=== PATIENT | male | born 1940 | race Caucasian/White ===

== ENCOUNTER → 2017-03-08 | Outpatient (CLI) | payer MEDICARE, OTHER ==
[~2017-03-08] MED LIST: ATOR10TA15 PO; COMB0.2S LEFT EYE; ENALAPRILAT 1.25 MG/ML VIAL ONE; GLIP5TAB8 PO; GLYB1TAB51; HYDR50TA5; LISI-515 PO; METF500T PO; METF850T; METO25TA6 PO; PIOG30TA4 PO; TOPR200T; ZOCO40TA; cloNIDine HCL 0.1 MG TAB ONE
[2017-03-08 13:23] LABS: HEMATOCRIT 37.8 % (39.0-51.0); MEAN CELL VOLUME 94.6 FL (80.0-100.0); MEAN CORPUSCULAR HEMOGLOBIN 32.1 PG (27.0-34.0); PLATELET COUNT 223 TH/MM3 (150-450); RED CELL DISTRIBUTION WIDTH 14.4 % (11.6-17.2); REVIEW FLAG FINAL; WHITE BLOOD COUNT 7.2 TH/MM3 (4.0-11.0)
[2017-03-08 13:40] LABS: BICARBONATE 33.3 MEQ/L (21.0-32.0); POTASSIUM 4.4 MEQ/L (3.5-5.1)
--- NOTE | 2017-03-08 14:58 | RADRPT ---
EXAM DATE/TIME: 03/08/2017 13:49 [place] COMPARISON: No previous studies available for comparison. INDICATIONS : Evaluate for pneumonia, pneumothorax, or communicable disease. Pre op for skin cancer surgery. MEDICAL HISTORY : None. SURGICAL HISTORY : None. ENCOUNTER: Initial ACUITY: 1 day PAIN SCORE: 0/10 LOCATION: Bilateral chest FINDINGS: There is patchy opacity within the right medial lung base consistent with atelectasis and/or infiltra te. Clinical correlation is recommended. The left lung is clear. The heart and mediastinal structure s are normal. The pulmonary vascular pattern is normal. CONCLUSION: Right medial basilar patchiness consistent with atelectasis and/or pneumonia. Clinical correlation is recommended. Fabián Juárez MD on March 08, 2017 at 14:54 Board Certified Radiologist. This report was verified electronically.
--- NOTE | 2017-03-09 19:34 | EKG ---
Date Performed: 03/08/2017 Time Performed: 13:14:27 PTAGE: 76 years EKG: Sinus rhythm Compared to prior tracing no significant change NORMAL ECG NO PREVIOUS TRACING DOCTOR: Darren Jaramillo Interpretating Date/Time 03/09/2017 19:32:15
== END ==
LOC: CPRE 12:44
PROVIDERS: ATTEND Plastic Surgery
DX: Z01.812 Encounter for preprocedural laboratory examination (principal); Z01.811 Encounter for preprocedural respiratory examination; Z01.810 Encounter for preprocedural cardiovascular examination; C44.02 Squamous cell carcinoma of skin of lip
CPT/HCPCS: 36415; 71020; 80051; 85027; 93005

== ENCOUNTER → 2017-03-09 | Day surgery (SDC) | payer MEDICARE, OTHER ==
--- NOTE | 2017-03-08 16:39 | MH ---
cc: GAUDENCIO CONROY M.D. 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 HISTORY OF PRESENT ILLNESS: This is a 76-year-old white male referred to my office from the dermatology office and primary care physician who had a recent biopsy done at the dermatology office on his lower lip which turned out to be a squamous cell carcinoma. The pathology report shows the date of biopsy January 12, 2017. The report was made on January 18, 2017; it does not specifically identify the border of the deep margins or give any further information than the presence of the squamous cell carcinoma. The patient says that he had the lip lesion off and on for approximately 5+ years. It has been frozen before. It has been shaved before and it always comes back. It is approximately 2-3 cm horizontal and covers most of the red mucosal part of the lip and also he says that there is a lesion involving the skin side right on the border as well. He did have a surgery done by an ENT surgeon in the past who went with a vertical wedge resection and closed the wound. The wound opened up and he had to have a second closure and third surgery by a plastic surgeon to repair the lip and this was all done in [facility]. The patient also had surgery on the left side of his neck, apparently a radical neck dissection and radiation therapy to cover metastatic disease in the lymph nodes, the information is not available through the patient but he does mention that they could not find a primary focus. Only the lymph nodes were treated. It is not clear if the lower lip lesion had anything to do with the lymph node business. The patient is a nonsmoker. 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 The patient does have additional numerous skin lesions both involving the head and neck and torso and extremities. These are all being handled by the dermatology office and will not be addressed through my office. The patient underwent a detailed discussion about his current condition, the technical of a direct excision with anywhere from 4-6 mm margin is possible and including the superficial layer of the orbicularis muscle in order to remove the deepest part of the lesion was explained. The vermilion border will be most likely removed as well due to the proximity of the lesion right at the border and also some degree of irregularity of the border itself suggesting the involvement of the skin side in the cancer process as well. The resulting defect is fairly wide. The patient already had a wedge excision done and he has difficulty opening his mouth and biting into a hamburger or any larger piece of food. He does not want to make the mouth any narrower than it already is. The different surgical techniques were discussed including a lip sharing operation which would essentially result in narrowing both upper and partly the lower lip, also a step design can be used on the outside soft tissues and the muscle for the lower lip with internal mucosal advancement flap without changing the horizontal dimension of the defect to any significant degree and the last two options being a mucosal graft full-thickness from the inside the mouth to the open areas on the lip itself and the possibility of using a full-thickness skin graft from the right or left neck or other body areas to provide a thicker soft tissue cover over the exposed denuded orbicularis rere muscle. The patient understands that the graft are not always successful and that there may be an open wound with further treatment and surgeries in the future. Currently the priority is to remove the ongoing and recurrent squamous cell carcinoma that he has. PAST MEDICAL HISTORY: The patient's past medical history is significant for a systolic murmur that seems to be diagnosed as aortic stenosis; he is not symptomatic. He says that he may have a had rheumatic sore throat as a child but again for his age, no medical record goes that far back. Other listed information I received from Dr. Ravi includes: 2. Type 2 diabetes. 3. Vitamin D deficiency 4. Hyperlipidemia. 5. Testicular hypofunction. 6. Retinal detachment. 7. Aortic valve disorder. 8. Carotid artery stenosis. 9. Peripheral vascular disease. 10. Actinic keratosis. 11. Skin cancers. 12. History of bone and articular disorders. 13. Arthritis. 14. Osteopenia. 15. Fatigue. 16. Previous history of hemoptysis. 17. History of multiple bruising. PAST SURGICAL HISTORY: 1. Multiple surgeries on the left eye for the retinal damage and bilateral cataracts in 2004. 2. 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 3. Removal of the lymph node dissection listed as 2006. MEDICATIONS: Current medications listed: 1. Atorvastatin. 2. Clotrimazole. 3. Combigan Eye Drops. 4. Doxycycline in the past. 5. Fluorouracil cream. 6. Glipizide tablets. 7. Lisinopril. 8. Metformin. 9. Moviprap. 10. Bacitracin Ointment. 11. Pioglitazone tablets. 12. Toprol XL. ALLERGIES: 1. PENICILLIN. 2. SULFA. REVIEW OF SYSTEMS: HEIGHT: He is 6 feet 1 inch tall. WEIGHT: 165 pounds. SOCIAL HISTORY: No current smoking. He smoked for a couple of years back in the 1960s and quit in 1964. Alcohol socially. No street drugs. No risk factors for hepatitis or HIV. No history of blood transfusions. No current cardiac issues. PHYSICAL EXAMINATION: GENERAL: Examination shows a 76-year-old white male with stable vital signs. The patient is alert, cooperative, fully oriented, emotionally stable, fully ambulatory by himself. HEAD AND NECK: Clear sclerae. Pupils are equal and round. Cataract lens is noted. No scleral discoloration. Trachea is midline. No gross thyromegaly. NECK: Neck movements are adequate for his age. Fairly long neck. CHEST: Good expansion with normal breathing. Normal heart sounds. Normal breath sounds. Presence of strong systolic murmur mostly in the aortic area and being conducted to the carotid arteries. Difficult to determine carotid bruit because of the background systolic murmur. EXTREMITIES: The upper and lower extremities are grossly intact. MUSCULOSKELETAL: No gross spine deformities. Local examination of the overall skin shows numerous skin lesions in various stages of growth and healing and also old scars. The particular local examination of the lower lip problem shows an irregular reddish-white mucosal lesion involving the approximately two-thirds of the entire lip mostly in the midline on the right and left sides. The corners of the mouth are somewhat clear. The lesion is approximately 2.0 to 2.3 cm horizontal and about 10 to 12 mm anteroposterior. The anterior border is involving the vermilion border itself. There is a surgical scar noted in the vertical orientation going down to the chin. The inside of the mouth seems to show relatively normal-looking mucosa. The upper lip is clear. No gross lymph nodes noted in the submandibular region. The neck tissues are somewhat firm to palpation due to the previous surgical changes and radiation therapy. CLINICAL IMPRESSION: Chronic and possibly multiple recurrent squamous cell carcinoma involving the lower lip. PLAN: The plan is to excise the entire area with frozen section control. The reconstruction may at this point be either with full thickness mucosal graft from inside the mouth or if the defect is large enough a full thickness skin graft. No immediate plan for any lip sparing operations. It may be necessary to do advancement of the lower lip soft tissues if the depth of the overall defect is excessive. The patient understands the possibility of graft failure, chronic open wound the deformities resulting from the same and the overall asymmetry and appearance mismatch that will result after the surgery from multiple future surgeries are also possible. The patient is willing to go ahead with the surgery. SIGNED, NOT FULLY REVIEWED MD ABNER Watson/FABIAN /3:25 PM /4:09 PM DELTA
[~2017-03-09] VITALS: Ht 185.4 cm; Wt 77.1 kg
[~2017-03-09] MED LIST changes: +*ENALAPRILAT 1.25 MG/ML VIAL PERIprocedural Use ONLY ONE; +ATORVASTATIN 10 MG TAB PO SCH; +BACITRACIN TOP OINT 15 GM TUBE ONE; +BRIMONIDINE TARTRATE 0.2% OPHT SOLN 5 ML BTL LEFT EYE SCH; +BUPIVACAINE HCL PF 0.5% 30 ML VIAL ONE; +BUPIVACAINE/EPINEPHRINE 0.25% PF 30 ML VIAL ONE; +CHLORHEXIDINE GLUCONATE 2 % 1 PACK (2 CLOTHS) TOPICAL PRN; +CLINDAMYCIN 600 MG/NS 100 ML IV SCH; +DEXAMETHASONE SOD PHOS 4 MG/ML VIAL ONE; +DEXTROSE 50% IN WATER 50 ML VIAL(D50) IV PUSH PRN; +DO NOT ADM ANY ANTICOAGULANT DRUGS PRN; -ENALAPRILAT 1.25 MG/ML VIAL ONE; +EPINEPHrine HCL (1:1000) 1 MG/ML VIAL ONE; +GLUCAGON 1 MG/ML VIAL OTHER PRN; -GLYB1TAB51; -HYDR50TA5; +INSULIN ASPART SUPPLEMENTAL SCALE SQ SCH; +INSULIN HUMAN REGULAR 1,000 UNITS/10 ML VIAL SQ PRN; +LACTATED RINGER'S 1000 ML INJ 1,000 ML IV ONE; +LACTATED RINGER'S 1000 ML IV PRN; +LIDOCAINE 1%/EPINEPHrine 1:100,000 SOLN 20 ML VIAL ONE; +LISINOPRIL 20 MG TAB PO SCH; -METF850T; +METOPROLOL SUCCINATE 25 MG EXTENDED RELEASE TAB PO SCH; +METOPROLOL TARTRATE 25 MG TAB PO PRN; +MIDAZOLAM HCL 2 MG/2 ML VIAL ONE; +MINERAL OIL 10 ML VIAL ONE; +MORPHINE SULFATE 4 MG/ML INJ ONE; +NEOMYCIN/POLYMYXIN/BACITRACIN OINT 15 GM TUBE ONE; +PIOGLITAZONE HCL 30 MG TAB PO SCH; +POVIDONE IODINE 5% (ANTISEPSIS KIT) 4 APPLICATIONS EACH NARE PRN; +PROPOFOL 200 MG/20 ML AMP IV ONE; +SODIUM BICARB 8.4% (PED) INJ 10 MEQ/10 ML SYR ONE; +SODIUM BICARBONATE 8.4% INJ 50 ML ONE; +SODIUM CHLORID 0.9% 500 ML IV PRN; +SODIUM CHLORIDE 0.9% INJ 100 ML ONE; +SODIUM CHLORIDE FLUSH BID IV FLUSH SCH; +SODIUM CHLORIDE FLUSH PRN IV FLUSH; +TIMOLOL MALEATE 0.5% OPHT SOLN 5 ML BTL LEFT EYE SCH; -TOPR200T; -ZOCO40TA; +ceFAZolin INJ 1,000 MG VIAL ONE; -cloNIDine HCL 0.1 MG TAB ONE; +cloNIDine HCL 0.2 MG TAB PO ONE; +cloNIDine HCL 0.2 MG TAB PO PRN; +glipiZIDE 5 MG TAB PO SCH; +hydrALAZINE HCL 20 MG/ML VIAL IV PUSH PRN; +metFORMIN HCL 500 MG TAB PO SCH
[2017-03-09 09:06] VITALS: BP 134/64; PULSE 58; RESP 18; TEMP 96.9; O2SAT 100
[2017-03-09 12:25] VITALS: TEMP 97.3
[2017-03-09 14:20] VITALS: PULSE 66; RESP 20; O2SAT 100
--- NOTE | 2017-03-09 16:13 | PD.CONS ---
HPI Service [facility] Consult Requested By Plastic surgery Reason for Consult Elevated blood pressure, uncontrolled hypertension Primary Care Physician Félix Cedillo Diagnoses: History of Present Illness 76-year-old man with a history of recent diagnosis of squamous cell carcinoma of the lower lip who underwent surgical operation by plastic surgery today. Postoperatively patient was found to have uncontrolled hypertension and states he has not taken his oral antihypertensive medications this morning.[facility] was consulted for management of uncontrolled hypertension. During my exam, patient denies any chest pain or shortness of breath. He has no chest pain. Review of Systems Other 12 systems reviewed and are negative except for the one mentioned in history of present illness Past Family Social History Allergies: Coded Allergies: Penicillin (Verified Allergy, Mild, Hives, 03/09/17) Sulfa (Verified Allergy, Mild, Hives, 03/09/17) Uncoded Allergies: FARXIGA (Allergy, Severe, Anorexia, 03/08/17) Past Medical History 2. Type 2 diabetes. 3. Vitamin D deficiency 4. Hyperlipidemia. 5. Testicular hypofunction. 6. Retinal detachment. 7. Aortic valve disorder. 8. Carotid artery stenosis. 9. Peripheral vascular disease. 10. Actinic keratosis. 11. Skin cancers. 12. History of bone and articular disorders. 13. Arthritis. 14. Osteopenia. 15. Fatigue. 16. Previous history of hemoptysis. 17. History of multiple bruising. Past Surgical History 1. Multiple surgeries on the left eye for the retinal damage and bilateral cataracts in 2004. 2. 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 3. Removal of the lymph node dissection listed as 2006. Reported Medications 1. Atorvastatin. 2. Clotrimazole. 3. Combigan Eye Drops. 4. Doxycycline in the past. 5. Fluorouracil cream. 6. Glipizide tablets. 7. Lisinopril. 8. Metformin. 9. Moviprap. 10. Bacitracin Ointment. 11. Pioglitazone tablets. 12. Toprol XL. Family History Noncontributory Social History Patient denies tobacco alcohol or easy drug intake. Physical Exam Vital Signs Vital Signs Date Time Temp Pulse Resp B/P Pulse Ox O2 Delivery O2 Flow Rate FiO2 03/09/17 15:49 188/91 03/09/17 14:50 182/80 186/82 03/09/17 14:20 66 20 195/78 100 200/87 03/09/17 13:20 66 20 195/86 100 Room Air 196/83 03/09/17 12:25 97.3 61 17 142/70 98 Room Air 03/09/17 09:06 96.9 58 18 134/64 100 Physical Exam GENERAL: This is a well-nourished, well-developed patient, in no apparent distress. SKIN: No rashes, ecchymoses or lesions. Cool and dry. HEAD: Atraumatic. Normocephalic. No temporal or scalp tenderness. EYES: Pupils equal round and reactive. Extraocular motions intact. No scleral icterus. No injection or drainage. ENT: Nose without bleeding, purulent drainage or septal hematoma. Throat without erythema, tonsillar hypertrophy or exudate. Uvula midline. Airway patent. Mouth: dressing to lower lip NECK: Trachea midline. No JVD or lymphadenopathy. Supple, nontender, no meningeal signs. CARDIOVASCULAR: Regular rate and rhythm with III/ JORDANA RESPIRATORY: Clear to auscultation. Breath sounds equal bilaterally. No wheezes , rales, or rhonchi. GASTROINTESTINAL: Abdomen soft, non-tender, nondistended. No hepato-splenomegaly , or palpable masses. No guarding. MUSCULOSKELETAL: Extremities without clubbing, cyanosis, or edema. No joint tenderness, effusion, or edema noted. No calf tenderness. Negative Homans sign bilaterally. NEUROLOGICAL: Awake and alert. Cranial nerves II through XII intact. Motor and sensory grossly within normal limits. Five out of 5 muscle strength in all muscle groups. Normal speech. Assessment and Plan Problem List: (1) Uncontrolled hypertension ICD Code: I10 Status: Acute Assessment and Plan 76 yrs old man with Uncontrolled Hypertension Start Clonidine 0.2mg Q6PRN for BP>160/90 Resume outpatient medications History of squamous cell carcinoma of the Lower lip Status post surgical excision by plastic surgery 03/09/17 Other chronic medical conditions: Patient will resume outpatient medication upon discharge Thank you for this consultation Code Status Full code Discussed Condition With Patient, , Fahad Scott MD Mar 09, 2017 16:13
[2017-03-09 16:30] VITALS: BP 162/84
--- NOTE | 2017-03-12 10:18 | MP ---
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 POSTOPERATIVE DIAGNOSIS: Chronic invasive squamous cell carcinoma of the lower lip border and mucosa. OPERATIVE PROCEDURE PERFORMED: Excision of 4.5 x 2.5 cm squamous cell carcinoma of the lower lip including vermilion border and mucosal side, reconstruction of the vermilion border with full-thickness skin graft from the right neck and reconstruction of the mucosal defect with a sliding advancement rectangular flap from inside the lip. SURGEON: Gaudencio Yates M.D. ANESTHESIA: General. INDICATIONS FOR THE PROCEDURE: This is a 76-year-old white male with longstanding recurrent or prolonged squamous cell carcinoma of the lower lip for over five years. He had freezing, shaving and multiple local treatments including a one-time wedge excision on the right side of the lower lip. The patient has a somewhat narrow mouth and the area of the involvement is quite widespread along the almost over two-thirds of the lip horizontal dimension. The patient was explained the several possible ways of reconstructing. He is not prepared for any lip switch operations or anything that narrows the mouth. The reconstruction using a combination of skin graft and mucosal graft was discussed and he wishes to proceed with that. The possibility of risks and complications including bleeding, infection, flap loss and future surgeries were pointed out and he was comfortable to go ahead. DESCRIPTION OF THE PROCEDURE IN DETAIL: The patient was brought to the operating room and was in the supine position. Anesthesia was started. Prep and drape was done. Time out was called and completed. The preoperative markings were reinforced taking about a 2 mm margin outside of the vermilion border and about 4 mm on either side and about 3 mm on the inside area. The overall excision is 4.5 cm horizontal and 2.5 cm anteroposterior. The area was injected with lidocaine 1% with epinephrine and sodium bicarb 1:1 mixture. It was filled with approximately 12 mL of fluid staying at the mucosal and muscle junction to provide a hydrodissection. The lesion was excised directly under the mucosal plane from the lateral aspect and then towards the center, particularly along the irregular parts of the lesion. The excision was deepened to include parts of the orbicularis rere fibers. The labial artery ends were clamped with hemostats when they were encountered. The rest of the area of bleeding was controlled with light Bovie while turning the oxygen off. The specimen was suture marked anterior midline and sent for frozen section. The surgery was continued in the meantime. A long strip of skin graft to full-thickness skin graft was harvested from the patient's right neck. He has a preexisting surgical scar that was used as the one side of the new donor site and about a 4 mm wide strip was taken. The graft was defatted and applied to the anterior border of the lip and it was sutured into the anterior border first and the corners were tied down. The inside the mouth two vertical lines were drawn going from each corner of the excisional defect straight down to the gingivolabial sulcus and then a marking was made in the sulcus itself. The area was injected with anesthetic again and about three to four minutes were allowed to elapse to let the epinephrine take effect and then the vertical lines were incised down to the gingivolabial sulcus. The incision was made in the gingivolabial sulcus. The incision was made in the gingivolabial sulcus as well and then starting from the backside, the mucosal flap was elevated keeping it as thick as possible and going straight down to the muscle for elevating the plane. About half of the anteroposterior dimension was raised from the posterior aspect. The anterior aspect was not touched at all. It was possible to advance the flap fairly evenly across the lip outline and a suturing was started going from the skin taking a bite of the orbicularis muscle border just outside of the skin edge margin to allow it to roll up a little bit and then taking the suture towards the mucosal side and tying it off. This allowed a slight swelling of the skin graft to create a more rounded vermilion border at the same time allowing the mucosal flap to advance and not pull the lip back. The front and the sides were sutured in the visible areas with Prolene and the inside areas were tacked with the 4-0 Vicryl interrupted sutures. The backside of the flap seemed to lie fairly well by itself against the teeth and there was no need for any additional suturing in this area except for the couple of tacking sutures to stabilize the flap. Frozen section report issued in the meantime indicated the presence of invasive and superficial squamous cell carcinoma and the margins were clear. The right side neck donor site was closed with deep inverting Vicryl sutures only and it was Steri-Stripped. The patient remained stable. Intraoperative blood loss was less than 5 to 10 mL. A Xeroform strip was folded upon itself and was placed over the skin graft and part of the mucosal flap and then few [id number] tacking sutures were used to fix the Xeroform to the lower lip. The patient was allowed to recover from the sedation and was returned to the recovery room in stable condition. No complications. SIGNED, NOT FULLY REVIEWED MD ABNER Watson/FABIAN /12:19 PM /10:06 AM DELTA
== END | disposition home or self-care (01) ==
LOC: HSDC 08:32
PROVIDERS: ATTEND Plastic Surgery
DX: C44.02 Squamous cell carcinoma of skin of lip (principal); I10 Essential (primary) hypertension; E11.9 Type 2 diabetes mellitus without complications; Z79.84 Long term (current) use of oral hypoglycemic drugs
CPT/HCPCS: 00300; 11644; 14041; 15260; 88305; 88331; J1100; J2250; J2270; J3010; J7120; J0171; J0690

== ENCOUNTER 2017-10-17 10:32 | Day surgery (SDC) | payer MEDICARE, OTHER ==
[~2017-10-17] VITALS: Ht 185.4 cm; Wt 77.3 kg
[~2017-10-17 10:32] MED LIST changes: -*ENALAPRILAT 1.25 MG/ML VIAL PERIprocedural Use ONLY ONE; -ATORVASTATIN 10 MG TAB PO SCH; -BACITRACIN TOP OINT 15 GM TUBE ONE; -BRIMONIDINE TARTRATE 0.2% OPHT SOLN 5 ML BTL LEFT EYE SCH; -BUPIVACAINE HCL PF 0.5% 30 ML VIAL ONE; -BUPIVACAINE/EPINEPHRINE 0.25% PF 30 ML VIAL ONE; -CHLORHEXIDINE GLUCONATE 2 % 1 PACK (2 CLOTHS) TOPICAL PRN; -CLINDAMYCIN 600 MG/NS 100 ML IV SCH; -DEXAMETHASONE SOD PHOS 4 MG/ML VIAL ONE; -DEXTROSE 50% IN WATER 50 ML VIAL(D50) IV PUSH PRN; -DO NOT ADM ANY ANTICOAGULANT DRUGS PRN; -EPINEPHrine HCL (1:1000) 1 MG/ML VIAL ONE; -GLUCAGON 1 MG/ML VIAL OTHER PRN; -INSULIN ASPART SUPPLEMENTAL SCALE SQ SCH; -INSULIN HUMAN REGULAR 1,000 UNITS/10 ML VIAL SQ PRN; -LACTATED RINGER'S 1000 ML INJ 1,000 ML IV ONE; -LACTATED RINGER'S 1000 ML IV PRN; -LIDOCAINE 1%/EPINEPHrine 1:100,000 SOLN 20 ML VIAL ONE; -LISINOPRIL 20 MG TAB PO SCH; +METO1TAB42 PO; -METO25TA6 PO; -METOPROLOL SUCCINATE 25 MG EXTENDED RELEASE TAB PO SCH; -METOPROLOL TARTRATE 25 MG TAB PO PRN; -MIDAZOLAM HCL 2 MG/2 ML VIAL ONE; -MINERAL OIL 10 ML VIAL ONE; -MORPHINE SULFATE 4 MG/ML INJ ONE; -NEOMYCIN/POLYMYXIN/BACITRACIN OINT 15 GM TUBE ONE; -PIOGLITAZONE HCL 30 MG TAB PO SCH; -POVIDONE IODINE 5% (ANTISEPSIS KIT) 4 APPLICATIONS EACH NARE PRN; -PROPOFOL 200 MG/20 ML AMP IV ONE; -SODIUM BICARB 8.4% (PED) INJ 10 MEQ/10 ML SYR ONE; -SODIUM BICARBONATE 8.4% INJ 50 ML ONE; -SODIUM CHLORID 0.9% 500 ML IV PRN; -SODIUM CHLORIDE 0.9% INJ 100 ML ONE; -SODIUM CHLORIDE FLUSH BID IV FLUSH SCH; -SODIUM CHLORIDE FLUSH PRN IV FLUSH; -TIMOLOL MALEATE 0.5% OPHT SOLN 5 ML BTL LEFT EYE SCH; -ceFAZolin INJ 1,000 MG VIAL ONE; -cloNIDine HCL 0.2 MG TAB PO ONE; -cloNIDine HCL 0.2 MG TAB PO PRN; -glipiZIDE 5 MG TAB PO SCH; -hydrALAZINE HCL 20 MG/ML VIAL IV PUSH PRN; -metFORMIN HCL 500 MG TAB PO SCH
[2017-10-17] MEDS ORDERED: IOHEXOL 350 MG/ML 50 ML BTL (for Cath Lab) OTHER ONE (10:33)
[2017-10-17 11:20] LABS: AUTOMATED NEUTROPHIL # 4.9 TH/MM3 (1.8-7.7); BASOPHIL % 0.7 % (0.0-2.0); EOSINOPHIL # 0.2 TH/MM3 (0-0.4); EOSINOPHIL % 2.9 % (0.0-4.0); HEMATOCRIT 39.3 % (39.0-51.0); HEMO FLAGS DIFF FINAL; LYMPH % 12.7 % (9.0-44.0); LYMPHOCYTE # 0.8 TH/MM3 (1.0-4.8); MEAN CELL VOLUME 94.6 FL (80.0-100.0); MEAN CORPUSCULAR HEMOGLOBIN 32.1 PG (27.0-34.0); MEAN CORPUSCULAR HGB CONC 33.9 % (32.0-36.0); NEUT % 73.7 % (16.0-70.0); PLATELET COUNT 213 TH/MM3 (150-450); RED BLOOD COUNT 4.15 MIL/MM3 (4.50-5.90); RED CELL DISTRIBUTION WIDTH 14.1 % (11.6-17.2); WHITE BLOOD COUNT 6.6 TH/MM3 (4.0-11.0)
[2017-10-17 11:22] VITALS: BP 144/70; PULSE 60; RESP 16; TEMP 97; O2SAT 95
[2017-10-17 11:32] LABS: APTT (PATIENT) 27.1 SEC (24.3-30.1); PROTHROMBIN TIME - PATIENT 10.7 SEC (9.8-11.6)
[2017-10-17 11:37] LABS: BICARBONATE 29.6 MEQ/L (21.0-32.0); POTASSIUM 3.9 MEQ/L (3.5-5.1)
[2017-10-17] MEDS ORDERED: NS 1000P @30 MLS/HR (KVO) IV SCH (12:00)
--- NOTE | 2017-10-17 12:40 | EKG ---
Date Performed: 10/17/2017 Time Performed: 11:25:14 PTAGE: 76 years EKG: Sinus rhythm . Normal ECG PREVIOUS TRACING : 03/08/2017 13.14 No significant change from prior electrocardiogram. DOCTOR: Richard Judd Interpretating Date/Time 10/17/2017 12:39:16
[2017-10-17] MEDS ORDERED: HEPARIN-NS/PF INJ 1,000 ML ONE (13:07)
[2017-10-17] MEDS ORDERED: MIDAZOLAM HCL 2 MG/2 ML VIAL ONE ×2 (13:08→13:59)
--- NOTE | 2017-10-17 14:32 | CATHPROC ---
[employer] HIS Report Study Information Study Number Admission Scheduled Start Study Start [id number] Oct 17 2017 10:32AM 10/17/2017 Oct 17 2017 1:04PM [place] [facility] Cardiac Catheterization Admit Source Facility Department Other [facility] - Business Info Consultant Physician and Clinical Staff Initial Chalino Abdalla Children'S Counselor Mimi Maravilla RN Children'S Counselor Mac Blanco,JUAN MIGUEL Recorder Angelina Beebe,(R) (BS) Scrub Hollis Aquino RCIS(BS) Procedures Performed Procedure Location (Site) Vessel Name Coronary Angiograms LCA Left Coronary LV Gram-hand inj. LV LV Ventricle Equipment Time Steam Hand Description Size Mfg Part Number Used/Scraped [id number] 13:19 RAMON ABDI SWAN BRII CATHETER FR 7 Used *[id number] TRANSDUCER, TRUWAVE [id number] 13:19 RAMON ABDI * Used W/STOCKCOCK *[id number] TRANSDUCER, TRUWAVE [id number] 13:19 RAMON ABDI * Used W/STOCKCOCK *[id number] INTRODUCER SET, 13:19 [employer] FR 5 [id number] *[id number] Used MICROPUNCTURE, STIFFENED 538-476 *[id number] 538-445 *[id number] 538-420 *[id number] 538-453S *[id number] INTRODUCER SET, 13:19 [place] FFT * [id number] Used MICROPUNCTURE [id number] 13:19 [facility] INDUSTRIES PACK, CCL CUSTOM * Used *[id number] 13:19 [employer] PACER PEN, SKIN DUAL W/ RULER * Used *[id number] 13:19 [employer] MEDICAL WIRE, 3MMJ .035 180CM 180CM Used *[id number] PROBE COVER, STERILE [id number] 13:19 [employer] * Used ULTRASOUND W/ GEL *[id number] 13:35 NAMIC MANIFOLD, 2 PORT * Used *[id number] 13:19 NAMIC MANIFOLD, 2 PORT * Used *[id number] 13:19 NAMIC MANIFOLD, 4 PORT * Used *[id number] 13:19 [employer]ED OMNIPAQUE, 350 MG, 150ML 150ML [id number] Used [id number] 13:19 [employer],WARM AIR CCL * Used *[id number] 13:19 TERUMO MEDICAL SHEATH, FR4 TERUMO (10CM) FR 4 Used *[id number] 13:19 TERUMO MEDICAL SHEATH, FR7 TERUMO (10CM) FR 7 Used *[id number] History: Current Medications Medication Dosage/Unit Route Frequency Last Date/Time Taken Beta Tawana Statins (any) History: Allergies Allergy Reaction Sulfa (Sulfonamide Antibiotics) Hives penicillin G Hives FARXIGA Anorexia exenatide History: Risk Factors Family History of Hypertension Dyslipidemia Previous TX Previous Heart Failure Premature CAD Yes Yes Yes No No Prior Valve Prior PCI Prior CABG Surgery No No No Cerebrovascular Peripheral Artery Chronic Lung On Dialysis Diabetes Diabetes Therapy Disease Disease Disease No Yes No No Yes Oral History: Stress Tests Stress or Imaging Studies Performed No History: Other Current Smoker Method Quit Packs a Day Years Used Pack Years No Cigarettes 50 Years Ago 2 3 6 Labs Hgb (g/dl) Hct (%) WBC (l/cumm) Platelets (thousands) 11.60-17.00 35.00-51.00 4.00-11.00 150.00-450.00 13.3 39.3 6.6 213 Glucose (mg/dl) BUN (mg/dl) Creatinine (mg/dl) BUN:Creatinine (1:x) 74.00-106.00 7.00-18.00 0.50-1.30 10.00-20.00 225 19 0.7 27.1 Na (meq/l) K (meq/l) 136.00-145.00 3.50-5.10 135 3.9 INR (PTT:PT) 0.90-1.10 1 CPK-MB (ng/ML) 0.50-3.60 Not Drawn Medication Medication Total Dose (Bolus/Oral) Medication Total Dosage/Unit 1% XYLOCAINE 20 mL FENTANYL 50 mcg VERSED 3 mg Medications (Bolus/Oral) Medication Time Given Dosage/Unit Administered By Reason VERSED 10/17/2017 1:35:23 PM 2 mg Mac Blanco 2 mg VERSED given in lab by Mac Blanco, RN in Left Antecubital via Peripheral IV. FENTANYL 10/17/2017 1:36:34 PM 50 mcg Mac Blanco 50 mcg FENTANYL given in lab by Mac Blanco RN in Left Antecubital via Peripheral IV. 1% XYLOCAINE 10/17/2017 1:37:11 PM 20 mL Chalino Bruno 20 mL 1% XYLOCAINE given in lab by Chalino Bruno in Right Groin via Subcutaneous. VERSED 10/17/2017 2:02:54 PM 1 mg Mac Blanco 1 mg VERSED given in lab by Mac Blanco, JUAN MIGUEL in Left Antecubital via Peripheral IV. Medication (Drip) Medication Time Given Dosage/Unit Concentration/Unit Diluent (ml) Solution IV Solutions 10/17/2017 1:10:45 PM 0 mL (IV) 500 NaCl .9 IV Solutions given in lab by Mimi Maravilla RN in Left Antecubital via Peripheral IV. Pump/Drip Flow = 30 ml/hr using NaCl .9. Initial Case Assessment Cardiovascular HR Rhythm NIBP Chest Pain 70 reg 176/84 0 Edema Present Skin color Skin None Normal Warm Dry Circulatory - Right Pulses Dorsalis Pedis Femoral 2 2 Scale (0,1,2,3,4,d) Circulatory - Left Pulses Dorsalis Pedis Femoral 2 2 Scale (0,1,2,3,4,d) Circulatory - Lower Extremities Color Lower Right Color Lower Left Normal Normal Neurological State Oriented to time-place- Alert Moves all extremities person Respiration - General Respiration Rate SpO2 (%) (B/min) 9 99 Chronological Log Time Study Chronological Log 13:04:16 Patient arrived via Bed. 13:04:23 Patient Name, D.O.B, / Armband Verified By R.N. 13:10:27 Consent signed by the physician and the patient and verified by the Business Info Consultant staff. 13:10:28 Pre-op and post- op instructions given; patient acknowledges understanding of instructions. 13:10:29 Verbal Stimulation=2 Physical Stimulation=2 Airway=2 Respiration=2 TOTAL=8. (0=absent, 1=li mited, 2=present) 13:10:31 Presedation assessment performed by Business Info Consultant RN. 13:10:34 Patient has been NPO for More than 6Hrs. 13:10:37 Skin Breakdown none per pt 13:10:38 Patient Warmer Placed on the Table. 13:10:42 Janice Prominences Protected 13:10:44 A # 20 IV was noted in the Antecubital (left). Grade = 0 IV Solutions given in lab by Hesher, Mimi, RN in Left Antecubital via Peripheral IV. Pump/Dri p Flow = 30 ml/hr using 13:10:45 NaCl .9. 13:10:46 History and physical on the chart or being dictated. Assessment: Initial Case, HR=70 BPM, Rhythm=reg, WDAP=378/84 mmhg, Chest Pain=0, Edema=None, Co laquita=Normal, Skin = Warm, Dry Right Pulses: Denzel Ped=2, Femoral=2 Left Pulses: Denzel Ped=2, Femoral=2 13:10:47 Lower Right Extremities: Color=Normal Lower Left Extremities: Color=Normal Neurological: State=Alert, Ox3, GRAVES Respiration: Resp=9 B/min, SpO2=99 % Vitals capture started with the following parameters, Patient=Adult, Interval=5 min, Initial Pr vskepi=637 mmHg, 13:11:01 Deflation Rate=5 mmHg, Cuff placed on Right Arm 13:11:41 HR=69 bpm, AVPW=432/84 mmhg, YaE1=799.0 %, Resp=32 B/min, Pain=0, Chinyere=10, Garcia=2 13:13:11 Reference ECG taken 13:15:13 Right groin prepped with 2% chlorhexidine, and draped after a 3 min. waiting time. 13:16:40 HR=72 bpm, CJRL=090/94 mmhg, WfE6=573.0 %, Resp=13 B/min, Pain=0, Chinyere=10, Garcia=2 13:17:22 MD paged 13:21:46 HR=73 bpm, FHVB=513/77 mmhg, GhB3=770.0 %, Resp=9 B/min, Pain=0, Chinyere=10, Garcia=2 13:26:43 HR=71 bpm, YCPR=069/85 mmhg, XvM3=143.0 %, Resp=10 B/min, Pain=0, Chinyere=10, Garcia=2 13:28:18 Pressure channel 1 zeroed. 13:31:44 HR=69 bpm, LNHW=244/83 mmhg, KzD4=488.0 %, Resp=7 B/min, Pain=0, Chinyere=10, Garcia=2 13:35:23 2 mg VERSED given in lab by Mac Blanco, RN in Left Antecubital via Peripheral IV. Time Out. Correct patient, correct procedure, correct physician, power injector not loaded with contrast with surgical 13:35:56 team present. Time Out Concurred by MD and individual staff in procedure. 13:36:08 Case Start 13:36:34 50 mcg FENTANYL given in lab by Mac Blanco RN in Left Antecubital via Peripheral IV. 13:36:41 HR=74 bpm, FUCH=807/107 mmhg, OsY4=556.0 %, Resp=11 B/min, Pain=0, Chinyere=10, Garcia=2 13:37:00 Pressure channel 2 zeroed. 13:37:11 20 mL 1% XYLOCAINE given in lab by Chalino Bruno in Right Groin via Subcutaneous. 13:41:03 Access site was Right Femoral Vein using ultrasound A INTRODUCER SET, MICROPUNCTURE, STIFFENED FR 5 was advanced into the Fem Vein (right) using th e 13:41:18 Percutaneous technique. A SHEATH, FR7 TERUMO (10CM) FR 7 was exchanged in the Fem Vein (right). This was necessary in o rder to 13:41:29 accomodate a larger catheter. 13:41:50 HR=65 bpm, TKMS=382/71 mmhg, SpO2=93.0 %, Resp=14 B/min, Pain=0, Chinyere=10, Garcia=2 13:42:17 Access site was Right Femoral Artery using ultrasound A INTRODUCER SET, MICROPUNCTURE, STIFFENED FR 5 was advanced into the Fem Art (right) using the 13:42:36 Percutaneous technique. A SHEATH, FR4 TERUMO (10CM) FR 4 was exchanged in the Fem Art (right). This was necessary in or david to 13:42:43 accomodate a larger catheter. 13:43:16 A SWAN BRII CATHETER FR 7 was inserted via Fem Vein (right) 13:46:39 HR=74 bpm, CSLR=204/66 mmhg, SpO2=96.0 %, Resp=16 B/min, Pain=0, Chinyere=10, Garcia=2 Recorded Pressure: PCW, HR=67, Condition=Condition 1 13:48:03 (Pulmonary Capillary Wedge) PCW Recorded Pressure: MPA, HR=64, Condition=Condition 1 13:48:25 (Main Pulmonary Artery) MPA 34/9/20 Thermo CO: CO=5.1 l/m, HR=64 bpm, Condition=Condition 1. Used in calculation. 13:50:01 Equipment: Description and Size=SWAN BRII CATHETER FR 7, Type=Bath Probe, CC=0.579 Injectant: Temp=19.0 - 22.0 Celsius, Volume=10.0 ml Thermo CO: CO=5.8 l/m, HR=63 bpm, Condition=Condition 1. Not used in calculation. 13:50:28 Equipment: Description and Size=SWAN BRII CATHETER FR 7, Type=Bath Probe, CC=0.579 Injectant: Temp=19.0 - 22.0 Celsius, Volume=10.0 ml Thermo CO: CO=5.0 l/m, HR=62 bpm, Condition=Condition 1. Used in calculation. 13:50:58 Equipment: Description and Size=SWAN BRII CATHETER FR 7, Type=Bath Probe, CC=0.579 Injectant: Temp=19.0 - 22.0 Celsius, Volume=10.0 ml Thermo CO: CO=5.1 l/m, HR=63 bpm, Condition=Condition 1. Used in calculation. 13:51:35 Equipment: Description and Size=SWAN BRII CATHETER FR 7, Type=Bath Probe, CC=0.579 Injectant: Temp=19.0 - 22.0 Celsius, Volume=10.0 ml 13:51:38 HR=64 bpm, TQWX=911/72 mmhg, SpO2=98.0 %, Resp=16 B/min, Pain=0, Chinyere=10, Garcia=2 13:53:03 Saturation: Site=PA (Pulmonary Artery) , O2=79.2 %, Hgb=13.3 gm/dl, Condition=Condition 1. Used in calculation. Recorded Pressure: RV, HR=67, Condition=Condition 1 13:53:47 (Right Ventricle) RV 36/5/7 Recorded Pressure: RA, HR=64, Condition=Condition 1 13:55:22 (Right Atrium) RA 8/4 13:56:05 Saturation: Site=RA (Right Atrium) , O2=79.4 %, Hgb=13.3 gm/dl, Condition=Condition 1. Used in calculation. 13:56:39 HR=69 bpm, ROWC=208/81 mmhg, SpO2=99.0 %, Resp=7 B/min, Pain=0, Chinyere=10, Garcia=2 13:57:34 Bowie Brii Catheter Removed 13:57:43 Saturation: Site=FA (Femoral Artery) , O2=96.9 %, Hgb=13.3 gm/dl, Condition=Condition 1. Us ed in calculation. A 3DRC INFINITI CATHETER FR 4 was advanced over a wire. OMNIPAQUE, 350 MG, 150ML 150ML was used for 13:58:24 injections. Recorded Pressure: Ao, HR=65, Condition=Condition 1 13:59:09 (Aorta) Ao 104/41/65 13:59:48 The LCA was injected and visualized at various angles. OMNIPAQUE, 350 MG, 150ML 150ML used . 14:01:44 HR=69 bpm, XTPS=909/75 mmhg, FcJ5=100.0 %, Resp=7 B/min, Pain=0, Chinyere=10, Garcia=2 14:02:07 Catheter was removed A 3DRC INFINITI CATHETER FR 4 was advanced over a wire. OMNIPAQUE, 350 MG, 150ML 150ML was used for 14:02:08 injections. 14:02:54 1 mg VERSED given in lab by Mac Blanco, RN in Left Antecubital via Peripheral IV. 14:04:29 Catheter was removed A AL 1 INFINITI CATHETER FR 4 was advanced over a wire. OMNIPAQUE, 350 MG, 150ML 150ML was used for 14:06:00 injections. 14:06:45 HR=67 bpm, TSTV=323/66 mmhg, SpO2=98.0 %, Resp=16 B/min, Pain=0, Chinyere=10, Garcia=2 Recorded Pressure: LV, HR=66, Condition=Condition 1 14:07:06 (Left Ventricle) LV 191/4/17 14:07:28 The LV was manually injected with 8 cc's and visualized. OMNIPAQUE, 350 MG, 150ML 150ML use d. Recorded Pressure: LV, Ao, HR=67, Condition=Condition 1 14:07:44 (Left Ventricle) LV 211/1/16, (Aorta) Ao 141/52/89 14:07:59 Catheter was removed 14:09:33 Case End 14:10:02 Catheter(s) removed without difficulty 14:10:06 No case complications noted. 14:10:10 Bedside Report will be given. 14:10:15 A Left and Right Heart Cath was performed. 14:12:15 HR=70 bpm, WKQM=921/77 mmhg, SpO2=99.0 %, Resp=15 B/min, Pain=0, Chinyere=10, Garcia=2 14:13:29 Sheath removed; pressure applied to access site artery 14:16:43 HR=62 bpm, LCEH=900/66 mmhg, SpO2=98.0 %, Resp=12 B/min, Pain=0, Chinyere=10, Garcia=2 14:20:53 Sheath removed; pressure applied to access site vein 14:21:40 HR=63 bpm, NCKH=926/73 mmhg, SpO2=99.0 %, Resp=9 B/min, Pain=0, Chinyere=10, Garcia=2 14:26:41 HR=60 bpm, WOTJ=315/72 mmhg, AeY9=860.0 %, Resp=11 B/min, Pain=0, Chinyere=10, Garcia=2 14:29:08 Sterile dressing applied to site 14:33:51 Patient moved to [facility] End Study - Contrast Media Used In Study Contrast Total Opened (mL) Total Used (mL) Total Wasted (mL) Omnipaque 50 50 0 End Study - Maximum Contrast Load Max Contrast Load (mL) 552.3 End Study - Radiation Exposure Fluoro Time (minutes) 5.4 End Study - Sheaths Sheaths Pulled By Sheath Hold Time (min) Hollis Aquino End Study - Patient Disposition Complications Transferred To Interventional Outcome No Business Info Consultant Holding No attempt made
--- NOTE | 2017-10-17 20:48 | MA ---
cc: CHALINO BRUNO M.D., RAJESH K. MD CARPENTER, DAVID, M.D. SHOEMAKER, JAMES R. D.O. HOLT, JOHN B. MD DATE: 10/17/2017 PROCEDURE: Right and left heart catheterization. INDICATION 1. Preoperative assessment for Dr. Orozco for carotid artery surgery. 2. Preoperative assessment for possible lung surgery Dr. Orozco, Dr. Reilly. 3. Possible aortic valve replacement. 4. Possible CABG. CONSENT: A full informed consent was obtained prior to the procedure. The risks of , bleeding, myocardial infarction, perforation, aspiration, foreseen and unforeseen complications were reviewed. The patient fully appeared to understand the risks. PROCEDURAL STATEMENTS: The patient was draped and prepped in the usual manner. The right femoral artery and vein were entered using a micropuncture technique. Via the 6 Slovak sheath, full right heart catheterization was performed including saturations and cardiac output. Via the 4 Slovak arterial sheath, left and right coronary catheters were used to intubate the left and right coronaries. A left Amplatz catheter was used to intubate the left ventricle. Multiple angiographic views were carried out. Left ventriculogram was performed. At the end of the procedure all catheters and sheaths were removed. Manual pressure was applied. The patient returned to his room in stable condition. FINDINGS Hemodynamics: The pulmonary capillary wedge pressure was 17/70 mmHg, the mean pulmonary pressure 34, nanometers 20. The right ventricular pressure 36 with a right ventricular end diastolic of 7. The right atrial pressure was 8/5 a mean of 4. The left ventricular pressure was 211, with a left ventricular end diastolic of 16, the aortic pressure was 141/52 with a mean of 89. Cardiac output was 5.1 liters per minute by thermodilution. It was higher by Adam. The aortic valve area was 0.5 cm squared and 0.26 cm squared was the aortic valve index. Saturation in the RA was 79.4, arterial saturation femoral artery was 96.9, pulmonary saturation was 79.2. LEFT VENTRICULOGRAM The overall left ventricular ejection fraction was estimated visually at 60%. There was no evidence significant mitral station or mural thrombus. The aortic valve was heavily calcified consistent with significant aortic stenosis. CORONARIES Left main was free of significant disease. Left anterior descending artery was a large vessel with evidence of diffuse 25% disease proximally. The first diagonal branch was large. It had diffuse 50% disease in this vessel. The main LAD had a very high-grade 95% stenosis it its proximal section. The first diagonal branch had an ostial 50% stenosis. The diagonal branch and ostial 40% stenosis. The right coronary artery was a large dominant vessel and had some diffuse 25-40% disease. There is a medium posterior descending artery, first posterolateral branch and small second and third posterolateral branches. CONCLUSION 1. Normal LV function. 1. Severe aortic stenosis with a valve area of 0.5 cm squared. 2. Severe LAD disease with a 95% stenosis. PLAN Bypass surgery to the LAD, aortic valve replacement and possible surgical removal of lung mass as per Dr. Orozco/Dr. Reilly. Chalino Bruno MD, FRCP,[facility] [place] /2:25 PM /7:57 PM
== END 2017-10-17 19:40 | disposition home or self-care (01) ==
LOC: HDOC 10:32 → HDIC 10:33 → HDOC 19:40
PROVIDERS: ATTEND Internal Medicine Cardiovascular Disease
DX: I35.0 Nonrheumatic aortic (valve) stenosis (principal); I25.10 Atherosclerotic heart disease of native coronary artery without angina pectoris; I10 Essential (primary) hypertension; E78.5 Hyperlipidemia, unspecified; I65.29 Occlusion and stenosis of unspecified carotid artery; E11.9 Type 2 diabetes mellitus without complications; Z79.84 Long term (current) use of oral hypoglycemic drugs; Z79.01 Long term (current) use of anticoagulants
CPT/HCPCS: 80048; 82810; 85025; 85610; 85730; 93005; 93460; 99152; 99153; C1769; C1893; J1644; J2250; J3010; Q9967

== ENCOUNTER 2017-12-21 16:55 | Emergency (ER) | payer MEDICARE, OTHER ==
[~2017-12-21] VITALS: Ht 185.4 cm; Wt 72.0 kg
[~2017-12-21 16:55] MED LIST changes: -AMIO200T PO; -COUM5TAB PO; -FURO1TAB62 PO; -METO25TA3 PO; -POTA10TA2 PO
[2017-12-21 16:57] VITALS: BP 216/98; PULSE 68; RESP 20; TEMP 98.4; O2SAT 96
--- NOTE | 2017-12-21 17:37 | PD ---
HPI Chief Complaint: Medical Clearance Time Seen by Provider: 17:29 Travel History International Travel<30 days: No Contact w/Intl Traveler<30days: No Traveled to known affect area: No History of Present Illness HPI 77-year-old male who underwent open heart surgery and valve replacement 1 month ago, presents to the emergency department for evaluation. Patient states that he was called by his facing end trimmer Dr. Bruno to come to the emergency department because his INR was 16.8 today. Patient tells me that this is a result of a medication misunderstanding. He was taking 2.5 mg of Coumadin on varying schedules as they were trying to regulate his INR. As of Sunday it was not therapeutic and they called him in a new prescription. They called him in 5 mg tablets and the patient continued to take them as he thought he was supposed to and not breaking them in half as they were intended to be. He tells me that he has had no signs of bleeding. No worsening of bruising. No headache or focal deficits or weakness. He has no other symptoms to report at this time. PFSH Past Medical History Hx Anticoagulant Therapy: Yes (coumadin) Cancer: Yes (skin) Cardiovascular Problems: Yes (HYPERCHOLESTEROLEMIA, CAROTID ARTERY STENOSIS, PVD, AORTIC VALVE DISORDER) High Cholesterol: Yes Diabetes: Yes Patient Takes Glucophage: No Endocrine: No Genitourinary: No Hepatitis: No Hiatal Hernia: No Hypertension: Yes Immune Disorder: No Medical other: No Musculoskeletal: Yes (OSTEOPENIA, ARTHRITIS, ) Neurologic: No Psychiatric: No Reproductive: No Respiratory: Yes (SHADOW ON CT X RAY, HEMOPTYSIS) Thyroid Disease: No Past Surgical History Abdominal Surgery: No AICD: No Cardiac Surgery: Yes (HEART CATH, VALVE REPLACEMENT ) Ear Surgery: No Endocrine Surgery: No Eye Surgery: Yes (L MULTI SURGERY, CATARACT SURGERY BOTH EYES) Genitourinary Surgery: No Gynecologic Surgery: No Joint Replacement: No Oral Surgery: Yes (TONSILECTOMY) Pacemaker: No Thoracic Surgery: No Other Surgery: Yes (LYMPH NODE REMOVAL 03/18/07) Social History Alcohol Use: No Tobacco Use: No Substance Use: No Allergies-Medications (Allergen,Severity, Reaction): Coded Allergies: Sulfa (Sulfonamide Antibiotics) (Verified Allergy, Mild, Hives, 12/21/17) penicillin G (Verified Allergy, Mild, Hives, 12/21/17) exenatide (Verified Allergy, Unknown, 12/21/17) Uncoded Allergies: FARXIGA (Allergy, Severe, Anorexia, 03/08/17) Reported Meds & Prescriptions Reported Meds & Active Scripts Active Reported Potassium Chloride ER (Potassium Chloride) 10 Meq Tab 20 Meq PO DAILY Lasix (Furosemide) 20 Mg Tab 20 Mg PO DAILY Coumadin (Warfarin) 5 Mg Tab 2.5 Mg PO DAILY Amiodarone (Amiodarone HCl) 200 Mg Tab 200 Mg PO BID Metoprolol Tartrate 25 Mg Tab 25 Mg PO DAILY Combigan Opth Drops (Brimonidine-Timolol Opth Drops) 0.2-0.5% Soln 1 Drop LEFT EYE Q12HR Atorvastatin (Atorvastatin Calcium) 10 Mg Tab 10 Mg PO HS Pioglitazone (Pioglitazone HCl) 30 Mg Tab 30 Mg PO DAILY Glipizide 5 Mg Tab 5 Mg PO BIDAC Take 30 minutes before a meal Metformin (Metformin HCl) 500 Mg Tab 500 Mg PO BIDPC With meals Review of Systems Except as stated in HPI: all other systems reviewed are Neg Physical Exam Narrative GENERAL: Well-nourished male patient in no acute distress. SKIN: Focused skin assessment warm/dry. Sternal incision site well approximated well-healing. There is a right lower extremity ob gyn physician assistant site on the medial aspect that is well approximated appears to be well healing. HEAD: Atraumatic. Normocephalic. EYES: Pupils equal and round. No scleral icterus. Injection of the left eye that is chronic for the patient. ENT: No nasal bleeding or discharge. Mucous membranes pink and moist. NECK: Trachea midline. No JVD. CARDIOVASCULAR: Regular rate and rhythm. RESPIRATORY: No accessory muscle use. Clear to auscultation. Breath sounds equal bilaterally. GASTROINTESTINAL: Abdomen soft, non-tender, nondistended. Hepatic and splenic margins not palpable. MUSCULOSKELETAL: No obvious deformities. No clubbing. No cyanosis. No edema. NEUROLOGICAL: Awake and alert. No obvious cranial nerve deficits. Motor grossly within normal limits. Normal speech. PSYCHIATRIC: Appropriate mood and affect; insight and judgment normal. Data Data Last Documented VS Vital Signs Date Time Temp Pulse Resp B/P (MAP) Pulse Ox O2 Delivery O2 Flow Rate FiO2 12/21/17 18:27 12/21/17 18:00 77 12/21/17 16:57 98.4 20 96 Room Air Orders Orders Phytonadione Liq (Mephyton Liq) (12/21/17 18:00) Ed Discharge Order (12/21/17 18:00) [facility] Medical Decision Making Medical Screen Exam Complete: Yes Emergency Medical Condition: Yes Medical Record Reviewed: Yes Differential Diagnosis Hypocoagulable state versus medication noncompliance versus active bleeding Narrative Course 77-year-old male presents to emergency department for evaluation. Patient's lab work from 3:00 today was reviewed. INR 16.8. He has no signs or symptoms of active bleeding. I have discussed this with my attending physician who advises 5 mg vitamin K by mouth. Patient is instructed to hold his Coumadin and have his INR rechecked on Sunday. He agrees to return immediately with any changes in mentation, headache, or signs or symptoms of bleeding. Diagnosis Primary Impression: Supratherapeutic INR Additional Impression: Elevated INR (international normalized ratio) due to prior anticoagulant medication ingestion Referrals: Mobile Sales Consultant Primary Care Physician Patient Instructions: Elevated INR (ED), General Instructions Additional Instructions: Do not take your Coumadin until you are instructed to by your facing end trimmer INR will need to be checked Sunday Return immediately to the emergency department with any signs of bleeding or worsening bruising. Return immediately to the emergency department if he developed acute onset headache Return immediately to the emergency department with any other acute worsening of symptoms. Med/Other Pt SpecificInfo: Med Stopped Disposition: 01 DISCHARGE HOME Condition: Stable NikoErinn HENLEY Dec 21, 2017 17:37
[2017-12-21] MEDS ORDERED: PHYTONADIONE 5 MG TAB PO ONE (17:45)
[2017-12-21 18:00] VITALS: BP 172/75; PULSE 77
[2017-12-21] MEDS ORDERED: PHYTONADIONE 5 MG/SWFI 5 ML ORAL SYR PO ONE (18:00)
[2017-12-21] MEDS ORDERED: AMIO200T PO (18:01)
[2017-12-21] MEDS ORDERED: METO25TA3 PO (18:01)
[2017-12-21] MEDS ORDERED: COUM5TAB PO (18:01)
[2017-12-21] MEDS ORDERED: FURO1TAB62 PO (18:01)
[2017-12-21] MEDS ORDERED: POTA10TA2 PO (18:01)
== END 2017-12-21 19:00 | disposition home or self-care (01) ==
LOC: NEPE 16:55
DX: R79.1 Abnormal coagulation profile (principal); E11.8 Type 2 diabetes mellitus with unspecified complications; I10 Essential (primary) hypertension; Z79.01 Long term (current) use of anticoagulants; I48.91 Unspecified atrial fibrillation
CPT/HCPCS: 99283

== ENCOUNTER → 2017-12-21 | Outpatient (CLI) | payer MEDICARE, OTHER ==
[~2017-12-21] MED LIST changes: +AMIO200T PO; +COUM5TAB PO; +FURO1TAB62 PO; +METO25TA3 PO; +POTA10TA2 PO
[2017-12-21 15:43] LABS: INTERNATIONAL NORMALIZED RATIO 16.8 RATIO
== END ==
LOC: CLAB 15:06
PROVIDERS: ATTEND Internal Medicine Cardiovascular Disease
DX: I48.91 Unspecified atrial fibrillation (principal)
CPT/HCPCS: 36415; 85610

== ENCOUNTER 2018-02-09 18:03 | Inpatient (IN) | payer MEDICARE, OTHER ==
[~2018-02-09] VITALS: Ht 185.4 cm; Wt 75.2 kg
[~2018-02-09 18:03] MED LIST changes: +AMIO200T PO; +COUM5TAB PO; +FURO1TAB62 PO; -LISI-515 PO; -METO1TAB42 PO; +METO25TA3 PO; +POTA10TA2 PO
[2018-02-09 18:25] VITALS: BP 231/112; PULSE 70; RESP 18; TEMP 97.9; O2SAT 96
--- NOTE | 2018-02-09 18:30 | PD ---
HPI Chief Complaint: Fall Time Seen by Provider: 18:26 Travel History International Travel<30 days: No Contact w/Intl Traveler<30days: No Traveled to known affect area: No History of Present Illness HPI 77-year-old male presents emergency department via [facility] after fall that occurred just prior to arrival. Patient states that he was working on his pool when he lost his balance and fell backwards landing on the back of his head. Patient denies loss consciousness, dizziness, blurred vision. 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 He denies fever , chills, chest pain, shortness breath, abdominal pain, back pain, leg pain. Says he has a history of atrial fibrillation and takes Coumadin daily. Says he has a loop recorder placed for evaluation of his atrial fibrillation. Says he had a CABG in October. PFSH Past Medical History Hx Anticoagulant Therapy: Yes (coumadin) Cancer: Yes (skin) Cardiovascular Problems: Yes (HYPERCHOLESTEROLEMIA, CAROTID ARTERY STENOSIS, PVD, AORTIC VALVE DISORDER) High Cholesterol: Yes Diabetes: Yes Endocrine: No Genitourinary: No Hepatitis: No Hiatal Hernia: No Hypertension: Yes Immune Disorder: No Musculoskeletal: Yes (OSTEOPENIA, ARTHRITIS, ) Neurologic: No Psychiatric: No Reproductive: No Respiratory: Yes (SHADOW ON CT X RAY, HEMOPTYSIS) Thyroid Disease: No Past Surgical History Abdominal Surgery: No AICD: No Cardiac Surgery: Yes (HEART CATH, VALVE REPLACEMENT ) Ear Surgery: No Endocrine Surgery: No Eye Surgery: Yes (L MULTI SURGERY, CATARACT SURGERY BOTH EYES) Genitourinary Surgery: No Gynecologic Surgery: No Joint Replacement: No Oral Surgery: Yes (TONSILECTOMY) Pacemaker: No Thoracic Surgery: No Other Surgery: Yes (LYMPH NODE REMOVAL 03/18/07) Social History Alcohol Use: No Tobacco Use: No Substance Use: No Allergies-Medications (Allergen,Severity, Reaction): Coded Allergies: Sulfa (Sulfonamide Antibiotics) (Verified Allergy, Mild, Hives, 02/09/18) penicillin G (Verified Allergy, Mild, Hives, 02/09/18) exenatide (Verified Allergy, Unknown, 02/09/18) Uncoded Allergies: FARXIGA (Allergy, Severe, Anorexia, 03/08/17) Reported Meds & Prescriptions Reported Meds & Active Scripts Active Reported Coumadin (Warfarin) 5 Mg Tab 2.5 Mg PO DAILY Amiodarone (Amiodarone HCl) 200 Mg Tab 200 Mg PO BID Metoprolol Tartrate 25 Mg Tab 25 Mg PO DAILY Combigan Opth Drops (Brimonidine-Timolol Opth Drops) 0.2-0.5% Soln 1 Drop LEFT EYE Q12HR Atorvastatin (Atorvastatin Calcium) 10 Mg Tab 10 Mg PO HS Pioglitazone (Pioglitazone HCl) 30 Mg Tab 30 Mg PO DAILY Glipizide 5 Mg Tab 5 Mg PO BIDAC Take 30 minutes before a meal Metformin (Metformin HCl) 500 Mg Tab 500 Mg PO BIDPC With meals Review of Systems Except as stated in HPI: all other systems reviewed are Neg Physical Exam Narrative GENERAL: Well developed, well-nourished no apparent distress SKIN: Focused skin assessment warm/dry. HEAD: Normocephalic. abrasion to posterior scalp. EYES: Pupil equal and round. No scleral icterus. No injection or drainage. Left eye is blind. EOMI ENT: No nasal bleeding or discharge. Mucous membranes pink and moist. NECK: Trachea midline. No JVD. in c-collar CARDIOVASCULAR: Regular rate and rhythm. No murmur appreciated. RESPIRATORY: No accessory muscle use. Clear to auscultation. Breath sounds equal bilaterally. GASTROINTESTINAL: Abdomen soft, non-tender, nondistended. MUSCULOSKELETAL: No obvious deformities. No clubbing. No cyanosis. No edema. BACK: No CVA tenderness. No rash. Tender to palpation to the lower thoracic upper thoracic spine. No step-offs or deformities NEUROLOGICAL: Awake and alert. No obvious cranial nerve deficits. Motor grossly within normal limits. Normal speech. PSYCHIATRIC: Appropriate mood and affect; insight and judgment normal. Data Data Last Documented VS Vital Signs Date Time Temp Pulse Resp B/P (MAP) Pulse Ox O2 Delivery O2 Flow Rate FiO2 02/09/18 20:45 75 18 135/62 (86) Room Air 02/09/18 19:34 97 02/09/18 18:25 97.9 Orders Orders Complete Blood Count With Diff (02/09/18 18:26) Prothrombin Time / Inr (Pt) (02/09/18 18:26) Act Partial Throm Time (Ptt) (02/09/18 18:26) Spine, Lumbar - Ltd (Ap & Lat) (02/09/18 18:26) Spine, Thoracic-Ap/Lat/Sw(3vw) (3/24/18 18:26) Ct Brain W/O Iv Contrast(Rout) (02/09/18 18:26) Ct Cerv Spine W/O Contrast (02/09/18 18:26) Iv Access Insert/Monitor (02/09/18 18:26) Ecg Monitoring (02/09/18 18:26) Oximetry (02/09/18 18:26) Oxygen Administration (02/09/18 18:26) Remove Backboard (02/09/18 18:26) Magnesium (Mg) (02/09/18 18:26) Troponin I (02/09/18 18:26) Basic Metabolic Panel (Bmp) (02/09/18 18:26) Electrocardiogram (02/09/18 ) Hydralazine Inj (Apresoline Inj) (02/09/18 18:45) Admit Order (Ed Use Only) (02/09/18 20:46) Labs Laboratory Tests Test 02/09/18 18:40 White Blood Count 10.3 TH/MM3 Red Blood Count 4.41 MIL/MM3 Hemoglobin 13.1 GM/DL Hematocrit 38.7 % Mean Corpuscular Volume 87.7 FL Mean Corpuscular Hemoglobin 29.7 PG Mean Corpuscular Hemoglobin Concent 33.8 % Red Cell Distribution Width 18.1 % Platelet Count 215 TH/MM3 Mean Platelet Volume 8.9 FL Neutrophils (%) (Auto) 84.8 % Lymphocytes (%) (Auto) 7.2 % Monocytes (%) (Auto) 6.9 % Eosinophils (%) (Auto) 0.8 % Basophils (%) (Auto) 0.3 % Neutrophils # (Auto) 8.8 TH/MM3 Lymphocytes # (Auto) 0.7 TH/MM3 Monocytes # (Auto) 0.7 TH/MM3 Eosinophils # (Auto) 0.1 TH/MM3 Basophils # (Auto) 0.0 TH/MM3 CBC Comment DIFF FINAL Differential Comment Prothrombin Time 43.2 SEC Prothromb Time International Ratio 4.3 RATIO Activated Partial Thromboplast Time 37.3 SEC Blood Urea Nitrogen 16 MG/DL Creatinine 0.78 MG/DL Random Glucose 279 MG/DL Calcium Level 8.8 MG/DL Magnesium Level 2.1 MG/DL Sodium Level 135 MEQ/L Potassium Level 4.6 MEQ/L Chloride Level 100 MEQ/L Carbon Dioxide Level 28.6 MEQ/L Anion Gap 6 MEQ/L Estimat Glomerular Filtration Rate 96 ML/MIN Troponin I LESS THAN 0.02 NG/ML MDM Medical Decision Making Medical Screen Exam Complete: Yes Emergency Medical Condition: Yes Differential Diagnosis Scalp laceration, scalp contusion, ICH Narrative Course 77-year-old male presents emergency room via [facility] after fall that occurred just prior to arrival. Patient states he was working on his pool when he lost his balance and fell backwards landing on his head. Denies loss of consciousness, numbness, tingling, or vision. Patient is rather hypertensive at 231/112, HR 75 Labs and imaging studies ordered. PE- scalp abrasion, bleeding controlled, left eye blind, no neuro deficits CBC & BMP Diagram 02/09/18 18:40 Calcium Level 8.8, Magnesium Level 2.1 INR 4.3. Hydralazine 20 mg IV administered for blood pressure control. Head CT shows "possible small deep right temporal hemorrhage. I have no prior films comparison to exclude calcification. Follow-up CT scan in 24 hours would benefit." Since there is a concern for a intracranial hemorrhage and there is a stable supratherapeutic INR, placed call to neurosurgery. Placed multiple calls to neurosurgery, will go ahead and admit to underwater hunter trapper, Dr. Yi. Will avoid reversing INR for now. Hold coumadin. Monitor for changes. I spoke with Dr. Turk regarding this patient. He recommended reversal with FFP and Vitamin K. Medications ordered and notified Dr. Yi of neurosurg recommendations. He is evaluating patient as of admission. Physician Communication Physician Communication I spoke with Dr. Turk is states that he would review the imaging studies and call back. I advised that he I did admit him to the unit to Dr. Stone. Diagnosis Primary Impression: Uncontrolled hypertension Additional Impressions: Supratherapeutic INR ICH (intracerebral hemorrhage) Qualified Codes: S06.340A - Traumatic hemorrhage of right cerebrum without loss of consciousness, initial encounter Admitting Information Admitting Physician Requests: Admit Condition: Stable Paola Lopez Feb 09, 2018 18:30
[2018-02-09 18:39] VITALS: RESP 18; O2SAT 95
[2018-02-09] MEDS ORDERED: hydrALAZINE HCL 20 MG/ML VIAL IV PUSH ONE (18:45)
--- NOTE | 2018-02-09 19:13 | RADRPT ---
EXAM DATE/TIME: 02/09/2018 18:44 [facility] COMPARISON: No previous studies available for comparison. INDICATIONS : Trauma. Fall. RADIATION DOSE: 66.34 CTDIvol (mGy) MEDICAL HISTORY : Cardiovascular disease. Hypertension. Diabetes mellitus type 2.Detached left eye retina SURGICAL HISTORY : None. ENCOUNTER: Initial ACUITY: 1 day PAIN SCALE: 5/10 LOCATION: cranial TECHNIQUE: Multiple contiguous axial images were obtained of the head. Using automated exposure control and adj ustment of the mA and/or kV according to patient size, radiation dose was kept as low as reasonably a chievable to obtain optimal diagnostic quality images. DICOM format image data is available electro nically for review and comparison. FINDINGS: There is small focal increased density involving the deep medial right temporal lobe that could be sm all hemorrhage. There are extra-axial fluid collections appreciated. Ventricular size is appropriat e. Posterior fossa is normal. Scleral banding on the left CONCLUSION: Possible small deep right temporal hemorrhage. I have no prior films comparison to e xclude calcification. Followup CT scan in 24 hours would be of benefit.. Tony Watkins MD FACR on February 09, 2018 at 19:09 Board Certified Radiologist. This report was verified electronically.
--- NOTE | 2018-02-09 19:14 | RADRPT ---
EXAM DATE/TIME: 02/09/2018 18:49 [facility] COMPARISON: No previous studies available for comparison. INDICATIONS : Trauma due to fall. MEDICAL HISTORY : None. SURGICAL HISTORY : CABG. ENCOUNTER: Initial ACUITY: 1 day PAIN SCORE: 0/10 LOCATION: Thoracic spine. FINDINGS: Scoliosis is evident. Moderate degenerative changes are noted. There is no acute compression. Ster nal wires from previous bypass are evident. . CONCLUSION: Mild scoliosis convexity to the left negative for acute compression. Tony Watkins MD FACR on February 09, 2018 at 19:11 Board Certified Radiologist. This report was verified electronically.
--- NOTE | 2018-02-09 19:16 | RADRPT ---
EXAM DATE/TIME: 02/09/2018 18:51 [facility] COMPARISON: No previous studies available for comparison. INDICATIONS : Trauma due to fall. MEDICAL HISTORY : None. SURGICAL HISTORY : CABG. Monitor. ENCOUNTER: Initial ACUITY: 1 day PAIN SCORE: 0/10 LOCATION: L-spine FINDINGS: Two view examination was performed. There are five non-rib bearing vertebral bodies. The vertebral bodies are in normal alignment without evidence of subluxation or scoliosis. The disc spaces are shira ntained. The pedicles are intact. Bony mineralization is normal. No fracture is identified. Degen erative changes are present at L5-S1. CONCLUSION: Negative for acute compression Tony Watkins MD FACR on February 09, 2018 at 19:12 Board Certified Radiologist. This report was verified electronically.
[2018-02-09 19:30] LABS: AUTOMATED NEUTROPHIL # 8.8 TH/MM3 (1.8-7.7); BASOPHIL % 0.3 % (0.0-2.0); EOSINOPHIL # 0.1 TH/MM3 (0-0.4); EOSINOPHIL % 0.8 % (0.0-4.0); HEMATOCRIT 38.7 % (39.0-51.0); HEMOGLOBIN 13.1 GM/DL (13.0-17.0); LYMPH % 7.2 % (9.0-44.0); LYMPHOCYTE # 0.7 TH/MM3 (1.0-4.8); MEAN CELL VOLUME 87.7 FL (80.0-100.0); MEAN CORPUSCULAR HEMOGLOBIN 29.7 PG (27.0-34.0); MEAN CORPUSCULAR HGB CONC 33.8 % (32.0-36.0); MEAN PLATELET VOLUME 8.9 FL (7.0-11.0); MONO % 6.9 % (0.0-8.0); MONOCYTE # 0.7 TH/MM3 (0-0.9); NEUT % 84.8 % (16.0-70.0); PLATELET COUNT 215 TH/MM3 (150-450); RED BLOOD COUNT 4.41 MIL/MM3 (4.50-5.90); RED CELL DISTRIBUTION WIDTH 18.1 % (11.6-17.2); WHITE BLOOD COUNT 10.3 TH/MM3 (4.0-11.0)
[2018-02-09 19:34] VITALS: BP 158/72; PULSE 58; RESP 14; O2SAT 97
[2018-02-09 19:40] LABS: INTERNATIONAL NORMALIZED RATIO 4.3 RATIO; PROTHROMBIN TIME - PATIENT 43.2 SEC (9.8-11.6)
--- NOTE | 2018-02-09 19:44 | RADRPT ---
EXAM DATE/TIME: 02/09/2018 18:44 [facility] COMPARISON: No previous studies available for comparison. INDICATIONS : Trauma. Fall with neck pain. RADIATION DOSE: 18.99 CTDIvol (mGy) MEDICAL HISTORY : Cardiovascular disease. Hypertension. Diabetes mellitus type 2. SURGICAL HISTORY : None. ENCOUNTER: Initial ACUITY: 1 day PAIN SCALE: 6/10 LOCATION: neck TECHNIQUE: Volumetric scanning of the cervical spine was performed. Multiplanar reconstructions in the sagittal, coronal and oblique axial planes were performed. Using automated exposure control and adjustment o f the mA and/or kV according to patient size, radiation dose was kept as low as reasonably achievable to obtain optimal diagnostic quality images. DICOM format image data is available electronically f or review and comparison. FINDINGS: Degenerative changes are seen at C1-C2. C2-C3: The bony spinal canal is normal in size. No evidence of disc bulge or herniation. The neural forami na are bilaterally patent. C3-C4: Moderate uncinate ridging is present with left-sided neural foramina encroachment. Spinal stenosis i s mild C4-C5: Moderate spinal stenosis is present with a large central uncinate ridge. Bilateral thumb encroachmen t C5-C6: Moderate uncinate ridging and right sided neural foramina encroachment C6-C7: The bony spinal canal is normal in size. No evidence of disc bulge or herniation. The neural forami na are bilaterally patent. C7-T1: The bony spinal canal is normal in size. No evidence of disc bulge or herniation. The neural forami na are bilaterally patent. CONCLUSION: Negative for fracture. Radiographic significant spinal stenosis C4-C5. Tony Watkins MD FACR on February 09, 2018 at 19:39 Board Certified Radiologist. This report was verified electronically.
[2018-02-09 19:49] LABS: TROPONIN I LESS THAN 0.02 NG/ML (0.02-0.05)
[2018-02-09 19:51] LABS: BICARBONATE 28.6 MEQ/L (21.0-32.0); BLOOD UREA NITROGEN 16 MG/DL (7-18); CALCIUM 8.8 MG/DL (8.5-10.1); CHLORIDE 100 MEQ/L (98-107); CREATININE 0.78 MG/DL (0.60-1.30); GLOMERULAR FILTRATION RATE 96 ML/MIN (>89); GLUCOSE,RANDOM 279 MG/DL (74-106); MAGNESIUM 2.1 MG/DL (1.5-2.5); SODIUM (NA) 135 MEQ/L (136-145)
[2018-02-09 20:45] VITALS: BP 135/62; PULSE 75; RESP 18
[2018-02-09] MEDS ORDERED: LACTULOSE SYRUP 20 GM/30 ML CUP PO PRN (22:00)
[2018-02-09] MEDS ORDERED: ACETAMINOPHEN 325 MG TAB PO PRN (22:00)
[2018-02-09] MEDS ORDERED: TEMAZEPAM 15 MG CAP PO PRN (22:00)
[2018-02-09] MEDS ORDERED: MORPHINE SULFATE 4 MG/ML INJ IV PUSH PRN (22:00)
[2018-02-09] MEDS ORDERED: CHLORHEXIDINE GLUCONATE 2 % 1 PACK (2 CLOTHS) TOP PRN (22:00)
[2018-02-09] MEDS ORDERED: BISACODYL 10 MG SUPP RECTAL PRN (22:00)
[2018-02-09] MEDS ORDERED: ONDANSETRON HCL 4 MG/2 ML VIAL IV PUSH PRN (22:00)
[2018-02-09] MEDS ORDERED: MISCELLANEOUS NURSING INFORMATION XX SCH (22:00)
[2018-02-09] MEDS ORDERED: SENNOSIDES 8.6 MG TAB PO PRN (22:00)
[2018-02-09] MEDS ORDERED: MAGNESIUM HYDROXIDE SUSP 30 ML CUP PO PRN (22:00)
[2018-02-09] MEDS ORDERED: SODIUM CHLORIDE 0.9% FLUSH 10 ML FLUSH IV FLUSH PRN (22:00)
[2018-02-09] MEDS ORDERED: RESP: ALBUTEROL 2.5 MG/IPRATROPIUM 0.5 MG NEB (PRN) INH (22:00)
[2018-02-09] MEDS: SODIUM CHLOR 0.9% 1000 ML INJ 1,000 ML IV SCH (22:07)
--- NOTE | 2018-02-09 22:14 | HHI.HP ---
[facility] Service Critical Care Medicine Primary Care Physician Félix Felder Ravi Admission Diagnosis Possible ICH, supratherapeutic INR Diagnosis: Travel History International Travel<30 Days: No Contact w/Intl Traveler <30 Da: No Traveled to Known Affected Are: No History of Present Illness 77-year-old male presents emergency department via [facility] after fall that occurred just prior to arrival. Patient was working on his pool when he lost his balance and fell backwards landing on the back of his head. He denies loss consciousness, dizziness, blurred vision. 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 He denies fever, chills, chest pain, shortness breath, abdominal pain, back pain, leg pain. Says he has a history of atrial fibrillation and takes Coumadin daily. Says he has a loop recorder placed for evaluation of his atrial fibrillation and he had a CABG in October. His INR in the emergency department was 4.[address] of the head shows possible small deep right temporal hemorrhage. Review of Systems Constitutional: DENIES: Diaphoretic episodes, Fatigue, Fever, Weight gain, Weight loss, Chills, Dizziness, Change in appetite, Night Sweats Endocrine: DENIES: Heat/cold intolerance, Polydipsia, Polyuria, Polyphagia Eyes: DENIES: Blurred vision, Diplopia, Eye inflammation, Eye pain, Vision loss , Photosensitivity, Double Vision Ears, nose, mouth, throat: DENIES: Tinnitus, Hearing loss, Vertigo, Nasal discharge, Oral lesions, Throat pain, Hoarseness, Ear Pain, Running Nose, Epistaxis, Sinus Pain, Toothache, Odynophagia Respiratory: DENIES: Apneas, Cough, Snoring, Wheezing, Hemoptysis, Sputum production, Shortness of breath Cardiovascular: DENIES: Chest pain, Palpitations, Syncope, Dyspnea on Exertion , PND, Lower Extremity Edema, Orthopnea, Claudication Gastrointestinal: DENIES: Abdominal pain, Black stools, Bloody stools, Constipation, Diarrhea, Nausea, Vomiting, Difficulty Swallowing, Anorexia Genitourinary: DENIES: Sexual dysfunction, Urinary frequency, Urinary incontinence, Urgency, Hematuria, Dysuria, Nocturia, Penile Discharge, Testicular Pain, Testicular Swelling Musculoskeletal: DENIES: Joint pain, Muscle aches, Stiffness, Joint Swelling, Back pain, Neck pain Integumentary: DENIES: Abnormal pigmentation, Nail changes, Pruritus, Rash Hematologic/lymphatic: DENIES: Bruising, Lymphadenopathy Immunologic/allergic: DENIES: Eczema, Urticaria Neurologic: DENIES: Abnormal gait, Headache, Localized weakness, Paresthesias, Seizures, Speech Problems, Tremor, Poor Balance Psychiatric: DENIES: Anxiety, Confusion, Mood changes, Depression, Hallucinations, Agitation, Suicidal Ideation, Homicidal Ideation, Delusions Past Family Social History Allergies: Coded Allergies: Sulfa (Sulfonamide Antibiotics) (Verified Allergy, Mild, Hives, 02/09/18) penicillin G (Verified Allergy, Mild, Hives, 02/09/18) exenatide (Verified Allergy, Unknown, 02/09/18) Uncoded Allergies: FARXIGA (Allergy, Severe, Anorexia, 03/08/17) Past Medical History Type 2 diabetes. Vitamin D deficiency Hyperlipidemia. Testicular hypofunction. Retinal detachment. Aortic valve disorder. Carotid artery stenosis. Peripheral vascular disease Actinic keratosis. Skin cancers. History of bone and articular disorders. Arthritis. Osteopenia. Past Surgical History Multiple surgeries on the left eye for the retinal damage and bilateral cataracts in 2004. 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 Removal of the lymph node dissection listed as 2006 CABG Reported Medications Reported Meds & Active Scripts Active Reported Coumadin (Warfarin) 5 Mg Tab 2.5 Mg PO DAILY Amiodarone (Amiodarone HCl) 200 Mg Tab 200 Mg PO BID Metoprolol Tartrate 25 Mg Tab 25 Mg PO DAILY Combigan Opth Drops (Brimonidine-Timolol Opth Drops) 0.2-0.5% Soln 1 Drop LEFT EYE Q12HR Atorvastatin (Atorvastatin Calcium) 10 Mg Tab 10 Mg PO HS Pioglitazone (Pioglitazone HCl) 30 Mg Tab 30 Mg PO DAILY Glipizide 5 Mg Tab 5 Mg PO BIDAC Take 30 minutes before a meal Metformin (Metformin HCl) 500 Mg Tab 500 Mg PO BIDPC With meals Active Ordered Medications Current Medications Medications (Trade) Dose Ordered Sig/Rosemarie Route PRN Reason Start Time Stop Time Status Last Admin Dose Admin Amiodarone HCl (Cordarone) 200 mg BID PO 02/10/18 09:00 Atorvastatin Calcium (Lipitor) 10 mg HS PO 02/10/18 21:00 Metoprolol Tartrate (Lopressor) 25 mg DAILY PO 02/10/18 09:00 Non-Formulary Medication 1 drop Q12HR LEFT EYE 02/10/18 09:00 UNV Family History No family history significant of ICH Social History Denies tobacco, alcohol, or illicit drug abuse Physical Exam Vital Signs Vital Signs Date Time Temp Pulse Resp B/P (MAP) Pulse Ox O2 Delivery O2 Flow Rate FiO2 02/09/18 20:45 75 18 135/62 (86) Room Air 02/09/18 19:34 58 14 158/72 (100) 97 Room Air 02/09/18 18:39 18 95 Room Air 02/09/18 18:30 70 18 96 Room Air 02/09/18 18:25 97.9 70 18 231/112 (151) 96 Physical Exam GENERAL: Well-nourished, well-developed patient. SKIN: Warm and dry. HEAD: Normocephalic. EYES: No scleral icterus. No injection or drainage. NECK: Supple, trachea midline. No JVD or lymphadenopathy. CARDIOVASCULAR: Regular rate and rhythm without murmurs, gallops, or rubs. RESPIRATORY: Breath sounds equal bilaterally. No accessory muscle use. GASTROINTESTINAL: Abdomen soft, non-tender, nondistended. MUSCULOSKELETAL: No cyanosis, or edema. BACK: Nontender without obvious deformity. NEURO EXAM: GCS: 15 Mental Status: The patient is alert and oriented to person, place, and time with normal speech. Cranial Nerves: Visual acuity intact bilaterally. Visual mcdaniel normal in all quadrants. Pupils are round, reactive to light. Extraocular movements are intact without ptosis. Hearing is normal bilaterally. Voice is normal. Tongue protrudes midline and moves symmetrically. Reflexes: Biceps, patellar, and Achilles are 2/4 bilaterally. No clonus. Sensation: Sensation is intact bilaterally to pain and light touch. Two-point discrimination is intact. Motor: Good muscle tone. Strength is 5/5 bilaterally. Cerebellar: [id number] and [id number] test normal bilaterally. Laboratory Laboratory Tests Test 02/09/18 18:40 White Blood Count 10.3 Red Blood Count 4.41 Hemoglobin 13.1 Hematocrit 38.7 Mean Corpuscular Volume 87.7 Mean Corpuscular Hemoglobin 29.7 Mean Corpuscular Hemoglobin Concent 33.8 Red Cell Distribution Width 18.1 Platelet Count 215 Mean Platelet Volume 8.9 Neutrophils (%) (Auto) 84.8 Lymphocytes (%) (Auto) 7.2 Monocytes (%) (Auto) 6.9 Eosinophils (%) (Auto) 0.8 Basophils (%) (Auto) 0.3 Neutrophils # (Auto) 8.8 Lymphocytes # (Auto) 0.7 Monocytes # (Auto) 0.7 Eosinophils # (Auto) 0.1 Basophils # (Auto) 0.0 CBC Comment DIFF FINAL Differential Comment Prothrombin Time 43.2 Prothromb Time International Ratio 4.3 Activated Partial Thromboplast Time 37.3 Blood Urea Nitrogen 16 Creatinine 0.78 Random Glucose 279 Calcium Level 8.8 Magnesium Level 2.1 Sodium Level 135 Potassium Level 4.6 Chloride Level 100 Carbon Dioxide Level 28.6 Anion Gap 6 Estimat Glomerular Filtration Rate 96 Troponin I LESS THAN 0.02 Result Diagram: 02/09/18183902/09/181839 Caprini VTE Risk Assessment Caprini VTE Risk Assessment: Mod/High Risk (score >= 2) VTE Pharm Contraindication: Hemorrhage Caprini Risk Assessment Model Point Value = 1 Point Value = 2 Point Value = 3 Point Value = 5 Age 41-60 Minor surgery BMI > 25 kg/m2 Swollen legs Varicose veins or History of unexplained or recurrent spontaneous Oral contraceptives or hormone replacement Sepsis (< 1 month) Serious lung disease, including pneumonia (< 1 month) Abnormal pulmonary function Acute myocardial infarction Congestive heart failure (< 1 month) History of inflammatory bowel disease Medical patient at bed rest Age 61-74 Arthroscopic surgery Major open surgery (> 45 min) Laparoscopic surgery (> 45 min) Malignancy Confined to bed (> 72 hours) Immobilizing plaster cast Central venous access Age >= 75 History of VTE Family history of VTE Factor V Leiden Prothrombin [id number] Lupus anticoagulant Anticardiolipin antibodies Elevated serum homocysteine Heparin-induced thrombocytopenia Other congenital or acquired thrombophilia Stroke (< 1 month) Elective arthroplasty Hip, pelvis, or leg fracture Acute spinal cord injury (< 1 month) Prophylaxis Regimen Total Risk Factor Score Risk Level Prophylaxis Regimen 0-1 Low Early ambulation 2 Moderate Order ONE of the following: *Sequential Compression Device (SCD) *Heparin 5000 units SQ BID 3-4 Higher Order ONE of the following medications: *Heparin 5000 units SQ TID *Enoxaparin/Lovenox 40 mg SQ daily (WT < 150 kg, CrCl > 30 mL/min) *Enoxaparin/Lovenox 30 mg SQ daily (WT < 150 kg, CrCl > 10-29 mL/min) *Enoxaparin/Lovenox 30 mg SQ BID (WT < 150 kg, CrCl > 30 mL/min) AND/OR *Sequential Compression Device (SCD) 5 or more Highest Order ONE of the following medications: *Heparin 5000 units SQ TID (Preferred with Epidurals) *Enoxaparin/Lovenox 40 mg SQ daily (WT < 150 kg, CrCl > 30 mL/min) *Enoxaparin/Lovenox 30 mg SQ daily (WT < 150 kg, CrCl > 10-29 mL/min) *Enoxaparin/Lovenox 30 mg SQ BID (WT < 150 kg, CrCl > 30 mL/min) AND *Sequential Compression Device (SCD) Assessment and Plan Assessment and Plan Possible small deep right temporal hemorrhage - Admit to ICU - Neuro checks per unit protocol - Repeat CT at a.m. - Neurosurgical consultation - Hold Coumadin Atrial fibrillation - Continue amiodarone and metoprolol for rate control - Hold anticoagulation Diabetes mellitus - Hold by mouth meds while in the ICU - Insulin sliding scale Hypertension - Metoprolol Coronary artery disease - Status post CABG - No symptoms of acute coronary syndrome - Supportive care Dyslipidemia - Atorvastatin DVT GI prophylaxis - Teds SCDs - No pharmacological DVT prophylaxis until cleared by neurosurgery - Pepcid Critical Care: The total critical care time was 35 minutes. Time to perform other separately billable procedures was not included in the critical care time. Stanley Yi MD Feb 09, 2018 10:14 pm
[2018-02-09] MEDS ORDERED: GLUCAGON 1 MG/ML VIAL OTHER PRN (22:15)
[2018-02-09] MEDS ORDERED: DEXTROSE 50% IN WATER 50 ML VIAL(D50) IV PUSH PRN (22:15)
[2018-02-09] MEDS ORDERED: PHYTONADIONE 5 MG TAB PO ONE (22:30)
[2018-02-09] MEDS ORDERED: PHYTONADIONE 5 MG/SWFI 5 ML ORAL SYR PO ONE (23:15)
[2018-02-09] MEDS ORDERED: PROTHROMBIN COMPLEX CONC INJ 2,500 UNITS in SYRINGE/BAG 1 EA IV ONE (23:30)
--- NOTE | 2018-02-09 23:42 | MB ---
cc: James ESCOBAR DATE: 02/09/2018 CHIEF COMPLAINT: Fall. HISTORY OF PRESENT ILLNESS: This is a 77-year-old male patient with a recent history of having a CABG and being monitored for atrial fibrillation. The patient reports that he was trying to clean his pool today when he suddenly lost his balance and fell backwards. He reports loss of consciousness for a minute and because of this was brought to the ER for evaluation. 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 Denies any type of issues or headaches at the present time. CT scan in the emergency room was abnormal and because of that neurosurgical consultation was placed. ALLERGIES: HIS PAST MEDICAL HISTORY REVEALS ALLERGY TO SULFA, PENICILLIN AND EXENATIDE AND POSSIBLY FARXIGA. PAST MEDICAL HISTORY: He has history of diabetes mellitus, vitamin D, hyperlipidemia, testicular hypofunction, retinal detachment, aortic valve disease, coronary artery stenosis, peripheral vascular disease, actinic keratosis, history of squamous cell CA, arthritis and osteopenia. PAST SURGICAL HISTORY: Reveals multiple surgeries on the left eye for retinal detachment, history of squamous cell carcinoma with excision and removal of lymph node dissection. Also history of CABG and aortic valve replacement. MEDICATIONS: His reported medications include Coumadin, amiodarone, metoprolol, Combigan ophthalmic drops, atorvastatin, pioglitazone, glipizide, metformin. REVIEW OF SYSTEMS: That pertaining to the above history. PHYSICAL EXAMINATION: VITAL SIGNS: Show evidence of a temperature of 97.9, pulse of 70, respiratory rate 18, blood pressure of 231/112. GENERAL: Shows a well-developed, well-nourished gentleman. HEENT: Shows a small abrasion over the back of the head. NECK: Supple with good carotid pulses bilaterally. CHEST: Symmetric. LUNGS: Clear. HEART: Shows a regular rhythm with normal heart sounds. ABDOMEN: Soft and nontender. EXTREMITIES: Clear. SKIN: Shows evidence of a rash around the face. NEUROLOGIC: The patient is alert and awake, has a fluent speech, is oriented x 3. Affect is normal. Speech is fluent. Cranial nerves 2-12 are intact, except for the left eye, has no reaction to light with a mild anisocoria, left greater than right, with a nonreactive pupil on the left side. Motor exam is 5+/5. Sensory exam is intact to touch. Deep tendon reflexes are trace in the lower extremities. No clonus. Cerebellar exam is unremarkable. IMAGING: Review of CT scan of the brain shows evidence of what appears to be a small hemorrhage in the medial temporal lobe. LABORATORY DATA: INR is elevated. OVERALL IMPRESSION: That of traumatic hemorrhage secondary to fall. PLAN: Admit the patient to the ICU. Repeat CT in the morning. Normalize the INR with Kcentra and vitamin K. This has been discussed also with Dr. Yi. James Turk MD JLA/rt , 10:55 PM , 11:42 PM MTDD
[2018-02-10] VITALS (13 sets, daily range): BP systolic 128–224; BP diastolic 60–96; PULSE 67–84; RESP 13–27; TEMP 97.4–99.3; O2SAT 93–97
[2018-02-10] MEDS: CHLORHEXIDINE GLUCONATE 2 % 1 PACK (2 CLOTHS) TOP SCH (03:11)
[2018-02-10] MEDS ORDERED: hydrALAZINE HCL 20 MG/ML VIAL IV PUSH PRN (06:15)
[2018-02-10] MEDS ORDERED: LABETALOL HCL 100 MG/20 ML VIAL IV PUSH PRN (06:15)
[2018-02-10 06:39] LABS: BASOPHIL % 0.4 % (0.0-2.0); EOSINOPHIL # 0.2 TH/MM3 (0-0.4); EOSINOPHIL % 1.8 % (0.0-4.0); HEMATOCRIT 34.1 % (39.0-51.0); HEMOGLOBIN 11.3 GM/DL (13.0-17.0); LYMPH % 7.8 % (9.0-44.0); LYMPHOCYTE # 0.8 TH/MM3 (1.0-4.8); MEAN CELL VOLUME 87.2 FL (80.0-100.0); MEAN CORPUSCULAR HEMOGLOBIN 28.8 PG (27.0-34.0); MEAN PLATELET VOLUME 9.3 FL (7.0-11.0); MONO % 8.5 % (0.0-8.0); MONOCYTE # 0.8 TH/MM3 (0-0.9); NEUT % 81.5 % (16.0-70.0); PLATELET COUNT 199 TH/MM3 (150-450); RED BLOOD COUNT 3.91 MIL/MM3 (4.50-5.90); WHITE BLOOD COUNT 9.8 TH/MM3 (4.0-11.0)
[2018-02-10 06:57] LABS: INTERNATIONAL NORMALIZED RATIO 1.2 RATIO
[2018-02-10 07:02] LABS: PROTHROMBIN TIME - PATIENT 12.4 SEC (9.8-11.6)
[2018-02-10 07:34] LABS: ALBUMIN 2.9 GM/DL (3.4-5.0); ALKALINE PHOSPHATASE 50 U/L (45-117); ALT (GPT) 28 U/L (12-78); AST (GOT) 29 U/L (15-37); BICARBONATE 26.8 MEQ/L (21.0-32.0); BLOOD UREA NITROGEN 14 MG/DL (7-18); CALCIUM 8.2 MG/DL (8.5-10.1); CHLORIDE 104 MEQ/L (98-107); GLOMERULAR FILTRATION RATE 109 ML/MIN (>89); GLUCOSE,RANDOM 271 MG/DL (74-106); MAGNESIUM 1.9 MG/DL (1.5-2.5); PHOSPHORUS 2.2 MG/DL (2.5-4.9); SODIUM (NA) 139 MEQ/L (136-145); TOTAL BILIRUBIN ADULT 0.5 MG/DL (0.2-1.0); TOTAL PROTEIN 6.5 GM/DL (6.4-8.2)
[2018-02-10] MEDS: INSULIN ASPART SUPPLEMENTAL SCALE SQ SCH ×3 (08:00→17:00)
--- NOTE | 2018-02-10 08:02 | RADRPT ---
EXAM DATE/TIME: 02/10/2018 07:48 [facility] COMPARISON: CT BRAIN W/O CONTRAST, February 09, 2018, 18:44. INDICATIONS : Follow up from fall. RADIATION DOSE: 48.24 CTDIvol (mGy) MEDICAL HISTORY : Hypercholesterolemia. Cardiovascular disease PVD, SURGICAL HISTORY : Tonsillectomy. Valve replacement ENCOUNTER: Subsequent ACUITY: 2 days PAIN SCALE: 4/10 LOCATION: cranial TECHNIQUE: Multiple contiguous axial images were obtained of the head. Using automated exposure control and adj ustment of the mA and/or kV according to patient size, radiation dose was kept as low as reasonably a chievable to obtain optimal diagnostic quality images. DICOM format image data is available electro nically for review and comparison. FINDINGS: CEREBRUM: Again, there is a focal area of hyperdensity within the right deep medial temporal lobe suggestive of parenchymal hemorrhage. This measures 9 mm in size and is stable. The ventricles, sulci and cisterns are stable. No acute infarction is noted. POSTERIOR FOSSA: The cerebellum and brainstem are intact. The 4th ventricle is midline. The cerebellopontine angle i s unremarkable. EXTRACRANIAL: The visualized portion of the orbits is intact. SKULL: The calvaria is intact. No evidence of skull fracture. CONCLUSION: Stable 9 mm focus of hyperdensity within the right deep medial temporal lobe suggesti ve of parenchymal hemorrhage. Fabián Juárez MD on February 10, 2018 at 7:57 Board Certified Radiologist. This report was verified electronically.
[2018-02-10] MEDS: SODIUM CHLORIDE 0.9% FLUSH 10 ML FLUSH IV FLUSH SCH ×2 (08:26→23:55)
[2018-02-10] MEDS: AMIODARONE 200 MG TAB PO SCH ×2 (08:27→23:56)
[2018-02-10] MEDS: DOCUSATE SODIUM 50 MG/SENNA 8.6 MG TAB PO SCH ×2 (08:27→23:57)
[2018-02-10] MEDS: BRIMONIDINE TARTRATE 0.2% OPHT SOLN 5 ML BTL LEFT EYE SCH (08:59)
[2018-02-10] MEDS: TIMOLOL MALEATE 0.5% OPHT SOLN 5 ML BTL LEFT EYE SCH (08:59)
[2018-02-10] MEDS: SODIUM CHLOR 0.9% 1000 ML INJ 1,000 ML IV SCH (09:00)
[2018-02-10] MEDS ORDERED: FAMOTIDINE 20 MG/2 ML VIAL IV PUSH SCH (09:00)
[2018-02-10] MEDS ORDERED: NON-FORMULARY DRUG (Brimonidine-Timolol Opth Drops (Combigan Opth Drops) 1 DROP) LEFT EYE SCH (09:00)
[2018-02-10] MEDS ORDERED: METOPROLOL TARTRATE 25 MG TAB PO SCH (09:00)
--- NOTE | 2018-02-10 12:08 | HHI.NSPN ---
History Interval History Admitted because of intracranial hemorrhage. Patient reports she is doing well and offers no complaints Exam Results Vital Signs Date Time Temp Pulse Resp B/P (MAP) Pulse Ox O2 Delivery O2 Flow Rate FiO2 02/10/18 08:00 97.4 73 16 147/66 (93) 94 02/10/18 07:27 21 02/10/18 07:00 Room Air 02/10/18 05:00 2.00 Intake and Output 02/10/18 02/10/18 02/11/18 08:00 16:00 00:00 Intake Total 771.8 ml Output Total 325 ml Balance 446.8 ml Physical Examination Alert and awake follows commands well Moves all extremities well Speech is fluent. Oriented 3. Affect is normal Lab, Micro, Other Results CT scan was reviewed no change in small hemorrhage INR is normalized Medical Decision Making Impression and Plan Doing well. No neurosurgical intervention needed. May move to floor from neurosurgical standpoint. James Turk MD Feb 10, 2018 12:08
--- NOTE | 2018-02-10 19:55 | EKG ---
Date Performed: 02/09/2018 Time Performed: 19:34:56 PTAGE: 77 years EKG: Sinus rhythm MODERATE INTRAVENTRICULAR CONDUCTION DELAY NONSPECIFIC ST & T-WAVE ABNORMALITY Since the previous tr acing, no significant change noted ABNORMAL ECG PREVIOUS TRACING : 10/17/2017 11.25 DOCTOR: Chalino Bruno Interpretating Date/Time 02/10/2018 19:51:35
--- NOTE | 2018-02-10 20:33 | HHI.PR ---
Subjective Remarks Follow up for ICH following a fall. Patient is currently doing well. No acute concerns. Repeat CT scan shows stable ICH. Patient is accompanied by his . Objective Vitals Vital Signs Date Time Temp Pulse Resp B/P (MAP) Pulse Ox O2 Delivery O2 Flow Rate FiO2 02/10/18 15:55 98.9 69 20 167/75 (105) 95 02/10/18 12:00 97.8 67 27 145/70 (95) 96 02/10/18 08:00 97.4 73 16 147/66 (93) 94 02/10/18 07:27 95 21 02/10/18 07:00 94 Room Air 02/10/18 06:00 71 02/10/18 05:15 98.4 75 13 224/96 (138) 97 02/10/18 05:00 69 16 152/72 (98) 96 Nasal Cannula 2.00 02/10/18 04:30 99.3 69 16 170/74 96 02/10/18 03:53 99.2 71 16 155/72 95 02/10/18 03:30 99.2 72 16 159/72 95 02/10/18 03:21 96 Nasal Cannula 2.00 02/10/18 03:16 99.0 84 16 152/70 94 02/09/18 20:45 75 18 135/62 (86) Room Air I/O 02/09/18 02/09/18 02/09/18 02/10/18 02/10/18 02/10/18 07:00 15:00 23:00 07:00 15:00 23:00 Intake Total 771.8 ml Output Total 325 ml Balance 446.8 ml Intake Oral 0 ml IV Total 164.8 ml FFP 507 ml Blood Product IV Normal Saline Flush 100 ml Output Urine Total 325 ml # Voids 1 # Bowel Movements 0 Result Diagram: 02/10/1855 02/10/18 0555 Objective Remarks GENERAL: Alert, oriented x 3, NAD. SKIN: Warm and dry. HEAD: Normocephalic. EYES: No scleral icterus. No injection or drainage. NECK: Supple, trachea midline. No JVD or lymphadenopathy. CARDIOVASCULAR: Regular rate and rhythm without murmurs, gallops, or rubs. RESPIRATORY: Breath sounds equal bilaterally. No accessory muscle use. GASTROINTESTINAL: Abdomen soft, non-tender, nondistended. MUSCULOSKELETAL: No cyanosis, or edema. BACK: Nontender without obvious deformity. No CVA tenderness. Procedures None. A/P Problem List: (1) ICH (intracerebral hemorrhage) ICD Code: I61.9 - Nontraumatic intracerebral hemorrhage, unspecified Status: Acute (2) Supratherapeutic INR ICD Code: R79.1 - Abnormal coagulation profile Status: Acute Assessment and Plan 77-year-old male presented to the emergency department via EVAC after fall on . His INR in the emergency department was 4.[address] of the head shows possible small deep right temporal hemorrhage. Patient has been taking Warfarin due to possible Afib following a one vessel CABG and bioprosthetic valve replacement in Oct 2017. Afib was detected post op and patient underwent a loop recorder placement. - Intracranial hemorrhage - Due to fall and supra-therapeutic INR on Warfarin - Patient received Vitamin K and K-Centra. - INR is currently 1.2. - Discussed with Neurosurgeon. Will obtain CT head without Contrast in two weeks and follow up with NSR in two weeks. - Post cardiac surgery Afib - CAD s/p CABG Oct 2017 - Bioprosthetic valve replacement - Will consult patient's investment banking associate Dr. Bruno to get an opinion regarding anti-coagulation - Apparently loop recorder battery is . Dr. Bruno can decide regarding further need for loop recorder - Also, to consider would be anti-coagulation with Apixaban in future since patient has bioprosthetic valve. - We can likely discontinue Amiodarone. - Continue Lipitor. - Hypertension - D/C IV anti-HTN meds. Will start Amlodipine 5mg Qday. - Change Metoprolol tartrate from 25mg Qday to BID. Full code. SCDs. Discharge plan: Probable discharge on 02/11/2018. Problem Qualifiers (1) ICH (intracerebral hemorrhage): Qualified Codes: S06.340A - Traumatic hemorrhage of right cerebrum without loss of consciousness, initial encounter Mar Pollard DO Feb 10, 2018 20:33
[2018-02-10] MEDS ORDERED: ATORVASTATIN 10 MG TAB PO SCH (21:00)
--- NOTE | 2018-02-10 23:00 | RADRPT ---
EXAM DATE/TIME: 02/10/2018 22:46 [facility] COMPARISON: CT BRAIN W/O CONTRAST, February 10, 2018, 7:48. CT BRAIN W/O CONTRAST, February 09, 2018, 18:44. INDICATIONS : Follow up bleed following a fall. RADIATION DOSE: 66.34 CTDIvol (mGy) MEDICAL HISTORY : Cardiovascular disease. Hypertension. Diabetes mellitus type 2.Detached left retina SURGICAL HISTORY : None. ENCOUNTER: Subsequent ACUITY: 1 day PAIN SCALE: 3/10 LOCATION: cranial TECHNIQUE: Multiple contiguous axial images were obtained of the head. Using automated exposure control and adj ustment of the mA and/or kV according to patient size, radiation dose was kept as low as reasonably a chievable to obtain optimal diagnostic quality images. DICOM format image data is available electro nically for review and comparison. FINDINGS: CEREBRUM: Hyperdensity in right temporal lobe is unchanged. The ventricles are normal for age. No evidence of midline shift, mass lesion, or acute infarction. No extra-axial fluid collections are seen. POSTERIOR FOSSA: The cerebellum and brainstem are intact. The 4th ventricle is midline. The cerebellopontine angle i s unremarkable. EXTRACRANIAL: The visualized portion of the orbits is intact. SKULL: The calvaria is intact. No evidence of skull fracture. CONCLUSION: Hyperdensity in right temporal lobe is unchanged. Fahad Byrd MD on February 10, 2018 at 22:55 Board Certified Radiologist. This report was verified electronically.
[2018-02-10] MEDS: METOPROLOL TARTRATE 25 MG TAB PO SCH (23:57)
[2018-02-11] MEDS: BRIMONIDINE TARTRATE 0.2% OPHT SOLN 5 ML BTL LEFT EYE SCH ×2 (00:03→10:11)
[2018-02-11] MEDS: TIMOLOL MALEATE 0.5% OPHT SOLN 5 ML BTL LEFT EYE SCH ×2 (00:03→10:11)
[2018-02-11] MEDS: INSULIN ASPART SUPPLEMENTAL SCALE SQ SCH ×3 (00:12→12:52)
[2018-02-11 00:50] VITALS: BP 122/75; PULSE 67; RESP 18; TEMP 98.6; O2SAT 94
[2018-02-11] MEDS: CHLORHEXIDINE GLUCONATE 2 % 1 PACK (2 CLOTHS) TOP SCH (04:00)
[2018-02-11 04:40] VITALS: BP 120/67; PULSE 64; RESP 22; TEMP 97.3; O2SAT 95
[2018-02-11 08:25] VITALS: BP 169/79; PULSE 71; RESP 18; TEMP 98.8; O2SAT 94
--- NOTE | 2018-02-11 08:26 | PD.CONS ---
HPI Service Cardiology-Dr. Bruno Consult Requested By Dr. Pollard Reason for Consult Possible ICH, supratherapeutic INR Post op Afib, evaluation of anticoagulation Primary Care Physician Félix Ravi History of Present Illness Pleasant 77 year old male with significant cardiac history of ASHD, AVR and CABG x1 with Dr. Orozco 11/2017, post op afib, carotid stenosis, HTN, and hyperlipidemia. He recently had 2 week outpatient bus monitor placed in office the evaluate for any afib, plan was to D/C warfarin pending results. He recently sustained a fall while cleaning his pool, reports he lost his balance while trying to brush the sides of the pool. He states when his head hit the ground he lost consciousness for a few seconds. Possible ICH, supratherapeutic INR. Today he reports having a dull headache that has improved since his admission. CT scan showed Stable 9 mm focus of hyperdensity within the right deep medial temporal lobe suggestive of parenchymal hemorrhage. He reports having chronic chest congestion since his surgery in November. He has been following with Dr. Reilly, and reports he has chest xray last week and is not seeing him again for 6 months. He denies any chest pain, shortness of breath, or dizziness. (AdamFebruary Peggy HENLEY) Review of Systems Consitutional: COMPLAINS OF: Fatigue, Fever, Chills, Weight gain, Weight loss Eyes: COMPLAINS OF: Change in vision (left eye blindness due to previous retinal detachment) HEENT: DENIES: Lightheadedness, Change in hearing Respiratory: COMPLAINS OF: Cough, Sputum production (reports having chronic chest congestion since November) Cardiovascular: COMPLAINS OF: See HPI, Chest pain, Palpitations, Syncope, Tachycardia Gastrointestinal: COMPLAINS OF: Change in bowel habits, DENIES: Nausea, Vomiting, Reflux, Bloody stools, Melena Genitourinary: DENIES: Urinary incontinence, Difficulty voiding Integumentary: DENIES: Rash Neurologic: DENIES: Tingling or numbness, Memory problems, Poor Balance, Stroke symptoms Musculoskeletal: DENIES: Joint pain, Muscle pain, Limited range of motion, Back pain Psychiatric: DENIES: Anxiety, Depression, Sleep disturbances Hematologic: DENIES: Bruising tendencies, Bleeding tendencies Endocrine: DENIES: Weight gain, Weight loss, Thyroid disease (AdamFebruary Peggy HENLEY) Past Family Social History Allergies: Coded Allergies: Sulfa (Sulfonamide Antibiotics) (Verified Allergy, Mild, Hives, 02/09/18) penicillin G (Verified Allergy, Mild, Hives, 02/09/18) exenatide (Verified Allergy, Unknown, 02/09/18) Uncoded Allergies: FARXIGA (Allergy, Severe, Anorexia, 03/08/17) Past Medical History ASHD, SP CABG x 1 11/2017 Aortic Valve replacement using a #23 Trifecta valve 11/2017 Post op Afib 11/2017 Carotid artery disease HTN Hyperlipidemia Past Surgical History CABG x 1 11/2017 AVR 11/2017 Right lower lobe lung biopsy with Dr. Reilly 08/2017 Reported Medications Reported Meds & Active Scripts Active Reported Coumadin (Warfarin) 5 Mg Tab 2.5 Mg PO DAILY Amiodarone (Amiodarone HCl) 200 Mg Tab 200 Mg PO BID Metoprolol Tartrate 25 Mg Tab 25 Mg PO DAILY Combigan Opth Drops (Brimonidine-Timolol Opth Drops) 0.2-0.5% Soln 1 Drop LEFT EYE Q12HR Atorvastatin (Atorvastatin Calcium) 10 Mg Tab 10 Mg PO HS Pioglitazone (Pioglitazone HCl) 30 Mg Tab 30 Mg PO DAILY Glipizide 5 Mg Tab 5 Mg PO BIDAC Take 30 minutes before a meal Metformin (Metformin HCl) 500 Mg Tab 500 Mg PO BIDPC With meals Active Ordered Medications Current Medications Medications (Trade) Dose Ordered Sig/Rosemarie Route Start Time Stop Time Status Last Admin (Cordarone) 200 mg BID PO 02/10/18 09:00 02/10/18 23:56 (Lipitor) 10 mg HS PO 02/10/18 21:00 02/10/18 23:57 (Alphagan 0.2% Opth Soln) 1 drop Q12HR LEFT EYE 02/10/18 09:00 02/11/18 00:03 (Timoptic 0.5% Opth Soln) 1 drop Q12HR LEFT EYE 02/10/18 09:00 02/11/18 00:03 (NS Flush) 2 ml UNSCH PRN IV FLUSH 02/09/18 22:00 (NS Flush) 2 ml BID IV FLUSH 02/10/18 09:00 02/10/18 23:55 (Tylenol) 650 mg Q6H PRN PO 02/09/18 22:00 (Morphine Inj) 2 mg Q2H PRN IV PUSH 02/09/18 22:00 (Zofran Inj) 4 mg Q6H PRN IV PUSH 02/09/18 22:00 (Restoril) 15 mg HS PRN PO 02/09/18 22:00 (Duoneb Neb) 1 ampule Q2HR NEB PRN INH 02/09/18 22:00 Miscellaneous Information 1 Q361D XX 02/09/18 22:00 (Chlorhexidine 2% Cloth) 3 pack Taper DAILY@04 TOP 02/10/18 04:00 02/06/19 03:59 (Chlorhexidine 2% Cloth) 3 pack UNSCH PRN TOP 02/09/18 22:00 (Adelia-Colace) 1 tab BID PO 02/10/18 09:00 02/10/18 23:57 (Milk Of Magnesia Liq) 30 ml Q12H PRN PO 02/09/18 22:00 (Senokot) 17.2 mg Q12H PRN PO 02/09/18 22:00 (Dulcolax Supp) 10 mg DAILY PRN RECTAL 02/09/18 22:00 (Lactulose Liq) 30 ml DAILY PRN PO 02/09/18 22:00 (D50w (Vial) Inj) 50 ml UNSCH PRN IV PUSH 02/09/18 22:15 (Glucagon Inj) 1 mg UNSCH PRN OTHER 02/09/18 22:15 (NovoLOG SUPPLEMENTAL SCALE) 1 ACHS SLIDING SCALE SQ 02/10/18 08:00 02/11/18 00:12 (Lopressor) 25 mg BID PO 02/10/18 21:00 02/10/18 23:57 (Norvasc) 5 mg DAILY PO 02/11/18 09:00 Family History Mother had heart disease and HTN Social History Non smoker (Shadeed,Carola Peggy HENLEY) Physical Exam Vital Signs Vital Signs Date Time Temp Pulse Resp B/P (MAP) Pulse Ox O2 Delivery O2 Flow Rate FiO2 02/11/18 04:40 97.3 64 22 120/67 (84) 95 02/11/18 00:50 98.6 67 18 122/75 (91) 94 02/10/18 21:50 97.7 77 17 128/60 (82) 93 02/10/18 20:30 67 02/10/18 15:55 98.9 69 20 167/75 (105) 95 02/10/18 12:00 97.8 67 27 145/70 (95) 96 Physical Exam GENERAL: Alert, oriented x 3, pleasant elderly male, resting in bed in NAD. SKIN: Warm and dry. HEAD: Normocephalic. EYES: No scleral icterus. No injection or drainage. NECK: Supple, trachea midline. No JVD or lymphadenopathy. CARDIOVASCULAR: Regular rate and rhythm 1/6 systolic murmur RESPIRATORY: diffuse rhonchi and wheezes noted GASTROINTESTINAL: Abdomen soft, non-tender, nondistended. MUSCULOSKELETAL: No cyanosis, or edema. BACK: Nontender without obvious deformity. No CVA tenderness. Laboratory 02/10/18 05:55: Blood Urea Nitrogen 14, Creatinine 0.70, Random Glucose 271, Total Protein 6.5, Albumin 2.9, Calcium Level 8.2, Phosphorus Level 2.2, Magnesium Level 1.9, Alkaline Phosphatase 50, Aspartate Amino Transf (AST/SGOT) 29, Alanine Aminotransferase (ALT/SGPT) 28, Total Bilirubin 0.5, Sodium Level 139, Potassium Level 4.3, Chloride Level 104, Carbon Dioxide Level 26.8 (Shadeed,Februarye HAND PACKER/PACKAGER) Result Diagram: 02/10/18 0555 02/10/18 0555 Imaging Last [address] 02/10/18 0000 Signed Impressions: Service Date/Time: Saturday, February 10, 2018 07:48 - CONCLUSION: Stable 9 mm focus of hyperdensity within the right deep medial temporal lobe suggestive of parenchymal hemorrhage. Fabián Juárez MD Thoracic Spine X-Ray 02/09/181825 Signed Impressions: Service Date/Time: Friday, February 09, 2018 18:49 - CONCLUSION: Mild scoliosis convexity to the left negative for acute compression. Tony Watkins MD FACR Lumbar Spine X-Ray 02/09/181825 Signed Impressions: Service Date/Time: Friday, February 09, 2018 18:51 - CONCLUSION: Negative for acute compression Tony Watkins MD FACR Head CT 02/09/181825 Signed Impressions: Service Date/Time: Friday, February 09, 2018 18:44 - CONCLUSION: Possible small deep right temporal hemorrhage. I have no prior films comparison to exclude calcification. Followup CT scan in 24 hours would be of benefit.. Tony Watkins MD FACR Cervical Spine CT 02/09/18 1826 Signed Impressions: Service Date/Time: Friday, February 09, 2018 18:44 - CONCLUSION: Negative for fracture. Radiographic significant spinal stenosis C4-C5. Tony Watkins MD FACR Course Vital Signs Date Time Temp Pulse Resp B/P (MAP) Pulse Ox O2 Delivery O2 Flow Rate FiO2 02/11/18 08:25 98.8 71 18 169/79 (109) 94 02/11/18 04:40 97.3 64 22 120/67 (84) 95 02/11/18 00:50 98.6 67 18 122/75 (91) 94 02/10/18 21:50 97.7 77 17 128/60 (82) 93 02/10/18 20:30 67 02/10/18 15:55 98.9 69 20 167/75 (105) 95 02/10/18 12:00 97.8 67 27 145/70 (95) 96 [facility] Assessment and Plan Assessment and Plan Possible ICH Paroxysmal Afib-supratherapeutic INR on admission ASHD, S/P CABG x 1 Aortic Valve Replacement-#23 trifecta tissue valve Chronic chest congestion Hyperlipidemia HTN Plan: Stable ICH-Being followed by neurology Afib noted on telemetry strip, (Paroxysmal) currently on Amiodarone 200mg BID, will consider Amio bolus, Coumadin held due to ICH, will consider watchman device. Followed by Dr. Reilly as outpatient-stable On lipitor BP elevated this AM- Amlodipine will be started as ordered by Dr. Pollard. [facility] Assessment and Plan The exam, history, and the medical decision-making described in the above note were completed with the assistance of the mid-level provider. I reviewed and agree with the findings presented. I attest that I had a [id number] encounter with the patient on the same day, and personally performed and documented my assessment and findings in the medical record. Will try to keep in sr. (Chalino Bruno MD) Carola Medina Feb 11, 2018 08:26 Chalino Bruno MD Feb 11, 2018 15:35
[2018-02-11] MEDS ORDERED: amLODIPine BESYLATE 5 MG TAB PO SCH (09:00)
[2018-02-11] MEDS: SODIUM CHLORIDE 0.9% FLUSH 10 ML FLUSH IV FLUSH SCH (10:07)
[2018-02-11] MEDS: AMIODARONE 200 MG TAB PO SCH (10:09)
[2018-02-11] MEDS: DOCUSATE SODIUM 50 MG/SENNA 8.6 MG TAB PO SCH (10:09)
[2018-02-11] MEDS: METOPROLOL TARTRATE 25 MG TAB PO SCH (10:10)
--- NOTE | 2018-02-11 11:28 | HHI.FF ---
Face to Face Verification Diagnosis: (1) ICH (intracerebral hemorrhage) Physical Therapy Order: Evaluate and Treat, Improve ambulation, Strength and gait training Home Health Nursing Order: Medical education Signs/symptoms of disease process Nursing assessment with vital signs I have seen patient Jc Israel on 02/11/18. My clinical findings support the need for the requested home health care services because: Ltd mobility - disease progression Deconditioned w/ increased weakness Limited ability to care for self Need for psychosocial assistance High risk of falls Infection w/ risk of complications I certify that my clinical findings support that this patient is homebound because: Unsteady gait/balance Unsafe to leave home unassisted Need for psychosocial assistance Unable to use public transportation Mar Pollard DO Feb 11, 2018 11:28 am
[2018-02-11] MEDS ORDERED: METO25TA3 PO (11:31)
[2018-02-11] MEDS ORDERED: AMLO5 PO (11:31)
--- NOTE | 2018-02-12 00:01 | EKG ---
Date Performed: 02/11/2018 Time Performed: 11:30:01 PTAGE: 77 years EKG: ATRIAL Flutter WITH RAPID VENTRICULAR RESPONSE SEPTAL MYOCARDIAL INFARCTION , PROBABLY OLD ST ELEVATION, CONSIDER INFERIOR INJURY ACUTE CO PREVIOUS TRACING : 02/09/2018 19.34 DOCTOR: Jonathan Henao Interpretating Date/Time 02/11/2018 23:58:03
[2018-02-12] MEDS ORDERED: PNEUMOCOCCAL POLYVALENT INJ 25 MCG/0.5 ML SYR IM ONE (10:00)
== END 2018-02-11 14:31 | disposition home health service (06) | DRG 86 ==
LOC: NEPE 18:03 → NEDA 20:50 → N03B 02-10 05:20 → N05A 02-10 14:19
PROVIDERS: ADMIT Hospitalist; ATTEND Hospitalist
PROC: 30233K1 Transfusion of Nonautologous Frozen Plasma into Peripheral Vein, Percutaneous Approach (ICD-10-PCS; principal; 2018-02-10)
DX: S06.341A Traumatic hemorrhage of right cerebrum with loss of consciousness of 30 minutes or less, initial encounter (principal); D68.32 Hemorrhagic disorder due to extrinsic circulating anticoagulants; E11.51 Type 2 diabetes mellitus with diabetic peripheral angiopathy without gangrene; I48.0 Paroxysmal atrial fibrillation; I35.9 Nonrheumatic aortic valve disorder, unspecified; I65.29 Occlusion and stenosis of unspecified carotid artery; I25.10 Atherosclerotic heart disease of native coronary artery without angina pectoris; I10 Essential (primary) hypertension; E78.5 Hyperlipidemia, unspecified; E29.1 Testicular hypofunction; H54.62 Unqualified visual loss, left eye, normal vision right eye; M19.90 Unspecified osteoarthritis, unspecified site; M85.80 Other specified disorders of bone density and structure, unspecified site; T45.515A Adverse effect of anticoagulants, initial encounter; W01.0XXA Fall on same level from slipping, tripping and stumbling without subsequent striking against object, initial encounter; Y92.008 Other place in unspecified non-institutional (private) residence as the place of occurrence of the external cause; Z79.01 Long term (current) use of anticoagulants; Z79.84 Long term (current) use of oral hypoglycemic drugs; Z85.828 Personal history of other malignant neoplasm of skin; Z88.0 Allergy status to penicillin; Z88.2 Allergy status to sulfonamides; Z95.1 Presence of aortocoronary bypass graft; Z95.2 Presence of prosthetic heart valve
CPT/HCPCS: 36430; 70450; 72072; 72100; 72125; 80048; 80053; 82948; 83735; 84100; 84484; 85025; 85610; 85730; 86850; 86900; 86901; 86927; 87641; 93005; 96374; C9132; J0360; J1815; J7030; P9017

== ENCOUNTER 2018-08-17 20:04 | Inpatient (IN) ==
--- NOTE | 2018-08-17 21:05 | ED ---
HPI General Chief Complaint: Shortness of Breath/Dyspnea Stated Complaint: Respiratory complaint Time Seen by Provider: 08/17/18 20:42 History of Present Illness Patient with recent diagnosis of unclassified lung cancer 7-8 weeks ago, but has been started on immunotherapy approximately 10 days ago, and has been having progressive decline since that time with increasing weakness, and increasing shortness of breath. reports that he has not been eating as well, and patient's had increasing cough and congestion, with physician ordering x-ray 5 days ago, which showed a pneumonia. Patient was started on an antibiotic for a couple of days, had call from physician's office, was switched to another antibiotic, and review of medicines show that this is azithromycin, but prior medication is not with patient, which family believes may sound like Levaquin, reporting that he had taken just once a day. Is not had any definite fever, he has had chronic edema, takes diuretics for this, but has not had any urinary changes otherwise. Edema remains essentially unchanged, weight has remained unchanged, but is also noticed increase general edema. He does have watery stools, but only once a day, and sometimes once every couple of days, but each 1 is generally liquid, but without blood. He has been bruising more easily, but this is chronic, has not particularly changed since his start of immunotherapy. Past medical history is significant for unspecified previous lung disorder, with multiple prior biopsies by camp cook, Dr. Wolff, apparently negative , with recent diagnosis of lung cancer. Patient was a very short-term smoker approximately 50 years ago, less than 1 year, and reports that his physician felt that this was non-smoking related lung cancer. Related Data Home Medications Medication Instructions Recorded Confirmed Actos 30 mg PO DAILY 08/17/18 08/17/18 amlodipine [Norvasc] 5 mg PO DAILY 08/17/18 08/17/18 atorvastatin [Lipitor] 10 mg PO DAILY 08/17/18 08/17/18 azithromycin 500 mg PO DAILY 08/17/18 08/17/18 benzonatate 100 mg PO QID PRN 08/17/18 08/17/18 budesonide-formoterol [Symbicort] 2 puff INHALATION BID 08/17/18 08/17/18 dronedarone 400 mg PO BID 08/17/18 08/17/18 furosemide 20 mg PO DAILY 08/17/18 08/17/18 glipizide [Glucotrol] 5 mg PO BID 08/17/18 08/17/18 lisinopril [Prinivil] 20 mg PO DAILY 08/17/18 08/17/18 metformin 1,000 mg PO BID 08/17/18 08/17/18 metoprolol succinate 25 mg PO DAILY 08/17/18 08/17/18 pioglitazone 30 mg PO DAILY 08/17/18 08/17/18 spironolactone [Aldactone] 25 mg PO BID 08/17/18 08/17/18 Allergies Allergy/AdvReac Type Severity Reaction Status Date / Time penicillin G Allergy Mild Hives Verified 05/14/18 16:06 Sulfa (Sulfonamide Allergy Mild Hives Verified 05/14/18 16:06 Antibiotics) exenatide Allergy Unknown Hives Verified 08/17/18 20:16 FARXIGA Allergy Severe Anorexia Uncoded 05/14/18 16:06 Review of Systems ROS: all other systems reviewed are negative Constitutional Reports fatigue, Reports malaise, Reports poor appetite and Reports weakness Respiratory Reports as per HPI, Reports chest congestion, Reports cough, Denies hemoptysis, Denies pain on inspiration, Reports dyspnea and Reports dyspnea on exertion Gastrointestinal Reports as per HPI and Denies abdominal pain Musculoskeletal Reports as per HPI Neurologic Reports system reviewed and no additional complaints, except as docu PMFSH Social History Social History Substance History: No History of Abuse Second Hand Smoke Exposure: Yes Smoking Status: Never smoker How Often Do You Have a Drink Containing Alcohol: Never Recent Travel in [facility] within the Last 8 Weeks: No Recent Out of Country Travel within the Last 8 Weeks: No Immunization History Tetanus Immunization: >5 Years Hx Influenza Vaccine This Season: No Exam Narrative Exam Narrative: GENERAL: Thin elderly medically frail male, borderline cachectic , appears weak, borderline oxygenation on room air at 92%, 97% on supplemental oxygen. He is awake and oriented, and in no pain at this time. SKIN: Multiple bruises, predominantly on upper extremities, various ages, one recent and bandaged at right elbow. Turgor is quite poor, decreased subcutaneous fat, but in general assessment warm/dry. HEAD: Atraumatic. Normocephalic. EYES: Pupils equal and round. No scleral icterus. No injection or drainage. ENT: No nasal bleeding or discharge. Mucous membranes pink and moist. NECK: Trachea midline. No JVD. CARDIOVASCULAR: Regular tachycardia and rhythm. No murmur appreciated. RESPIRATORY: Significant crackles left posterior lateral and anterior lung base , relatively clear right posterior and lateral lung mcdaniel. GASTROINTESTINAL: Abdomen soft, non-tender, nondistended. Hepatic and splenic margins not palpable. MUSCULOSKELETAL: No obvious deformities. No clubbing. No cyanosis. 3+ pedal edema, chronic skin changes, no significant erythema, no cracking and no drainage. NEUROLOGICAL: Awake and alert. No obvious cranial nerve deficits. Motor grossly within normal limits. Normal speech. PSYCHIATRIC: Appropriate mood and affect; insight and judgment normal. Course Initial Documented Vital Signs Temperature 98.5 F 08/17/18 20:17 Pulse Rate 105 H 08/17/18 20:17 Respiratory Rate 20 08/17/18 20:17 Blood Pressure 101/65 08/17/18 20:17 Pulse Oximetry 92 L 08/17/18 20:17 Last Documented Vital Signs Temperature 98.2 F 08/17/18 20:21 Pulse Rate 92 H 08/17/18 21:41 Respiratory Rate 22 08/17/18 21:41 Blood Pressure 118/65 08/17/18 21:41 Pulse Oximetry 100 08/17/18 21:41 Critical Care Time Critical Care Time: Yes Total Critical Care Time: 30 Attestation: 30 minutes of critical care time was provided in direct bedside assistance for this patient with lung cancer, with progressive pneumonia, advancing to bilateral infiltrates, with hypoxemia at rest on room air, requiring supplemental oxygen. Patient's multiple conditions place him at significant risk for imminent deterioration in the absence of immediate stabilizing treatment. No billable procedures were performed during this patient's encounter. Medical Decision Making MDM Narrative Medical decision making narrative: This elderly male patient, is seriously ill with acute bilateral pneumonia, shortly after receiving treatment for lung cancer, with immunotherapy, possibly Keytruda, with associated respiratory distress, borderline hypoxia at admission on room air, and significant pedal edema. Chest x-ray shows worsening pneumonia despite outpatient antibiotic treatment, and he will need hospitalization for more aggressive therapy. Blood cultures are drawn, labs evaluated, patient has an elevated white count, but remained stable with blood pressure 115/60, and oxygen saturation 97% on supplemental oxygen by nasal cannula. Hospitalist consulted, Dr. Ames, and patient will be admitted to the general [facility] floor. Initial dose of IV Rocephin and vancomycin ordered, and although patient has a history of penicillin allergy, but the report of hives suffered in childhood, and this is likely not sufficient reason to withhold Rocephin, and patient will be monitored for reaction closely. Medical Screen Exam Complete: Yes Emergency Medical Condition: Yes Differential Diagnosis Differential Diagnosis: Pneumonia, lung cancer with hypoxia, sepsis Lab Data Result diagrams: 08/17/18 21:20 08/17/18 21:20 Lab Results 08/17/18 08/17/18 08/17/18 Range/Units 21:20 21:20 21:20 WBC 19.8 H (4.0-11.0) th/mm3 RBC 4.23 L (4.50-5.90) mil/mm3 Hgb 12.2 L (13.0-17.0) gm/dL Hct 37.7 L (39.0-51.0) % MCV 89.3 (80.0-100.0) fL MCH 28.9 (27.0-34.0) pg MCHC 32.4 (32.0-36.0) % RDW 17.8 H (11.6-17.2) % Plt Count 93 L (150-450) th/mm3 MPV 9.4 (7.0-11.0) fL Prelim Diff (Auto) Slide review pending Neut % (Auto) 92.3 H (16.0-70.0) % Lymph % (Auto) 2.5 L (9.0-44.0) % [place] % (Auto) 5.1 (0.0-8.0) % Eos % (Auto) 0.0 (0.0-4.0) % Baso % (Auto) 0.1 (0.0-2.0) % Neut # (Auto) 18.2 H (1.8-7.7) th/mm3 Lymph # (Auto) 0.5 L (1.0-4.8) th/mm3 [place] # (Auto) 1.0 H (0.0-0.9) th/mm3 Eos # (Auto) 0.0 (0.0-0.4) th/mm3 Baso # (Auto) 0.0 (0.0-0.2) th/mm3 WBC Differential . Diff Scan Auto diff confirmed Differential Comment . Platelet Estimate Low L (Normal) Platelet Morphology Enlarged H (Normal) Ovalocytes 1+ H (None) PT 21.4 H (9.8-11.6) sec INR 2.1 Ratio Sodium (136-145) meq/L Potassium (3.5-5.1) meq/L Chloride (98-107) meq/L Carbon Dioxide (21.0-32.0) meq/L Anion Gap (5-15) meq/L BUN (7-18) mg/dL Creatinine (0.60-1.30) mg/dL Estimated GFR (>89) mL/min Random Glucose (74-106) mg/dL Lactic Acid 2.6 H (0.4-2.0) mmol/L Calcium (8.5-10.1) mg/dL Magnesium (1.5-2.5) mg/dL Total Bilirubin (0.2-1.0) mg/dL AST (15-37) U/L ALT (12-78) U/L Alkaline Phosphatase (45-117) U/L Troponin I (0.02-0.05) ng/mL B-Natriuretic Peptide (0-100) pg/mL Total Protein (6.4-8.2) g/dL Albumin (3.4-5.0) g/dL Urine Color (Yellw/Straw) Urine Clarity (Clear) Urine pH (5.0-8.5) Ur Specific [place] (1.002-1.035) Urine Protein (Neg-Trace) mg/dL Urine Glucose (UA) (Negative) mg/dL Urine Ketones (Negative) mg/dL Urine Occult Blood (Negative) Urine Nitrate (Negative) Urine Bilirubin (Negative) Urine Urobilinogen (Less than 2) mg/dL Ur Leukocyte Esterase (Negative) Urine RBC (0-3) /hpf Urine WBC (0-5) /hpf Ur Squamous Epith Cells (0-5) /hpf Hyaline Casts (0-3) /lpf Granular Casts (None) /lpf Urine Mucus (Occasional) /lpf Urine Sperm (None) /hpf Micro UA Comment Ur Microscopic Review Urine Culture Comments 08/17/18 08/17/18 08/17/18 Range/Units 21:20 21:20 22:29 WBC (4.0-11.0) th/mm3 RBC (4.50-5.90) mil/mm3 Hgb (13.0-17.0) gm/dL Hct (39.0-51.0) % MCV (80.0-100.0) fL MCH (27.0-34.0) pg MCHC (32.0-36.0) % RDW (11.6-17.2) % Plt Count (150-450) th/mm3 MPV (7.0-11.0) fL Prelim Diff (Auto) Neut % (Auto) (16.0-70.0) % Lymph % (Auto) (9.0-44.0) % [place] % (Auto) (0.0-8.0) % Eos % (Auto) (0.0-4.0) % Baso % (Auto) (0.0-2.0) % Neut # (Auto) (1.8-7.7) th/mm3 Lymph # (Auto) (1.0-4.8) th/mm3 [place] # (Auto) (0.0-0.9) th/mm3 Eos # (Auto) (0.0-0.4) th/mm3 Baso # (Auto) (0.0-0.2) th/mm3 WBC Differential Diff Scan Differential Comment Platelet Estimate (Normal) Platelet Morphology (Normal) Ovalocytes (None) PT (9.8-11.6) sec INR Ratio Sodium 130 L (136-145) meq/L Potassium 4.5 (3.5-5.1) meq/L Chloride 92 L (98-107) meq/L Carbon Dioxide 22.7 (21.0-32.0) meq/L Anion Gap 15 (5-15) meq/L BUN 43 H (7-18) mg/dL Creatinine 1.86 H (0.60-1.30) mg/dL Estimated GFR 35 L (>89) mL/min Random Glucose 487 H* (74-106) mg/dL Lactic Acid (0.4-2.0) mmol/L Calcium 8.2 L (8.5-10.1) mg/dL Magnesium 1.5 (1.5-2.5) mg/dL Total Bilirubin 0.8 (0.2-1.0) mg/dL AST 29 (15-37) U/L ALT 25 (12-78) U/L Alkaline Phosphatase 126 H (45-117) U/L Troponin I 0.02 (0.02-0.05) ng/mL B-Natriuretic Peptide 154 H (0-100) pg/mL Total Protein 7.1 (6.4-8.2) g/dL Albumin 2.9 L (3.4-5.0) g/dL Urine Color Yellow (Yellw/Straw) Urine Clarity Cloudy H (Clear) Urine pH 5.0 (5.0-8.5) Ur Specific [place] 1.026 (1.002-1.035) Urine Protein 30 H (Neg-Trace) mg/dL Urine Glucose (UA) 500 or greater (Negative) mg/dL Urine Ketones Trace H (Negative) mg/dL Urine Occult Blood Moderate H (Negative) Urine Nitrate Negative (Negative) Urine Bilirubin Negative (Negative) Urine Urobilinogen 2.0 H (Less than 2) mg/dL Ur Leukocyte Esterase Negative (Negative) Urine RBC 122 H (0-3) /hpf Urine WBC 7 H (0-5) /hpf Ur Squamous Epith Cells <1 (0-5) /hpf Hyaline Casts Innum (0-3) /lpf Granular Casts 11 (None) /lpf Urine Mucus Few H (Occasional) /lpf Urine Sperm Rare H (None) /hpf Micro UA Comment Culture not ind Ur Microscopic Review Not Reportable Urine Culture Comments Culture not ind Imaging Data Radiologist's impression: Chest X-Ray 08/17/18 21:06 CONCLUSION: Increasing consolidation in the right lung and stable nonconsolidative infiltrates in the left lung. ECG Data EKG Prior to Arrival: No Attestation: I personally reviewed and interpreted this ECG as follows: Interpretation: EKG taken 2129 hrs. Baseline rhythm sinus at 94 bpm, there are frequent PACs. QRS morphology is normal, QRS axis is normal at 70 degrees, QRS interval normal at 98 ms NC interval 170 ms, QT interval normal at [address] segments are normal with no elevations or depressions compatible with myocardial infarction. There is poor R wave progression precordially suggestive of prior anterior septal myocardial infarction, but no acute findings. This is an unremarkable but nonspecific tracing. Discharge Plan Discharge Disposition Patient Disposition: 30 Still Patient Discharge Condition Condition: Serious Discharge Details Diagnosis: Pneumonia, Bilateral lung cancer Physicians Team ED Provider: Laron Mejia Primary Care Provider: Natan Ravi Rxs /Orders / Referrals /Forms Prescriptions: No Action Actos 30 mg PO DAILY RF: 0 atorvastatin [Lipitor] 10 mg Tablet 10 mg PO DAILY RF: 0 lisinopril [Prinivil] 20 mg Tablet 20 mg PO DAILY RF: 0 amlodipine [Norvasc] 5 mg Tablet 5 mg PO DAILY RF: 0 spironolactone [Aldactone] 25 mg Tablet 25 mg PO BID RF: 0 benzonatate 100 mg Capsule 100 mg PO QID PRN (Reason: Cough) RF: 0 metformin 1,000 mg Tablet 1,000 mg PO BID RF: 0 furosemide 20 mg Tablet 20 mg PO DAILY RF: 0 metoprolol succinate 25 mg Tablet Extended Release 24 Hr 25 mg PO DAILY RF: 0 pioglitazone 30 mg Tablet 30 mg PO DAILY RF: 0 glipizide [Glucotrol] 5 mg Tablet 5 mg PO BID RF: 0 azithromycin 500 mg Tablet 500 mg PO DAILY RF: 0 budesonide-formoterol [Symbicort] 160-4.5 mcg/actuation Hfa Aerosol Inhaler 2 puff INHALATION BID RF: 0 dronedarone 400 mg Tablet 400 mg PO BID RF: 0 Discharge Interventions Interventions: Vital Signs Last Done: 08/17/18 21:41 Status ED Status: With Doctor
--- NOTE | 2018-08-17 21:25 | XR ---
EXAM DATE: 08/17/2018 9:06 PM EDT AGE/SEX: 77 years / Male INDICATIONS: Short of breath. Recent pneumonia. CLINICAL DATA: This is the patient's subsequent encounter. Patient reports that signs and symptoms h ave been present for 1 day and indicates a pain score of 5/10. MEDICAL/SURGICAL HISTORY: Carcinoma, lung. None. COMPARISON: POI, XR CHEST PA AND LAT, 08/13/2018. . FINDINGS: Significant increase in the amount of consolidation in the right lower lung, now causing loss of deli neation of the entire right hemidiaphragm and right heart border. Increasing patchy partially consoli dative infiltrates in the left mid and lower lung with similar degree of loss of delineation of the l eft hemidiaphragm. The upper lungs are clear. CONCLUSION: Increasing consolidation in the right lung and stable nonconsolidative infiltrates in the left lung. Electronically signed by: Philip Wolfe MD 08/17/2018 9:23 PM EDT
[2018-08-17 21:37] LABS: Baso % (Auto) 0.1 % (0.0-2.0); Hematocrit 37.7 % (39.0-51.0); Hemoglobin 12.2 gm/dL (13.0-17.0); Lymph # (Auto) 0.5 th/mm3 (1.0-4.8); Lymph % (Auto) 2.5 % (9.0-44.0); Mean Corpuscular HGB Conc 32.4 % (32.0-36.0); Mean Corpuscular Hemoglobin 28.9 pg (27.0-34.0); Mean Corpuscular Volume 89.3 fL (80.0-100.0); Mean Platelet Volume 9.4 fL (7.0-11.0); Mono % (Auto) 5.1 % (0.0-8.0); Neut # (Auto) 18.2 th/mm3 (1.8-7.7); Neut % (Auto) 92.3 % (16.0-70.0); Platelet Count 93 th/mm3 (150-450); Red Blood Count 4.23 mil/mm3 (4.50-5.90); Red Cell Distribution Width 17.8 % (11.6-17.2); White Blood Count 19.8 th/mm3 (4.0-11.0)
[2018-08-17 21:44] LABS: INR 2.1 Ratio; Prothrombin Time 21.4 sec (9.8-11.6)
[2018-08-17 22:01] LABS: Ovalocytes 1+
[2018-08-17 22:03] LABS: Alanine Aminotransferase 25 U/L (12-78); Albumin 2.9 g/dL (3.4-5.0); Anion Gap 15 meq/L (5-15); Aspartate Aminotransferase 29 U/L (15-37); Blood Urea Nitrogen 43 mg/dL (7-18); Calcium 8.2 mg/dL (8.5-10.1); Carbon Dioxide 22.7 meq/L (21.0-32.0); Chloride 92 meq/L (98-107); Glomerular Filtration Rate 35 mL/min (>89); Magnesium 1.5 mg/dL (1.5-2.5); Potassium 4.5 meq/L (3.5-5.1); Sodium 130 meq/L (136-145)
[2018-08-17 22:08] LABS: Glucose,Random 487 mg/dL (74-106)
[2018-08-17 22:18] LABS: Alkaline Phosphatase 126 U/L (45-117); Total Protein 7.1 g/dL (6.4-8.2); Troponin I 0.02 ng/mL (0.02-0.05)
[2018-08-17 22:47] LABS: Bilirubin,Urine Negative (Negative); Clarity,Urine Cloudy (Clear); Color,Urine Yellow (Yellw/Straw); Glucose,Urine (UA) 500 or Greater mg/dL (Negative); Hyaline Casts,Urine INNUM /lpf (0-3); Leukocyte Esterase,Urine Negative (Negative); Mucus,Urine Few /lpf (Occasional); Nitrite,Urine Negative (Negative); Specific Gravity,Urine 1.026 (1.002-1.035); Sperm,Urine Rare /hpf; Squamous Epithelial Cell,Urine <1 /hpf (0-5)
[2018-08-17] MEDS ORDERED: Acetaminophen 325 MG Tablet PO PRN (22:59)
[2018-08-17] MEDS ORDERED: Bisacodyl 10 MG Supp RECTAL PRN (22:59)
--- NOTE | 2018-08-17 23:00 | P.HPIM ---
History of Present Illness Primary Care Physician: Natan Ravi MD History of Present Illness: This is a 77-year-old male with a PMH of HTN and Lung CA presented to ER with complaints of SOB x1wk. Pt states he was recently diagnosed w/ Lung CA approx 1 month ago, following w/ Dr. Berger, had first treatment few weeks ago which he tolerated well, now pending "approval" for immunotherapy. States he developed significant SOB 1wk ago, seen by PCP 5 days ago and had outpatient X-ray showing PNA for which he was started on Z-pack w/ minimal improvement. Reports ongoing SOB in addition to productive cough w/ white "frothy" sputum. Denies fever or chills. On arrival, BP 101/65, HR 105, O2 sat 92% on RA, Afebrile. WBC 19.8. INR 2.1. Creatinine 1.86, previously 0.70 on 02/10/2018. Lactic Acid 2.6. Troponin negative. UA negative for UTI. Exar with increasing consolidation right lung, stable non-consolidative infiltrate left lung. - Diagnosis (1) Sepsis (2) PNA (pneumonia) (3) Lung cancer (4) Failure of outpatient treatment (5) DM (diabetes mellitus) (6) Renal insufficiency Review of Systems PAST FAMILY HISTORY: Reviewed. No h/o DM or CAD All other systems reviewed negative except as stated in HPI PMFSH - History History Provided By: Patient - Medical History Medical History: Medical History (Last Reviewed 08/17/18 @ 20:26 by Sherrie Peña) HTN (hypertension) Hypercholesteremia Lung cancer Skin cancer - Surgical History Surgical History: Surgical History (Last Reviewed 08/17/18 @ 20:26 by Sherrie Peña) Aortic valve replaced Hx of CABG - Tobacco History Second Hand Smoke Exposure: Yes Smoking Status: Never smoker - Alcohol History How Often Do You Have a Drink Containing Alcohol: Never - Substance Use History Substance History: No History of Abuse - Travel History Recent Travel in the [place] Within the Last 8 Weeks: No Recent Travel Out of the Country Within the Last 8 Weeks: No - Immunization History Tetanus Immunization: >5 Years Hx Influenza Vaccine This Season: No Medications and Allergies Allergies Allergy/AdvReac Type Severity Reaction Status Date / Time penicillin G Allergy Mild Hives Verified 05/14/18 16:06 Sulfa (Sulfonamide Allergy Mild Hives Verified 05/14/18 16:06 Antibiotics) exenatide Allergy Unknown Hives Verified 08/17/18 20:16 FARXIGA Allergy Severe Anorexia Uncoded 05/14/18 16:06 Home Medications Medication Instructions Recorded Confirmed Type Actos 30 mg PO DAILY 08/17/18 08/17/18 History amlodipine [Norvasc] 5 mg PO DAILY 08/17/18 08/17/18 History atorvastatin [Lipitor] 10 mg PO DAILY 08/17/18 08/17/18 History azithromycin 500 mg PO DAILY 08/17/18 08/17/18 History benzonatate 100 mg PO QID PRN 08/17/18 08/17/18 History budesonide-formoterol [Symbicort] 2 puff INHALATION BID 08/17/18 08/17/18 History dronedarone 400 mg PO BID 08/17/18 08/17/18 History furosemide 20 mg PO DAILY 08/17/18 08/17/18 History glipizide [Glucotrol] 5 mg PO BID 08/17/18 08/17/18 History lisinopril [Prinivil] 20 mg PO DAILY 08/17/18 08/17/18 History metformin 1,000 mg PO BID 08/17/18 08/17/18 History metoprolol succinate 25 mg PO DAILY 08/17/18 08/17/18 History pioglitazone 30 mg PO DAILY 08/17/18 08/17/18 History spironolactone [Aldactone] 25 mg PO BID 08/17/18 08/17/18 History Exam Vital signs: Vital Signs 08/17/18 20:17 08/17/18 20:21 08/17/18 21:21 Temperature 98.5 F 98.2 F Pulse Rate 105 H 121 H 87 Respiratory Rate 20 20 22 Blood Pressure 101/65 125/62 115/62 Pulse Oximetry 92 L 98 100 08/17/18 21:41 Temperature Pulse Rate 92 H Respiratory Rate 22 Blood Pressure 118/65 Pulse Oximetry 100 Intake & Output 08/17/18 08/17/18 08/18/18 06:59 18:59 06:59 Weight 72.575 kg Narrative: PE: GENERAL: Very pleasant elderly white male in no acute distress. +wet cough SKIN: Focused skin assessment warm and dry. HEENT: PERRLA, EOMI. No scleral icterus or conjunctival pallor. No lid lag or facial droop. CARDIOVASCULAR: Regular rate and rhythm. No obvious murmurs to auscultation. No chest tenderness to palpation. RESPIRATORY: +coarse breath sounds, no obvious wheezing. Breath sounds equal bilaterally. GASTROINTESTINAL: Abdomen soft, non-tender, nondistended. BS normal. MUSCULOSKELETAL: Extremities without clubbing, cyanosis, or edema. No obvious deformities. NEUROLOGICAL: Awake, alert and oriented x4. No focal neurologic deficits. Moving both upper and lower extremities spontaneously. PSYCHIATRIC: Appropriate mood and affect. Insight and judgment normal. Results - Labs CBC & Chem 7: 08/17/18 21:20 08/17/18 21:20 Labs: Short CBC 08/17/18 Range/Units 21:20 WBC 19.8 H (4.0-11.0) th/mm3 Hgb 12.2 L (13.0-17.0) gm/dL Hct 37.7 L (39.0-51.0) % Plt Count 93 L (150-450) th/mm3 BMP 08/17/18 21:20 Sodium 130 L Potassium 4.5 Chloride 92 L Carbon Dioxide 22.7 BUN 43 H Creatinine 1.86 H Calcium 8.2 L Cardiac Enzymes 08/17/18 Range/Units 21:20 Troponin I 0.02 (0.02-0.05) ng/mL Liver Function 08/17/18 Range/Units 21:20 Total Bilirubin 0.8 (0.2-1.0) mg/dL AST 29 (15-37) U/L ALT 25 (12-78) U/L Alkaline Phosphatase 126 H (45-117) U/L Albumin 2.9 L (3.4-5.0) g/dL Urine 08/17/18 Range/Units 22:29 Urine Color Yellow (Yellw/Straw) Urine Clarity Cloudy H (Clear) Urine pH 5.0 (5.0-8.5) Ur Specific [place] 1.026 (1.002-1.035) Urine Protein 30 H (Neg-Trace) mg/dL Urine Glucose (UA) 500 or greater (Negative) mg/dL - Imaging Impressions Chest X-Ray 08/17/18 21:06 CONCLUSION: Increasing consolidation in the right lung and stable nonconsolidative infiltrates in the left lung. Caprini VTE Risk Assessment Caprini VTE Risk Assessment: No/Low Risk (score <= 1) Caprini Risk Assessment Model: Point Value = 1 Point Value = 2 Point Value = 3 Point Value = 5 Age 41-60 Minor surgery BMI > 25 kg/m2 Swollen legs Varicose veins or History of unexplained or recurrent spontaneous Oral contraceptives or hormone replacement Sepsis (< 1 month) Serious lung disease, including pneumonia (< 1 month) Abnormal pulmonary function Acute myocardial infarction Congestive heart failure (< 1 month) History of inflammatory bowel disease Medical patient at bed rest Age 61-74 Arthroscopic surgery Major open surgery (> 45 min) Laparoscopic surgery (> 45 min) Malignancy Confined to bed (> 72 hours) Immobilizing plaster cast Central venous access Age >= 75 History of VTE Family history of VTE Factor V Leiden Prothrombin [id number] Lupus anticoagulant Anticardiolipin antibodies Elevated serum homocysteine Heparin-induced thrombocytopenia Other congenital or acquired thrombophilia Stroke (< 1 month) Elective arthroplasty Hip, pelvis, or leg fracture Acute spinal cord injury (< 1 month) Prophylaxis Regimen: Total Risk Factor Score Risk Level Prophylaxis Regimen 0-1 Low Early ambulation 2 Moderate Order ONE of the following: *Sequential Compression Device (SCD) *Heparin 5000 units SQ BID 3-4 Higher Order ONE of the following medications: *Heparin 5000 units SQ TID *Enoxaparin/Lovenox 40 mg SQ daily (WT < 150 kg, CrCl > 30 mL/min) *Enoxaparin/Lovenox 30 mg SQ daily (WT < 150 kg, CrCl > 10-29 mL/min) *Enoxaparin/Lovenox 30 mg SQ BID (WT < 150 kg, CrCl > 30 mL/min) AND/OR *Sequential Compression Device (SCD) 5 or more Highest Order ONE of the following medications: *Heparin 5000 units SQ TID (Preferred with Epidurals) *Enoxaparin/Lovenox 40 mg SQ daily (WT < 150 kg, CrCl > 30 mL/min) *Enoxaparin/Lovenox 30 mg SQ daily (WT < 150 kg, CrCl > 10-29 mL/min) *Enoxaparin/Lovenox 30 mg SQ BID (WT < 150 kg, CrCl > 30 mL/min) AND *Sequential Compression Device (SCD) Assessment and Plan - Assessment (1) Sepsis Code(s): A41.9 - Sepsis, unspecified organism Status: Acute (2) PNA (pneumonia) Code(s): J18.9 - Pneumonia, unspecified organism Status: Acute (3) Lung cancer Code(s): C34.90 - Malignant neoplasm of unspecified part of unspecified bronchus or lung Status: Acute (4) Failure of outpatient treatment Code(s): Z78.9 - Other specified health status Status: Acute (5) DM (diabetes mellitus) Code(s): E11.9 - Type 2 diabetes mellitus without complications Status: Acute (6) Renal insufficiency Code(s): N28.9 - Disorder of kidney and ureter, unspecified Status: Acute - Plan A/P: 1. Sepsis: HR 105, WBC 19, Source-PNA, check Blood Cultures, start IV Vanc/ Cefepime, follow up cultures, continue IV Abx, IVF. 2. PNA: Failed outpatient tx on Z-pack, CXR w/ increasing consolidation right lung, infiltrates in the left lung stable, images reviewed. Continue w/ IV Abx as above, DuoNeb prn, Tessalon, Check Sputum cultures. 3. Lung CA: Following w/ Dr. Berger, recently started on chemotherapy, outpatient follow up as scheduled. 4. DM: Sliding scale w/ Accu-Cheks. Hold Metformin. 5. BRENDON: Creatinine 1.85, previously 0.70 on 02/10/18, U/a negative for UTI, IVF , monitor I/O, repeat labs in am. 6. DVT Prophylaxis: SCD/Teds 7. Social work for d/c planning as needed. 8. Case discussed w/ ER physician at length, labs/records/imaging reviewed by me
[2018-08-17] MEDS ORDERED: Melatonin 5 MG Tablet PO PRN (23:16)
[2018-08-17] MEDS ORDERED: Vancomycin Consult Pharmacy OTHER SCH (23:16)
[2018-08-17] MEDS ORDERED: Vancomycin Inj 1 GM/200 ML PIGGYBACK IV.SIG ONE (23:21)
[2018-08-17] MEDS: Sod Chloride 0.9% Inj 1,000 ML IV.CONT SCH (23:40)
[2018-08-18] MEDS ORDERED: Vancomycin Inj 1,750 MG in Sodium Chlor 0.9% Inj 500 ML IV.SIG ONE ×2
[2018-08-18] MEDS: Benzonatate 100 MG Capsule PO PRN ×2 (01:37→08:02)
[2018-08-18 05:39] LABS: Baso % (Auto) 0.1 % (0.0-2.0); Hemoglobin 10.8 gm/dL (13.0-17.0); Lymph # (Auto) 0.8 th/mm3 (1.0-4.8); Lymph % (Auto) 4.4 % (9.0-44.0); Mean Corpuscular HGB Conc 32.6 % (32.0-36.0); Mean Corpuscular Hemoglobin 28.9 pg (27.0-34.0); Mean Corpuscular Volume 88.5 fL (80.0-100.0); Mean Platelet Volume 9.4 fL (7.0-11.0); Mono % (Auto) 5.9 % (0.0-8.0); Neut # (Auto) 15.3 th/mm3 (1.8-7.7); Neut % (Auto) 89.6 % (16.0-70.0); Platelet Count 77 th/mm3 (150-450); Red Blood Count 3.73 mil/mm3 (4.50-5.90); Red Cell Distribution Width 17.7 % (11.6-17.2); White Blood Count 17.1 th/mm3 (4.0-11.0)
[2018-08-18 05:42] LABS: Prothrombin Time 20.1 sec (9.8-11.6)
[2018-08-18 06:05] LABS: Alanine Aminotransferase 20 U/L (12-78); Albumin 2.4 g/dL (3.4-5.0); Alkaline Phosphatase 105 U/L (45-117); Anion Gap 11 meq/L (5-15); Aspartate Aminotransferase 19 U/L (15-37); Blood Urea Nitrogen 43 mg/dL (7-18); Calcium 7.8 mg/dL (8.5-10.1); Carbon Dioxide 25.7 meq/L (21.0-32.0); Chloride 99 meq/L (98-107); Glomerular Filtration Rate 52 mL/min (>89); Glucose,Random 380 mg/dL (74-106); Potassium 4.3 meq/L (3.5-5.1); Sodium 136 meq/L (136-145); Total Protein 6.1 g/dL (6.4-8.2)
[2018-08-18] MEDS: Senna/Docusate Sodium 8.6/50 MG Tablet PO SCH ×2 (08:02→21:54)
[2018-08-18] MEDS: Budesonide-Formoterol 160/4.5 MCG 6 GM Inhaler INH SCH ×2 (08:05→21:57)
[2018-08-18] MEDS ORDERED: Dextrose 50% in Water 50 ML Vial IV.PUSH PRN (09:45)
--- NOTE | 2018-08-18 09:49 | P.PNIM ---
Subjective Interval history: Patient reports his breathing status is unchanged. He continues to cough. Physical Exam Vital signs: Vital Signs 08/17/18 20:17 08/17/18 20:21 08/17/18 21:21 Temperature 98.5 F 98.2 F Pulse Rate 105 H 121 H 87 Respiratory Rate 20 20 22 Blood Pressure 101/65 125/62 115/62 Pulse Oximetry 92 L 98 100 08/17/18 21:41 08/17/18 23:44 08/18/18 00:00 Temperature 97.5 F L Pulse Rate 92 H 110 H 98 H Respiratory Rate 22 18 18 Blood Pressure 118/65 123/64 147/91 H Pulse Oximetry 100 99 96 08/18/18 04:00 08/18/18 08:00 Temperature 98.8 F 97.4 F L Pulse Rate 82 93 H Respiratory Rate 18 16 Blood Pressure 121/61 103/77 Pulse Oximetry 96 95 Intake & Output 08/17/18 08/18/18 08/18/18 18:59 06:59 18:59 Intake Total 975 / 975 Output Total 450 / 450 Balance 525 / 525 Weight 70.2 kg Intake: IV 735 / 735 Maxipime Inj 1,000 MG In NS Inj 100 / 100 100 ML @ 200 mls/hr IV.SIG Q12H REJI Rx#:[id number] Vancomycin Inj 1,750 MG In NS 535 / 535 Inj 500 ML @ 267.5 mls/hr IV. SIG ONCE ONE Rx#:[id number] Rocephin Inj 1,000 MG In NS Inj 100 / 100 100 ML @ 200 mls/hr IV.SIG ONCE ONE Rx#:[id number] Oral 240 / 240 Output: Urine 450 / 450 Other: Weight On Admission 70.2 kg Narrative: GENERAL: Frail elderly male, in no acute distress but does get short of breath with spasmodic cough CARDIOVASCULAR: Normal rate and regular rhythm without murmurs, gallops, or rubs. RESPIRATORY: Air movement is fair. Diffuse and coarse sounds/rhonchi bilateral bases. GASTROINTESTINAL: Abdomen soft, non-tender, non-distended. Normal active bowel sounds MUSCULOSKELETAL: Extremities without cyanosis, or edema. NEURO: Alert & Oriented x4 to person, place, time, situation. Moves all ext x4 PSYCH: Appropriate mood and affect. Results - Labs CBC & Chem 7: 08/18/18 04:25 08/18/18 04:25 Laboratory Results - last 24 hr 08/17/18 08/17/18 08/17/18 21:20 21:20 21:20 WBC 19.8 H RBC 4.23 L Hgb 12.2 L Hct 37.7 L MCV 89.3 MCH 28.9 MCHC 32.4 RDW 17.8 H Plt Count 93 L MPV 9.4 Prelim Diff (Auto) Slide review pending Neut % (Auto) 92.3 H Lymph % (Auto) 2.5 L [place] % (Auto) 5.1 Eos % (Auto) 0.0 Baso % (Auto) 0.1 Neut # (Auto) 18.2 H Lymph # (Auto) 0.5 L [place] # (Auto) 1.0 H Eos # (Auto) 0.0 Baso # (Auto) 0.0 WBC Differential . Diff Scan Auto diff confirmed Differential Comment . Platelet Estimate Low L Platelet Morphology Enlarged H Ovalocytes 1+ H PT 21.4 H INR 2.1 Sodium Potassium Chloride Carbon Dioxide Anion Gap BUN Creatinine Estimated GFR Random Glucose Lactic Acid 2.6 H Calcium Magnesium Total Bilirubin AST ALT Alkaline Phosphatase Troponin I B-Natriuretic Peptide Total Protein Albumin Urine Color Urine Clarity Urine pH Ur Specific Clifford Urine Protein Urine Glucose (UA) Urine Ketones Urine Occult Blood Urine Nitrate Urine Bilirubin Urine Urobilinogen Ur Leukocyte Esterase Urine RBC Urine WBC Ur Squamous Epith Cells Hyaline Casts Granular Casts Urine Mucus Urine Sperm Micro UA Comment Ur Microscopic Review Urine Culture Comments 08/17/18 08/17/18 08/17/18 21:20 21:20 22:29 WBC RBC Hgb Hct MCV MCH MCHC RDW Plt Count MPV Prelim Diff (Auto) Neut % (Auto) Lymph % (Auto) [place] % (Auto) Eos % (Auto) Baso % (Auto) Neut # (Auto) Lymph # (Auto) [place] # (Auto) Eos # (Auto) Baso # (Auto) WBC Differential Diff Scan Differential Comment Platelet Estimate Platelet Morphology Ovalocytes PT INR Sodium 130 L Potassium 4.5 Chloride 92 L Carbon Dioxide 22.7 Anion Gap 15 BUN 43 H Creatinine 1.86 H Estimated GFR 35 L Random Glucose 487 H* Lactic Acid Calcium 8.2 L Magnesium 1.5 Total Bilirubin 0.8 AST 29 ALT 25 Alkaline Phosphatase 126 H Troponin I 0.02 B-Natriuretic Peptide 154 H Total Protein 7.1 Albumin 2.9 L Urine Color Yellow Urine Clarity Cloudy H Urine pH 5.0 Ur Specific Clifford 1.026 Urine Protein 30 H Urine Glucose (UA) 500 or greater Urine Ketones Trace H Urine Occult Blood Moderate H Urine Nitrate Negative Urine Bilirubin Negative Urine Urobilinogen 2.0 H Ur Leukocyte Esterase Negative Urine RBC 122 H Urine WBC 7 H Ur Squamous Epith Cells <1 Hyaline Casts Innum Granular Casts 11 Urine Mucus Few H Urine Sperm Rare H Micro UA Comment Culture not ind Ur Microscopic Review Not Reportable Urine Culture Comments Culture not ind 08/18/18 08/18/18 08/18/18 04:25 04:25 04:25 WBC 17.1 H RBC 3.73 L Hgb 10.8 L Hct 33.0 L MCV 88.5 MCH 28.9 MCHC 32.6 RDW 17.7 H Plt Count 77 L MPV 9.4 Prelim Diff (Auto) Slide review pending Neut % (Auto) 89.6 H Lymph % (Auto) 4.4 L [place] % (Auto) 5.9 Eos % (Auto) 0.0 Baso % (Auto) 0.1 Neut # (Auto) 15.3 H Lymph # (Auto) 0.8 L [place] # (Auto) 1.0 H Eos # (Auto) 0.0 Baso # (Auto) 0.0 WBC Differential . Diff Scan Auto diff confirmed Differential Comment . Platelet Estimate Low L Platelet Morphology Enlarged H Ovalocytes PT 20.1 H INR 2.0 Sodium 136 Potassium 4.3 Chloride 99 Carbon Dioxide 25.7 Anion Gap 11 BUN 43 H Creatinine 1.32 H Estimated GFR 52 L Random Glucose 380 H D Lactic Acid Calcium 7.8 L Magnesium Total Bilirubin 0.5 AST 19 ALT 20 Alkaline Phosphatase 105 Troponin I B-Natriuretic Peptide Total Protein 6.1 L D Albumin 2.4 L Urine Color Urine Clarity Urine pH Ur Specific Clifford Urine Protein Urine Glucose (UA) Urine Ketones Urine Occult Blood Urine Nitrate Urine Bilirubin Urine Urobilinogen Ur Leukocyte Esterase Urine RBC Urine WBC Ur Squamous Epith Cells Hyaline Casts Granular Casts Urine Mucus Urine Sperm Micro UA Comment Ur Microscopic Review Urine Culture Comments - Imaging Impressions Chest X-Ray 08/17/18 21:06 CONCLUSION: Increasing consolidation in the right lung and stable nonconsolidative infiltrates in the left lung. Assessment and Plan - Assessment (1) Sepsis Code(s): A41.9 - Sepsis, unspecified organism Status: Acute (2) PNA (pneumonia) Code(s): J18.9 - Pneumonia, unspecified organism Status: Acute (3) Lung cancer Code(s): C34.90 - Malignant neoplasm of unspecified part of unspecified bronchus or lung Status: Acute (4) Failure of outpatient treatment Code(s): Z78.9 - Other specified health status Status: Acute (5) DM (diabetes mellitus) Code(s): E11.9 - Type 2 diabetes mellitus without complications Status: Acute (6) Renal insufficiency Code(s): N28.9 - Disorder of kidney and ureter, unspecified Status: Acute - Plan 77-year-old male with recent diagnosis of lung cancer admitted for sepsis secondary to pneumonia. Patient recently started on chemotherapy outpatient. He states his next dose is in 9 days. He failed outpatient therapy for pneumonia. Sepsis secondary to pneumonia: - Failed outpatient therapy. Continue vancomycin and cefepime. - Follow cultures -Check sputum cultures Acute hypoxemic respiratory failure secondary to pneumonia and lung cancer: - Continue scheduled breathing treatment -Symbicort Lung cancer: Follows outpatient with Dr. Berger. Recently started on chemotherapy. Next treatment in 9 days. - Continue outpatient follow-up. Diabetes mellitus: - Hold home oral hypoglycemic agents. - Sliding scale insulin with Accu-Cheks Acute kidney injury: Likely secondary to sepsis - Improved with IV fluid. Continue to monitor. History of aortic valve replacement and arrhythmia, probable A. fib: - Continue Multaq and the rest of his heart medications. - Continue to monitor on telemetry. DVT Prophylaxis: INR is 2.0.
--- NOTE | 2018-08-18 09:55 | ECG ---
Date Performed: 08/17/2018 Time Performed: 21:29:19 PTAGE: 77 years EKG: Sinus rhythm WITH FREQUENT SUPRAVENTRICULAR PREMATURE COMPLEXES SEPTAL MYOCARDIAL INFARCTION ABNORMAL ECG Compare d to prior electrocardiogram, Sinus rhythm has replaced probable atrial flutter. Nonspecific T-wave c hanges have improved. DOCTOR: Richard Judd Interpretating Date/Time 08/18/2018 09:53:47
[2018-08-18] MEDS: Sod Chloride 0.9% Inj 1,000 ML IV.CONT SCH (10:01)
[2018-08-18] MEDS: Insulin NovoLOG Aspart Correctional Sugar Inj SQ SCH ×3 (12:59→21:54)
[2018-08-18] MEDS ORDERED: Spironolactone 25 MG Tablet PO SCH (21:00)
[2018-08-18] MEDS: Vancomycin Inj 1,250 MG in Sodium Chlor 0.9% Inj 250 ML IV.SIG SCH (21:46)
--- NOTE | 2018-08-19 05:56 | XR ---
EXAM DATE: 08/19/2018 12:00 AM EDT AGE/SEX: 77 years / Male INDICATIONS: Shortness of breath. CLINICAL DATA: This is the patient's subsequent encounter. Patient reports that signs and symptoms h ave been present for 3 days and indicates a pain score of 0/10. MEDICAL/SURGICAL HISTORY: Carcinoma, lung. CABG. COMPARISON: C, CHEST 1V SINGLE AP, 08/17/2018. . FINDINGS: Persistent right lower lobe airspace disease and associated small pleural effusion. Progressive airsp vineet consolidation in the left lower lung zone. Cardiomediastinal contours are within normal limits. B gilmar thorax is intact. CONCLUSION: 1. Worsening airspace consolidation in the left lower lung zone. 2. Persistent right lower lung zone airspace disease and associated small pleural effusion. Electronically signed by: Francisco Meneses MD 08/19/2018 5:55 AM EDT
[2018-08-19 05:57] LABS: ABG Base Excess 1.5 mmol/L (-2-2); ABG PCO2 38 mmHg (38-42); ABG PO2 77 mmHg (61-120)
[2018-08-19] MEDS ORDERED: Etomidate Inj 40 MG/20 ML Vial IV.PUSH ONE (08:11)
[2018-08-19] MEDS ORDERED: Midazolam Inj 5 MG/ML 1 ML Vial ONE (08:11)
[2018-08-19] MEDS ORDERED: Albumin Human 25% Inj 100 ML IV.SIG ONE ×2 (08:24→10:00)
[2018-08-19] MEDS: Vasopressin Inj 40 UNIT in Dextrose 5% in Water Inj 98 ML IV.CONT PRN ×4 (08:30→22:35)
--- NOTE | 2018-08-19 08:50 | P.PCN ---
Date of procedure: 08/19/18 Pre-op diagnosis: Acute hypoxemic respiratory failure Post-op diagnosis: same Procedure: PROCEDURE NOTE PROCEDURE: Endotracheal intubation INDICATION: Acute hypoxemic respiratory failure DETAILS OF PROCEDURE: The patient was appropriately positioned, hypoxemic, oxygen saturation 91% on 100% nonrebreather.. Patient was bagged with bag valve mass and 100% oxygen. Direct laryngoscopy was performed with a 4 Teague laryngoscope blade and a grade I Cormack-Lehane view was obtained. On single attempt a size 8.0 endotracheal tube was visualized passing through the cords. Correct placement was confirmed with direct visualization of ET tube passing through the vocal cords, and CO2 detector. Breath sounds were equal bilaterally. No sounds auscultated over the stomach. The endotracheal tube was secured at 24 cm at the lips. CXR is pending Anesthesia: YEN Surgeon: Yulisa Cannon Estimated blood loss (mL): 0 Pathology: other (sputum culture) Condition: critical Disposition: ICU
[2018-08-19] MEDS ORDERED: Hold Metfromin until further notice OTHER SCH (08:51)
[2018-08-19] MEDS ORDERED: Hold Metfromin until further notice OTHER ONE (08:52)
--- NOTE | 2018-08-19 08:56 | P.PCN ---
Date of procedure: 08/19/18 Pre-op diagnosis: Bilateral pneumonia, hypotension Post-op diagnosis: same Procedure: Right subclavian central line placement. Verbal consent obtained from patient prior to intubation Central line checklist completed, timeout completed. I wore a surgical cap, mask with protective eyewear, full gown and sterile gloves throughout the procedure. Right subclavian region was prepped using chlorhexidine scrub and draped in sterile fashion. Anesthesia was achieved over the vein using 1% lidocaine. The introducer needle was inserted into the right subclavian vein. Venous blood was withdrawn. The syringe was removed and a guidewire was advanced into the introducer needle. A small incision was made at the skin surface with a scalpel and the introducer needle was exchanged for a dilator over the guidewire. After appropriate dilation was obtained, the dilator was exchanged over the wire for a triple lumen, 7F, antibiotic coated central venous catheter. The wire was removed and the catheter was sutured in place at 18 cm. A sterile central line dressing was placed over the catheter at the insertion site. The patient tolerated the procedure without any hemodynamic compromise. At time of procedure completion, all ports aspirated and flushed properly. Post-procedure chest x-ray is pending at this time. Anesthesia: local Surgeon: Yulisa Cannon Estimated blood loss (mL): 2 Pathology: none sent Condition: critical Disposition: ICU
--- NOTE | 2018-08-19 08:59 | P.PCN ---
Date of procedure: 08/19/18 Pre-op diagnosis: Resp failure, hypotension Post-op diagnosis: same Procedure: Right radial arterial line placement Emergency procedure due to hypotension. I wore a surgical cap, mask with protective eyewear, and sterile gloves throughout the procedure. Right radial region was prepped using chlorhexidine scrub and draped in sterile fashion. The introducer needle was inserted into the radial artery and arterial blood withdrawn. A guidewire was advanced into the introducer needle. The needle was removed and a single lumen 20-gauge 16 cm arterial catheter was placed and the guidewire was removed. A good arterial waveform was obtained. A sterile central line dressing was placed over the catheter at the insertion site. The patient tolerated the procedure without any hemodynamic compromise. Anesthesia: local Surgeon: Yulisa Cannon Estimated blood loss (mL): 1 Pathology: none sent Condition: critical Disposition: ICU
[2018-08-19] MEDS ORDERED: Furosemide 20 MG Tablet PO SCH (09:00)
[2018-08-19] MEDS ORDERED: amLODIPine 5 MG Tablet PO SCH (09:00)
[2018-08-19] MEDS: Propofol 1000 mg/100 ml Inj 1,000 MG/100 ML BOTTLE IV.CONT PRN ×2 (09:05→16:49)
--- NOTE | 2018-08-19 09:12 | P.CONCC ---
History of Present Illness Service: Critical care Consult date: 08/19/18 Requesting Physician: Micha Lyons Reason for Consult: Acute hypoxemic respiratory failure, severe sepsis Primary Care Provider: Natan Ravi MD Family Provider: Natan Ravi MD Chief Complaint: Severe shortness of breath pneumonia History of Present Illness: This is a 77-year-old male with a PMH of chronic atrial fibrillation, type 2 diabetes, hypertension, dyslipidemia, Lung cancer currently receiving immunotherapy who presented to the emergency department with shortness of breath of one-week duration. Pt was recently diagnosed with Lung CA approx 1 month ago, following with Dr. Berger, had first treatment few weeks ago. Last week had an outpatient x-ray which showed pneumonia and was placed on Z-Delano with only minimal or no improvement. Because of worsening symptoms he presented to the emergency department and was admitted to the hospitalist on 08/17/2018. On admission his WBC 19.8. INR 2.1. Creatinine 1.86, and Lactic Acid 2.6. CXR with increasing consolidation right lung, stable infiltrate left lung. Patient was transferred to the ICU overnight for increasing shortness of breath and BiPAP requirement. Today critical care was emergently consulted as patient was not tolerating BiPAP and was severely short of breath, chest x-ray showed increasing bilateral infiltrates. Patient was also in atrial fibrillation with RVR. I immediately evaluated the patient, on simple mask he was maintaining saturation 90%. However he was severely short of breath and had extensive bilateral crackles, with tachypnea breathing approximately 40 breaths/min. After discussion with the patient I intubated and placed him on mechanical ventilation. Currently receiving vancomycin and cefepime. I have increased the cefepime dose to 2 g IV every 8 hours, continue vancomycin and added Levaquin [address] stat [address] of the chest to evaluate for effusion ordered. Postintubation patient was hypotensive, given 2 L IV fluid boluses, followed by vasopressin started at 0.04 international units/min. For A. fib with RVR started on amiodarone bolus and infusion per protocol. Patient is critically ill at this time Review of Systems other (Unable to obtain due to severe respiratory distress) PMFSH - History History Provided By: Patient - Medical History Medical History: Medical History (Last Reviewed 08/19/18 @ 10:01 by Autumn Strickland MD) HTN (hypertension) Hypercholesteremia Lung cancer Skin cancer - Surgical History Surgical History: Surgical History (Last Reviewed 08/19/18 @ 10:01 by Autumn Strickland MD) Aortic valve replaced Hx of CABG - Tobacco History Second Hand Smoke Exposure: Yes Tobacco Use In Past 30 Days: No Smoking Status: Never smoker Tobacco Type: Cigarettes - Alcohol History How Often Do You Have a Drink Containing Alcohol: Never - Substance Use History Substance History: No History of Abuse - Travel History Recent Travel in the [place] Within the Last 8 Weeks: No Recent Travel Out of the Country Within the Last 8 Weeks: No - Immunization History Tetanus Immunization: >5 Years Hx Influenza Vaccine This Season: No Medications and Allergies Active Medications: Active Medications Acetaminophen (Tylenol) 650 mg PO Q4H PRN PRN Reason: Temp > 100.4 Al Hydroxide/Mg Hydroxide (Milk Of Magnpineda Liq) 30 ml PO Q12H PRN PRN Reason: Mild Constipation Albuterol (Duoneb Neb (Prn)) 1 ampul NEB Q4HR NEB PRN PRN Reason: SOB/WHEEZING Last Admin: 08/19/18 05:00 Dose: 1 ampul Albuterol (Duoneb Neb (Rosemarie)) 1 ampul NEB Q6HR WHILE AWAKE NEB RO[place]IE Last Admin: 08/18/18 20:03 Dose: 1 ampul Amlodipine Besylate (Norvasc) 5 mg PO DAILY RO[place]IE Atorvastatin Calcium (Lipitor) 10 mg PO DAILY RO[place]IE Benzonatate (Tessalon Perles) 100 mg PO QID PRN PRN Reason: Cough Last Admin: 08/18/18 08:02 Dose: 100 mg Bisacodyl (Dulcolax Supp) 10 mg RECTAL DAILY PRN PRN Reason: SEVERE CONSITIPATION Budesonide/Formoterol Fumarate (Symbicort 160/4.5 Mcg Inh) 2 puff INH BID ROSEMARIE Last Admin: 08/18/18 21:57 Dose: 2 puff Chlorhexidine Gluconate (Peridex 0.12% Oral Kit) 15 ml OROPHARYNG BID@0800, 2000 RO[place]IE Dextrose (D50w Vial) 50 ml IV.PUSH UNSCH PRN PRN Reason: PER HYPOGLYCEMIA PROTOCOL Dronedarone (Multaq) 400 mg PO BID RO[place]ARIE Last Admin: 08/18/18 21:54 Dose: 400 mg Furosemide (Lasix) 20 mg PO DAILY [facility] Glucagon (Glucagon Inj) 1 mg OTHER PRN PRN PRN Reason: for Hypoglycemia Protocol Cefepime HCl 1,000 mg/ Sodium (Chloride) 100 mls @ 200 mls/hr IV.SIG Q12H [facility] Last Infusion: 08/19/18 00:27 Dose: Infused Vancomycin HCl 1,250 mg/ (Sodium Chloride) 262.5 mls @ 250 mls/hr IV.SIG Q18H [facility] Last Infusion: 08/18/18 22:50 Dose: Infused Amiodarone HCl 450 mg/ (Dextrose) 250 mls @ 33.33 mls/hr IV.CONT TITRATE PRN; Protocol PRN Reason: Per Protocol Amiodarone HCl 150 mg/ (Dextrose) 100 mls @ 100 mls/hr IV.SIG ONCE ONE Stop: 08/19/18 10:29 Insulin Aspart (Novolog Insulin Correctional Sugar Inj) 0 unit SQ ACHS ROSEMARIE; Protocol Last Admin: 08/18/18 21:54 Dose: 5 unit Lactulose (Lactulose Liq) 30 ml PO DAILY PRN PRN Reason: SEVERE CONSITIPATION Melatonin (Melatonin) 5 mg PO HS PRN PRN Reason: SLEEP Metoprolol Succinate (Toprol Xl) 25 mg PO DAILY [facility] Miscellaneous Information ([facility] Ordered Lab Info) 0 each OTHER ONCE ONE Stop: 08/20/18 08:46 Miscellaneous Medication () 1 each OROPHARYNG 0000,0400,1200,1600 [facility] Ondansetron HCl (Zofran Inj) 4 mg IV.PUSH Q6H PRN PRN Reason: NAUSEA OR VOMITING Pharmacy Profile Note (Vancomycin Consult Pharmacy) 1 each OTHER PRN [facility] Pharmacy Profile Note (Until Further Notice) 1 each OTHER ONCE ONE Stop: 08/19/18 08:52 Pharmacy Profile Note (Until Further Notice) 1 each OTHER ONCE ONE Stop: 08/19/18 08:53 Senna/Docusate Sodium (Adelia-Colace) 1 tab PO BID [facility] Last Admin: 08/18/18 21:54 Dose: 1 tab Sennosides (Senokot) 17.2 mg PO Q12H PRN PRN Reason: Moderate Constipation Spironolactone (Aldactone) 25 mg PO BID [facility] Allergies Allergy/AdvReac Type Severity Reaction Status Date / Time penicillin G Allergy Mild Hives Verified 06/26/18 16:06 Sulfa (Sulfonamide Allergy Mild Hives Verified 05/14/18 16:06 Antibiotics) exenatide Allergy Unknown Hives Verified 08/17/18 20:16 FARXIGA Allergy Severe Anorexia Uncoded 05/14/18 16:06 Home Medications Medication Instructions Recorded Confirmed Type Actos 30 mg PO DAILY 08/17/18 08/17/18 History amlodipine [Norvasc] 5 mg PO DAILY 08/17/18 08/17/18 History atorvastatin [Lipitor] 10 mg PO DAILY 08/17/18 08/17/18 History azithromycin 500 mg PO DAILY 08/17/18 08/17/18 History benzonatate 100 mg PO QID PRN 08/17/18 08/17/18 History budesonide-formoterol [Symbicort] 2 puff INHALATION BID 08/17/18 08/17/18 History dronedarone 400 mg PO BID 08/17/18 08/17/18 History furosemide 20 mg PO DAILY 08/17/18 08/17/18 History glipizide [Glucotrol] 5 mg PO BID 08/17/18 08/17/18 History lisinopril [Prinivil] 20 mg PO DAILY 08/17/18 08/17/18 History metformin 1,000 mg PO BID 08/17/18 08/17/18 History metoprolol succinate 25 mg PO DAILY 08/17/18 08/17/18 History pioglitazone 30 mg PO DAILY 08/17/18 08/17/18 History spironolactone [Aldactone] 25 mg PO BID 08/17/18 08/17/18 History Physical Exam Vital signs: Vital Signs 08/18/18 12:00 08/18/18 12:58 08/18/18 15:28 Temperature 97.3 F L Pulse Rate 125 H 115 H Respiratory Rate 16 24 Blood Pressure 107/78 106/86 Pulse Oximetry 95 08/18/18 16:00 08/18/18 20:00 08/18/18 20:06 Temperature 97.7 F 97.5 F L Pulse Rate 110 H 106 H 64 Respiratory Rate 16 18 18 Blood Pressure 111/69 125/58 L Pulse Oximetry 95 95 97 08/18/18 23:34 08/19/18 00:00 08/19/18 04:00 Temperature 97.9 F 98.9 F Pulse Rate 68 118 H 122 H Respiratory Rate 21 19 19 Blood Pressure 155/60 H 111/55 L Pulse Oximetry 97 93 L 08/19/18 05:02 08/19/18 05:19 08/19/18 06:28 Temperature Pulse Rate 70 Respiratory Rate 21 Blood Pressure Pulse Oximetry 93 L 95 08/19/18 08:25 Temperature Pulse Rate Respiratory Rate 16 Blood Pressure Pulse Oximetry 100 Intake & Output 08/18/18 08/19/18 08/19/18 18:59 06:59 18:59 Intake Total 1620 / 1620 362.5 / 362.5 Output Total 700 / 700 700 / 700 200 / 200 Balance 920 / 920 -337.5 / -337.5 -200 / -200 Weight 71.2 kg Intake: IV 900 / 900 362.5 / 362.5 NS Inj 1,000 ML @ 100 mls/hr IV 800 / 800 .CONT .Q10H RO[place]IE Rx#:[id number] Maxipime Inj 1,000 MG In NS Inj 100 / 100 100 / 100 100 ML @ 200 mls/hr IV.SIG Q12H RO[place]IE Rx#:[id number] Vancomycin Inj 1,250 MG In NS 262.5 / 262.5 Inj 250 ML @ 250 mls/hr IV.SIG Q18H RO[place]IE Rx#:[id number] Oral 720 / 720 Output: Urine 700 / 700 700 / 700 200 / 200 Other: Date of Last Bowel Movement 08/17/18 # Bowel Movements 0 Narrative: GENERAL: Frail elderly male, in no severe respiratory distress, tachypneic CARDIOVASCULAR: Atrial fibrillation with rapid ventricular response. No murmurs RESPIRATORY: Patient is very tachypneic in respiratory distress. Severe bilateral coarse rhonchi and crackles all over the anterior chest GASTROINTESTINAL: Abdomen soft, non-tender, non-distended. Normal active bowel sounds MUSCULOSKELETAL: Extremities without cyanosis, right lower extremity swollen with 1+ pitting edema NEURO: Alert & Oriented x4 to person, place, time, situation. Moves all ext x4. Limited exam due to respiratory distress Septic Shock Reassessment Septic shock perfusion: reassessment completed Assessment and Plan - Assessment and Plan Plan: NEURO: -Propofol for sedation and vent synchrony -Sedation vacation until clinically more stable RESP: Acute hypoxemic respiratory failure Severe bilateral pneumonia -PRVC/AC, Ventilator bundle -DuoNeb every 6 hours scheduled and as needed -CT of the chest done stat shows, bilateral left more than right pneumonia, and large right-sided pleural effusion. -Plan for pigtail chest tube placement, and fluid studies to rule out empyema -Broad-spectrum antibiotics with vancomycin, increased dose of cefepime, and add Levaquin CV: Atrial fibrillation with RVR Hypotension Lactic acidosis History of hypertension History of CABG and AVR -Normal saline IV fluids, 2 L bolus and maintenance fluid at 84 mL/h -Amiodarone 150 mg bolus and infusion per protocol -Vasopressin to keep map above 65. 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 Place Babcock catheter if indicated -Creatinine slowly improving, acute kidney injury secondary to severe sepsis ID: Severe sepsis Bilateral pneumonia Immunocompromise state due to lung cancer -Antibiotics with vancomycin, antipseudomonal dosing of cefepime, and IV Levaquin -Blood urine and sputum cultures will be repeated -Check influenza, check for urine Legionella and pneumococcal antigen HEME: Recently diagnosed lung CA Coagulopathy ?secondary to DIC -Oncologist is Dr. Berger. Recently started on immunotherapy per family -Monitor CBC, coags -INR is 2.1, he is not on any anticoagulants -Check right lower extremity venous Doppler to rule out DVT -Transfuse 2 units FFP in anticipation of chest tube placement ENDO: Type 2 diabetes with hyperglycemia Hypertension -Electrolyte replacement per protocol -Sliding scale insulin -Start Levemir 5 units every 12 PROPH: -Bilateral lower extremity SCDs. IV famotidine -INR is 2.1 avoid any anticoagulation at this time LINES: -Right subclavian central line, right radial art line placed 08/19/2018 CC time 82 min excluding procedures At this time patient is very critical. He had been intubated and antibiotics have been expanded to cover for immunocompromised patient. His CT shows extensive pneumonia and very large right-sided effusion. Patient will need chest tube drainage and further studies to rule out empyema, depending on the studies may need cardiothoracic surgery consult. Because of his advanced age underlying lung cancer and severe sepsis and pneumonia his prognosis is guarded at this time. Code Status: Full code
[2018-08-19] MEDS ORDERED: Amiodarone Inj 150 MG in Dextrose 5% in Water Inj 97 ML IV.SIG ONE ×2 (09:30)
[2018-08-19] MEDS ORDERED: Potassium Phosphate Inj 30 MMOL in Sodium Chlor 0.9% Inj 250 ML IV.SIG PRN (09:31)
[2018-08-19] MEDS ORDERED: Potassium Chloride 25 MEQ Effervescent Tablet PO PRN (09:31)
[2018-08-19] MEDS ORDERED: Potassium Chlor 40 mEq Premix 40 MEQ/100 ML PIGGYBACK IV.SIG PRN (09:31)
[2018-08-19] MEDS ORDERED: Magnesium Sulfate Inj 2 GM in Sodium Chlor 0.9% Inj 96 ML IV.SIG PRN (09:31)
[2018-08-19] MEDS ORDERED: Magnesium Sulfate Inj 4 GM in Sodium Chlor 0.9% Inj 92 ML IV.SIG PRN (09:31)
[2018-08-19] MEDS ORDERED: Sodium Phosphate Inj 30 MMOL in Sodium Chlor 0.9% Inj 250 ML IV.SIG PRN (09:31)
[2018-08-19] MEDS ORDERED: Potassium Phosphate 500 MG Soluble Tablet PO PRN ×2 (09:31)
[2018-08-19] MEDS ORDERED: Magnesium Oxide 400 MG Tablet PO PRN (09:31)
[2018-08-19] MEDS ORDERED: Potassium Chlor 20 mEq Premix 20 MEQ/100 ML PIGGYBACK IV.SIG PRN ×2 (09:31)
[2018-08-19] MEDS ORDERED: Dextrose 50% in Water 50 ML Vial IV.PUSH PRN (09:32)
--- NOTE | 2018-08-19 09:51 | XR ---
EXAM DATE: 08/19/2018 12:00 AM EDT AGE/SEX: 77 years / Male INDICATIONS: Post intubation and right sided central line placement. CLINICAL DATA: This is the patient's subsequent encounter. Patient reports that signs and symptoms h ave been present for 3 days and indicates a pain score of Nonresponsive. MEDICAL/SURGICAL HISTORY: . Carcinoma, lung. . CABG. COMPARISON: C, CHEST 1V SINGLE AP, 08/19/2018. . FINDINGS: ET tube nasogastric tube and central line are in good position. Sternal wires from previous bypass. C ardiomegaly with increasing pleural effusion on the right with congestive failure. Bibasal consolidations. CONCLUSION: Increasing congestive failure and right pleural effusion. Electronically signed by: Tony Watkins MD 08/19/2018 9:49 AM EDT
[2018-08-19] MEDS ORDERED: Phenylephrine Inj 40 MG in Dextrose 5% in Water Inj 496 ML IV.CONT PRN ×2 (10:00)
--- NOTE | 2018-08-19 10:02 | P.CONID ---
History of Present Illness Service: Infectious disease Consult date: 08/19/18 Requesting Physician: Yulisa Cannon Reason for Consult: Evaluate patient with pneumonia Primary Care Provider: Natan Ravi MD Family Provider: Natan Ravi MD Chief Complaint: Severe shortness of breath pneumonia History of Present Illness: Patient seen and examined. Records reviewed. History has been obtained from the patient's . Patient is a 77-year-old male, has been having problem with shortness of breath , and workup revealed that he has lung cancer. He has had several lung biopsy done. About several weeks ago patient received 1 treatment and the said it was in immunotherapy. He has been scheduled to get a second treatment. In the last several weeks, he shortness of breath has worsened compared to his baseline shortness of breath. Over the last week was when it started progressively worsening. He was bringing up some white frothy phlegm. Denies any chest pain. He has not had any fever chills or sweats. Has not had any problem with syncope, nausea or vomiting. Has not had any abdominal pain or urinary complaints. Patient has had bilateral lower extremity edema over the last 2-3 weeks, and has been given diuretics with some improvement of the edema. Patient in the last 2 weeks has had very poor p.o. intake and has been progressively getting weaker. He was brought in to the hospital and showed evidence of pneumonia. Overnight he progressively worsened, and he was transferred to the ICU today and required intubation. He has not been exposed to any sick children. The has not had any infection. No exposure to any animals except the 2 dogs that they have at home. No recent travel outside [place]. He is currently sedated and on the vent. He is afebrile. Chest x-ray showed increasing opacity on the right lung and likely increased pleural effusion. He remains afebrile. His hemodynamics are stable. His WBC is elevated. He had elevated creatinine on admission. Infectious disease consultation has been requested to assist with evaluation and treatment. Review of Systems unobtainable due to endotracheal tube (Rest of the review of system as in the HPI, from what I g) PMFSH - History History Provided By: Patient - Medical History Medical History: Medical History (Last Reviewed 08/19/18 @ 10:01 by Autumn Strickland MD) HTN (hypertension) Hypercholesteremia Lung cancer Skin cancer - Surgical History Surgical History: Surgical History (Last Reviewed 08/19/18 @ 10:01 by Autumn Strickland MD) Aortic valve replaced Hx of CABG - Tobacco History Second Hand Smoke Exposure: Yes Tobacco Use In Past 30 Days: No Smoking Status: Never smoker Tobacco Type: Cigarettes - Alcohol History How Often Do You Have a Drink Containing Alcohol: Never - Substance Use History Substance History: No History of Abuse - Travel History Recent Travel in the [place] Within the Last 8 Weeks: No Recent Travel Out of the Country Within the Last 8 Weeks: No - Immunization History Tetanus Immunization: >5 Years Hx Influenza Vaccine This Season: No Medications and Allergies Active Medications: Active Medications Acetaminophen (Tylenol) 650 mg PO Q4H PRN PRN Reason: Temp > 100.4 Al Hydroxide/Mg Hydroxide (Milk Of Omero Lidominique) 30 ml PO Q12H PRN PRN Reason: Mild Constipation Albuterol (Duoneb Neb (Prn)) 1 ampul NEB Q4HR NEB PRN PRN Reason: SOB/WHEEZING Last Admin: 08/19/18 05:00 Dose: 1 ampul Albuterol (Duoneb Neb (Rosemarie)) 1 ampul NEB Q6HR WHILE AWAKE NEB RO[place]IE Last Admin: 08/18/18 20:03 Dose: 1 ampul Amlodipine Besylate (Norvasc) 5 mg PO DAILY RO[facility] Atorvastatin Calcium (Lipitor) 10 mg PO DAILY [facility] Benzonatate (Tessalon Perles) 100 mg PO QID PRN PRN Reason: Cough Last Admin: 08/18/18 08:02 Dose: 100 mg Bisacodyl (Dulcolax Supp) 10 mg RECTAL DAILY PRN PRN Reason: SEVERE CONSITIPATION Budesonide/Formoterol Fumarate (Symbicort 160/4.5 Mcg Inh) 2 puff INH BID ROSEM[facility]IE Last Admin: 08/18/18 21:57 Dose: 2 puff Chlorhexidine Gluconate (Peridex 0.12% Oral Kit) 15 ml OROPHARYNG BID@0800, 2000 [facility] Dextrose (D50w Vial) 50 ml IV.PUSH UNSCH PRN PRN Reason: PER HYPOGLYCEMIA PROTOCOL Dronedarone (Multaq) 400 mg PO BID RO[facility]IE Last Admin: 08/18/18 21:54 Dose: 400 mg Famotidine (Pepcid Pf Inj) 20 mg IV.PUSH Q12HR [place] Furosemide (Lasix) 20 mg PO DAILY [facility] Glucagon (Glucagon Inj) 1 mg OTHER UNSCH PRN PRN Reason: for Hypoglycemia Protocol Vancomycin HCl 1,250 mg/ (Sodium Chloride) 262.5 mls @ 250 mls/hr IV.SIG Q18H RO[facility] Last Infusion: 08/18/18 22:50 Dose: Infused Amiodarone HCl 450 mg/ (Dextrose) 250 mls @ 33.33 mls/hr IV.CONT TITRATE PRN; Protocol PRN Reason: Per Protocol Amiodarone HCl 150 mg/ (Dextrose) 100 mls @ 100 mls/hr IV.SIG ONCE ONE Stop: 08/19/18 10:29 Phenylephrine HCl 40 mg/ (Dextrose) 500 mls @ 30 mls/hr IV.CONT TITRATE PRN; Protocol PRN Reason: Per Protocol Vasopressin 40 unit/ Dextrose 100 mls @ 1.5 mls/hr IV.CONT TITRATE PRN; Protocol PRN Reason: Per Protocol Propofol (Diprivan 1000 Mg/100 Ml Inj) 1,000 mg in 100 mls @ 2.136 mls/hr IV.CONT TITRATE PRN; Protocol PRN Reason: Per Protocol Cefepime HCl 2,000 mg/ Sodium (Chloride) 100 mls @ 200 mls/hr IV.SIG Q8H [facility] Levofloxacin/Dextrose (Levaquin 750 Mg Premix Inj) 150 mls @ 100 mls/hr IV.SIG Q24H [place] Albumin Human (Flexbumin 25% Inj) 100 mls @ 60 mls/hr IV.SIG ONCE ONE Stop: 08/19/18 11:39 Magnesium Sulfate 4 gm/ Sodium (Chloride) 100 mls @ 50 mls/hr IV.SIG UNSCH PRN PRN Reason: For Magnesium 0.9 - 1.1 mg/dL Magnesium Sulfate 2 gm/ Sodium (Chloride) 100 mls @ 50 mls/hr IV.SIG UNSCH PRN PRN Reason: For Magnesium 1.2 - 1.6 mg/dL Potassium Chloride (Kcl 40 Meq Premix Inj) 40 meq in 100 mls @ 50 mls/hr IV.SIG Q2H PRN PRN Reason: For Potassium 2.8 - 3.2 mEq/L Potassium Chloride (Kcl 20 Meq Premix Inj) 20 meq in 100 mls @ 50 mls/hr IV.SIG Q2H PRN PRN Reason: For Potassium 3.3 - 3.5 mEq/L Potassium Chloride (Kcl 20 Meq Premix Inj) 20 meq in 100 mls @ 50 mls/hr IV.SIG Q2H PRN PRN Reason: For Potassium 2.8 - 3.2 mEq/L Potassium Phosphate 30 mmol/ (Sodium Chloride) 260 mls @ 42 mls/hr IV.SIG UNSCH PRN PRN Reason: SEE LABEL COMMENTS Sodium Phosphate 30 mmol/ (Sodium Chloride) 260 mls @ 42 mls/hr IV.SIG UNSCH PRN PRN Reason: For Phosphorus < 2.5 mg/dL Potassium Chloride (Kcl 40 Meq Premix Inj) 40 meq in 100 mls @ 25 mls/hr IV.SIG UNSCH PRN PRN Reason: For Potassium 3.3 - 3.5 mEq/L Insulin Detemir (Levemir Inj) 5 unit SQ BID [facility] Insulin Human Regular (Novolin R Correctional Sugar Inj) 0 units SQ Q6HR [place]; Protocol Lactulose (Lactulose Liq) 30 ml PO DAILY PRN PRN Reason: SEVERE CONSITIPATION Magnesium Oxide (Mag-Ox) 800 mg PO UNSCH PRN PRN Reason: For Magnesium 1.2 - 1.6 mg/dL Melatonin (Melatonin) 5 mg PO HS PRN PRN Reason: SLEEP Metoprolol Succinate (Toprol Xl) 25 mg PO DAILY [facility] Miscellaneous Information ([facility] Ordered Lab Info) 0 each OTHER ONCE ONE Stop: 08/20/18 08:46 Miscellaneous Medication () 1 each OROPHARYNG 0000,0400,1200,1600 [facility] Ondansetron HCl (Zofran Inj) 4 mg IV.PUSH Q6H PRN PRN Reason: NAUSEA OR VOMITING Pharmacy Profile Note (Vancomycin Consult Pharmacy) 1 each OTHER PRN [facility] Pharmacy Profile Note (Until Further Notice) 1 each OTHER UNSCH [facility] Potassium Bicarb/Potassium Chloride (K-Lyte Cl Eff) 50 meq PO UNSCH PRN PRN Reason: For Potassium 3.3 - 3.5 mEq/L Potassium Phosphate (K-Phos Original) 2,000 mg PO Q4H PRN PRN Reason: Phosphorus Less Than 2.5 mg/dL Potassium Phosphate (K-Phos Original) 2,000 mg PO UNSCH PRN PRN Reason: SEE LABEL COMMENTS Senna/Docusate Sodium (Adelia-Colace) 1 tab PO BID [facility] Last Admin: 08/18/18 21:54 Dose: 1 tab Sennosides (Senokot) 17.2 mg PO Q12H PRN PRN Reason: Moderate Constipation Spironolactone (Aldactone) 25 mg PO BID [facility] Terbutaline Sulfate (Brethine Inj) 1 mg SQ UNSCH PRN PRN Reason: For Extravasation Allergies Allergy/AdvReac Type Severity Reaction Status Date / Time penicillin G Allergy Mild Hives Verified 05/14/18 16:06 Sulfa (Sulfonamide Allergy Mild Hives Verified 05/14/18 16:06 Antibiotics) exenatide Allergy Unknown Hives Verified 08/17/18 20:16 FARXIGA Allergy Severe Anorexia Uncoded 05/14/18 16:06 Home Medications Medication Instructions Recorded Confirmed Type Actos 30 mg PO DAILY 08/17/18 08/17/18 History amlodipine [Norvasc] 5 mg PO DAILY 08/17/18 08/17/18 History atorvastatin [Lipitor] 10 mg PO DAILY 08/17/18 08/17/18 History azithromycin 500 mg PO DAILY 08/17/18 08/17/18 History benzonatate 100 mg PO QID PRN 08/17/18 08/17/18 History budesonide-formoterol [Symbicort] 2 puff INHALATION BID 08/17/18 08/17/18 History dronedarone 400 mg PO BID 08/17/18 08/17/18 History furosemide 20 mg PO DAILY 08/17/18 08/17/18 History glipizide [Glucotrol] 5 mg PO BID 08/17/18 08/17/18 History lisinopril [Prinivil] 20 mg PO DAILY 08/17/18 08/17/18 History metformin 1,000 mg PO BID 08/17/18 08/17/18 History metoprolol succinate 25 mg PO DAILY 08/17/18 08/17/18 History pioglitazone 30 mg PO DAILY 08/17/18 08/17/18 History spironolactone [Aldactone] 25 mg PO BID 08/17/18 08/17/18 History Exam Vital signs: Vital Signs 08/18/18 12:00 08/18/18 12:58 08/18/18 15:28 Temperature 97.3 F L Pulse Rate 125 H 115 H Respiratory Rate 16 24 Blood Pressure 107/78 106/86 Pulse Oximetry 95 08/18/18 16:00 08/18/18 20:00 08/18/18 20:06 Temperature 97.7 F 97.5 F L Pulse Rate 110 H 106 H 64 Respiratory Rate 16 18 18 Blood Pressure 111/69 125/58 L Pulse Oximetry 95 95 97 08/18/18 23:34 08/19/18 00:00 08/19/18 04:00 Temperature 97.9 F 98.9 F Pulse Rate 68 118 H 122 H Respiratory Rate 21 19 19 Blood Pressure 155/60 H 111/55 L Pulse Oximetry 97 93 L 08/19/18 05:02 08/19/18 05:19 08/19/18 06:28 Temperature Pulse Rate 70 Respiratory Rate 21 Blood Pressure Pulse Oximetry 93 L 95 08/19/18 08:25 08/19/18 09:30 08/19/18 09:52 Temperature Pulse Rate Respiratory Rate 16 16 Blood Pressure Pulse Oximetry 100 100 100 Intake & Output 08/18/18 08/19/18 08/19/18 18:59 06:59 18:59 Intake Total 1620 / 1620 362.5 / 362.5 Output Total 700 / 700 700 / 700 200 / 200 Balance 920 / 920 -337.5 / -337.5 -200 / -200 Weight 71.2 kg Intake: IV 900 / 900 362.5 / 362.5 NS Inj 1,000 ML @ 100 mls/hr IV 800 / 800 .CONT .Q10H [facility] Rx#:[id number] Maxipime Inj 1,000 MG In NS Inj 100 / 100 100 / 100 100 ML @ 200 mls/hr IV.SIG Q12H [facility] Rx#:[id number] Vancomycin Inj 1,250 MG In NS 262.5 / 262.5 Inj 250 ML @ 250 mls/hr IV.SIG Q18H [facility] Rx#:[id number] Oral 720 / 720 Output: Urine 700 / 700 700 / 700 200 / 200 Other: Date of Last Bowel Movement 08/17/18 # Bowel Movements 0 Narrative: Physical Examination GENERAL: Patient is a well-nourished, well-developed male, sedated on the vent, not in respiratory distress. SKIN: Cool and dry. No generalized rash, no ecchymoses and no evidence of embolic lesions. HEAD: Atraumatic. Normocephalic. No temporal wasting, or tenderness. EYES: [place] conjunctiva. No petechia or hemorrhage. Pupils equal, round and reactive to light. No scleral icterus. No injection or drainage. EARS, NOSE AND THROAT: Nose without bleeding or purulent nasal discharge. He is orally intubated. NECK: Trachea midline. Supple and not tender, no meningeal signs CARDIOVASCULAR: Regular rate and rhythm. No murmurs, rubs or gallops heard RESPIRATORY: Bilateral coarse rhonchi, worse on the right than on the left. Decreased breath sounds on the right base. ABDOMEN: Soft, nondistended, some mild grimacing during abdominal palpation.. Bowel sounds present and normoactive. No guarding. No rebound. No organomegaly. EXTREMITIES: No clubbing, cyanosis. Has bilateral pitting edema in BLE. His RLE looks larger than his LLE. No joint effusion. NEUROLOGICAL: Sedated on the vent. No Babinski or ankle clonus. PSYCHIATRIC: Unable to assess. LINE: No evidence of infection - RSC line, and R radial Claudia Results - Labs CBC & Chem 7: 08/18/18 04:25 08/18/18 04:25 Labs: Laboratory Results - last 24 hr 08/18/18 08/19/18 20:21 05:43 Puncture Site Right radial Patient Temperature 98.6 O2 Saturation 92 ABG pH 7.44 H ABG pCO2 38 ABG pO2 77 ABG HCO3 25 ABG O2 Content 15.1 ABG Base Excess 1.5 ABG Methemoglobin 1.3 Lito Test Present Hemoglobin 11.6 L Carboxyhemoglobin 1.6 O2 Delivery Device Sm Liter Flow 9.00 Critical Value No POC Glucose 284 H - Imaging Impressions Chest X-Ray 08/19/18 00:00 CONCLUSION: 1. Worsening airspace consolidation in the left lower lung zone. 2. Persistent right lower lung zone airspace disease and associated small pleural effusion. Chest X-Ray 08/19/18 00:00 CONCLUSION: Increasing congestive failure and right pleural effusion. Assessment and Plan - Plan Impression Pneumonia, patient with newly diagnosed lung CA Sepsis, due to PNA Bilateral effusions Respiratory failure Recommendation Agree with current Abx coverage: Cefepime, Levaquin and Vancomycin Check legio and pneumo Ag Follow C/S and adjust Abx Monitor progress I will make further recommendations once wokr-up completed I will follow along with you Thank you for this consultation Spoke with
--- NOTE | 2018-08-19 10:19 | CT ---
EXAM DATE: 08/19/2018 9:27 AM EDT AGE/SEX: 77 years / Male INDICATIONS: Pneumonia, loculated effusion CLINICAL DATA: This is the patient's initial encounter. Patient reports that signs and symptoms have been present for 1 day and indicates a pain score of Nonresponsive. MEDICAL/SURGICAL HISTORY: Hypertension. Carcinoma, lung. CABG. RADIATION DOSE: 9.08 CTDI (mGy) COMPARISON: [facility], CT CHEST W/O CONTRAST, 04/01/2018. [facility], CT CHEST W/ CONTRAST, 01/15/2018. . TECHNIQUE: Multiple contiguous axial images were obtained through the chest without contrast. Image s were obtained in suspended respiration using multiple row detector helical technique. Using automa eliza exposure control and adjustment of the mA and/or kV according to patient size, radiation dose was kept as low as reasonably achievable to obtain optimal diagnostic quality images. DICOM format imag e data is available electronically for review and comparison. FINDINGS: There is a large right pleural effusion. Extensive patchy alveolar consolidations are noted bilateral ly consistent with probable pneumonia. Clinical correlation is recommended. Tiny left pleural effusio n is noted. Pretracheal, right paratracheal and subcarinal mediastinal lymphadenopathy is noted. Coronary artery calcifications are noted. Endotracheal tube has its tip above the fernanda in good position. Nasogastri c tube is noted within the stomach. Right internal jugular central line has its tip in the superior v cheryl cava in good position. CONCLUSION: 1. Large right pleural effusion. 2. Extensive patchy alveolar consolidations bilaterally consistent with probable pneumonia. Clinical correlation is recommended. 3. Pretracheal, right paratracheal and subcarinal mediastinal lymphadenopathy. 4. Tiny left pleural effusion. 5. Coronary artery calcifications. Electronically signed by: Fabián Juárez MD 08/19/2018 10:18 AM EDT
[2018-08-19] MEDS: Senna/Docusate Sodium 8.6/50 MG Tablet PO SCH ×2 (10:55→21:31)
[2018-08-19 10:57] LABS: Hematocrit 32.5 % (39.0-51.0); Hemoglobin 10.5 gm/dL (13.0-17.0); Mean Corpuscular HGB Conc 32.4 % (32.0-36.0); Mean Corpuscular Volume 89.4 fL (80.0-100.0); Mean Platelet Volume 8.6 fL (7.0-11.0); Platelet Count 68 th/mm3 (150-450); Red Blood Count 3.64 mil/mm3 (4.50-5.90); Red Cell Distribution Width 17.6 % (11.6-17.2); White Blood Count 15.5 th/mm3 (4.0-11.0)
[2018-08-19 11:10] LABS: INR 1.5 Ratio
[2018-08-19 11:18] LABS: Alanine Aminotransferase 27 U/L (12-78); Albumin 2.8 g/dL (3.4-5.0); Alkaline Phosphatase 119 U/L (45-117); Anion Gap 13 meq/L (5-15); Aspartate Aminotransferase 51 U/L (15-37); Blood Urea Nitrogen 26 mg/dL (7-18); Calcium 7.4 mg/dL (8.5-10.1); Carbon Dioxide 25.4 meq/L (21.0-32.0); Chloride 98 meq/L (98-107); Glomerular Filtration Rate Greater Than 89 mL/min (>89); Glucose,Random 278 mg/dL (74-106); Magnesium 1.4 mg/dL (1.5-2.5); Potassium 3.7 meq/L (3.5-5.1); Sodium 136 meq/L (136-145); Total Protein 6.1 g/dL (6.4-8.2)
[2018-08-19] MEDS: Budesonide-Formoterol 160/4.5 MCG 6 GM Inhaler INH SCH ×2 (12:18→21:05)
[2018-08-19] MEDS: Insulin NovoLIN Regular Correctional Sugar Inj SQ SCH ×2 (12:18→18:18)
[2018-08-19] MEDS: Oral Hygiene Kit OROPHARYNG SCH ×2 (12:22→17:56)
[2018-08-19 13:30] LABS: ABG Base Excess 0.5 mmol/L (-2-2); ABG PCO2 39 mmHg (38-42); ABG PO2 229 mmHG (61-120)
--- NOTE | 2018-08-19 13:31 | P.PCN ---
Date of procedure: 08/19/18 Pre-op diagnosis: Pneumonia large right-sided effusion Post-op diagnosis: same Procedure: Ultrasound-guided right pigtail chest tube placement A time-out was completed verifying correct patient, procedure, site, positioning , and special equipment if applicable. The patient was positioned appropriately for chest tube placement. The patients right chest was prepped and draped in sterile fashion. 1% Lidocaine was used to anesthetize the surrounding skin area. A 0.25 CM skin incision was made in the mid-axillary line at the site marked with ultrasound. 18-gauge introducer needle was inserted into the pleural space and cloudy brownish yellow fluid was withdrawn. Syringe was removed and a guidewire was placed followed by removal of the needle. Track cast dilated and using Seldinger technique a 10 [place] pigtail catheter was advanced in the pleural space and connected to Pleur-evac. Pigtail was secured with a suture and stay fix. Initial output was 1.2 L of cloudy brown-yellow pleural fluid which appears parapneumonic/early empyema. Await further fluid studies. Chest x-ray is pending at this time. Anesthesia: local Surgeon: Yulisa Cannon Estimated blood loss (mL): 1 Pathology: other (Fluid studies sent) Condition: critical Disposition: ICU
[2018-08-19 14:42] LABS: Total Protein,Pleural Fluid 4.6 gm/dL
[2018-08-19 14:47] LABS: RBC,Pleural Fluid 25667 /mm3 (0-0)
[2018-08-19 14:51] LABS: Lymphocytes,Pleural Fluid 23 %; Mesothelial,Pleural Fluid 23 %; Monocytes,Pleural Fluid 8 %; Neutrophils,Pleural Fluid 17 %
--- NOTE | 2018-08-19 15:07 | XR ---
EXAM DATE: 08/19/2018 12:00 AM EDT AGE/SEX: 77 years / Male INDICATIONS: Right side chest tube placement CLINICAL DATA: This is the patient's initial encounter. Patient reports that signs and symptoms have been present for 4 - 6 days and indicates a pain score of Nonresponsive. MEDICAL/SURGICAL HISTORY: Hypertension. Carcinoma, lung. CABG. COMPARISON: [facility], CHEST 1V SINGLE AP, 08/19/2018. . FINDINGS: ET tube, nasogastric tube and central line in good position. Significant improvement with less pleura l fluid following right chest tube placement. Sternal wires previous bypass are noted. Moderate bibasilar parenchymal changes with mild cardiomegal y.. No pneumothorax. CONCLUSION: Significant improvement following right chest tube placement. Moderate bibasilar parenchymal changes persist with mild cardiomegaly. Electronically signed by: Tony Watkins MD 08/19/2018 3:06 PM EDT
--- NOTE | 2018-08-19 15:39 | US ---
EXAM DATE: 08/19/2018 12:00 AM EDT AGE/SEX: 77 years / Male INDICATIONS: Right leg swelling. CLINICAL DATA: This is the patient's initial encounter. Patient reports that signs and symptoms have been present for 1 day and indicates a pain score of Nonresponsive. MEDICAL/SURGICAL HISTORY: . Hypertension. Carcinoma, lung. CABG. COMPARISON: No prior exams available for comparison. TECHNIQUE: Venous ultrasound of both lower extremities was performed from the inguinal ligament to t he proximal calf. Real-time, color Doppler and spectral tracing, compression and augmentation techni ques were used. FINDINGS: There is deep venous thrombosis throughout the right lower extremity from the femoral vein into the popliteal and posterior tibial vein. The common femoral vein is patent. CONCLUSION: 1. Deep venous thrombosis as above Electronically signed by: Natan Vogt MD 08/19/2018 3:37 PM EDT
[2018-08-19] MEDS ORDERED: Heparin Drip 25,000 UNIT/250 ML BAG IV.CONT PRN (15:59)
[2018-08-19] MEDS: Vancomycin Inj 1,250 MG in Sodium Chlor 0.9% Inj 250 ML IV.SIG SCH (16:47)
--- NOTE | 2018-08-19 17:50 | P.RAD ---
Post Procedure Progress Note - Pre Procedure Diagnosis (1) Lung cancer - Post Procedure Diagnosis (1) Lung cancer - Procedure Information Procedure Date: 08/19/18 Supervising Radiologist: Philip White Jr, MD Anesthesia: Other - Plan of Activity Patient to Unit: Critical Care Patient Condition: Fair See PACS Report for procedural detail/treatment. Vascular - Venous Procedure - Additional Information Findings: Placed a retrievable IVC filter. The patient has multiple accessory renal veins so filter placed below most inferior renal vein. Hemostasis at groin access site aided by cerclage suture. Additional Detail: IVC filter can be removed up to 1 year from today if needed. May remove cerclage suture from right groin in 3-4 days.
[2018-08-19] MEDS ORDERED: Iohexol 350 MG/ML 50 ML Vial (for Rad Diag) IVCONTRAST ONE (17:57)
--- NOTE | 2018-08-19 18:06 | ECHRPT ---
Indication: AFIB AND FLUTTER CONCLUSIONS Mildly dilated left ventricle. Wall thickness is normal. The left ventricular systolic function is mildly reduced with an estimated ejection fraction in the range of 45- 50%. The right ventricle is mildly dilated. Trace mitral valve regurgitation. There is mild tricuspid valve regurgitation. BP: / HR: Rhythm: MEASUREMENTS (Male / Female) Normal Values Technical Quality:Technically difficult study 2D ECHO LV Diastolic Diameter PLAX 4.5 cm 4.2 - 5.9 / 3.9 - 5.3 cm LV Systolic Diameter PLAX 3.7 cm IVS Diastolic Thickness 0.9 cm 0.6 - 1.0 / 0.6 - 0.9 cm LVPW Diastolic Thickness 0.9 cm 0.6 - 1.0 / 0.6 - 0.9 cm LV Relative Wall Thickness 0.4 RV Internal Dim ED PLAX 3.1 cm LVOT Diameter 2.2 cm Aortic Root Diameter 2.4 cm LA Systolic Diameter LX 3.9 cm 3.0 - 4.0 / 2.7 - 3.8 cm M-MODE Aortic Root Diameter MM 2.7 cm LA Systolic Diameter MM 4.5 cm LA Ao Ratio MM 1.7 AV Cusp Separation MM 1.6 cm DOPPLER AV Peak Velocity 171.0 cm/s AV Peak Gradient 11.7 mmHg LVOT Peak Velocity 97.7 cm/s LVOT Peak Gradient 3.8 mmHg AV Area Cont Eq pk 2.2 cm Mitral E Point Velocity 56.3 cm/s Mitral A Point Velocity 70.1 cm/s Mitral E to A Ratio 0.8 TV Peak Velocity 235.0 cm/s TR Peak Velocity 248.0 cm/s TR Peak Gradient 24.6 mmHg FINDINGS LEFT VENTRICLE Mildly dilated left ventricle. Wall thickness is normal. The left ventricular systolic function is mildly reduced with an estimated ejection fraction in the range of 45- 50%. RIGHT VENTRICLE The right ventricle is mildly dilated. MITRAL VALVE Trace mitral valve regurgitation. TRICUSPID VALVE There is mild tricuspid valve regurgitation. Ronal Marquez MD, FACC, [facility] (Electronically Signed) Final Date:19 August 2018 18:05
[2018-08-19] MEDS: Insulin Detemir Inj 1,000 UNIT/10 ML Vial SQ SCH (21:30)
[2018-08-19] MEDS: Chlorhexidine 0.12% Oral Kit 15 ML UDC OROPHARYNG SCH (21:30)
[2018-08-19] MEDS: Famotidine PF Inj 20 MG/2 ML Vial IV.PUSH SCH (21:31)
[2018-08-20] MEDS: Propofol 1000 mg/100 ml Inj 1,000 MG/100 ML BOTTLE IV.CONT PRN ×4 (00:31→21:46)
[2018-08-20] MEDS: Oral Hygiene Kit OROPHARYNG SCH ×4 (00:31→16:34)
[2018-08-20] MEDS: Insulin NovoLIN Regular Correctional Sugar Inj SQ SCH ×4 (00:31→18:31)
--- NOTE | 2018-08-20 02:40 | MB ---
cc: Kasie Yu MD DATE: 08/19/2018 REASON FOR CONSULTATION: Consult requested by purchasing contracting clerk for follow up of non-small cell lung cancer. HISTORY OF PRESENT ILLNESS: Jc is a 77-year-old male. He is currently intubated and on the ventilator. He is unable to give any history. History is obtained through review of the records and speaking to his son. He was diagnosed with non-small cell lung cancer about a month ago. He is under the care of Dr. Berger,an Oncologist. The patient apparently had treatment recently. It is unclear which treatment he had. He developed pneumonia after that and he was given a Z-Delano. However, his symptoms did not improve and his respiratory status was getting worse. He came into the emergency room. The patient was started on IV antibiotics. Subsequently, the patient went into respiratory failure and he had failed BiPAP. He required intubation and now he is on the ventilator. The purchasing contracting clerk is managing the case now. The x-ray does show pleural effusion or possible empyema. The patient had a chest tube placed on the right side for the effusion and possible empyema. Infectious disease has been consulted and they are monitoring his antibiotics. He had a Doppler ultrasound of both lower legs, which was ordered due to the swelling. He was found to have right lower extremity DVT. Due to the thrombocytopenia, he had an IVC filter placed in by interventional radiologist today. It is a retrievable filter. I have been asked to see the patient. I do not have any records available regarding his lung cancer. REVIEW OF SYSTEMS: Not possible as the patient is on the ventilator. PAST MEDICAL HISTORY: Hypertension, hypercholesterolemia, non-small cell lung cancer, skin cancer, coronary artery disease, aortic stenosis, diabetes mellitus. PAST SURGICAL HISTORY: Aortic valve replacement and coronary artery bypass surgery. ALLERGIES: PENICILLIN, SULFA, FARXIGA AND EXENATIDE. MEDICATIONS PRIOR TO COMING TO HOSPITAL: 1. Actos. 2. Amlodipine. 3. Atorvastatin. 4. Z-Delano. 5. Symbicort. 6. Lasix. 7. Glipizide. 8. Lisinopril. 9. Metformin. 10. Metoprolol. 11. Pioglitazone. 12. Aldactone FAMILY HISTORY: Unable to obtain. SOCIAL HISTORY: Unable to obtain. PHYSICAL EXAMINATION: GENERAL: This is an elderly, ill-appearing white male, who is on the ventilator. VITAL SIGNS: Temperature 98, heart rate 75, blood pressure 104/56. HEENT: Sclerae are anicteric. ET tube noted. NECK: No lymphadenopathy. LUNGS: Decreased sounds in both sides. HEART: Regular rate and rhythm. ABDOMEN: Soft. EXTREMITIES: No pedal edema. NEUROLOGIC: The patient is sedated. ASSESSMENT: 1. Right lower extremity deep venous thrombosis. This is due to hypercoagulable state from lung malignancy as well as decreased mobility due to the sickness. Status post inferior vena cava filter. 2. Thrombocytopenia. Either due to the chemotherapy or due to infection, sepsis or DIC. 3. Non-small cell lung cancer. Details of those are not available at the present time. 4. Respiratory failure, may be due to pneumonitis from recent immunotherapy. PLAN: I have reviewed his available records. The patient's had just left. According to the son, she knows his medical history. I have called the patient's on her her cell phone and also at home. Her cell phone number is [phone]. Her home number is [phone]. However, no answer. I have discussed with the patient's son and his . The son does not know much about the patient's history. He stated that his parents probably have not told the family everything. They may be trying to protect the children. At this point, there is no acute oncology intervention is required. I will obtain records from Dr. Berger's office tomorrow morning. If he had immunotherapy (probably Keytruda) then will give him high dose steroid for pneumonitis. He has a retractable IVC filter placed in for right lower extremity deep venous thrombosis. Difficult to anticoagulate because of low platelet count. Thrombocytopenia may be due to the chemotherapy or due to sepsis or DIC. Further recommendations based on his hospital stay. Thank you for asking my opinion. MD ISIS Arshad/cass , 12:08 AM , 12:23 AM DELTA
[2018-08-20 05:35] LABS: Hematocrit 30.6 % (39.0-51.0); Hemoglobin 10.3 gm/dL (13.0-17.0); Mean Corpuscular HGB Conc 33.5 % (32.0-36.0); Mean Corpuscular Hemoglobin 29.2 pg (27.0-34.0); Mean Corpuscular Volume 87.3 fL (80.0-100.0); Mean Platelet Volume 8.8 fL (7.0-11.0); Platelet Count 78 th/mm3 (150-450); Red Blood Count 3.51 mil/mm3 (4.50-5.90); Red Cell Distribution Width 17.7 % (11.6-17.2)
[2018-08-20] MEDS ORDERED: Sodium Chloride 0.9% 2 ML Flush PRN IV.FLUSH (07:52)
[2018-08-20] MEDS ORDERED: Sodium Chlor 0.9% Inj 500 ML IV.SIG SCH (08:00)
[2018-08-20] MEDS: Sod Chloride 0.9% Inj 1,000 ML IV.SIG SCH ×2 (08:11→15:15)
[2018-08-20] MEDS: Chlorhexidine 0.12% Oral Kit 15 ML UDC OROPHARYNG SCH ×2 (08:11→20:23)
[2018-08-20] MEDS: Famotidine PF Inj 20 MG/2 ML Vial IV.PUSH SCH ×2 (08:12→20:23)
[2018-08-20] MEDS: Insulin Detemir Inj 1,000 UNIT/10 ML Vial SQ SCH ×2 (08:12→20:23)
[2018-08-20] MEDS: Senna/Docusate Sodium 8.6/50 MG Tablet PO SCH ×2 (08:12→20:22)
[2018-08-20] MEDS: Sodium Chloride 0.9% 2 ML Flush BID IV.FLUSH SCH ×2 (08:13→21:27)
[2018-08-20] MEDS: Budesonide-Formoterol 160/4.5 MCG 6 GM Inhaler INH SCH ×2 (08:13→21:26)
[2018-08-20] MEDS ORDERED: Pharmacy Ordered Lab Info OTHER ONE (08:45)
--- NOTE | 2018-08-20 09:25 | IR ---
EXAM DATE: 08/19/2018 12:00 AM EDT AGE/SEX: 77 years / Male INDICATIONS: Patient presents with right lower extremity deep vein thrombosis in need of inferior ve na cava placement. CLINICAL DATA: This is the patient's initial encounter. Patient reports that signs and symptoms have been present for 2 days and indicates a pain score of Nonresponsive. MEDICAL/SURGICAL HISTORY: . HTN, AFIB, DM, Lung cancer. . CABG, AVR. COMPARISON: No prior exams available for comparison. FLUORO TIME (min): 0.91 IMAGE SERIES: 6 ACCESS SITE: Right femoral vein CONTRAST (cc): 15 ml Omnipaque (iohexol) 350 DEVICE(S): Right IVC vein 7fr Ivelisse femoral vena cava filter . . PROCEDURE : 1. Ultrasound-guided venipuncture. 2. Inferior venacavogram. 3. Inferior vena cava filter placement. 4. Conscious sedation with continuous EKG and oximetry monitoring. The risks, benefits and alternatives to the procedure were explained and verbal and written consent w as obtained. The site was prepped in sterile fashion. Full sterile technique was used, including ca p, mask, sterile gloves and gown and a large sterile sheet. Hand hygiene and 2% chlorhexidine and/or betadine/alcohol prep was utilized per protocol for cutaneous antisepsis. Sterile gel and sterile p robe cover were utilized for ultrasound guidance. The skin and subcutaneous tissues were infiltrated with local anesthetic solution. Ultrasound of the right groin was performed. The common femoral vein shows normal compressibility. No thrombus. With ultrasound and fluoroscopic guidance the right common femoral vein was punctured and a vascular sheath was placed. Inferior venacavogram was performed to demonstrate level of renal veins . The patient has multiple accessory renal veins on the right recesses containing a relatively low de ployment within the IVC. No caval thrombus was identified. The prescribed filter was deployed in the infrarenal inferior vena cava. Following deployment the filter was identified in good position. Conscious sedation was performed with the prescribed dosages and duration as above in the presence of an independent trained radiology nurse to assist in the monitoring of the patient. EKG and oximetry remained stable throughout the procedure. The patient tolerated the procedure well and there were n o complications. The patient was sent to post anesthesia recovery in stable condition. CONCLUSION: 1. Uncomplicated inferior vena cava filter placement as above. This is a removable filter and can be removed up to one year from its placement. Electronically signed by: Philip White MD 08/20/2018 9:24 AM EDT
[2018-08-20] MEDS: Vancomycin Inj 1,250 MG in Sodium Chlor 0.9% Inj 250 ML IV.SIG SCH (09:30)
[2018-08-20] MEDS: Amiodarone Inj 450 MG in Sodium Chlor 0.9% Inj 241 ML IV.CONT PRN (09:31)
[2018-08-20 10:20] LABS: INR 1.5 Ratio; Prothrombin Time 14.8 sec (9.8-11.6)
[2018-08-20 10:26] LABS: Alanine Aminotransferase 45 U/L (12-78); Albumin 2.5 g/dL (3.4-5.0); Anion Gap 10 meq/L (5-15); Aspartate Aminotransferase 102 U/L (15-37); Blood Urea Nitrogen 26 mg/dL (7-18); Calcium 7.5 mg/dL (8.5-10.1); Carbon Dioxide 25.9 meq/L (21.0-32.0); Chloride 97 meq/L (98-107); Glomerular Filtration Rate Greater Than 89 mL/min (>89); Glucose,Random 172 mg/dL (74-106); Potassium 3.6 meq/L (3.5-5.1); Sodium 133 meq/L (136-145)
[2018-08-20] MEDS ORDERED: MethylPREDNISolone Sod Succinate Inj 125 MG/2 ML Vial IV.PUSH ONE (10:30)
[2018-08-20 10:33] LABS: Alkaline Phosphatase 113 U/L (45-117); Total Protein 5.9 g/dL (6.4-8.2)
--- NOTE | 2018-08-20 11:06 | P.PNCC ---
Subjective Subjective Remarks/Hospital Course: his is a 77-year-old male with a PMH of chronic atrial fibrillation, type 2 diabetes, hypertension, dyslipidemia, Lung cancer currently receiving immunotherapy who presented to the emergency department with shortness of breath of one-week duration. Pt was recently diagnosed with Lung CA approx 1 month ago, following with Dr. Berger, had first treatment few weeks ago. Last week had an outpatient x-ray which showed pneumonia and was placed on Z-Delano with only minimal or no improvement. Because of worsening symptoms he presented to the emergency department and was admitted to the hospitalist on 08/17/2018. On admission his WBC 19.8. INR 2.1. Creatinine 1.86, and Lactic Acid 2.6. CXR with increasing consolidation right lung, stable infiltrate left lung. Patient was transferred to the ICU overnight for increasing shortness of breath and BiPAP requirement. Today critical care was emergently consulted as patient was not tolerating BiPAP and was severely short of breath, chest x-ray showed increasing bilateral infiltrates. Patient was also in atrial fibrillation with RVR. I immediately evaluated the patient, on simple mask he was maintaining saturation 90%. However he was severely short of breath and had extensive bilateral crackles, with tachypnea breathing approximately 40 breaths/min. After discussion with the patient I intubated and placed him on mechanical ventilation. Currently receiving vancomycin and cefepime. I have increased the cefepime dose to 2 g IV every 8 hours, continue vancomycin and added Levaquin [address] A stat [address] of the chest to evaluate for effusion ordered. Postintubation patient was hypotensive, given 2 L IV fluid boluses, followed by vasopressin started at 0.04 international units/min. For A. fib with RVR started on amiodarone bolus and infusion per protocol. Patient is critically ill at this time SUBJ 08/20: Remains intubated sedated critically ill. Remains in septic shock currently on vasopressin 0.04 international units and Gaurav-Synephrine 30 mcg/kg/ min. However WBC count is stable to trending down, creatinine has normalized. Right chest tube placed with almost 3.2L blood-tinged effusion drained in 24 hours. Right DVT in the lower extremity status post IVC filter placement asked patient cannot be anticoagulated at this time due to thrombocytopenia. Objective Vital Signs / I&O: Vital Signs 08/19/18 11:18 08/19/18 12:00 08/19/18 12:54 Temperature 98 F 98.9 F 98.2 F Pulse Rate 83 94 H 76 Respiratory Rate 19 16 19 Blood Pressure 87/61 L 120/62 79/52 L Pulse Oximetry 100 08/19/18 13:38 08/19/18 16:00 08/19/18 16:19 Temperature 98.2 F Pulse Rate 100 H 92 H Respiratory Rate 21 24 20 Blood Pressure 90/58 L Pulse Oximetry 100 93 L 97 08/19/18 17:00 08/19/18 20:00 08/19/18 20:55 Temperature 98.0 F Pulse Rate 75 88 Respiratory Rate 16 22 Blood Pressure 104/56 L Pulse Oximetry 100 96 96 08/20/18 00:00 08/20/18 01:00 08/20/18 01:40 Temperature 98.4 F Pulse Rate 75 76 Respiratory Rate 16 23 Blood Pressure 118/65 108/64 Pulse Oximetry 96 08/20/18 02:00 08/20/18 03:00 08/20/18 04:00 Temperature 98.0 F Pulse Rate 75 73 75 Respiratory Rate Blood Pressure 106/58 L 114/60 106/58 L Pulse Oximetry 08/20/18 05:00 08/20/18 05:09 08/20/18 06:00 Temperature Pulse Rate 73 66 Respiratory Rate 21 Blood Pressure 118/61 127/66 Pulse Oximetry 96 08/20/18 08:38 08/20/18 11:02 Temperature Pulse Rate 77 Respiratory Rate 20 27 H Blood Pressure Pulse Oximetry 98 96 Intake & Output 08/19/18 08/20/18 08/20/18 18:59 06:59 18:59 Intake Total 1061.5 / 1061.5 500 / 500 500 / 500 Output Total 3500 / 3500 450 / 450 Balance -2438.5 / -2438.5 500 / 500 50 / 50 Weight 75 kg Intake: IV 712.5 / 712.5 500 / 500 500 / 500 Cordarone Inj 450 MG In D5W Inj 0 / 0 241 ML @ 1 MG/MIN 33.33 mls/hr IV.CONT TITRATE PRN Rx#: [id number] Diprivan 1000 mg/100 ml Inj 1, 100 / 100 200 / 200 000 mg In 100 ml @ 5 MCG/KG/MIN 2.136 mls/hr IV.CONT TITRATE PRN Rx#:[id number] Pitressin Inj 40 UNIT In D5W 100 / 100 Inj 98 ML @ 0.01 UNITS/MIN 1.5 mls/hr IV.CONT TITRATE PRN Rx#: [id number] Flexbumin 25% Inj 100 ML @ 60 100 / 100 mls/hr IV.SIG ONCE ONE Rx#: [id number] Maxipime Inj 2,000 MG In NS Inj 100 / 100 200 / 200 100 ML @ 200 mls/hr IV.SIG Q8H REJI Rx#:[id number] Levaquin 750 mg Premix Inj 150 150 / 150 ML @ 100 mls/hr IV.SIG Q24H REJI Rx#:[id number] NS Inj 500 ML @ As Directed IV. 500 / 500 SIG BOLUS REJI Rx#:[id number] Vancomycin Inj 1,250 MG In NS 262.5 / 262.5 Inj 250 ML @ 250 mls/hr IV.SIG Q18H REJI Rx#:[id number] Other 50 / 50 Plasma Thawed 5 Day Cp2d Unit 50 / 50 [id number] Intake (Blood Product) Amt 299 / 299 Plasma Thawed 5 Day Cp2d Unit 299 / 299 [id number] Plasma Thawed 5d Cp2d Pool 0 / 0 Unit [id number] Output: Urine 200 / 200 Urine Amount (Catheter) 300 / 300 450 / 450 Condom 300 / 300 450 / 450 Chest Tube Drainage 3000 / 3000 #1 Right Pleural 3000 / 3000 Other: Other Intake Source Plasma Thawed 5 Day Cp2d Unit Saline Solution [id number] # Incontinent Voids 2 1 # Bowel Movements 0 Result Diagrams: 08/20/18 05:00 08/20/18 09:40 Objective Remarks: GENERAL: Frail elderly male, intubated sedated CARDIOVASCULAR: Atrial fibrillation with controlled ventricular rate. No murmurs. Hypotensive on vasopressin and Gaurav-Synephrine RESPIRATORY: Patient is intubated, PRVC mode. Bilateral coarse rhonchi and crackles all over the anterior chest. R pigtail chest tube with 3.2 L output in 24 hours, blood tinged fluid GASTROINTESTINAL: Abdomen soft, non-tender, non-distended. Normal active bowel sounds MUSCULOSKELETAL: Extremities without cyanosis, right lower extremity swollen with 1+ pitting edema NEURO: Intubated sedated for vent synchrony. Moving extremities not following commands Assessment and Plan - Assessment and Plan Plan: NEURO: -Propofol for sedation and vent synchrony -Sedation vacation daily RESP: Acute hypoxemic respiratory failure Severe bilateral pneumonia Large right pleural effusion -PRVC/AC, Ventilator bundle -DuoNeb every 6 hours scheduled and as needed -CT of the chest- bilateral left more than right pneumonia, and large right- sided pleural effusion. -s/p right pigtail chest tube placement, -hemorrhagic effusion most likely malignancy related. 3.2 L out since placement yesterday -Broad-spectrum antibiotics with vancomycin, cefepime, and Levaquin CV: Atrial fibrillation with RVR Septic shock Lactic acidosis History of hypertension History of CABG and AVR -s/p Normal saline IV fluids, 2 L bolus and maintenance fluid at 84 mL/h -Amiodarone 150 mg bolus and infusion per protocol -Vasopressin and Gaurav-Synephrine to keep map above 65. 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 GI: -N.p.o., IV famotidine -Start tube feeds with Glucerna -Bowel regimen : Acute kidney injury -Monitor renal function closely. 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 Yu -Oncologist is Dr. Berger. Recently started on immunotherapy per family -Monitor CBC, coag -s/p 2 units FFP forchest tube placement ENDO: Type 2 diabetes with hyperglycemia Hypertension -Electrolyte replacement per protocol -Sliding scale insulin -Levemir 5 units every 12 PROPH: -Left lower extremity SCDs. IV famotidine -No anticoagulation at this time due to thrombocytopenia and coagulopathy LINES: -Right subclavian central line, right radial art line placed 08/19/2018 CC time 42 min excluding procedures At this time patient is very critical. He had been intubated and antibiotics have been expanded to cover for immunocompromised patient. His CT shows extensive pneumonia and very large right-sided effusion. Status post chest tube placement. Effusion is hemorrhagic and could be lung cancer related. Overall prognosis is guarded considering his age, lung cancer, immunocompromised state, severe pneumonia and history of coronary artery disease. Continue ICU care as above Code Status: Full
--- NOTE | 2018-08-20 11:26 | P.PNONC ---
Subjective Interval history: Afebrile. Intubated and sedated. Patient's is at the bedside. RN at bedside as well. Objective Vital Signs/Intake & Output: Vital Signs 08/19/18 11:18 08/19/18 12:00 08/19/18 12:54 Temperature 98 F 98.9 F 98.2 F Pulse Rate 83 94 H 76 Respiratory Rate 19 16 19 Blood Pressure 87/61 L 120/62 79/52 L Pulse Oximetry 100 08/19/18 13:38 08/19/18 16:00 08/19/18 16:19 Temperature 98.2 F Pulse Rate 100 H 92 H Respiratory Rate 21 24 20 Blood Pressure 90/58 L Pulse Oximetry 100 93 L 97 08/19/18 17:00 08/19/18 20:00 08/19/18 20:55 Temperature 98.0 F Pulse Rate 75 88 Respiratory Rate 16 22 Blood Pressure 104/56 L Pulse Oximetry 100 96 96 08/20/18 00:00 08/20/18 01:00 08/20/18 01:40 Temperature 98.4 F Pulse Rate 75 76 Respiratory Rate 16 23 Blood Pressure 118/65 108/64 Pulse Oximetry 96 08/20/18 02:00 08/20/18 03:00 08/20/18 04:00 Temperature 98.0 F Pulse Rate 75 73 75 Respiratory Rate Blood Pressure 106/58 L 114/60 106/58 L Pulse Oximetry 08/20/18 05:00 08/20/18 05:09 08/20/18 06:00 Temperature Pulse Rate 73 66 Respiratory Rate 21 Blood Pressure 118/61 127/66 Pulse Oximetry 96 08/20/18 08:38 08/20/18 11:02 Temperature Pulse Rate 77 Respiratory Rate 20 27 H Blood Pressure Pulse Oximetry 98 96 Intake & Output 08/19/18 08/20/18 08/20/18 18:59 06:59 18:59 Intake Total 1061.5 / 1061.5 500 / 500 500 / 500 Output Total 3500 / 3500 450 / 450 Balance -2438.5 / -2438.5 500 / 500 50 / 50 Weight 75 kg Intake: IV 712.5 / 712.5 500 / 500 500 / 500 Cordarone Inj 450 MG In D5W Inj 0 / 0 241 ML @ 1 MG/MIN 33.33 mls/hr IV.CONT TITRATE PRN Rx#: [id number] Diprivan 1000 mg/100 ml Inj 1, 100 / 100 200 / 200 000 mg In 100 ml @ 5 MCG/KG/MIN 2.136 mls/hr IV.CONT TITRATE PRN Rx#:[id number] Pitressin Inj 40 UNIT In D5W 100 / 100 Inj 98 ML @ 0.01 UNITS/MIN 1.5 mls/hr IV.CONT TITRATE PRN Rx#: [id number] Flexbumin 25% Inj 100 ML @ 60 100 / 100 mls/hr IV.SIG ONCE ONE Rx#: [id number] Maxipime Inj 2,000 MG In NS Inj 100 / 100 200 / 200 100 ML @ 200 mls/hr IV.SIG Q8H ROSEMARIE Rx#:[id number] Levaquin 750 mg Premix Inj 150 150 / 150 ML @ 100 mls/hr IV.SIG Q24H ROSEMARIE Rx#:[id number] NS Inj 500 ML @ As Directed IV. 500 / 500 SIG BOLUS ROSEMARIE Rx#:[id number] Vancomycin Inj 1,250 MG In NS 262.5 / 262.5 Inj 250 ML @ 250 mls/hr IV.SIG Q18H ROSEMARIE Rx#:[id number] Other 50 / 50 Plasma Thawed 5 Day Cp2d Unit 50 / 50 [id number] Intake (Blood Product) Amt 299 / 299 Plasma Thawed 5 Day Cp2d Unit 299 / 299 [id number] Plasma Thawed 5d Cp2d Pool 0 / 0 Unit [id number] Output: Urine 200 / 200 Urine Amount (Catheter) 300 / 300 450 / 450 Condom 300 / 300 450 / 450 Chest Tube Drainage 3000 / 3000 #1 Right Pleural 3000 / 3000 Other: Other Intake Source Plasma Thawed 5 Day Cp2d Unit Saline Solution [id number] # Incontinent Voids 2 1 # Bowel Movements 0 Result Diagrams: 08/20/18 05:00 08/20/18 09:40 Laboratory Results: Laboratory Results - last 24 hr 08/19/18 08/19/18 08/19/18 05:43 06:15 09:53 WBC RBC Hgb Hct MCV MCH MCHC RDW Plt Count MPV PT INR APTT Puncture Site Patient Temperature O2 Saturation ABG pH ABG pCO2 ABG pO2 ABG HCO3 ABG O2 Content ABG Base Excess ABG Methemoglobin Lito Test Hemoglobin Carboxyhemoglobin O2 Delivery Device Simple mask Vent Setting Not Reportable Inspired O2 Critical Value Sodium Potassium Chloride Carbon Dioxide Anion Gap BUN Creatinine Estimated GFR POC Glucose Random Glucose Lactic Acid Calcium Prot Corrected Calcium Magnesium Total Bilirubin AST ALT Alkaline Phosphatase Total Protein Albumin Pleural pH Pleural RBC Pleural Nuc Cells Pleural Neutrophils Pleural Lymphocytes Pleural Monocytes Pleural Histocytes Pleural Mesothelial Pleural Total Protein Pleural LDH Pleural Glucose Pleural Amylase Nasal Screen MRSA (PCR) Not detected Vancomycin Trough Blood Bank Comment 08/19/18 08/19/18 08/19/18 10:12 10:35 10:35 WBC RBC Hgb Hct MCV MCH MCHC RDW Plt Count MPV PT INR APTT Puncture Site Left radial Patient Temperature 98.6 O2 Saturation 97 ABG pH 7.42 ABG pCO2 39 ABG pO2 229 H ABG HCO3 25 ABG O2 Content 14.9 ABG Base Excess 0.5 ABG Methemoglobin 1.6 Lito Test Present Hemoglobin 10.6 L Carboxyhemoglobin 1.4 O2 Delivery Device Ventilator Vent Setting Prvc/ac Inspired O2 100 Critical Value No Sodium 136 Potassium 3.7 Chloride 98 Carbon Dioxide 25.4 Anion Gap 13 BUN 26 H Creatinine 0.82 Estimated GFR Greater than 89 POC Glucose Random Glucose 278 H D Lactic Acid 1.8 Calcium 7.4 L* Prot Corrected Calcium 7.9 L Magnesium 1.4 L Total Bilirubin 1.1 H AST 51 H ALT 27 Alkaline Phosphatase 119 H Total Protein 6.1 L Albumin 2.8 L Pleural pH Pleural RBC Pleural Nuc Cells Pleural Neutrophils Pleural Lymphocytes Pleural Monocytes Pleural Histocytes Pleural Mesothelial Pleural Total Protein Pleural LDH Pleural Glucose Pleural Amylase Nasal Screen MRSA (PCR) Vancomycin Trough Blood Bank Comment 08/19/18 08/19/18 08/19/18 12:03 13:00 13:00 WBC RBC Hgb Hct MCV MCH MCHC RDW Plt Count MPV PT INR APTT Puncture Site Patient Temperature O2 Saturation ABG pH ABG pCO2 ABG pO2 ABG HCO3 ABG O2 Content ABG Base Excess ABG Methemoglobin Lito Test Hemoglobin Carboxyhemoglobin O2 Delivery Device Vent Setting Inspired O2 Critical Value Sodium Potassium Chloride Carbon Dioxide Anion Gap BUN Creatinine Estimated GFR POC Glucose 285 H Random Glucose Lactic Acid Calcium Prot Corrected Calcium Magnesium Total Bilirubin AST ALT Alkaline Phosphatase Total Protein Albumin Pleural pH 8.5 Pleural RBC 92199 H Pleural Nuc Cells 3082 H Pleural Neutrophils 17 Pleural Lymphocytes 23 Pleural Monocytes 8 Pleural Histocytes 29 Pleural Mesothelial 23 Pleural Total Protein 4.6 Pleural LDH 304 Pleural Glucose 54 Pleural Amylase 14 Nasal Screen MRSA (PCR) Vancomycin Trough Blood Bank Comment 08/19/18 08/19/18 08/20/18 18:17 20:50 00:30 WBC RBC Hgb Hct MCV MCH MCHC RDW Plt Count MPV PT INR APTT Puncture Site Patient Temperature O2 Saturation ABG pH ABG pCO2 ABG pO2 ABG HCO3 ABG O2 Content ABG Base Excess ABG Methemoglobin Lito Test Hemoglobin Carboxyhemoglobin O2 Delivery Device Vent Setting Inspired O2 Critical Value Sodium Potassium Chloride Carbon Dioxide Anion Gap BUN Creatinine Estimated GFR POC Glucose 326 H 263 H 235 H Random Glucose Lactic Acid Calcium Prot Corrected Calcium Magnesium Total Bilirubin AST ALT Alkaline Phosphatase Total Protein Albumin Pleural pH Pleural RBC Pleural Nuc Cells Pleural Neutrophils Pleural Lymphocytes Pleural Monocytes Pleural Histocytes Pleural Mesothelial Pleural Total Protein Pleural LDH Pleural Glucose Pleural Amylase Nasal Screen MRSA (PCR) Vancomycin Trough Blood Bank Comment 08/20/18 08/20/18 08/20/18 05:00 05:58 07:59 WBC 16.0 H RBC 3.51 L Hgb 10.3 L Hct 30.6 L MCV 87.3 MCH 29.2 MCHC 33.5 RDW 17.7 H Plt Count 78 L MPV 8.8 PT INR APTT Puncture Site Patient Temperature O2 Saturation ABG pH ABG pCO2 ABG pO2 ABG HCO3 ABG O2 Content ABG Base Excess ABG Methemoglobin Lito Test Hemoglobin Carboxyhemoglobin O2 Delivery Device Vent Setting Inspired O2 Critical Value Sodium Potassium Chloride Carbon Dioxide Anion Gap BUN Creatinine Estimated GFR POC Glucose 191 H 201 H Random Glucose Lactic Acid Calcium Prot Corrected Calcium Magnesium Total Bilirubin AST ALT Alkaline Phosphatase Total Protein Albumin Pleural pH Pleural RBC Pleural Nuc Cells Pleural Neutrophils Pleural Lymphocytes Pleural Monocytes Pleural Histocytes Pleural Mesothelial Pleural Total Protein Pleural LDH Pleural Glucose Pleural Amylase Nasal Screen MRSA (PCR) Vancomycin Trough Blood Bank Comment 08/20/18 08/20/18 08/20/18 09:40 09:40 09:40 WBC RBC Hgb Hct MCV MCH MCHC RDW Plt Count MPV PT 14.8 H INR 1.5 APTT Puncture Site Patient Temperature O2 Saturation ABG pH ABG pCO2 ABG pO2 ABG HCO3 ABG O2 Content ABG Base Excess ABG Methemoglobin Lito Test Hemoglobin Carboxyhemoglobin O2 Delivery Device Vent Setting Inspired O2 Critical Value Sodium 133 L Potassium 3.6 Chloride 97 L Carbon Dioxide 25.9 Anion Gap 10 BUN 26 H Creatinine 0.74 Estimated GFR Greater than 89 POC Glucose Random Glucose 172 H D Lactic Acid Calcium 7.5 L Prot Corrected Calcium Magnesium Total Bilirubin 0.7 AST 102 H ALT 45 Alkaline Phosphatase 113 Total Protein 5.9 L Albumin 2.5 L Pleural pH Pleural RBC Pleural Nuc Cells Pleural Neutrophils Pleural Lymphocytes Pleural Monocytes Pleural Histocytes Pleural Mesothelial Pleural Total Protein Pleural LDH Pleural Glucose Pleural Amylase Nasal Screen MRSA (PCR) Vancomycin Trough 12.3 H Blood Bank Comment 08/20/18 09:40 WBC RBC Hgb Hct MCV MCH MCHC RDW Plt Count MPV PT INR APTT 32.1 H Puncture Site Patient Temperature O2 Saturation ABG pH ABG pCO2 ABG pO2 ABG HCO3 ABG O2 Content ABG Base Excess ABG Methemoglobin Lito Test Hemoglobin Carboxyhemoglobin O2 Delivery Device Vent Setting Inspired O2 Critical Value Sodium Potassium Chloride Carbon Dioxide Anion Gap BUN Creatinine Estimated GFR POC Glucose Random Glucose Lactic Acid Calcium Prot Corrected Calcium Magnesium Total Bilirubin AST ALT Alkaline Phosphatase Total Protein Albumin Pleural pH Pleural RBC Pleural Nuc Cells Pleural Neutrophils Pleural Lymphocytes Pleural Monocytes Pleural Histocytes Pleural Mesothelial Pleural Total Protein Pleural LDH Pleural Glucose Pleural Amylase Nasal Screen MRSA (PCR) Vancomycin Trough Blood Bank Comment Culture Results: Microbiology 08/19/18 13:00 Gram Stain - Final Fluid - Pleural fluid Body Fluid Culture - Preliminary No growth in 24 hours 08/19/18 11:11 Aerobic Blood Culture - Preliminary Blood - Peripheral No growth in 1 day Anaerobic Blood Culture - Preliminary No growth in 1 day 08/19/18 11:05 Aerobic Blood Culture - Preliminary Blood - Peripheral No growth in 1 day Anaerobic Blood Culture - Preliminary No growth in 1 day 08/17/18 21:15 Aerobic Blood Culture - Preliminary Blood - Peripheral No growth in 3 days Anaerobic Blood Culture - Preliminary No growth in 3 days 08/17/18 21:25 Aerobic Blood Culture - Preliminary Blood - Peripheral No growth in 3 days Anaerobic Blood Culture - Preliminary No growth in 3 days 08/19/18 13:50 Streptococcus pneumoniae Antigen (M - Final Urine - Catheterized Urine Presumptive negative for streptococcus pneumoniae antigen, suggesting no current or recent infection. Infection due to Streptococcus pneumoniae cannot be ruled out since the antigen present in the sample may be below the detection limit of the test. 08/19/18 13:50 Legionella Antigen - Final Urine - Catheterized Urine Presumptive negative for Legionella pneumophila serogroup 1 antigen in urine, suggesting no recent or recurrent infection. Infection due to Legionella cannot be ruled out since other serogroups and species may cause disease, antigen may not be present in urine in early infection, and the level of antigen present in the urine may be below the detection limit of the test. 08/19/18 13:45 Influenza Types A,B Antigen - Final Nasal Wash Negative for FLU A and B antigen Infection due to influenza A or B cannot be ruled out since the antigen present in the sample may be below the detection limit of the test. 08/18/18 11:45 Gram Stain - Final Sputum - Expectorated Sputum Sputum Culture - Preliminary Heavy growth normal respiratory mauricio at 24 hours Imaging Studies: Impressions Chest X-Ray 08/19/18 00:00 CONCLUSION: Significant improvement following right chest tube placement. Moderate bibasilar parenchymal changes persist with mild cardiomegaly. IVC Filter Placement X-Ray 08/19/18 00:00 CONCLUSION: 1. Uncomplicated inferior vena cava filter placement as above. This is a removable filter and can be removed up to one year from its placement. Venous Doppler Study 08/19/18 00:00 CONCLUSION: 1. Deep venous thrombosis as above Medications: Active Medications Generic Name Dose Route Start Last Admin Trade Name Freq PRN Reason Stop Dose Admin Albuterol 1 ampul 08/17/18 22:58 08/19/18 05:00 Duoneb Neb (Prn) NEB 1 ampul Q4HR NEB PRN Administration SOB/WHEEZING Albuterol 1 ampul 08/18/18 14:00 08/20/18 08:37 Duoneb Neb (Rosemarie) NEB 1 ampul Q6HR WHILE AWAKE NEB RO[place]ARIE Administration Amlodipine Besylate 5 mg 08/19/18 09:00 08/19/18 10:54 Norvasc PO 5 mg DAILY ROSEMARIE Administration Atorvastatin Calcium 10 mg 08/19/18 09:00 08/20/18 08:12 Lipitor PO 10 mg DAILY ROSEMARIE Administration Benzonatate 100 mg 08/17/18 22:58 08/18/18 08:02 Tessalon Perles PO 100 mg QID PRN Administration Cough Budesonide/Formoterol Fumarate 2 puff 08/18/18 09:00 08/20/18 08:13 Symbicort 160/4.5 Mcg Inh INH Not Given BID ROSEMARIE Chlorhexidine Gluconate 15 ml 08/19/18 20:00 08/20/18 08:11 Peridex 0.12% Oral Kit OROPHARYNG 15 ml BID@0800,1999 ROSEMARIE Administration Dronedarone 400 mg 08/18/18 09:00 08/20/18 08:12 Multaq PO 400 mg BID ROSEMARIE Administration Famotidine 20 mg 08/19/18 21:00 08/20/18 08:12 Pepcid Pf Inj IV.PUSH 20 mg Q12HR ROSEMARIE Administration Vancomycin HCl 1,250 mg/ 262.5 mls @ 250 mls/hr 08/18/18 21:00 08/20/18 09:30 Sodium Chloride IV.SIG 250 mls/hr Q18H ROSEMARIE Administration Phenylephrine HCl 40 mg/ 500 mls @ 30 mls/hr 08/19/18 10:00 08/20/18 07:34 Dextrose IV.CONT 0 mcg/min TITRATE PRN 0 mls/hr Per Protocol Titration Protocol 40 MCG/MIN Vasopressin 40 unit/ Dextrose 100 mls @ 1.5 mls/hr 08/19/18 10:00 08/19/18 22 :35 IV.CONT 0.04 units/min TITRATE PRN 6 mls/hr Per Protocol Administration Protocol 0.01 UNITS/MIN Propofol 1,000 mg in 100 mls @ 2.136 mls/hr 08/19/18 09:05 08/20/18 07:34 Diprivan 1000 Mg/100 Ml Inj IV.CONT 25 mcg/kg/min TITRATE PRN 10.68 mls/hr Per Protocol Titration Protocol 5 MCG/KG/MIN Cefepime HCl 2,000 mg/ Sodium 100 mls @ 200 mls/hr 08/19/18 11:00 08/20/18 05 :45 Chloride IV.SIG Infused Q8H ROSEMARIE Infusion Levofloxacin/Dextrose 150 mls @ 100 mls/hr 08/19/18 12:00 08/19/18 16:48 Levaquin 750 Mg Premix Inj IV.SIG Infused Q24H ROSEMARIE Infusion Amiodarone HCl 450 mg/ Sodium 250 mls @ 33.33 mls/hr 08/20/18 06:45 08/20/18 09:31 Chloride IV.CONT 0.05 mg/min TITRATE PRN 1.66 mls/hr Per Protocol Administration Protocol 1 MG/MIN Sodium Chloride 1,000 mls @ 125 mls/hr 08/20/18 08:00 08/20/18 08:11 Ns Inj IV.SIG 125 mls/hr .Q8H ROSEMARIE Administration Insulin Detemir 5 unit 08/19/18 21:00 08/20/18 08:12 Levemir Inj SQ 5 unit BID ROSEMARIE Administration Insulin Human Regular 0 units 08/19/18 12:00 08/20/18 06:38 Novolin R Correctional Sugar Inj SQ 2 units Q6HR ROSEMARIE Administration Protocol Metoprolol Succinate 25 mg 08/19/18 09:00 08/20/18 08:12 Toprol Xl PO 25 mg DAILY ROSEMARIE Administration Miscellaneous Medication 1 each 08/19/18 12:00 08/20/18 05:19 OROPHARYNG 1 each 0000,0400,1200,1600 ROSEMARIE Administration Senna/Docusate Sodium 1 tab 08/18/18 09:00 08/20/18 08:12 Adelia-Colace PO 1 tab BID ROSEMARIE Administration Sodium Chloride 2 ml 08/20/18 09:00 08/20/18 08:13 Ns Flush IV.FLUSH 2 ml BID ROSEMARIE Administration Objective Remarks: GENERAL: Ill-appearing elderly male patient, intubated and sedated. SKIN: Warm and dry. HEAD: Normocephalic. EYES: No scleral icterus. No injection or drainage. NECK: Supple, trachea midline. CARDIOVASCULAR: Regular rate and rhythm without murmurs. RESPIRATORY: Breath sounds equal bilaterally. No accessory muscle use. Rt chest tube, small amount of orange colored fluid in collection tubing. +vent FiO2 40%. GASTROINTESTINAL: Abdomen soft, non-tender, nondistended. EXTREMITIES: No cyanosis, or edema. MUSCULOSKELETAL: Adequate muscle tone. NEUROLOGICAL: No obvious focal deficit. Intubated and sedated. Assessment/Plan - Plan Mr. Israel is a 77-year-old gentleman, who was diagnosed with non-small cell lung cancer approximately 1 month ago. He is under the care of Dr. Berger. Dr. Yu spoke with the patients oncologist, Dr. Berger, patient received Keytruda on 08/06/18. The patient reportedly developed pneumonia and was given a Z-[place]. His symptoms did not improve and he had worsening respiratory status and he came to the emergency room. The patient is currently admitted for respiratory failure, currently intubated and sedated. Plan: 1. Non-small cell lung cancer, status post Keytruda on 08/06/2018. Patient's primary oncologist is Dr. Berger. Dr. Yu spoke with Dr. Berger today in regards to this patient. 2. 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 We will treat the patient with high-dose steroids. Solu-Medrol 125 mg IV now and then 60 mg every 6 hours. Continue IV Pepcid. Rt chest tube remains in place. 3. DVT, right leg. Patient has retrievable IVC filter in place. 4. Thrombocytopenia. Could be secondary to infection, sepsis or DIC. We will continue to monitor. 5. Discussed with patient's RN and . All questions answered to the best my ability. - Attending Statement The exam, history, and the medical decision-making described in the above note were completed with the assistance of the mid-level provider. I reviewed and agree with the findings presented. I attest that I had a [id number] encounter with the patient on the same day, and personally performed and documented my assessment and findings in the medical record. on vent D/W DR Berger. He has NSCL adenoca He had Keutruda on 08/06 may have pnemonitis from Keytruda, Start Slolumedrol IV.
--- NOTE | 2018-08-20 13:07 | P.PNID ---
Subjective Remarks: Patient is a 77-year-old male, has been having problem with shortness of breath , and workup revealed that he has lung cancer. He has had several lung biopsy done. About several weeks ago patient received 1 treatment and the said it was in immunotherapy. He has been scheduled to get a second treatment. In the last several weeks, he shortness of breath has worsened compared to his baseline shortness of breath. Over the last week was when it started progressively worsening. He was bringing up some white frothy phlegm. Denies any chest pain. He has not had any fever chills or sweats. Has not had any problem with syncope, nausea or vomiting. Has not had any abdominal pain or urinary complaints. Patient has had bilateral lower extremity edema over the last 2-3 weeks, and has been given diuretics with some improvement of the edema. Patient in the last 2 weeks has had very poor p.o. intake and has been progressively getting weaker. He was brought in to the hospital and showed evidence of pneumonia. Overnight he progressively worsened, and he was transferred to the ICU today and required intubation. He has not been exposed to any sick children. The has not had any infection. No exposure to any animals except the 2 dogs that they have at home. No recent travel outside [place]. He is currently sedated and on the vent. He is afebrile. Chest x-ray showed increasing opacity on the right lung and likely increased pleural effusion. He remains afebrile. His hemodynamics are stable. His WBC is elevated. He had elevated creatinine on admission. Infectious disease consultation has been requested to assist with evaluation and treatment. Notes reviewed Temps ok Sedated on the vent On vasopressin CT on R - fluid is sersanguineous Pleural fluid exudative C/S negative Sputum with normal mauricio Antibiotics: Vancomycin Levaquin Cefepime Past Medical History: CABG AVR Lung CA Allergies/Adverse Reactions: Allergies penicillin G Allergy (Mild, Verified 05/14/18 16:06) Hives Sulfa (Sulfonamide Antibiotics) Allergy (Mild, Verified 05/14/18 16:06) Hives exenatide Allergy (Unknown, Verified 08/17/18 20:16) Hives FARXIGA Allergy (Severe, Uncoded 05/14/18 16:06) Anorexia Objective Vital Signs 08/19/18 13:38 08/19/18 16:00 08/19/18 16:19 Temperature 98.2 F Pulse Rate 100 H 92 H Respiratory Rate 21 24 20 Blood Pressure 90/58 L Pulse Oximetry 100 93 L 97 08/19/18 17:00 08/19/18 20:00 08/19/18 20:55 Temperature 98.0 F Pulse Rate 75 88 Respiratory Rate 16 22 Blood Pressure 104/56 L Pulse Oximetry 100 96 96 08/20/18 00:00 08/20/18 01:00 08/20/18 01:40 Temperature 98.4 F Pulse Rate 75 76 Respiratory Rate 16 23 Blood Pressure 118/65 108/64 Pulse Oximetry 96 08/20/18 02:00 08/20/18 03:00 08/20/18 04:00 Temperature 98.0 F Pulse Rate 75 73 75 Respiratory Rate Blood Pressure 106/58 L 114/60 106/58 L Pulse Oximetry 08/20/18 05:00 08/20/18 05:09 08/20/18 06:00 Temperature Pulse Rate 73 66 Respiratory Rate 21 Blood Pressure 118/61 127/66 Pulse Oximetry 96 08/20/18 07:00 08/20/18 08:00 08/20/18 08:38 Temperature 98 F 98.2 F Pulse Rate 69 75 77 Respiratory Rate 25 H 28 H 20 Blood Pressure 123/65 111/61 Pulse Oximetry 96 97 98 08/20/18 09:00 08/20/18 10:00 08/20/18 11:00 Temperature 98 F 98.6 F 98.5 F Pulse Rate 71 71 78 Respiratory Rate 23 26 H 30 H Blood Pressure 109/58 L 107/60 103/60 Pulse Oximetry 96 98 98 08/20/18 11:02 08/20/18 12:00 08/20/18 12:43 Temperature 98.5 F Pulse Rate 67 75 Respiratory Rate 27 H 30 H 28 H Blood Pressure 107/60 Pulse Oximetry 96 98 Intake & Output 08/19/18 08/20/18 08/20/18 18:59 06:59 18:59 Intake Total 1061.5 / 1061.5 500 / 500 600 / 600 Output Total 3500 / 3500 1300 / 1300 Balance -2438.5 / -2438.5 500 / 500 -700 / -700 Weight 75 kg Intake: IV 712.5 / 712.5 500 / 500 600 / 600 Cordarone Inj 450 MG In D5W Inj 0 / 0 241 ML @ 1 MG/MIN 33.33 mls/hr IV.CONT TITRATE PRN Rx#: [id number] Diprivan 1000 mg/100 ml Inj 1, 100 / 100 200 / 200 000 mg In 100 ml @ 5 MCG/KG/MIN 2.136 mls/hr IV.CONT TITRATE PRN Rx#:[id number] Pitressin Inj 40 UNIT In D5W 100 / 100 Inj 98 ML @ 0.01 UNITS/MIN 1.5 mls/hr IV.CONT TITRATE PRN Rx#: [id number] Flexbumin 25% Inj 100 ML @ 60 100 / 100 mls/hr IV.SIG ONCE ONE Rx#: [id number] Maxipime Inj 2,000 MG In NS Inj 100 / 100 200 / 200 100 / 100 100 ML @ 200 mls/hr IV.SIG Q8H [facility] Rx#:[id number] Levaquin 750 mg Premix Inj 150 150 / 150 ML @ 100 mls/hr IV.SIG Q24H [facility] Rx#:[id number] NS Inj 500 ML @ As Directed IV. 500 / 500 SIG BOLUS RE[facility] Rx#:[id number] Vancomycin Inj 1,250 MG In NS 262.5 / 262.5 Inj 250 ML @ 250 mls/hr IV.SIG Q18H [facility] Rx#:[id number] Other 50 / 50 Plasma Thawed 5 Day Cp2d Unit 50 / 50 [id number] Intake (Blood Product) Amt 299 / 299 Plasma Thawed 5 Day Cp2d Unit 299 / 299 [id number] Plasma Thawed 5d Cp2d Pool 0 / 0 Unit [id number] Output: Urine 200 / 200 Urine Amount (Catheter) 300 / 300 1300 / 1300 Condom 300 / 300 450 / 450 Indwelling Urethral Catheter 850 / 850 Chest Tube Drainage 3000 / 3000 #1 Right Pleural 3000 / 3000 Other: Other Intake Source Plasma Thawed 5 Day Cp2d Unit Saline Solution [id number] # Incontinent Voids 2 1 # Bowel Movements 0 08/18/18 11:45 Sputum - Expectorated Sputum Gram Stain - Final 08/18/18 11:45 Sputum - Expectorated Sputum Sputum Culture - Final Heavy growth normal respiratory mauricio 08/19/18 13:00 Fluid - Pleural fluid Gram Stain - Final 08/19/18 13:00 Fluid - Pleural fluid Body Fluid Culture - Preliminary No growth in 24 hours 08/19/18 11:11 Blood - Peripheral Aerobic Blood Culture - Preliminary No growth in 1 day 08/19/18 11:11 Blood - Peripheral Anaerobic Blood Culture - Preliminary No growth in 1 day 08/19/18 11:05 Blood - Peripheral Aerobic Blood Culture - Preliminary No growth in 1 day 08/19/18 11:05 Blood - Peripheral Anaerobic Blood Culture - Preliminary No growth in 1 day 08/17/18 21:15 Blood - Peripheral Aerobic Blood Culture - Preliminary No growth in 3 days 08/17/18 21:15 Blood - Peripheral Anaerobic Blood Culture - Preliminary No growth in 3 days 08/17/18 21:25 Blood - Peripheral Aerobic Blood Culture - Preliminary No growth in 3 days 08/17/18 21:25 Blood - Peripheral Anaerobic Blood Culture - Preliminary No growth in 3 days 08/19/18 13:50 Urine - Catheterized Urine Streptococcus pneumoniae Antigen ( M - Final Presumptive negative for streptococcus pneumoniae antigen, suggesting no current or recent infection. Infection due to Streptococcus pneumoniae cannot be ruled out since the antigen present in the sample may be below the detection limit of the test. 08/19/18 13:50 Urine - Catheterized Urine Legionella Antigen - Final Presumptive negative for Legionella pneumophila serogroup 1 antigen in urine, suggesting no recent or recurrent infection. Infection due to Legionella cannot be ruled out since other serogroups and species may cause disease, antigen may not be present in urine in early infection, and the level of antigen present in the urine may be below the detection limit of the test. 08/19/18 13:45 Nasal Wash Influenza Types A,B Antigen - Final Negative for FLU A and B antigen Infection due to influenza A or B cannot be ruled out since the antigen present in the sample may be below the detection limit of the test. 08/19/18 13:00 Other Fungal Smear - Pending 08/19/18 13:00 Other Fungal Culture - Pending Lab - Hematology Results 08/19/18 08/20/18 10:35 05:00 WBC 15.5 H 16.0 H RBC 3.64 L 3.51 L Hgb 10.5 L 10.3 L Hct 32.5 L 30.6 L MCV 89.4 87.3 MCH 29.0 29.2 MCHC 32.4 33.5 RDW 17.6 H 17.7 H Plt Count 68 L 78 L MPV 8.6 8.8 Lab - Chemistry Results 08/18/18 08/19/18 08/19/18 20:21 10:35 10:35 Sodium 136 Potassium 3.7 Chloride 98 Carbon Dioxide 25.4 Anion Gap 13 BUN 26 H Creatinine 0.82 Estimated GFR Greater than 89 POC Glucose 284 H Random Glucose 278 H D Lactic Acid 1.8 Calcium 7.4 L* Prot Corrected Calcium 7.9 L Magnesium 1.4 L Total Bilirubin 1.1 H AST 51 H ALT 27 Alkaline Phosphatase 119 H Total Protein 6.1 L Albumin 2.8 L 08/19/18 08/19/18 08/19/18 12:03 18:17 20:50 Sodium Potassium Chloride Carbon Dioxide Anion Gap BUN Creatinine Estimated GFR POC Glucose 285 H 326 H 263 H Random Glucose Lactic Acid Calcium Prot Corrected Calcium Magnesium Total Bilirubin AST ALT Alkaline Phosphatase Total Protein Albumin 08/20/18 08/20/18 08/20/18 00:30 05:58 07:59 Sodium Potassium Chloride Carbon Dioxide Anion Gap BUN Creatinine Estimated GFR POC Glucose 235 H 191 H 201 H Random Glucose Lactic Acid Calcium Prot Corrected Calcium Magnesium Total Bilirubin AST ALT Alkaline Phosphatase Total Protein Albumin 08/20/18 08/20/18 09:40 11:52 Sodium 133 L Potassium 3.6 Chloride 97 L Carbon Dioxide 25.9 Anion Gap 10 BUN 26 H Creatinine 0.74 Estimated GFR Greater than 89 POC Glucose 169 H Random Glucose 172 H D Lactic Acid Calcium 7.5 L Prot Corrected Calcium Magnesium Total Bilirubin 0.7 AST 102 H ALT 45 Alkaline Phosphatase 113 Total Protein 5.9 L Albumin 2.5 L Imaging: ITS Impressions Chest CT 08/19/18 00:00 CONCLUSION: 1. Large right pleural effusion. 2. Extensive patchy alveolar consolidations bilaterally consistent with probable pneumonia. Clinical correlation is recommended. 3. Pretracheal, right paratracheal and subcarinal mediastinal lymphadenopathy. 4. Tiny left pleural effusion. 5. Coronary artery calcifications. Chest X-Ray 08/19/18 00:00 CONCLUSION: Significant improvement following right chest tube placement. Moderate bibasilar parenchymal changes persist with mild cardiomegaly. IVC Filter Placement X-Ray 08/19/18 00:00 CONCLUSION: 1. Uncomplicated inferior vena cava filter placement as above. This is a removable filter and can be removed up to one year from its placement. Venous Doppler Study 08/19/18 00:00 CONCLUSION: 1. Deep venous thrombosis as above Physical Exam: GENERAL: sedated on the vent, not in respiratory distress. SKIN: Cool and dry. No generalized rash, no ecchymoses and no evidence of embolic lesions. HEAD: Atraumatic. Normocephalic. No temporal wasting, or tenderness. EYES: Ch[place]rant conjunctiva. No petechia or hemorrhage. Pupils equal, round and reactive to light. No scleral icterus. No injection or drainage. EARS, NOSE AND THROAT: Nose without bleeding or purulent nasal discharge. He is orally intubated. NECK: Trachea midline. Supple and not tender, no meningeal signs CARDIOVASCULAR: Regular rate and rhythm. No murmurs, rubs or gallops heard RESPIRATORY: Better aeration ON R, decreased on L. CT i place with serosanguineous fluid ABDOMEN: Soft, nondistended, some mild grimacing during abdominal palpation.. Bowel sounds present and normoactive. No guarding. No rebound. No organomegaly. EXTREMITIES: No clubbing, cyanosis. Has bilateral pitting edema in BLE. His RLE looks larger than his LLE. No joint effusion. NEUROLOGICAL: Sedated on the vent. No Babinski or ankle clonus. PSYCHIATRIC: Unable to assess. LINE: No evidence of infection - RSC line, and R radial [place] Assessment and Plan - Plan Impression Pneumonia, patient with newly diagnosed lung CA Sepsis, due to PNA Shock Bilateral effusions Respiratory failure Recommendation Agree with current Abx coverage: Cefepime, Levaquin and Vancomycin Continue current empiric Abx Follow C/S and adjust Abx Monitor progress
[2018-08-20] MEDS: Beneprotein Powder Packet G-TUBE SCH ×2 (15:15→18:05)
[2018-08-20] MEDS: MethylPREDNISolone Sod Succinate Inj 125 MG/2 ML Vial IV.PUSH SCH (18:05)
[2018-08-21] MEDS: MethylPREDNISolone Sod Succinate Inj 125 MG/2 ML Vial IV.PUSH SCH ×4 (00:23→23:53)
[2018-08-21] MEDS: Insulin NovoLIN Regular Correctional Sugar Inj SQ SCH ×3 (00:24→18:36)
[2018-08-21] MEDS: Oral Hygiene Kit OROPHARYNG SCH ×4 (00:24→18:35)
[2018-08-21] MEDS: Sod Chloride 0.9% Inj 1,000 ML IV.SIG SCH ×2 (00:24→05:38)
[2018-08-21] MEDS: Vasopressin Inj 40 UNIT in Dextrose 5% in Water Inj 98 ML IV.CONT PRN ×2 (00:56)
[2018-08-21] MEDS: Vancomycin Inj 1,500 MG in Sodium Chlor 0.9% Inj 500 ML IV.SIG SCH ×2 (01:07→18:34)
[2018-08-21 03:24] LABS: Hematocrit 32.1 % (39.0-51.0); Hemoglobin 10.4 gm/dL (13.0-17.0); Mean Corpuscular HGB Conc 32.4 % (32.0-36.0); Mean Corpuscular Hemoglobin 28.8 pg (27.0-34.0); Mean Corpuscular Volume 88.9 fL (80.0-100.0); Mean Platelet Volume 9.4 fL (7.0-11.0); Platelet Count 76 th/mm3 (150-450); Red Blood Count 3.61 mil/mm3 (4.50-5.90); Red Cell Distribution Width 17.7 % (11.6-17.2); White Blood Count 17.1 th/mm3 (4.0-11.0)
--- NOTE | 2018-08-21 03:47 | XR ---
EXAM DATE: 08/21/2018 6:00 AM EDT AGE/SEX: 77 years / Male INDICATIONS: Short of breath. CLINICAL DATA: This is the patient's subsequent encounter. Patient reports that signs and symptoms h ave been present for 1 week and indicates a pain score of 0/10. MEDICAL/SURGICAL HISTORY: Hypertension. Carcinoma, lung. CABG. COMPARISON: . FINDINGS: Stable ETT, right subclavian catheter and NGT. Apparent interval removal of right-sided chest tube. S table mild bibasilar airspace disease and mild interstitial prominence. Cardiac silhouette remains en larged. Remainder of the exam is unchanged. CONCLUSION: 1. Stable tubes and lines. 2. Apparent interval removal right-sided chest tube with stable mild bibasilar airspace disease. No pneumothorax. 3. Cardiomegaly with positive fluid balance. Electronically signed by: Francisco Meneses MD 08/21/2018 3:46 AM EDT
[2018-08-21 03:48] LABS: Alanine Aminotransferase 62 U/L (12-78); Albumin 2.4 g/dL (3.4-5.0); Alkaline Phosphatase 226 U/L (45-117); Anion Gap 13 meq/L (5-15); Aspartate Aminotransferase 119 U/L (15-37); Blood Urea Nitrogen 33 mg/dL (7-18); Calcium 7.3 mg/dL (8.5-10.1); Carbon Dioxide 21.8 meq/L (21.0-32.0); Chloride 99 meq/L (98-107); Glomerular Filtration Rate Greater Than 89 mL/min (>89); Glucose,Random 307 mg/dL (74-106); Magnesium 1.6 mg/dL (1.5-2.5); Potassium 4.1 meq/L (3.5-5.1); Sodium 134 meq/L (136-145); Total Protein 5.8 g/dL (6.4-8.2)
[2018-08-21] MEDS: Amiodarone Inj 450 MG in Sodium Chlor 0.9% Inj 241 ML IV.CONT PRN ×2 (04:09→19:29)
[2018-08-21] MEDS: Propofol 1000 mg/100 ml Inj 1,000 MG/100 ML BOTTLE IV.CONT PRN (08:22)
[2018-08-21] MEDS: Famotidine PF Inj 20 MG/2 ML Vial IV.PUSH SCH ×2 (08:55→20:55)
[2018-08-21] MEDS: Sodium Chloride 0.9% 2 ML Flush BID IV.FLUSH SCH ×2 (08:55→20:56)
[2018-08-21] MEDS: Senna/Docusate Sodium 8.6/50 MG Tablet PO SCH ×2 (08:56→20:57)
[2018-08-21] MEDS: Insulin Detemir Inj 1,000 UNIT/10 ML Vial SQ SCH ×2 (08:57→20:56)
[2018-08-21 10:14] LABS: ABG Base Excess -3.3 mmol/L (-2-2); ABG PCO2 35 mmHg (38-42); ABG PO2 96 mmHG (61-120)
--- NOTE | 2018-08-21 10:21 | P.PNCC ---
Subjective Subjective Remarks/Hospital Course: his is a 77-year-old male with a PMH of chronic atrial fibrillation, type 2 diabetes, hypertension, dyslipidemia, Lung cancer currently receiving immunotherapy who presented to the emergency department with shortness of breath of one-week duration. Pt was recently diagnosed with Lung CA approx 1 month ago, following with Dr. Berger, had first treatment few weeks ago. Last week had an outpatient x-ray which showed pneumonia and was placed on Z-[place] with only minimal or no improvement. Because of worsening symptoms he presented to the emergency department and was admitted to the hospitalist on 08/17/2018. On admission his WBC 19.8. INR 2.1. Creatinine 1.86, and Lactic Acid 2.6. CXR with increasing consolidation right lung, stable infiltrate left lung. Patient was transferred to the ICU overnight for increasing shortness of breath and BiPAP requirement. Today critical care was emergently consulted as patient was not tolerating BiPAP and was severely short of breath, chest x-ray showed increasing bilateral infiltrates. Patient was also in atrial fibrillation with RVR. I immediately evaluated the patient, on simple mask he was maintaining saturation 90%. However he was severely short of breath and had extensive bilateral crackles, with tachypnea breathing approximately 40 breaths/min. After discussion with the patient I intubated and placed him on mechanical ventilation. Currently receiving vancomycin and cefepime. I have increased the cefepime dose to 2 g IV every 8 hours, continue vancomycin and added Levaquin [address] A stat [address] of the chest to evaluate for effusion ordered. Postintubation patient was hypotensive, given 2 L IV fluid boluses, followed by vasopressin started at 0.04 international units/min. For A. fib with RVR started on amiodarone bolus and infusion per protocol. Patient is critically ill at this time SUBJ 08/20: Remains intubated sedated critically ill. Remains in septic shock currently on vasopressin 0.04 international units and Gaurav-Synephrine 30 mcg/kg/ min. However WBC count is stable to trending down, creatinine has normalized. Right chest tube placed with almost 3.2L blood-tinged effusion drained in 24 hours. Right DVT in the lower extremity status post IVC filter placement asked patient cannot be anticoagulated at this time due to thrombocytopenia. 08/21: Patient is clinically improving. Chest x-ray shows mild positive fluid balance and left small effusion right effusion appears to be drained. Patient wakes up easily and follows commands. Will stop IV fluids give IV Lasix 40 mg x1 and attempt extubation. Platelet count remains low at 76. Patient started on high-dose Solu-Medrol per oncology recommendation for possible pneumonitis from immunotherapy Objective Vital Signs / I&O: Vital Signs 08/20/18 11:00 08/20/18 11:02 08/20/18 12:00 Temperature 98.5 F 98.5 F Pulse Rate 78 67 Respiratory Rate 30 H 27 H 30 H Blood Pressure 103/60 107/60 Pulse Oximetry 98 96 98 08/20/18 12:43 08/20/18 13:00 08/20/18 14:00 Temperature 98.5 F 98.1 F Pulse Rate 75 67 66 Respiratory Rate 28 H 27 H 25 H Blood Pressure 106/60 114/61 Pulse Oximetry 99 95 08/20/18 15:00 08/20/18 16:00 08/20/18 17:00 Temperature 98.3 F 98.8 F 97.7 F Pulse Rate 60 61 61 Respiratory Rate 23 23 20 Blood Pressure 115/60 103/55 L 103/55 L Pulse Oximetry 95 95 95 08/20/18 18:00 08/20/18 19:00 08/20/18 19:20 Temperature 98.8 F 98.4 F Pulse Rate 62 62 Respiratory Rate 20 20 23 Blood Pressure 114/57 L 114/57 L Pulse Oximetry 93 L 93 L 97 08/20/18 19:30 08/20/18 20:00 08/20/18 21:00 Temperature Pulse Rate 63 64 63 Respiratory Rate 25 H 22 20 Blood Pressure 140/62 139/63 Pulse Oximetry 98 99 08/20/18 22:00 08/20/18 22:15 08/20/18 23:00 Temperature Pulse Rate 61 67 Respiratory Rate 20 23 25 H Blood Pressure 111/58 L 114/60 Pulse Oximetry 98 97 98 08/21/18 00:00 08/21/18 01:00 08/21/18 01:15 Temperature 97.4 F L Pulse Rate 66 64 Respiratory Rate 22 22 23 Blood Pressure 123/60 132/60 Pulse Oximetry 98 97 95 08/21/18 02:00 08/21/18 02:24 08/21/18 03:00 Temperature Pulse Rate 62 71 68 Respiratory Rate 19 30 H 24 Blood Pressure 104/59 L 115/56 L Pulse Oximetry 96 97 08/21/18 04:00 08/21/18 04:16 08/21/18 05:00 Temperature Pulse Rate 71 77 Respiratory Rate 31 H 29 H 30 H Blood Pressure 174/75 H 98/61 L Pulse Oximetry 98 95 98 08/21/18 06:00 08/21/18 07:00 Temperature Pulse Rate 71 71 Respiratory Rate 24 20 Blood Pressure 138/65 Pulse Oximetry 98 Intake & Output 08/20/18 08/21/18 08/21/18 18:59 06:59 18:59 Intake Total 2460.5 / 2460.5 2875 / 2875 100 / 100 Output Total 1895 / 1895 420 / 420 Balance 565.5 / 565.5 2455 / 2455 100 / 100 Weight 76.5 kg Intake: IV 2312.5 / 2312.5 2875 / 2875 100 / 100 Cordarone Inj 450 MG In NS Inj 250 / 250 241 ML @ 1 MG/MIN 33.33 mls/hr IV.CONT TITRATE PRN Rx#: [id number] Diprivan 1000 mg/100 ml Inj 1, 100 / 100 100 / 100 100 / 100 000 mg In 100 ml @ 5 MCG/KG/MIN 2.136 mls/hr IV.CONT TITRATE PRN Rx#:[id number] Pitressin Inj 40 UNIT In D5W 100 / 100 10 / 10 Inj 98 ML @ 0.01 UNITS/MIN 1.5 mls/hr IV.CONT TITRATE PRN Rx#: [id number] Maxipime Inj 2,000 MG In NS Inj 200 / 200 100 ML @ 200 mls/hr IV.SIG Q8H REJI Rx#:[id number] Levaquin 750 mg Premix Inj 150 150 / 150 ML @ 100 mls/hr IV.SIG Q24H [facility] Rx#:[id number] NS Inj 1,000 ML @ 125 mls/hr IV 1000 / 1000 1999 / 1999 .SIG .Q8H REJI Rx#:[id number] NS Inj 500 ML @ As Directed IV. 500 / 500 SIG BOLUS REJI Rx#:[id number] Vancomycin Inj 1,250 MG In NS 262.5 / 262.5 Inj 250 ML @ 250 mls/hr IV.SIG Q18H RE[facility]I Rx#:[id number] Vancomycin Inj 1,500 MG In NS 515 / 515 Inj 500 ML @ 250 mls/hr IV.SIG Q18H [facility] Rx#:[id number] Tube Feeding 48 / 48 Water Bolus Amount 100 / 100 Output: Urine Amount (Catheter) 1545 / 1545 420 / 420 Condom 450 / 450 Indwelling Urethral Catheter 1095 / 1095 420 / 420 Chest Tube Drainage 350 / 350 #1 Right Pleural 350 / 350 Other: # Incontinent Voids 1 # Incontinent Bowel Movements 0 Result Diagrams: 08/21/18 03:15 08/21/18 03:15 Objective Remarks: GENERAL: Frail elderly male, intubated sedated, wakes up easily follows CARDIOVASCULAR: Atrial fibrillation with controlled ventricular rate. No murmurs. RESPIRATORY: Patient is intubated, PRVC mode. Bilateral coarse rhonchi and crackles all over the anterior chest. R pigtail chest tube with 3.5 L output in 48 hours, blood tinged fluid GASTROINTESTINAL: Abdomen soft, non-tender, non-distended. Normal active bowel sounds MUSCULOSKELETAL: Extremities without cyanosis, right lower extremity swollen with 1+ pitting edema NEURO: Intubated sedated for vent synchrony. On sedation hold patient wakes up easily follows commands. No focal deficits Assessment and Plan - Assessment and Plan Plan: NEURO: -Propofol for sedation and vent synchrony -Sedation vacation daily-hold sedation for weaning trial RESP: Acute hypoxemic respiratory failure Severe bilateral pneumonia Large right pleural effusion Possible pneumonitis secondary to her immunotherapy -PRVC/AC, Ventilator bundle. DuoNeb every 6 hours scheduled and as needed -CT of the chest- bilateral left more than right pneumonia, and large right- sided pleural effusion. -s/p right pigtail chest tube placement, -hemorrhagic effusion most likely malignancy related. 3.5 L out since placement 08/20 -Broad-spectrum antibiotics with vancomycin, cefepime, and Levaquin -IV Solu-Medrol 60 mg every 6 hours per oncology CV: Atrial fibrillation with RVR, now rate controlled Septic shock Lactic acidosis History of hypertension History of CABG and AVR -s/p Normal saline at 84 mL/h. Amiodarone 150 mg bolus and infusion per protocol -Vasopressin and Gaurav-Synephrine to keep map above 65. -Trend lactic acid -Status post AVR and CABG last year for severe and coronary artery disease -Echo showed the left ventricular systolic function is mildly reduced EF 45-50% . GI: -IV famotidine. tube feeds with Glucerna -Bowel regimen : Acute kidney injury -Monitor renal function closely. oley catheter due to urinary retention and need for accurate intake output -Creatinine slowly improving, acute kidney injury secondary to severe sepsis ID: Septic shock Bilateral pneumonia Immunocompromise state due to lung cancer -Antibiotics with vancomycin, antipseudomonal dosing of cefepime, and IV Levaquin -Blood urine and sputum cultures follow-up -Neg influenza, Neg for urine Legionella and pneumococcal antigen -ID following HEME: Right lower extremity DVT Thrombocytopenia Recently diagnosed lung CA Coagulopathy ?secondary to DIC -Unable to anticoagulate due to thrombocytopenia and coagulopathy -Status post IVC filter placement by IR on 08/19/2018 -Appreciate consult from Dr. Yu. Oncologist is Dr. Berger. Recently started on immunotherapy per family (?Keytruda) -Monitor CBC, coag -s/p 2 units FFP forchest tube placement ENDO: Type 2 diabetes with hyperglycemia Hypertension -Electrolyte replacement per protocol -Sliding scale insulin -Levemir 5 units every 12-increase to 10 q12 PROPH: -Left lower extremity SCDs. IV famotidine -No anticoagulation at this time due to thrombocytopenia and coagulopathy LINES: -Right subclavian central line, right radial art line placed 08/19/2018-DC ART LINE today Level 3 At this time patient is very critical. He had been intubated and antibiotics have been expanded to cover for immunocompromised patient. His CT shows extensive pneumonia and very large right-sided effusion. Status post chest tube placement. Effusion is hemorrhagic and could be lung cancer related. Overall prognosis is guarded considering his age, lung cancer, immunocompromised state, severe pneumonia and history of coronary artery disease. Continue ICU care as above Code Status: Full
[2018-08-21] MEDS: Budesonide-Formoterol 160/4.5 MCG 6 GM Inhaler INH SCH ×2 (11:46→20:57)
[2018-08-21] MEDS: Chlorhexidine 0.12% Oral Kit 15 ML UDC OROPHARYNG SCH ×2 (11:46→20:55)
[2018-08-21] MEDS: Beneprotein Powder Packet G-TUBE SCH ×3 (11:46→18:32)
--- NOTE | 2018-08-21 12:19 | P.PNONC ---
Subjective Interval history: Afebrile. Patient extubated approximately 1 hour ago. He is sitting upright in bed. Patient with constant cough, RN at the bedside. His is also at the bedside. Patient does not verbalize any complaints at this time. His talking is limited due to constant cough. Objective Vital Signs/Intake & Output: Vital Signs 08/20/18 12:43 08/20/18 13:00 08/20/18 14:00 Temperature 98.5 F 98.1 F Pulse Rate 75 67 66 Respiratory Rate 28 H 27 H 25 H Blood Pressure 106/60 114/61 Pulse Oximetry 99 95 08/20/18 15:00 08/20/18 16:00 08/20/18 17:00 Temperature 98.3 F 98.8 F 97.7 F Pulse Rate 60 61 61 Respiratory Rate 23 23 20 Blood Pressure 115/60 103/55 L 103/55 L Pulse Oximetry 95 95 95 08/20/18 18:00 08/20/18 19:00 08/20/18 19:20 Temperature 98.8 F 98.4 F Pulse Rate 62 62 Respiratory Rate 20 20 23 Blood Pressure 114/57 L 114/57 L Pulse Oximetry 93 L 93 L 97 08/20/18 19:30 08/20/18 20:00 08/20/18 21:00 Temperature Pulse Rate 63 64 63 Respiratory Rate 25 H 22 20 Blood Pressure 140/62 139/63 Pulse Oximetry 98 99 08/20/18 22:00 08/20/18 22:15 08/20/18 23:00 Temperature Pulse Rate 61 67 Respiratory Rate 20 23 25 H Blood Pressure 111/58 L 114/60 Pulse Oximetry 98 97 98 08/21/18 00:00 08/21/18 01:00 08/21/18 01:15 Temperature 97.4 F L Pulse Rate 66 64 Respiratory Rate 22 22 23 Blood Pressure 123/60 132/60 Pulse Oximetry 98 97 95 08/21/18 02:00 08/21/18 02:24 08/21/18 03:00 Temperature Pulse Rate 62 71 68 Respiratory Rate 19 30 H 24 Blood Pressure 104/59 L 115/56 L Pulse Oximetry 96 97 08/21/18 04:00 08/21/18 04:16 08/21/18 05:00 Temperature Pulse Rate 71 77 Respiratory Rate 31 H 29 H 30 H Blood Pressure 174/75 H 98/61 L Pulse Oximetry 98 95 98 08/21/18 06:00 08/21/18 07:00 08/21/18 11:00 Temperature Pulse Rate 71 71 68 Respiratory Rate 24 20 18 Blood Pressure 138/65 Pulse Oximetry 98 Intake & Output 08/20/18 08/21/18 08/21/18 18:59 06:59 18:59 Intake Total 2460.5 / 2460.5 2875 / 2875 200 / 200 Output Total 1895 / 1895 420 / 420 Balance 565.5 / 565.5 2455 / 2455 200 / 200 Weight 76.5 kg Intake: IV 2312.5 / 2312.5 2875 / 2875 200 / 200 Cordarone Inj 450 MG In NS Inj 250 / 250 241 ML @ 1 MG/MIN 33.33 mls/hr IV.CONT TITRATE PRN Rx#: [id number] Diprivan 1000 mg/100 ml Inj 1, 100 / 100 100 / 100 100 / 100 000 mg In 100 ml @ 5 MCG/KG/MIN 2.136 mls/hr IV.CONT TITRATE PRN Rx#:[id number] Pitressin Inj 40 UNIT In D5W 100 / 100 10 / 10 Inj 98 ML @ 0.01 UNITS/MIN 1.5 mls/hr IV.CONT TITRATE PRN Rx#: [id number] Maxipime Inj 2,000 MG In NS Inj 200 / 200 100 / 100 100 ML @ 200 mls/hr IV.SIG Q8H ROSEMARIE Rx#:[id number] Levaquin 750 mg Premix Inj 150 150 / 150 ML @ 100 mls/hr IV.SIG Q24H ROSEMARIE Rx#:[id number] NS Inj 1,000 ML @ 125 mls/hr IV 1000 / 1000 1999 / 1999 .SIG .Q8H ROSEMARIE Rx#:[id number] NS Inj 500 ML @ As Directed IV. 500 / 500 SIG BOLUS ROSEMARIE Rx#:[id number] Vancomycin Inj 1,250 MG In NS 262.5 / 262.5 Inj 250 ML @ 250 mls/hr IV.SIG Q18H ROSEMARIE Rx#:[id number] Vancomycin Inj 1,500 MG In NS 515 / 515 Inj 500 ML @ 250 mls/hr IV.SIG Q18H ROSEMARIE Rx#:[id number] Tube Feeding 48 / 48 Water Bolus Amount 100 / 100 Output: Urine Amount (Catheter) 1545 / 1545 420 / 420 Condom 450 / 450 Indwelling Urethral Catheter 1095 / 1095 420 / 420 Chest Tube Drainage 350 / 350 #1 Right Pleural 350 / 350 Other: # Incontinent Voids 1 # Incontinent Bowel Movements 0 Result Diagrams: 08/21/18 03:15 08/21/18 10:12 Laboratory Results: Laboratory Results - last 24 hr 08/20/18 08/20/18 08/21/18 17:48 20:20 00:01 WBC RBC Hgb Hct MCV MCH MCHC RDW Plt Count MPV Puncture Site Patient Temperature O2 Saturation ABG pH ABG pCO2 ABG pO2 ABG HCO3 ABG O2 Content ABG Base Excess ABG Methemoglobin Lito Test Hemoglobin Carboxyhemoglobin O2 Delivery Device Vent Setting Inspired O2 Critical Value Sodium Potassium Chloride Carbon Dioxide Anion Gap BUN Creatinine Estimated GFR POC Glucose 211 H 246 H 291 H Random Glucose Calcium Prot Corrected Calcium Magnesium Total Bilirubin AST ALT Alkaline Phosphatase Total Protein Albumin 08/21/18 08/21/18 08/21/18 03:15 03:15 05:12 WBC 17.1 H RBC 3.61 L Hgb 10.4 L Hct 32.1 L MCV 88.9 MCH 28.8 MCHC 32.4 RDW 17.7 H Plt Count 76 L MPV 9.4 Puncture Site Patient Temperature O2 Saturation ABG pH ABG pCO2 ABG pO2 ABG HCO3 ABG O2 Content ABG Base Excess ABG Methemoglobin Lito Test Hemoglobin Carboxyhemoglobin O2 Delivery Device Vent Setting Inspired O2 Critical Value Sodium 134 L Potassium 4.1 Chloride 99 Carbon Dioxide 21.8 Anion Gap 13 BUN 33 H Creatinine 0.79 Estimated GFR Greater than 89 POC Glucose 351 H Random Glucose 307 H D Calcium 7.3 L* Prot Corrected Calcium 8.0 L Magnesium 1.6 Total Bilirubin 0.6 AST 119 H ALT 62 Alkaline Phosphatase 226 H Total Protein 5.8 L Albumin 2.4 L 08/21/18 08/21/18 09:55 10:12 WBC RBC Hgb Hct MCV MCH MCHC RDW Plt Count MPV Puncture Site Art line Patient Temperature 98.6 O2 Saturation 94 ABG pH 7.40 ABG pCO2 35 L ABG pO2 96 ABG HCO3 21 L ABG O2 Content 14.2 ABG Base Excess -3.3 L ABG Methemoglobin 1.5 Lito Test Present Hemoglobin 10.6 L Carboxyhemoglobin 1.2 O2 Delivery Device Ventilator Vent Setting Cpap:[id number] Inspired O2 40 Critical Value No Sodium Potassium Chloride Carbon Dioxide Anion Gap BUN Creatinine 0.84 Estimated GFR 88 L POC Glucose Random Glucose Calcium Prot Corrected Calcium Magnesium Total Bilirubin AST ALT Alkaline Phosphatase Total Protein Albumin Culture Results: Microbiology 08/19/18 11:11 Aerobic Blood Culture - Preliminary Blood - Peripheral No growth in 2 days Anaerobic Blood Culture - Preliminary No growth in 2 days 08/19/18 11:05 Aerobic Blood Culture - Preliminary Blood - Peripheral No growth in 2 days Anaerobic Blood Culture - Preliminary No growth in 2 days 08/17/18 21:15 Aerobic Blood Culture - Preliminary Blood - Peripheral No growth in 4 days Anaerobic Blood Culture - Preliminary No growth in 4 days 08/17/18 21:25 Aerobic Blood Culture - Preliminary Blood - Peripheral No growth in 4 days Anaerobic Blood Culture - Preliminary No growth in 4 days 08/19/18 13:00 Gram Stain - Final Fluid - Pleural fluid Body Fluid Culture - Preliminary No growth in 48 hours 08/18/18 11:45 Gram Stain - Final Sputum - Expectorated Sputum Sputum Culture - Final Heavy growth normal respiratory mauricio 08/19/18 13:50 Streptococcus pneumoniae Antigen (M - Final Urine - Catheterized Urine Presumptive negative for streptococcus pneumoniae antigen, suggesting no current or recent infection. Infection due to Streptococcus pneumoniae cannot be ruled out since the antigen present in the sample may be below the detection limit of the test. 08/19/18 13:50 Legionella Antigen - Final Urine - Catheterized Urine Presumptive negative for Legionella pneumophila serogroup 1 antigen in urine, suggesting no recent or recurrent infection. Infection due to Legionella cannot be ruled out since other serogroups and species may cause disease, antigen may not be present in urine in early infection, and the level of antigen present in the urine may be below the detection limit of the test. 08/19/18 13:45 Influenza Types A,B Antigen - Final Nasal Wash Negative for FLU A and B antigen Infection due to influenza A or B cannot be ruled out since the antigen present in the sample may be below the detection limit of the test. Imaging Studies: Impressions Chest X-Ray 08/21/18 06:00 CONCLUSION: 1. Stable tubes and lines. 2. Apparent interval removal right-sided chest tube with stable mild bibasilar airspace disease. No pneumothorax. 3. Cardiomegaly with positive fluid balance. Medications: Active Medications Generic Name Dose Route Start Last Admin Trade Name Freq PRN Reason Stop Dose Admin Albuterol 1 ampul 08/17/18 22:58 08/21/18 02:24 Duoneb Neb (Prn) NEB 1 ampul Q4HR NEB PRN Administration SOB/WHEEZING Albuterol 1 ampul 08/21/18 12:00 08/21/18 11:48 Duoneb Neb (Rosemarie) NEB 1 ampul Q4HR NEB ROSEMARIE Administration Amlodipine Besylate 5 mg 08/19/18 09:00 08/19/18 10:54 Norvasc PO 5 mg DAILY ROSEMARIE Administration Atorvastatin Calcium 10 mg 08/19/18 09:00 08/21/18 08:56 Lipitor PO 10 mg DAILY ROSEMARIE Administration Benzonatate 100 mg 08/17/18 22:58 08/18/18 08:02 Tessalon Perles PO 100 mg QID PRN Administration Cough Budesonide/Formoterol Fumarate 2 puff 08/18/18 09:00 08/21/18 11:46 Symbicort 160/4.5 Mcg Inh INH Not Given BID ROSEMARIE Chlorhexidine Gluconate 15 ml 08/19/18 20:00 08/21/18 11:46 Peridex 0.12% Oral Kit OROPHARYNG 15 ml BID@0800,2000 ROSEMARIE Administration Dronedarone 400 mg 08/18/18 09:00 08/21/18 08:56 Multaq PO 400 mg BID ROSEMARIE Administration Famotidine 20 mg 08/19/18 21:00 08/21/18 08:55 Pepcid Pf Inj IV.PUSH 20 mg Q12HR ROSEMARIE Administration Phenylephrine HCl 40 mg/ 500 mls @ 30 mls/hr 08/19/18 10:00 08/20/18 07:34 Dextrose IV.CONT 0 mcg/min TITRATE PRN 0 mls/hr Per Protocol Titration Protocol 40 MCG/MIN Vasopressin 40 unit/ Dextrose 100 mls @ 1.5 mls/hr 08/19/18 10:00 08/21/18 04 :10 IV.CONT 0 units/min TITRATE PRN 0 mls/hr Per Protocol Titration Protocol 0.01 UNITS/MIN Propofol 1,000 mg in 100 mls @ 2.136 mls/hr 08/19/18 09:05 08/21/18 08:22 Diprivan 1000 Mg/100 Ml Inj IV.CONT 20 mcg/kg/min TITRATE PRN 8.54 mls/hr Per Protocol Administration Protocol 5 MCG/KG/MIN Cefepime HCl 2,000 mg/ Sodium 100 mls @ 200 mls/hr 08/19/18 11:00 08/21/18 11 :43 Chloride IV.SIG 200 mls/hr Q8H ROSEMARIE Administration Levofloxacin/Dextrose 150 mls @ 100 mls/hr 08/19/18 12:00 08/21/18 11:45 Levaquin 750 Mg Premix Inj IV.SIG 100 mls/hr Q24H ROSEMARIE Administration Amiodarone HCl 450 mg/ Sodium 250 mls @ 33.33 mls/hr 08/20/18 06:45 08/21/18 04:09 Chloride IV.CONT 0.05 mg/min TITRATE PRN 1.66 mls/hr Per Protocol Administration Protocol 1 MG/MIN Vancomycin HCl 1,500 mg/ 515 mls @ 250 mls/hr 08/21/18 01:00 08/21/18 04:08 Sodium Chloride IV.SIG Infused Q18H ROSEMARIE Infusion Insulin Human Regular 0 units 08/19/18 12:00 08/21/18 00:24 Novolin R Correctional Sugar Inj SQ 7 units Q6HR ROSEMARIE Administration Protocol Methylprednisolone Sodium Succinate 60 mg 08/20/18 18:00 08/21/18 11:43 Solumedrol Inj IV.PUSH 60 mg Q6HR ROSEMARIE Administration Metoprolol Succinate 25 mg 08/19/18 09:00 08/21/18 08:56 Toprol Xl PO 25 mg DAILY ROSEMARIE Administration Miscellaneous Medication 1 each 08/19/18 12:00 08/21/18 04:07 OROPHARYNG 1 each 0000,0400,1200,1600 ROSEMARIE Administration Senna/Docusate Sodium 1 tab 08/18/18 09:00 08/21/18 08:56 Adelia-Colace PO 1 tab BID ROSEMARIE Administration Sodium Chloride 2 ml 08/20/18 09:00 08/21/18 08:55 Ns Flush IV.FLUSH 2 ml BID ROSEMARIE Administration Whey 1 packet 08/20/18 13:00 08/21/18 11:46 Beneprotein Powder G-TUBE 1 packet TID ROSEMARIE Administration Objective Remarks: GENERAL: Ill-appearing elderly male patient, sitting upright, recently extubated.+ Constant cough. SKIN: Warm and dry. HEAD: Normocephalic. EYES: No scleral icterus. No injection or drainage. NECK: Supple, trachea midline. CARDIOVASCULAR: Regular rate and rhythm without murmurs. RESPIRATORY: Anterior breath sounds rhonchi throughout, equal bilaterally.+ Constant wet cough. GASTROINTESTINAL: Abdomen soft, non-tender, nondistended. EXTREMITIES: No cyanosis, or edema. MUSCULOSKELETAL: Adequate muscle tone. NEUROLOGICAL: No obvious focal deficit. Awake and alert. Assessment/Plan - Plan Mr. Israel is a 77-year-old gentleman, who was diagnosed with non-small cell lung cancer approximately 1 month ago. He is under the care of Dr. Berger. Dr. Yu spoke with the patients oncologist, Dr. Berger, patient received Keytruda on 08/06/18. The patient reportedly developed pneumonia and was given a Z-[place]. His symptoms did not improve and he had worsening respiratory status and he came to the emergency room. The patient is currently admitted for respiratory failure, currently intubated and sedated. Plan: 1. Non-small cell lung cancer, status post Keytruda on 08/06/2018. Patient's primary oncologist is Dr. Berger. 2. 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 Continue high-dose steroids. Solu-Medrol 60 mg every 6 hours. Continue IV Pepcid. 3. DVT, right leg. Patient has retrievable IVC filter in place. 4. Thrombocytopenia. Could be secondary to infection, sepsis or DIC. We will continue to monitor. 5. Discussed with patient's RN and . - Attending Statement The exam, history, and the medical decision-making described in the above note were completed with the assistance of the mid-level provider. I reviewed and agree with the findings presented. I attest that I had a [id number] encounter with the patient on the same day, and personally performed and documented my assessment and findings in the medical record. pt is extubated today. C/O hacking cough and SOB just left continue steroid and antibiotics.
--- NOTE | 2018-08-21 15:14 | P.PNID ---
Subjective Remarks: Patient is a 77-year-old male, has been having problem with shortness of breath , and workup revealed that he has lung cancer. He has had several lung biopsy done. About several weeks ago patient received 1 treatment and the said it was in immunotherapy. He has been scheduled to get a second treatment. In the last several weeks, he shortness of breath has worsened compared to his baseline shortness of breath. Over the last week was when it started progressively worsening. He was bringing up some white frothy phlegm. Denies any chest pain. He has not had any fever chills or sweats. Has not had any problem with syncope, nausea or vomiting. Has not had any abdominal pain or urinary complaints. Patient has had bilateral lower extremity edema over the last 2-3 weeks, and has been given diuretics with some improvement of the edema. Patient in the last 2 weeks has had very poor p.o. intake and has been progressively getting weaker. He was brought in to the hospital and showed evidence of pneumonia. Overnight he progressively worsened, and he was transferred to the ICU today and required intubation. He has not been exposed to any sick children. The has not had any infection. No exposure to any animals except the 2 dogs that they have at home. No recent travel outside [place]. He is currently sedated and on the vent. He is afebrile. Chest x-ray showed increasing opacity on the right lung and likely increased pleural effusion. He remains afebrile. His hemodynamics are stable. His WBC is elevated. He had elevated creatinine on admission. Infectious disease consultation has been requested to assist with evaluation and treatment. Notes reviewed Temps ok Has been extubated C/O significant congestion - has very wet cough, not able to [id number] A lot of output from his R CT Off pressors Sputum with NF Fluid C/S negative CXR better Antibiotics: Vancomycin Levaquin Cefepime Past Medical History: CABG AVR Lung CA Allergies/Adverse Reactions: Allergies penicillin G Allergy (Mild, Verified 05/14/18 16:06) Hives Sulfa (Sulfonamide Antibiotics) Allergy (Mild, Verified 05/14/18 16:06) Hives exenatide Allergy (Unknown, Verified 08/17/18 20:16) Hives FARXIGA Allergy (Severe, Uncoded 05/14/18 16:06) Anorexia Objective Vital Signs 08/20/18 16:00 08/20/18 17:00 08/20/18 18:00 Temperature 98.8 F 97.7 F 98.8 F Pulse Rate 61 61 62 Respiratory Rate 23 20 20 Blood Pressure 103/55 L 103/55 L 114/57 L Pulse Oximetry 95 95 93 L 08/20/18 19:00 08/20/18 19:20 08/20/18 19:30 Temperature 98.4 F Pulse Rate 62 63 Respiratory Rate 20 23 25 H Blood Pressure 114/57 L Pulse Oximetry 93 L 97 08/20/18 20:00 08/20/18 21:00 08/20/18 22:00 Temperature Pulse Rate 64 63 61 Respiratory Rate 22 20 20 Blood Pressure 140/62 139/63 111/58 L Pulse Oximetry 98 99 98 08/20/18 22:15 08/20/18 23:00 08/21/18 00:00 Temperature 97.4 F L Pulse Rate 67 66 Respiratory Rate 23 25 H 22 Blood Pressure 114/60 123/60 Pulse Oximetry 97 98 98 08/21/18 01:00 08/21/18 01:15 08/21/18 02:00 Temperature Pulse Rate 64 62 Respiratory Rate 22 23 19 Blood Pressure 132/60 104/59 L Pulse Oximetry 97 95 96 08/21/18 02:24 08/21/18 03:00 08/21/18 04:00 Temperature Pulse Rate 71 68 71 Respiratory Rate 30 H 24 31 H Blood Pressure 115/56 L 174/75 H Pulse Oximetry 97 98 08/21/18 04:16 08/21/18 05:00 08/21/18 06:00 Temperature Pulse Rate 77 71 Respiratory Rate 29 H 30 H 24 Blood Pressure 98/61 L 138/65 Pulse Oximetry 95 98 98 08/21/18 07:00 08/21/18 11:00 Temperature Pulse Rate 71 68 Respiratory Rate 20 18 Blood Pressure Pulse Oximetry Intake & Output 08/20/18 08/21/18 08/21/18 18:59 06:59 18:59 Intake Total 2460.5 / 2460.5 2875 / 2875 300 / 300 Output Total 1895 / 1895 420 / 420 Balance 565.5 / 565.5 2455 / 2455 300 / 300 Weight 76.5 kg Intake: IV 2312.5 / 2312.5 2875 / 2875 300 / 300 Cordarone Inj 450 MG In NS Inj 250 / 250 241 ML @ 1 MG/MIN 33.33 mls/hr IV.CONT TITRATE PRN Rx#: [id number] Diprivan 1000 mg/100 ml Inj 1, 100 / 100 100 / 100 100 / 100 000 mg In 100 ml @ 5 MCG/KG/MIN 2.136 mls/hr IV.CONT TITRATE PRN Rx#:[id number] Pitressin Inj 40 UNIT In D5W 100 / 100 10 / 10 Inj 98 ML @ 0.01 UNITS/MIN 1.5 mls/hr IV.CONT TITRATE PRN Rx#: [id number] Maxipime Inj 2,000 MG In NS Inj 200 / 200 200 / 200 100 ML @ 200 mls/hr IV.SIG Q8H REJI Rx#:[id number] Levaquin 750 mg Premix Inj 150 150 / 150 ML @ 100 mls/hr IV.SIG Q24H REJI Rx#:[id number] NS Inj 1,000 ML @ 125 mls/hr IV 1000 / 1000 1999 / 1999 .SIG .Q8H REJI Rx#:[id number] NS Inj 500 ML @ As Directed IV. 500 / 500 SIG BOLUS REJI Rx#:[id number] Vancomycin Inj 1,250 MG In NS 262.5 / 262.5 Inj 250 ML @ 250 mls/hr IV.SIG Q18H REJI Rx#:[id number] Vancomycin Inj 1,500 MG In NS 515 / 515 Inj 500 ML @ 250 mls/hr IV.SIG Q18H REJI Rx#:[id number] Tube Feeding 48 / 48 Water Bolus Amount 100 / 100 Output: Urine Amount (Catheter) 1545 / 1545 420 / 420 Condom 450 / 450 Indwelling Urethral Catheter 1095 / 1095 420 / 420 Chest Tube Drainage 350 / 350 #1 Right Pleural 350 / 350 Other: # Incontinent Voids 1 # Incontinent Bowel Movements 0 08/19/18 13:00 Other Fungal Smear - Final No fungal elements seen 08/19/18 13:00 Other Fungal Culture - Pending 08/19/18 09:56 Other Acid Fast Bacilli Smear - Final No acid fast bacilli seen 08/19/18 09:56 Other Mycobacterial Culture - Pending 08/19/18 11:11 Blood - Peripheral Aerobic Blood Culture - Preliminary No growth in 2 days 08/19/18 11:11 Blood - Peripheral Anaerobic Blood Culture - Preliminary No growth in 2 days 08/19/18 11:05 Blood - Peripheral Aerobic Blood Culture - Preliminary No growth in 2 days 08/19/18 11:05 Blood - Peripheral Anaerobic Blood Culture - Preliminary No growth in 2 days 08/17/18 21:15 Blood - Peripheral Aerobic Blood Culture - Preliminary No growth in 4 days 08/17/18 21:15 Blood - Peripheral Anaerobic Blood Culture - Preliminary No growth in 4 days 08/17/18 21:25 Blood - Peripheral Aerobic Blood Culture - Preliminary No growth in 4 days 08/17/18 21:25 Blood - Peripheral Anaerobic Blood Culture - Preliminary No growth in 4 days 08/19/18 13:00 Fluid - Pleural fluid Gram Stain - Final 08/19/18 13:00 Fluid - Pleural fluid Body Fluid Culture - Preliminary No growth in 48 hours 08/18/18 11:45 Sputum - Expectorated Sputum Gram Stain - Final 08/18/18 11:45 Sputum - Expectorated Sputum Sputum Culture - Final Heavy growth normal respiratory mauricio 08/19/18 13:50 Urine - Catheterized Urine Streptococcus pneumoniae Antigen ( M - Final Presumptive negative for streptococcus pneumoniae antigen, suggesting no current or recent infection. Infection due to Streptococcus pneumoniae cannot be ruled out since the antigen present in the sample may be below the detection limit of the test. 08/19/18 13:50 Urine - Catheterized Urine Legionella Antigen - Final Presumptive negative for Legionella pneumophila serogroup 1 antigen in urine, suggesting no recent or recurrent infection. Infection due to Legionella cannot be ruled out since other serogroups and species may cause disease, antigen may not be present in urine in early infection, and the level of antigen present in the urine may be below the detection limit of the test. 08/19/18 13:45 Nasal Wash Influenza Types A,B Antigen - Final Negative for FLU A and B antigen Infection due to influenza A or B cannot be ruled out since the antigen present in the sample may be below the detection limit of the test. Lab - Hematology Results 08/20/18 08/21/18 05:00 03:15 WBC 16.0 H 17.1 H RBC 3.51 L 3.61 L Hgb 10.3 L 10.4 L Hct 30.6 L 32.1 L MCV 87.3 88.9 MCH 29.2 28.8 MCHC 33.5 32.4 RDW 17.7 H 17.7 H Plt Count 78 L 76 L MPV 8.8 9.4 Lab - Chemistry Results 08/19/18 08/19/18 08/20/18 18:17 20:50 00:30 Sodium Potassium Chloride Carbon Dioxide Anion Gap BUN Creatinine Estimated GFR POC Glucose 326 H 263 H 235 H Random Glucose Calcium Prot Corrected Calcium Magnesium Total Bilirubin AST ALT Alkaline Phosphatase Total Protein Albumin 08/20/18 08/20/18 08/20/18 05:58 07:59 09:40 Sodium 133 L Potassium 3.6 Chloride 97 L Carbon Dioxide 25.9 Anion Gap 10 BUN 26 H Creatinine 0.74 Estimated GFR Greater than 89 POC Glucose 191 H 201 H Random Glucose 172 H D Calcium 7.5 L Prot Corrected Calcium Magnesium Total Bilirubin 0.7 AST 102 H ALT 45 Alkaline Phosphatase 113 Total Protein 5.9 L Albumin 2.5 L 08/20/18 08/20/18 08/20/18 11:52 17:48 20:20 Sodium Potassium Chloride Carbon Dioxide Anion Gap BUN Creatinine Estimated GFR POC Glucose 169 H 211 H 246 H Random Glucose Calcium Prot Corrected Calcium Magnesium Total Bilirubin AST ALT Alkaline Phosphatase Total Protein Albumin 08/21/18 08/21/18 08/21/18 00:01 03:15 05:12 Sodium 134 L Potassium 4.1 Chloride 99 Carbon Dioxide 21.8 Anion Gap 13 BUN 33 H Creatinine 0.79 Estimated GFR Greater than 89 POC Glucose 291 H 351 H Random Glucose 307 H D Calcium 7.3 L* Prot Corrected Calcium 8.0 L Magnesium 1.6 Total Bilirubin 0.6 AST 119 H ALT 62 Alkaline Phosphatase 226 H Total Protein 5.8 L Albumin 2.4 L 08/21/18 08/21/18 10:12 12:22 Sodium Potassium Chloride Carbon Dioxide Anion Gap BUN Creatinine 0.84 Estimated GFR 88 L POC Glucose 298 H Random Glucose Calcium Prot Corrected Calcium Magnesium Total Bilirubin AST ALT Alkaline Phosphatase Total Protein Albumin Imaging: ITS Impressions Chest CT 08/19/18 00:00 CONCLUSION: 1. Large right pleural effusion. 2. Extensive patchy alveolar consolidations bilaterally consistent with probable pneumonia. Clinical correlation is recommended. 3. Pretracheal, right paratracheal and subcarinal mediastinal lymphadenopathy. 4. Tiny left pleural effusion. 5. Coronary artery calcifications. IVC Filter Placement X-Ray 08/19/18 00:00 CONCLUSION: 1. Uncomplicated inferior vena cava filter placement as above. This is a removable filter and can be removed up to one year from its placement. Venous Doppler Study 08/19/18 00:00 CONCLUSION: 1. Deep venous thrombosis as above Chest X-Ray 08/21/18 06:00 CONCLUSION: 1. Stable tubes and lines. 2. Apparent interval removal right-sided chest tube with stable mild bibasilar airspace disease. No pneumothorax. 3. Cardiomegaly with positive fluid balance. Physical Exam: GENERAL: awake, and alert, weak, very moist cough, not in respiratory distress. SKIN: Cool and dry. No generalized rash, no ecchymoses and no evidence of embolic lesions. HEAD: Atraumatic. Normocephalic. No temporal wasting, or tenderness. EYES: [place] conjunctiva. No petechia or hemorrhage. Pupils equal, round and reactive to light. No scleral icterus. No injection or drainage. EARS, NOSE AND THROAT: Nose without bleeding or purulent nasal discharge. He is orally intubated. NECK: Trachea midline. Supple and not tender, no meningeal signs CARDIOVASCULAR: Regular rate and rhythm. No murmurs, rubs or gallops heard RESPIRATORY: Scattered rhonchi. CT in place with serous fluid ABDOMEN: Soft, nondistended, not tender. Bowel sounds present and normoactive. No guarding. No rebound. No organomegaly. EXTREMITIES: No clubbing, cyanosis. Has bilateral pitting edema in BLE. His RLE looks larger than his LLE. No joint effusion. NEUROLOGICAL: Grossly non-focal. PSYCHIATRIC: Cooperative LINE: No evidence of infection - RSC line Assessment and Plan - Plan Impression Pneumonia, patient with newly diagnosed lung CA Sepsis, due to PNA Shock, resolved Bilateral effusions Respiratory failure. extubated 08/21 Leukocytosis Recommendation Continue Cefepime, Levaquin Stop Vancomycin Follow C/S and adjust Abx Monitor progress Monitor post extubation D/W RN
[2018-08-21] MEDS ORDERED: Metoprolol Inj 5 MG/5 ML Vial IV.PUSH ONE (23:34)
[2018-08-22 00:19] LABS: Calcium 8.3 mg/dL (8.5-10.1); Carbon Dioxide 24.3 meq/L (21.0-32.0)
[2018-08-22] MEDS: Potassium Chlor 40 mEq Premix 40 MEQ/100 ML PIGGYBACK IV.SIG PRN ×2 (00:31→02:50)
[2018-08-22] MEDS ORDERED: Dexmedetomidine Inj 200 MCG in Sodium Chlor 0.9% Inj 48 ML IV.CONT PRN (01:09)
[2018-08-22] MEDS: MethylPREDNISolone Sod Succinate Inj 125 MG/2 ML Vial IV.PUSH SCH ×5 (01:16→23:39)
[2018-08-22] MEDS: Insulin NovoLIN Regular Correctional Sugar Inj SQ SCH ×5 (01:16→18:39)
[2018-08-22] MEDS: Oral Hygiene Kit OROPHARYNG SCH ×4 (01:16→16:52)
--- NOTE | 2018-08-22 04:02 | XR ---
EXAM DATE: 08/22/2018 6:00 AM EDT AGE/SEX: 77 years / Male INDICATIONS: Shortness of breath, possible pulmonary disease. CLINICAL DATA: This is the patient's subsequent encounter. Patient reports that signs and symptoms h ave been present for 1 week and indicates a pain score of Nonresponsive. MEDICAL/SURGICAL HISTORY: Hypertension. Carcinoma, lung. CABG. COMPARISON: [facility], CHEST 1V SINGLE AP, 08/21/2018. . FINDINGS: Patient has been extubated with NGT removed. Stable right subclavian central line. Ill-defined lower lung zone opacities bilaterally. Cardiac silhouette is enlarged. Remainder of exam is unchanged. CONCLUSION: 1. Mild pleural-parenchymal opacities at the lung bases bilaterally following extubation. Electronically signed by: Francisco Meneses MD 08/22/2018 4:01 AM EDT
[2018-08-22 06:34] LABS: Hematocrit 36.1 % (39.0-51.0); Hemoglobin 11.6 gm/dL (13.0-17.0); Mean Corpuscular Hemoglobin 28.4 pg (27.0-34.0); Mean Corpuscular Volume 88.7 fL (80.0-100.0); Mean Platelet Volume 8.9 fL (7.0-11.0); Platelet Count 136 th/mm3 (150-450); Red Blood Count 4.07 mil/mm3 (4.50-5.90); Red Cell Distribution Width 17.6 % (11.6-17.2); White Blood Count 26.1 th/mm3 (4.0-11.0)
[2018-08-22 07:03] LABS: Alanine Aminotransferase 65 U/L (12-78); Albumin 2.5 g/dL (3.4-5.0); Alkaline Phosphatase 298 U/L (45-117); Anion Gap 8 meq/L (5-15); Aspartate Aminotransferase 73 U/L (15-37); Blood Urea Nitrogen 24 mg/dL (7-18); Calcium 8.1 mg/dL (8.5-10.1); Chloride 106 meq/L (98-107); Glomerular Filtration Rate Greater Than 89 mL/min (>89); Glucose,Random 127 mg/dL (74-106); Sodium 142 meq/L (136-145); Total Protein 6.7 g/dL (6.4-8.2)
[2018-08-22] MEDS: Chlorhexidine 0.12% Oral Kit 15 ML UDC OROPHARYNG SCH ×2 (09:09→21:47)
[2018-08-22] MEDS: Beneprotein Powder Packet G-TUBE SCH ×3 (09:10→17:05)
[2018-08-22] MEDS ORDERED: Hold Metfromin until further notice OTHER ONE (09:57)
--- NOTE | 2018-08-22 10:18 | P.PNCC ---
Subjective Subjective Remarks/Hospital Course: his is a 77-year-old male with a PMH of chronic atrial fibrillation, type 2 diabetes, hypertension, dyslipidemia, Lung cancer currently receiving immunotherapy who presented to the emergency department with shortness of breath of one-week duration. Pt was recently diagnosed with Lung CA approx 1 month ago, following with Dr. Berger, had first treatment few weeks ago. Last week had an outpatient x-ray which showed pneumonia and was placed on Z-[place] with only minimal or no improvement. Because of worsening symptoms he presented to the emergency department and was admitted to the hospitalist on 08/17/2018. On admission his WBC 19.8. INR 2.1. Creatinine 1.86, and Lactic Acid 2.6. CXR with increasing consolidation right lung, stable infiltrate left lung. Patient was transferred to the ICU overnight for increasing shortness of breath and BiPAP requirement. Today critical care was emergently consulted as patient was not tolerating BiPAP and was severely short of breath, chest x-ray showed increasing bilateral infiltrates. Patient was also in atrial fibrillation with RVR. I immediately evaluated the patient, on simple mask he was maintaining saturation 90%. However he was severely short of breath and had extensive bilateral crackles, with tachypnea breathing approximately 40 breaths/min. After discussion with the patient I intubated and placed him on mechanical ventilation. Currently receiving vancomycin and cefepime. I have increased the cefepime dose to 2 g IV every 8 hours, continue vancomycin and added Levaquin [address] stat [address] of the chest to evaluate for effusion ordered. Postintubation patient was hypotensive, given 2 L IV fluid boluses, followed by vasopressin started at 0.04 international units/min. For A. fib with RVR started on amiodarone bolus and infusion per protocol. Patient is critically ill at this time SUBJ 08/20: Remains intubated sedated critically ill. Remains in septic shock currently on vasopressin 0.04 international units and Gaurav-Synephrine 30 mcg/kg/ min. However WBC count is stable to trending down, creatinine has normalized. Right chest tube placed with almost 3.2L blood-tinged effusion drained in 24 hours. Right DVT in the lower extremity status post IVC filter placement asked patient cannot be anticoagulated at this time due to thrombocytopenia. 08/21: Patient is clinically improving. Chest x-ray shows mild positive fluid balance and left small effusion right effusion appears to be drained. Patient wakes up easily and follows commands. Will stop IV fluids give IV Lasix 40 mg x1 and attempt extubation. Platelet count remains low at 76. Patient started on high-dose Solu-Medrol per oncology recommendation for possible pneumonitis from immunotherapy 08/22: Intermittently short of breath currently calm. Coarse crackles bilaterally. Overnight agitated started on Precedex, now. Chest x-ray shows left-sided effusion. On ultrasound appears to have dense fluid ?hemothorax. Will check CT of the chest Objective Vital Signs / I&O: Vital Signs 08/21/18 11:00 08/21/18 12:00 08/21/18 15:35 Temperature 97.8 F Pulse Rate 68 81 70 Respiratory Rate 18 24 18 Blood Pressure 132/68 Pulse Oximetry 98 08/21/18 16:00 08/21/18 19:00 08/21/18 20:00 Temperature 98.8 F 96.8 F L Pulse Rate 74 76 94 H Respiratory Rate 28 H 29 H 36 H Blood Pressure 123/88 148/93 H 153/84 H Pulse Oximetry 96 90 L 88 L 08/21/18 20:46 08/21/18 21:00 08/21/18 22:00 Temperature Pulse Rate 108 H 106 H 121 H Respiratory Rate 20 32 H 26 H Blood Pressure 156/102 H 173/112 H Pulse Oximetry 92 L 97 08/21/18 22:01 08/21/18 23:00 08/21/18 23:53 Temperature Pulse Rate 119 H 140 H 101 H Respiratory Rate 24 20 Blood Pressure 170/82 H 178/87 H 163/113 H Pulse Oximetry 97 95 92 L 08/22/18 00:00 08/22/18 00:52 08/22/18 01:00 Temperature 98.9 F Pulse Rate 98 H 101 H 121 H Respiratory Rate 21 22 35 H Blood Pressure 156/83 H 175/116 H Pulse Oximetry 93 L 92 L 08/22/18 01:03 08/22/18 02:00 08/22/18 02:01 Temperature Pulse Rate 119 H 92 H 88 Respiratory Rate 28 H 25 H 22 Blood Pressure 183/102 H 150/75 H Pulse Oximetry 91 L 94 L 94 L 08/22/18 03:00 08/22/18 04:00 08/22/18 05:00 Temperature Pulse Rate 79 93 H 83 Respiratory Rate 23 26 H 22 Blood Pressure 139/82 164/89 H 179/80 H Pulse Oximetry 96 96 90 L 08/22/18 06:00 08/22/18 06:21 08/22/18 08:33 Temperature Pulse Rate 82 84 75 Respiratory Rate 27 H 30 H 16 Blood Pressure 182/105 H 184/102 H Pulse Oximetry 95 95 08/22/18 09:48 Temperature Pulse Rate 74 Respiratory Rate 18 Blood Pressure Pulse Oximetry Intake & Output 08/21/18 08/22/18 08/22/18 18:59 06:59 18:59 Intake Total 840 / 840 1914 Output Total 3520 / 3520 2284 / 2284 165 / 165 Balance -2680 / -2680 -370 / -370 -165 / -165 Weight 74 kg Intake: IV 300 / 300 1914 Cordarone Inj 450 MG In NS Inj 250 / 250 241 ML @ 1 MG/MIN 33.33 mls/hr IV.CONT TITRATE PRN Rx#: [id number] Neosynephrine Inj 40 MG In D5W 500 / 500 Inj 496 ML @ 40 MCG/MIN 30 mls/ hr IV.CONT TITRATE PRN Rx#: [id number] Diprivan 1000 mg/100 ml Inj 1, 100 / 100 100 / 100 000 mg In 100 ml @ 5 MCG/KG/MIN 2.136 mls/hr IV.CONT TITRATE PRN Rx#:[id number] Maxipime Inj 2,000 MG In NS Inj 200 / 200 200 / 200 100 ML @ 200 mls/hr IV.SIG Q8H REJI Rx#:[id number] Levaquin 750 mg Premix Inj 150 150 / 150 ML @ 100 mls/hr IV.SIG Q24H REJI Rx#:[id number] KCl 40 mEq Premix Inj 40 meq In 200 / 200 100 ml @ 50 mls/hr IV.SIG Q2H PRN Rx#:[id number] Vancomycin Inj 1,500 MG In NS 515 / 515 Inj 500 ML @ 250 mls/hr IV.SIG Q18H REJI Rx#:[id number] Oral 320 / 320 Tube Feeding 120 / 120 Water Bolus Amount 100 / 100 Output: Urine 2820 / 2820 Urine Amount (Catheter) 2284 165 / 165 Indwelling Urethral Catheter 2285 / 2285 165 / 165 Chest Tube Drainage 700 / 700 #1 Right Pleural 700 / 700 Other: # Incontinent Voids 1 Date of Last Bowel Movement 08/17/18 08/17/18 # Bowel Movements 0 # Incontinent Bowel Movements 0 Result Diagrams: 08/22/18 05:34 08/22/18 05:34 Objective Remarks: GENERAL: Frail elderly male, lying in bed intermittently distressed when unable to clear secretions. Currently on Precedex CARDIOVASCULAR: Atrial fibrillation with controlled ventricular rate. No murmurs. RESPIRATORY: On nasal cannula. Bilateral coarse rhonchi and crackles all over the anterior chest. R pigtail chest tube with 700 mL in 24 hours, blood tinged fluid GASTROINTESTINAL: Abdomen soft, non-tender, non-distended. Normal active bowel sounds MUSCULOSKELETAL: Extremities without cyanosis, right lower extremity swollen with 1+ pitting edema NEURO: Vision is alert awake oriented to person not oriented to time or place. Follows commands x4 no focal deficits Assessment and Plan - Assessment and Plan Plan: NEURO: Agitated delirium -Continue Precedex, hold off long-acting sedation -Delirium most likely secondary to sepsis and sundowning RESP: Acute hypoxemic respiratory failure-improved Severe bilateral pneumonia Large right pleural effusion moderate left pleural effusion, Possible pneumonitis secondary to immunotherapy -DuoNeb every 4 hours scheduled and as needed. Mucomyst added -CT of the chest- bilateral left more than right pneumonia, and large right- sided pleural effusion. -s/p right pigtail chest tube placement, -hemorrhagic effusion most likely malignancy related. 4.2 L out since placement 08/20 -CT chest to evaluate for left effusion ? Pneumothorax -Broad-spectrum antibiotics with vancomycin, cefepime, and Levaquin-DC Vanc today as cultures remain negative -IV Solu-Medrol 60 mg every 6 hours per oncology CV: Atrial fibrillation with RVR, now rate controlled Septic shock-improving Lactic acidosis History of hypertension History of CABG and AVR -Dose of IV Lasix yesterday, start IV Lasix 40 mg every 12. -Amiodarone infusion per protocol -Status post AVR and CABG last year for severe and coronary artery disease -Echo showed the left ventricular systolic function is mildly reduced EF 45-50% . GI: -IV famotidine. NPO except meds -Bowel regimen : Acute kidney injury -Monitor renal function closely. Babcock catheter due to urinary retention and need for accurate intake output -Lasix as above ID: Septic shock-resolving Bilateral pneumonia Immunocompromise state due to lung cancer -Antibiotics with vancomycin, antipseudomonal dosing of cefepime, and IV Levaquin. DC Vanc today -Blood urine and sputum cultures follow-up -Neg influenza, Neg for urine Legionella and pneumococcal antigen -ID following HEME: Right lower extremity DVT Thrombocytopenia Recently diagnosed lung CA Coagulopathy ?secondary to DIC -Unable to anticoagulate due to thrombocytopenia and coagulopathy, however platelet count has improved to 130 today -If CBC remains stable on recheck, will start IV heparin, will discuss with Dr. Yu -Status post IVC filter placement by IR on 08/19/2018 -Appreciate consult from Dr. Yu. Oncologist is Dr. Berger. Recently started on immunotherapy per family (?Keytruda) -Monitor CBC, coag -s/p 2 units FFP for chest tube placement -Continue high-dose IV Solu-Medrol ENDO: Type 2 diabetes with hyperglycemia Hypertension -Electrolyte replacement per protocol -Sliding scale insulin -Levemir 10 units every 12-hold while n.p.o. PROPH: -Left lower extremity SCDs. IV famotidine -No anticoagulation at this time due to thrombocytopenia and coagulopathy LINES: -Right subclavian central line, right radial art line placed 08/19/2018. Arterial line 08/21/18 CCT 35 At this time patient is very critical. On abx to cover for immunocompromised patient. His CT shows extensive pneumonia and very large right-sided effusion. Repeat CT today to evaluate left-sided effusion. Overall prognosis is guarded considering his age, lung cancer, immunocompromised state, severe pneumonia and history of coronary artery disease. Continue ICU care as above. High potential for reintubation and deterioration Code Status: Full
--- NOTE | 2018-08-22 11:04 | CT ---
EXAM DATE: 08/22/2018 10:21 AM EDT AGE/SEX: 77 years / Male INDICATIONS: Evaluate left effusion. Interval placement of right-sided chest tube. History of lung c ancer. CLINICAL DATA: This is the patient's initial encounter. Patient reports that signs and symptoms have been present for 1 day and indicates a pain score of 2/10. MEDICAL/SURGICAL HISTORY: Hypertension. Carcinoma, skin cancer. Carcinoma, lung. Sepsis, diabete s, renal insufficiency. CABG. Aortic valve replacement. RADIATION DOSE: 11.17 CTDI (mGy) COMPARISON: [facility] [place]ST [place]/O [place], 08/19/2018. . TECHNIQUE: Multiple contiguous axial images were obtained through the chest without contrast. Image s were obtained in suspended respiration using multiple row detector helical technique. Using automa eliza exposure control and adjustment of the mA and/or kV according to patient size, radiation dose was kept as low as reasonably achievable to obtain optimal diagnostic quality images. DICOM format imag e data is available electronically for review and comparison. FINDINGS: Lungs: Lungs are fairly symmetrically aerated. There is a pleural-based mass along the right posteri or pleura. There are multiple noncalcified left pulmonary nodules. Largest measures up to 14 mm. Dens e consolidation is noted in both lower lobes with air bronchograms. Mediastinum: Patient is again noted status post median sternotomy with postoperative change in cardi omegaly. Pretracheal, subcarinal and right hilar adenopathy is again noted. This is not well-defined secondary to the lack of intravenous contrast. Epicardial pacer wires are noted in place. There are c oronary artery calcifications. Pleurae: Been interval placement of a right-sided chest tube with the pigtail in the posterior later al lung base. The right effusion has decreased significantly in size with small residual. There is a minimal left effusion again noted. Axillae: Prominent right axillary lymph node measuring up to approximately 1.9 cm. There are multipl e small lymph nodes present. Bony Structures: Osteopenia, degenerative change and scoliosis are present. Miscellaneous: The examination was extended to include the upper abdomen, and both adrenal glands ar e normal in size and configuration. Multiple calcified gallstones are noted. CONCLUSION: 1. Interval placement of right sided chest tube with decrease in right effusion with multiple residu al. 2. Minimal left effusion. 3. Dense consolidation in the both lower lobes. 4. Multiple noncalcified pulmonary nodules consistent with metastatic disease. 5. Cholelithiasis with multiple calcified gallstones. Electronically signed by: José Miguel Oliver MD 08/22/2018 11:03 AM EDT
[2018-08-22] MEDS: Famotidine PF Inj 20 MG/2 ML Vial IV.PUSH SCH ×2 (11:22→21:53)
[2018-08-22] MEDS: Sodium Chloride 0.9% 2 ML Flush BID IV.FLUSH SCH ×2 (11:23→21:53)
[2018-08-22] MEDS: Insulin Detemir Inj 1,000 UNIT/10 ML Vial SQ SCH ×2 (12:00→21:53)
[2018-08-22] MEDS: Senna/Docusate Sodium 8.6/50 MG Tablet PO SCH ×2 (12:01→21:47)
[2018-08-22 12:05] LABS: Hematocrit 35.6 % (39.0-51.0); Hemoglobin 11.4 gm/dL (13.0-17.0); Mean Corpuscular HGB Conc 32.1 % (32.0-36.0); Mean Corpuscular Hemoglobin 28.5 pg (27.0-34.0); Mean Corpuscular Volume 88.6 fL (80.0-100.0); Mean Platelet Volume 8.9 fL (7.0-11.0); Platelet Count 125 th/mm3 (150-450); Red Blood Count 4.02 mil/mm3 (4.50-5.90); Red Cell Distribution Width 18.1 % (11.6-17.2); White Blood Count 23.7 th/mm3 (4.0-11.0)
[2018-08-22 12:18] LABS: INR 1.5 Ratio; Prothrombin Time 15.5 sec (9.8-11.6)
[2018-08-22] MEDS: Amiodarone Inj 450 MG in Sodium Chlor 0.9% Inj 241 ML IV.CONT PRN (13:35)
[2018-08-22] MEDS: Budesonide-Formoterol 160/4.5 MCG 6 GM Inhaler INH SCH ×2 (14:37→21:54)
[2018-08-22] MEDS: Vancomycin Inj 1,500 MG in Sodium Chlor 0.9% Inj 500 ML IV.SIG SCH (14:50)
--- NOTE | 2018-08-22 15:13 | P.PNONC ---
Subjective Interval history: Patient sitting upright in bed. Still with frequent cough. RN and at bedside. Objective Vital Signs/Intake & Output: Vital Signs 08/21/18 15:35 08/21/18 16:00 08/21/18 19:00 Temperature 98.8 F Pulse Rate 70 74 76 Respiratory Rate 18 28 H 29 H Blood Pressure 123/88 148/93 H Pulse Oximetry 96 90 L 08/21/18 20:00 08/21/18 20:46 08/21/18 21:00 Temperature 96.8 F L Pulse Rate 94 H 108 H 106 H Respiratory Rate 36 H 20 32 H Blood Pressure 153/84 H 156/102 H Pulse Oximetry 88 L 92 L 08/21/18 22:00 08/21/18 22:01 08/21/18 23:00 Temperature Pulse Rate 121 H 119 H 140 H Respiratory Rate 26 H 24 Blood Pressure 173/112 H 170/82 H 178/87 H Pulse Oximetry 97 97 95 08/21/18 23:53 08/22/18 00:00 08/22/18 00:52 Temperature 98.9 F Pulse Rate 101 H 98 H 101 H Respiratory Rate 20 21 22 Blood Pressure 163/113 H 156/83 H Pulse Oximetry 92 L 93 L 08/22/18 01:00 08/22/18 01:03 08/22/18 02:00 Temperature Pulse Rate 121 H 119 H 92 H Respiratory Rate 35 H 28 H 25 H Blood Pressure 175/116 H 183/102 H Pulse Oximetry 92 L 91 L 94 L 08/22/18 02:01 08/22/18 03:00 08/22/18 04:00 Temperature Pulse Rate 88 79 93 H Respiratory Rate 22 23 26 H Blood Pressure 150/75 H 139/82 164/89 H Pulse Oximetry 94 L 96 96 08/22/18 05:00 08/22/18 06:00 08/22/18 06:21 Temperature Pulse Rate 83 82 84 Respiratory Rate 22 27 H 30 H Blood Pressure 179/80 H 182/105 H 184/102 H Pulse Oximetry 90 L 95 95 08/22/18 08:00 08/22/18 08:33 08/22/18 09:48 Temperature Pulse Rate 109 H 75 74 Respiratory Rate 16 18 Blood Pressure Pulse Oximetry 08/22/18 11:52 08/22/18 12:00 Temperature Pulse Rate 84 81 Respiratory Rate 19 Blood Pressure Pulse Oximetry Intake & Output 08/21/18 08/22/18 08/22/18 18:59 06:59 18:59 Intake Total 840 / 840 1914 Output Total 3520 / 3520 2285 / 2285 815 / 815 Balance -2680 / -2680 -370 / -370 -815 / -815 Weight 74 kg Intake: IV 300 / 300 1914 Cordarone Inj 450 MG In NS Inj 250 / 250 241 ML @ 1 MG/MIN 33.33 mls/hr IV.CONT TITRATE PRN Rx#: [id number] Neosynephrine Inj 40 MG In D5W 500 / 500 Inj 496 ML @ 40 MCG/MIN 30 mls/ hr IV.CONT TITRATE PRN Rx#: [id number] Diprivan 1000 mg/100 ml Inj 1, 100 / 100 100 / 100 000 mg In 100 ml @ 5 MCG/KG/MIN 2.136 mls/hr IV.CONT TITRATE PRN Rx#:[id number] Maxipime Inj 2,000 MG In NS Inj 200 / 200 200 / 200 100 ML @ 200 mls/hr IV.SIG Q8H RO[place]IE Rx#:[id number] Levaquin 750 mg Premix Inj 150 150 / 150 ML @ 100 mls/hr IV.SIG Q24H RO[place]IE Rx#:[id number] KCl 40 mEq Premix Inj 40 meq In 200 / 200 100 ml @ 50 mls/hr IV.SIG Q2H PRN Rx#:[id number] Vancomycin Inj 1,500 MG In NS 515 / 515 Inj 500 ML @ 250 mls/hr IV.SIG Q18H ROSEMARIE Rx#:[id number] Oral 320 / 320 Tube Feeding 120 / 120 Water Bolus Amount 100 / 100 Output: Urine 2820 / 2820 Urine Amount (Catheter) 2285 / 2285 815 / 815 Indwelling Urethral Catheter 2285 / 2285 815 / 815 Chest Tube Drainage 700 / 700 #1 Right Pleural 700 / 700 Other: # Incontinent Voids 1 Date of Last Bowel Movement 08/17/18 08/17/18 # Bowel Movements 0 # Incontinent Bowel Movements 0 Result Diagrams: 08/22/18 11:15 08/22/18 05:34 Laboratory Results: Laboratory Results - last 24 hr 08/21/18 08/21/18 08/21/18 16:42 20:53 23:43 WBC RBC Hgb Hct MCV MCH MCHC RDW Plt Count MPV PT INR APTT Sodium 139 Potassium 3.0 L D Chloride 103 Carbon Dioxide 24.3 Anion Gap 12 BUN 25 H Creatinine 0.83 Estimated GFR 89 POC Glucose 305 H 268 H Random Glucose 207 H D Calcium 8.3 L D Total Bilirubin AST ALT Alkaline Phosphatase Total Protein Albumin 08/22/18 08/22/18 08/22/18 01:15 05:34 05:34 WBC 26.1 H RBC 4.07 L Hgb 11.6 L Hct 36.1 L MCV 88.7 MCH 28.4 MCHC 32.0 RDW 17.6 H Plt Count 136 L D MPV 8.9 PT INR APTT Sodium 142 Potassium 4.0 D Chloride 106 Carbon Dioxide 28.0 Anion Gap 8 BUN 24 H Creatinine 0.80 Estimated GFR Greater than 89 POC Glucose 193 H Random Glucose 127 H Calcium 8.1 L Total Bilirubin 0.7 AST 73 H ALT 65 Alkaline Phosphatase 298 H Total Protein 6.7 D Albumin 2.5 L 08/22/18 08/22/18 08/22/18 06:23 08:14 11:15 WBC 23.7 H RBC 4.02 L Hgb 11.4 L Hct 35.6 L MCV 88.6 MCH 28.5 MCHC 32.1 RDW 18.1 H Plt Count 125 L MPV 8.9 PT INR APTT Sodium Potassium Chloride Carbon Dioxide Anion Gap BUN Creatinine Estimated GFR POC Glucose 141 H 136 H Random Glucose Calcium Total Bilirubin AST ALT Alkaline Phosphatase Total Protein Albumin 08/22/18 08/22/18 11:15 11:56 WBC RBC Hgb Hct MCV MCH MCHC RDW Plt Count MPV PT 15.5 H INR 1.5 APTT 25.0 Sodium Potassium Chloride Carbon Dioxide Anion Gap BUN Creatinine Estimated GFR POC Glucose 179 H Random Glucose Calcium Total Bilirubin AST ALT Alkaline Phosphatase Total Protein Albumin Culture Results: Microbiology 08/19/18 11:11 Aerobic Blood Culture - Preliminary Blood - Peripheral No growth in 3 days Anaerobic Blood Culture - Preliminary No growth in 3 days 08/19/18 11:05 Aerobic Blood Culture - Preliminary Blood - Peripheral No growth in 3 days Anaerobic Blood Culture - Preliminary No growth in 3 days 08/17/18 21:15 Aerobic Blood Culture - Final Blood - Peripheral No growth in 5 days Anaerobic Blood Culture - Final No growth in 5 days 08/17/18 21:25 Aerobic Blood Culture - Final Blood - Peripheral No growth in 5 days Anaerobic Blood Culture - Final No growth in 5 days 08/19/18 13:00 Gram Stain - Final Fluid - Pleural fluid Body Fluid Culture - Final No growth in 72 hours (aerobically and anaerobically) 08/19/18 13:00 Fungal Smear - Final Other No fungal elements seen 08/19/18 09:56 Acid Fast Bacilli Smear - Final Other No acid fast bacilli seen 08/18/18 11:45 Gram Stain - Final Sputum - Expectorated Sputum Sputum Culture - Final Heavy growth normal respiratory mauricio 08/19/18 13:50 Streptococcus pneumoniae Antigen (M - Final Urine - Catheterized Urine Presumptive negative for streptococcus pneumoniae antigen, suggesting no current or recent infection. Infection due to Streptococcus pneumoniae cannot be ruled out since the antigen present in the sample may be below the detection limit of the test. 08/19/18 13:50 Legionella Antigen - Final Urine - Catheterized Urine Presumptive negative for Legionella pneumophila serogroup 1 antigen in urine, suggesting no recent or recurrent infection. Infection due to Legionella cannot be ruled out since other serogroups and species may cause disease, antigen may not be present in urine in early infection, and the level of antigen present in the urine may be below the detection limit of the test. 08/19/18 13:45 Influenza Types A,B Antigen - Final Nasal Wash Negative for FLU A and B antigen Infection due to influenza A or B cannot be ruled out since the antigen present in the sample may be below the detection limit of the test. Imaging Studies: Impressions Chest X-Ray 08/22/18 06:00 CONCLUSION: 1. Mild pleural-parenchymal opacities at the lung bases bilaterally following extubation. Chest CT 08/22/18 09:57 CONCLUSION: 1. Interval placement of right sided chest tube with decrease in right effusion with multiple residual. 2. Minimal left effusion. 3. Dense consolidation in the both lower lobes. 4. Multiple noncalcified pulmonary nodules consistent with metastatic disease. 5. Cholelithiasis with multiple calcified gallstones. Medications: Active Medications Generic Name Dose Route Start Last Admin Trade Name Freq PRN Reason Stop Dose Admin Acetylcysteine 2 ml 08/21/18 12:00 08/22/18 14:39 Mucomyst 20% Neb NEB 08/24/18 16:01 Not Given Q4HR NEB ROSEMARIE Albuterol 1 ampul 08/17/18 22:58 08/22/18 09:48 Duoneb Neb (Prn) NEB 1 ampul Q4HR NEB PRN Administration SOB/WHEEZING Albuterol 1 ampul 08/21/18 12:00 08/22/18 11:52 Duoneb Neb (Rosemarie) NEB 1 ampul Q4HR NEB RO[place]IE Administration Amlodipine Besylate 5 mg 08/19/18 09:00 08/19/18 10:54 Norvasc PO 5 mg DAILY ROSEMARIE Administration Atorvastatin Calcium 10 mg 08/19/18 09:00 08/22/18 12:00 Lipitor PO Not Given DAILY ROSEMARIE Benzonatate 100 mg 08/17/18 22:58 08/18/18 08:02 Tessalon Perles PO 100 mg QID PRN Administration Cough Budesonide/Formoterol Fumarate 2 puff 08/18/18 09:00 08/22/18 14:37 Symbicort 160/4.5 Mcg Inh INH Not Given BID ROSEMARIE Chlorhexidine Gluconate 15 ml 08/19/18 20:00 08/22/18 09:09 Peridex 0.12% Oral Kit OROPHARYNG Not Given BID@0800,2000 ROSEMARIE Dronedarone 400 mg 08/18/18 09:00 08/22/18 12:01 Multaq PO Not Given BID ROSEM[place]IE Famotidine 20 mg 08/19/18 21:00 08/22/18 11:22 Pepcid Pf Inj IV.PUSH 20 mg Q12HR RO[place]ARIE Administration Phenylephrine HCl 40 mg/ 500 mls @ 30 mls/hr 08/19/18 10:00 08/22/18 05:39 Dextrose IV.CONT Infused TITRATE PRN Titration Per Protocol Protocol 40 MCG/MIN Vasopressin 40 unit/ Dextrose 100 mls @ 1.5 mls/hr 08/19/18 10:00 08/21/18 04 :10 IV.CONT 0 units/min TITRATE PRN 0 mls/hr Per Protocol Titration Protocol 0.01 UNITS/MIN Propofol 1,000 mg in 100 mls @ 2.136 mls/hr 08/19/18 09:05 08/22/18 05:39 Diprivan 1000 Mg/100 Ml Inj IV.CONT Infused TITRATE PRN Titration Per Protocol Protocol 5 MCG/KG/MIN Cefepime HCl 2,000 mg/ Sodium 100 mls @ 200 mls/hr 08/19/18 11:00 08/22/18 11 :22 Chloride IV.SIG 200 mls/hr Q8H RO[place]IE Administration Levofloxacin/Dextrose 150 mls @ 100 mls/hr 08/19/18 12:00 08/22/18 12:00 Levaquin 750 Mg Premix Inj IV.SIG 100 mls/hr Q24H RO[place]IE Administration Potassium Chloride 40 meq in 100 mls @ 50 mls/hr 08/19/18 09:31 08/22/18 05: 39 Kcl 40 Meq Premix Inj IV.SIG Infused Q2H PRN Infusion For Potassium 2.8 - 3.2 mEq/L Amiodarone HCl 450 mg/ Sodium 250 mls @ 33.33 mls/hr 08/20/18 06:45 08/21/18 19:29 Chloride IV.CONT 0.05 mg/min TITRATE PRN 1.66 mls/hr Per Protocol Administration Protocol 1 MG/MIN Vancomycin HCl 1,500 mg/ 515 mls @ 250 mls/hr 08/21/18 01:00 08/22/18 14:50 Sodium Chloride IV.SIG 250 mls/hr Q18H RO[place]ARIE Administration Insulin Detemir 10 unit 08/21/18 21:00 08/22/18 12:00 Levemir Inj SQ Not Given BID [facility] Insulin Human Regular 0 units 08/19/18 12:00 08/22/18 14:39 Novolin R Correctional Sugar Inj SQ Not Given Q6HR [facility] Protocol Methylprednisolone Sodium Succinate 60 mg 08/20/18 18:00 08/22/18 11:22 Solumedrol Inj IV.PUSH 60 mg Q6HR RO[place]IE Administration Metoprolol Succinate 25 mg 08/19/18 09:00 08/22/18 14:38 Toprol Xl PO Not Given DAILY [facility] Miscellaneous Medication 1 each 08/19/18 12:00 08/22/18 12:01 OROPHARYNG Not Given 0000,0400,1200,1600 [facility] Senna/Docusate Sodium 1 tab 08/18/18 09:00 08/22/18 12:01 Adelia-Colace PO Not Given BID [place]IE Sodium Chloride 2 ml 08/20/18 09:00 08/22/18 11:23 Ns Flush IV.FLUSH 2 ml BID ROSEMARIE Administration Whey 1 packet 08/20/18 13:00 08/22/18 14:40 Beneprotein Powder G-TUBE Not Given TID [place]IE Objective Remarks: GENERAL: Ill-appearing elderly male patient, sitting upright.+ Frequent cough. SKIN: Warm and dry. HEAD: Normocephalic. EYES: No scleral icterus. No injection or drainage. NECK: Supple, trachea midline. CARDIOVASCULAR: Regular rate and rhythm without murmurs. RESPIRATORY: Anterior breath sounds rhonchi throughout, equal bilaterally.+ Constant wet cough. Right chest tube with clear yellow drainage. GASTROINTESTINAL: Abdomen soft, non-tender, nondistended. EXTREMITIES: No cyanosis, or edema. MUSCULOSKELETAL: Adequate muscle tone. NEUROLOGICAL: No obvious focal deficit. Awake and alert. Assessment/Plan - Plan Mr. Israel is a 77-year-old gentleman, who was diagnosed with non-small cell lung cancer approximately 1 month ago. He is under the care of Dr. Berger. Dr. Yu spoke with the patients oncologist, Dr. Berger, patient received Keytruda on 08/06/18. The patient reportedly developed pneumonia and was given a Z-[place]. His symptoms did not improve and he had worsening respiratory status and he came to the emergency room. The patient is currently admitted for respiratory failure, currently intubated and sedated. Plan: 1. Non-small cell lung cancer, status post Keytruda on 08/06/2018. Patient's primary oncologist is Dr. Berger. 2. 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 Continue high-dose steroids. Solu-Medrol 60 mg every 6 hours. Continue IV Pepcid. 3. DVT, right leg. Patient has retrievable IVC filter in place. 4. Thrombocytopenia, improving. Could be secondary to infection, sepsis or DIC. We will continue to monitor. 5. Discussed with patient's RN and . - Attending Statement The exam, history, and the medical decision-making described in the above note were completed with the assistance of the mid-level provider. I reviewed and agree with the findings presented. I attest that I had a [id number] encounter with the patient on the same day, and personally performed and documented my assessment and findings in the medical record. Less SOB, cough is less than yesterday. CT chest reviewed. Minimal PL effusion. still has Chest tube. continue solumedrol. Convert to oral prednisone tomorrow. extensive d/w pt, son and other family members.
--- NOTE | 2018-08-22 15:45 | P.CONPAL ---
Consult Service: Palliative Care Requesting Physician: Yulisa Cannon Reason for Consult: a. To assist with evaluation and management of symptoms including: Shortness of breath, debility b. To assist medical decision maker(s) with: better understanding of current medical conditions; weighing benefits/burdens of medical treatment options; making medical treatment decisions. Primary Care Provider: Natan Ravi MD History of Present Illness History of Present Illness: Mr. Mojica is a 77-year-old male with a medical history of non-small cell lung cancer, skin cancer, coronary artery disease s/p CABG, aortic stenosis, hypertension, diabetes mellitus and hypercholesteremia. Patient was diagnosed with non-small cell lung cancer approximately a month ago and was started on immunotherapy treatment. Since treatment was started patient developed shortness of breath, cough. X-ray outpatient showed that he had pneumonia and he was treated by his primary care physician with an antibiotic. He was then switched to azithromycin due to worsening symptoms. Symptoms did not improve and patient presented to the emergency room on 08/17/18 with complaints of worsening shortness of breath and productive cough. ER course: * Vital signs: Temperature 98.5, pulse 105, respiratory rate 20, BP 101/65, O2 saturation 92%. * EKG revealed sinus rhythm 94 bpm with frequent supraventricular premature complexes septal myocardial infarction. * Chest x-ray revealed increasing consolidation in the right lung and stable consolidative infiltrates in the left lung. * Laboratory workup revealed WBC 19.8, hemoglobin 12.2, hematocrit 37.7, platelet count 93, PT 21.4, INR 2.1, sodium 130, potassium 4.5, BUN/creatinine 43/1.86, random glucose 487, lactic acid 2.6, calcium 8.2, AST 29, ALT 25, alkaline phosphatase 126, troponin 0 0.02, BNP 154, total protein 7.1, albumin 2.9 * Urinalysis negative for leukocyte esterase and nitrates-culture not indicated * Patient admitted for further evaluation and treatment. Overnight patient developed worsening of shortness of breath with desaturation, atrial fibrillation with RVR and was transferred to ICU. 08/19/[address] Cannon consulted for evaluation and management of patient with acute hypoxemic respiratory failure and severe sepsis. Chest x-ray 08/19/18 revealed increasing bilateral infiltrates. Patient was intubated and placed on mechanical ventilation. Chest CT on 08/19/18 revealed large right pleural effusion with extensive patchy alveolar consolidations noted bilaterally consistent with probable pneumonia and a tiny left pleural effusion. Patient underwent ultrasound-guided right pigtail chest tube placement on 08/19/18. Pleural fluid culture showing no growth in 72 hours. 2D echo on 08/19/18 revealed an estimated ejection fraction in the range of 45-50%. Venous ultrasound to right lower extremity revealed deep venous thrombosis throughout the right lower extremity from the femoral vein into the popliteal and posterior tibial vein. Patient underwent ultrasound-guided inferior vena cava filter placement on 08/19/18. Infectious disease Dr. Strickland consulted on to evaluate and manage patient with pneumonia, recommended continuing with antibiotic coverage and effect and checking legio and pneumo Ag. Blood cultures collected on 08/19/18 showing no growth in 3 days. Nasal wash negative for influenza types a/B antigen. Dr. Yu oncology consulted on for evaluation and management of patient with non-small cell lung cancer , recommended no acute oncology intervention at this time and high-dose steroids for pneumonitis if patient was on immunotherapy (Keytruda). Clinical course complicated with septic shock, dyspnea and thrombocytopenia. Patient was medically extubated on 08/21/18. Palliative care consulted to assist with symptom management and establishment of goals of medical treatment. Chest CT today 08/22/18 revealing decrease in right effusion, minimal left effusion and dense consolidation in both lower lobes. Multiple noncalcified pulmonary nodules consistent with metastatic disease and quality lithiasis with multiple calcified gallstones. Laboratory workup today revealing WBC 26.1, hemoglobin 11.6, hematocrit 36.1, platelet count 136. Patient seen and examined in his room. Patient is in bed, awake, lethargic oriented to self, place and partially situation. Patient denies pain. Minimally conversant due to persistent cough. Patient is currently receiving breathing treatment and is on humidified O2 6 L nasal cannula. Asked patient if he would like to be reintubated in the event that he is in respiratory failure again, patient said, "no because it would not take the pneumonia away". Patient appears not to possess ability to weigh burden and benefits of treatment at this time. Brief telephone conversation with patient`s spouse Maday Israel who has just arrived home from the hospital and states that she is tired. Introduced palliative care and per patient`s spouse request a meeting has been scheduled for tomorrow around 1100hrs. Function/Cognitive Trajectory: Patient lives with his at home. Patient was recently diagnosed with non- small cell lung cancer approximately a month ago. He was started on supposedly immunotherapy treatment and for the past week patient has developed shortness of breath, coughing and he has been treated for pneumonia with 2 different antibiotics. Despite outpatient management of pneumonia patient continued to decline requiring him to come to the emergency room for further evaluation and treatment. Patient she uses a cane, walker and his oxygen at home 2 L nasal cannula. Patient has been having falls at home with decreased oral intake. Review of Systems Constitutional: Reports weakness, Denies fever(s), Denies increased appetite Eyes: Denies blurry vision, Denies loss of vision Ears, Nose, Mouth, and Throat: Denies abnormal hearing, Denies hearing loss, Denies nasal congestion Cardiovascular: Reports foot swelling, Reports irregular heart rhythm, Reports leg swelling, Reports shortness of breath, Reports shortness of breath with activity Respiratory: Reports chest congestion, Reports cough, Reports shortness of breath, Reports shortness of breath with activity, Denies coughing up blood Gastrointestinal: Reports loose stools, Denies bright, red blood in stools, Denies difficulty swallowing Genitourinary: Reports urinary incontinence, Denies urinary frequency Skin/Breast: Reports unusual bruising Neurologic: Reports frequent falls, Denies headache(s) Psychiatric: Reports confusion, Denies anxiety Endocrine: Reports rapid, pounding, or irregular heartbeat Hematologic/Lymphatic: Reports easy bruising Review of system obtained from EMR and clinical observation. [facility] - History History Provided By: Patient - Medical History Medical History: Medical History (Last Reviewed 08/23/18 @ 12:15 by Paula Blanton) HTN (hypertension) Hypercholesteremia Lung cancer Skin cancer - Surgical History Surgical History: Surgical History (Last Reviewed 08/23/18 @ 12:15 by Paula Blanton) Aortic valve replaced Hx of CABG - Tobacco History Second Hand Smoke Exposure: Yes Tobacco Use In Past 30 Days: No Smoking Status: Never smoker Tobacco Type: Cigarettes - Alcohol History How Often Do You Have a Drink Containing Alcohol: Never - Substance Use History Substance History: No History of Abuse - Travel History Recent Travel in the [place] Within the Last 8 Weeks: No Recent Travel Out of the Country Within the Last 8 Weeks: No - Immunization History Tetanus Immunization: >5 Years Hx Influenza Vaccine This Season: No Medications and Allergies Active Medications: Active Medications Acetaminophen (Tylenol) 650 mg PO Q4H PRN PRN Reason: Temp > 100.4 Acetylcysteine (Mucomyst 20% Neb) 2 ml NEB Q4HR NEB [place] Stop: 08/24/18 16:01 Last Admin: 08/22/18 14:39 Dose: Not Given Al Hydroxide/Mg Hydroxide (Milk Of Magnpineda Liq) 30 ml PO Q12H PRN PRN Reason: Mild Constipation Albuterol (Duoneb Neb (Prn)) 1 ampul NEB Q4HR NEB PRN PRN Reason: SOB/WHEEZING Last Admin: 08/22/18 09:48 Dose: 1 ampul Albuterol (Duoneb Neb (Rosemarie)) 1 ampul NEB Q4HR NEB [facility] Last Admin: 08/22/18 11:52 Dose: 1 ampul Amlodipine Besylate (Norvasc) 5 mg PO DAILY [facility] Last Admin: 08/19/18 10:54 Dose: 5 mg Atorvastatin Calcium (Lipitor) 10 mg PO DAILY [facility] Last Admin: 08/22/18 12:00 Dose: Not Given Benzonatate (Tessalon Perles) 100 mg PO QID PRN PRN Reason: Cough Last Admin: 08/18/18 08:02 Dose: 100 mg Bisacodyl (Dulcolax Supp) 10 mg RECTAL DAILY PRN PRN Reason: SEVERE CONSITIPATION Budesonide/Formoterol Fumarate (Symbicort 160/4.5 Mcg Inh) 2 puff INH BID [facility] Last Admin: 08/22/18 14:37 Dose: Not Given Chlorhexidine Gluconate (Peridex 0.12% Oral Kit) 15 ml OROPHARYNG BID@0800, 2000 [facility] Last Admin: 08/22/18 09:09 Dose: Not Given Dextrose (D50w Vial) 50 ml IV.PUSH UNSCH PRN PRN Reason: PER HYPOGLYCEMIA PROTOCOL Dronedarone (Multaq) 400 mg PO BID [facility] Last Admin: 08/22/18 12:01 Dose: Not Given Famotidine (Pepcid Pf Inj) 20 mg IV.PUSH Q12HR [facility] Last Admin: 08/22/18 11:22 Dose: 20 mg Furosemide (Lasix) 20 mg PO DAILY [facility] Furosemide (Lasix Inj) 40 mg IV.PUSH BID@0900,1800 [facility] Glucagon (Glucagon Inj) 1 mg OTHER UNSCH PRN PRN Reason: for Hypoglycemia Protocol Phenylephrine HCl 40 mg/ (Dextrose) 500 mls @ 30 mls/hr IV.CONT TITRATE PRN; Protocol PRN Reason: Per Protocol Last Titration: 08/22/18 05:39 Dose: Infused Vasopressin 40 unit/ Dextrose 100 mls @ 1.5 mls/hr IV.CONT TITRATE PRN; Protocol PRN Reason: Per Protocol Last Titration: 08/21/18 04:10 Dose: 0 units/min, 0 mls/hr Propofol (Diprivan 1000 Mg/100 Ml Inj) 1,000 mg in 100 mls @ 2.136 mls/hr IV.CONT TITRATE PRN; Protocol PRN Reason: Per Protocol Last Titration: 08/22/18 05:39 Dose: Infused Cefepime HCl 2,000 mg/ Sodium (Chloride) 100 mls @ 200 mls/hr IV.SIG Q8H [facility] Last Admin: 08/22/18 11:22 Dose: 200 mls/hr Levofloxacin/Dextrose (Levaquin 750 Mg Premix Inj) 150 mls @ 100 mls/hr IV.SIG Q24H [facility] Last Admin: 08/22/18 12:00 Dose: 100 mls/hr Magnesium Sulfate 4 gm/ Sodium (Chloride) 100 mls @ 50 mls/hr IV.SIG UNSCH PRN PRN Reason: For Magnesium 0.9 - 1.1 mg/dL Magnesium Sulfate 2 gm/ Sodium (Chloride) 100 mls @ 50 mls/hr IV.SIG UNSCH PRN PRN Reason: For Magnesium 1.2 - 1.6 mg/dL Potassium Chloride (Kcl 40 Meq Premix Inj) 40 meq in 100 mls @ 50 mls/hr IV.SIG Q2H PRN PRN Reason: For Potassium 2.8 - 3.2 mEq/L Last Infusion: 08/22/18 05:39 Dose: Infused Potassium Chloride (Kcl 20 Meq Premix Inj) 20 meq in 100 mls @ 50 mls/hr IV.SIG Q2H PRN PRN Reason: For Potassium 3.3 - 3.5 mEq/L Potassium Chloride (Kcl 20 Meq Premix Inj) 20 meq in 100 mls @ 50 mls/hr IV.SIG Q2H PRN PRN Reason: For Potassium 2.8 - 3.2 mEq/L Potassium Phosphate 30 mmol/ (Sodium Chloride) 260 mls @ 42 mls/hr IV.SIG UNSCH PRN PRN Reason: SEE LABEL COMMENTS Sodium Phosphate 30 mmol/ (Sodium Chloride) 260 mls @ 42 mls/hr IV.SIG UNSCH PRN PRN Reason: For Phosphorus < 2.5 mg/dL Potassium Chloride (Kcl 40 Meq Premix Inj) 40 meq in 100 mls @ 25 mls/hr IV.SIG UNSCH PRN PRN Reason: For Potassium 3.3 - 3.5 mEq/L Amiodarone HCl 450 mg/ Sodium (Chloride) 250 mls @ 33.33 mls/hr IV.CONT TITRATE PRN; Protocol PRN Reason: Per Protocol Last Admin: 08/21/18 19:29 Dose: 0.05 mg/min, 1.66 mls/hr Vancomycin HCl 1,500 mg/ (Sodium Chloride) 515 mls @ 250 mls/hr IV.SIG Q18H [facility] Last Admin: 08/22/18 14:50 Dose: 250 mls/hr Dexmedetomidine HCl 200 mcg/ (Sodium Chloride) 50 mls @ 3.82 mls/hr IV.CONT TITRATE PRN; Protocol PRN Reason: Per Protocol Insulin Detemir (Levemir Inj) 10 unit SQ BID [facility] Last Admin: 08/22/18 12:00 Dose: Not Given Insulin Human Regular (Novolin R Correctional Sugar Inj) 0 units SQ Q6HR [place]; Protocol Last Admin: 08/22/18 14:39 Dose: Not Given Lactulose (Lactulose Liq) 30 ml PO DAILY PRN PRN Reason: SEVERE CONSITIPATION Magnesium Oxide (Mag-Ox) 800 mg PO UNSCH PRN PRN Reason: For Magnesium 1.2 - 1.6 mg/dL Melatonin (Melatonin) 5 mg PO HS PRN PRN Reason: SLEEP Methylprednisolone Sodium Succinate (Solumedrol Inj) 60 mg IV.PUSH Q6HR [facility] Last Admin: 08/22/18 11:22 Dose: 60 mg Metoprolol Succinate (Toprol Xl) 25 mg PO DAILY [facility] Last Admin: 08/22/18 14:38 Dose: Not Given Miscellaneous Information ([facility] Ordered Lab Info) 0 each OTHER ONCE ONE Stop: 08/23/18 06:46 Miscellaneous Medication () 1 each OROPHARYNG 0000,0400,1200,1600 [facility] Last Admin: 08/22/18 12:01 Dose: Not Given Ondansetron HCl (Zofran Inj) 4 mg IV.PUSH Q6H PRN PRN Reason: NAUSEA OR VOMITING Pharmacy Profile Note (Vancomycin Consult Pharmacy) 1 each OTHER PRN [facility] Pharmacy Profile Note (Until Further Notice) 1 each OTHER UNSCH [facility] Potassium Bicarb/Potassium Chloride (K-Lyte Cl Eff) 50 meq PO UNSCH PRN PRN Reason: For Potassium 3.3 - 3.5 mEq/L Potassium Phosphate (K-Phos Original) 2,000 mg PO Q4H PRN PRN Reason: Phosphorus Less Than 2.5 mg/dL Potassium Phosphate (K-Phos Original) 2,000 mg PO UNSCH PRN PRN Reason: SEE LABEL COMMENTS Senna/Docusate Sodium (Adelia-Colace) 1 tab PO BID [facility] Last Admin: 08/22/18 12:01 Dose: Not Given Sennosides (Senokot) 17.2 mg PO Q12H PRN PRN Reason: Moderate Constipation Sodium Chloride (Ns Flush) 2 ml IV.FLUSH BID [facility] Last Admin: 08/22/18 11:23 Dose: 2 ml Sodium Chloride (Ns Flush) 2 ml IV.FLUSH PRN PRN PRN Reason: FLUSH AFTER USING IV ACCESS Spironolactone (Aldactone) 25 mg PO BID [facility] Terbutaline Sulfate (Brethine Inj) 1 mg SQ UNSCH PRN PRN Reason: For Extravasation Whey (Beneprotein Powder) 1 packet G-TUBE TID [facility] Last Admin: 08/22/18 14:40 Dose: Not Given Allergies Allergy/AdvReac Type Severity Reaction Status Date / Time penicillin G Allergy Mild Hives Verified 05/14/18 16:06 Sulfa (Sulfonamide Allergy Mild Hives Verified 05/14/18 16:06 Antibiotics) exenatide Allergy Unknown Hives Verified 08/17/18 20:16 FARXIGA Allergy Severe Anorexia Uncoded 05/14/18 16:06 Home Medications Medication Instructions Recorded Confirmed Type Actos 30 mg PO DAILY 08/17/18 08/17/18 History amlodipine [Norvasc] 5 mg PO DAILY 08/17/18 08/17/18 History atorvastatin [Lipitor] 10 mg PO DAILY 08/17/18 08/17/18 History azithromycin 500 mg PO DAILY 08/17/18 08/17/18 History benzonatate 100 mg PO QID PRN 08/17/18 08/17/18 History budesonide-formoterol [Symbicort] 2 puff INHALATION BID 08/17/18 08/17/18 History dronedarone 400 mg PO BID 08/17/18 08/17/18 History furosemide 20 mg PO DAILY 08/17/18 08/17/18 History glipizide [Glucotrol] 5 mg PO BID 08/17/18 08/17/18 History lisinopril [Prinivil] 20 mg PO DAILY 08/17/18 08/17/18 History metformin 1,000 mg PO BID 08/17/18 08/17/18 History metoprolol succinate 25 mg PO DAILY 08/17/18 08/17/18 History pioglitazone 30 mg PO DAILY 08/17/18 08/17/18 History spironolactone [Aldactone] 25 mg PO BID 08/17/18 08/17/18 History Advance Directives Living Will: Unknown Health Care Surrogate Name and Number: HCP:Lindy Nassar () Power of Abstract Checker: Unknown Family/friends goals: To be discussed 08/23/2018 Ethical and Legal Issues: No ethical issues at this time Physical Exam Vital Signs: Vital Signs - 24 hr 08/21/18 15:35 08/21/18 16:00 08/21/18 19:00 Temperature 98.8 F Pulse Rate 70 74 76 Respiratory Rate 18 28 H 29 H Blood Pressure 123/88 148/93 H Pulse Oximetry 96 90 L 08/21/18 20:00 08/21/18 20:46 08/21/18 21:00 Temperature 96.8 F L Pulse Rate 94 H 108 H 106 H Respiratory Rate 36 H 20 32 H Blood Pressure 153/84 H 156/102 H Pulse Oximetry 88 L 92 L 08/21/18 22:00 08/21/18 22:01 08/21/18 23:00 Temperature Pulse Rate 121 H 119 H 140 H Respiratory Rate 26 H 24 Blood Pressure 173/112 H 170/82 H 178/87 H Pulse Oximetry 97 97 95 08/21/18 23:53 08/22/18 00:00 08/22/18 00:52 Temperature 98.9 F Pulse Rate 101 H 98 H 101 H Respiratory Rate 20 21 22 Blood Pressure 163/113 H 156/83 H Pulse Oximetry 92 L 93 L 08/22/18 01:00 08/22/18 01:03 08/22/18 02:00 Temperature Pulse Rate 121 H 119 H 92 H Respiratory Rate 35 H 28 H 25 H Blood Pressure 175/116 H 183/102 H Pulse Oximetry 92 L 91 L 94 L 08/22/18 02:01 08/22/18 03:00 08/22/18 04:00 Temperature Pulse Rate 88 79 93 H Respiratory Rate 22 23 26 H Blood Pressure 150/75 H 139/82 164/89 H Pulse Oximetry 94 L 96 96 08/22/18 05:00 08/22/18 06:00 08/22/18 06:21 Temperature Pulse Rate 83 82 84 Respiratory Rate 22 27 H 30 H Blood Pressure 179/80 H 182/105 H 184/102 H Pulse Oximetry 90 L 95 95 08/22/18 08:00 08/22/18 08:33 08/22/18 09:48 Temperature Pulse Rate 109 H 75 74 Respiratory Rate 16 18 Blood Pressure Pulse Oximetry 08/22/18 11:52 08/22/18 12:00 Temperature Pulse Rate 84 81 Respiratory Rate 19 Blood Pressure Pulse Oximetry I&O: Intake & Output 08/20/18 08/21/18 08/22/18 08/23/18 06:59 06:59 06:59 06:59 Intake Total 1561.5 / 1561.5 5335.5 / 5335.5 2755 / 2755 Output Total 3500 / 3500 2315 / 2315 5805 / 5805 815 / 815 Balance -1938.5 / -1938.5 3020.5 / 3020.5 -3050 / -3050 -815 / -815 Weight 75 kg 76.5 kg 74 kg Physical Exam: CONSTITUTIONAL/GENERAL: This is an elderly, chronically ill looking patient, in respiratory distress. TUBES/LINES/DRAINS: Right lateral pigtail chest tube, Babcock catheter, central line SKIN: No jaundice, rashes, or lesions. Ecchymoses on upper extremities. No wounds seen anteriorly. Skin temperature appropriate. Not diaphoretic. HEAD: Atraumatic. Normocephalic. EYES: Pupils equal and round and reactive. Extraocular motions intact. No scleral icterus. No injection or drainage. Fundi not examined. ENT: Hearing grossly normal. Nose without bleeding or purulent drainage. Moist oral mucosa NECK: Trachea midline. Supple, nontender. CARDIOVASCULAR: Regular rate and rhythm without murmurs, gallops, or rubs. No JVD. Peripheral pulses symmetric. RESPIRATORY/CHEST: Symmetric, mildly labored respirations. Coarse crackles bilaterally. GASTROINTESTINAL: Abdomen soft, non-tender, nondistended. No guarding. Bowel sounds present. GENITOURINARY: Without palpable bladder distension. Babcock catheter in place. MUSCULOSKELETAL: Extremities without clubbing, cyanosis. Edema to right lower extremity. No mottling or clubbing. NEUROLOGICAL: Awake, lethargic, oriented to self, place and partially situation. Motor and sensory grossly within normal limits. Moves all extremities. PSYCHIATRIC: No obvious anxiety/depression. no apparent hallucinations or other psychotic thought process. Diagnostic Tests Laboratory: Laboratory Results - last 72 hr 08/19/18 08/19/18 08/19/18 05:43 13:00 18:17 WBC RBC Hgb Hct MCV MCH MCHC RDW Plt Count MPV PT INR APTT Puncture Site Patient Temperature O2 Saturation ABG pH ABG pCO2 ABG pO2 ABG HCO3 ABG O2 Content ABG Base Excess ABG Methemoglobin Lito Test Hemoglobin Carboxyhemoglobin O2 Delivery Device Simple mask Vent Setting Not Reportable Inspired O2 Critical Value Sodium Potassium Chloride Carbon Dioxide Anion Gap BUN Creatinine Estimated GFR POC Glucose 326 H Random Glucose Calcium Prot Corrected Calcium Magnesium Total Bilirubin AST ALT Alkaline Phosphatase Total Protein Albumin Pleural pH 8.5 Vancomycin Trough 08/19/18 08/20/18 08/20/18 20:50 00:30 05:00 WBC 16.0 H RBC 3.51 L Hgb 10.3 L Hct 30.6 L MCV 87.3 MCH 29.2 MCHC 33.5 RDW 17.7 H Plt Count 78 L MPV 8.8 PT INR APTT Puncture Site Patient Temperature O2 Saturation ABG pH ABG pCO2 ABG pO2 ABG HCO3 ABG O2 Content ABG Base Excess ABG Methemoglobin Lito Test Hemoglobin Carboxyhemoglobin O2 Delivery Device Vent Setting Inspired O2 Critical Value Sodium Potassium Chloride Carbon Dioxide Anion Gap BUN Creatinine Estimated GFR POC Glucose 263 H 235 H Random Glucose Calcium Prot Corrected Calcium Magnesium Total Bilirubin AST ALT Alkaline Phosphatase Total Protein Albumin Pleural pH Vancomycin Trough 08/20/18 08/20/18 08/20/18 05:58 07:59 09:40 WBC RBC Hgb Hct MCV MCH MCHC RDW Plt Count MPV PT INR APTT Puncture Site Patient Temperature O2 Saturation ABG pH ABG pCO2 ABG pO2 ABG HCO3 ABG O2 Content ABG Base Excess ABG Methemoglobin Lito Test Hemoglobin Carboxyhemoglobin O2 Delivery Device Vent Setting Inspired O2 Critical Value Sodium Potassium Chloride Carbon Dioxide Anion Gap BUN Creatinine Estimated GFR POC Glucose 191 H 201 H Random Glucose Calcium Prot Corrected Calcium Magnesium Total Bilirubin AST ALT Alkaline Phosphatase Total Protein Albumin Pleural pH Vancomycin Trough 12.3 H 08/20/18 08/20/18 08/20/18 09:40 09:40 09:40 WBC RBC Hgb Hct MCV MCH MCHC RDW Plt Count MPV PT 14.8 H INR 1.5 APTT 32.1 H Puncture Site Patient Temperature O2 Saturation ABG pH ABG pCO2 ABG pO2 ABG HCO3 ABG O2 Content ABG Base Excess ABG Methemoglobin Lito Test Hemoglobin Carboxyhemoglobin O2 Delivery Device Vent Setting Inspired O2 Critical Value Sodium 133 L Potassium 3.6 Chloride 97 L Carbon Dioxide 25.9 Anion Gap 10 BUN 26 H Creatinine 0.74 Estimated GFR Greater than 89 POC Glucose Random Glucose 172 H D Calcium 7.5 L Prot Corrected Calcium Magnesium Total Bilirubin 0.7 AST 102 H ALT 45 Alkaline Phosphatase 113 Total Protein 5.9 L Albumin 2.5 L Pleural pH Vancomycin Trough 08/20/18 08/20/18 08/20/18 11:52 17:48 20:20 WBC RBC Hgb Hct MCV MCH MCHC RDW Plt Count MPV PT INR APTT Puncture Site Patient Temperature O2 Saturation ABG pH ABG pCO2 ABG pO2 ABG HCO3 ABG O2 Content ABG Base Excess ABG Methemoglobin Lito Test Hemoglobin Carboxyhemoglobin O2 Delivery Device Vent Setting Inspired O2 Critical Value Sodium Potassium Chloride Carbon Dioxide Anion Gap BUN Creatinine Estimated GFR POC Glucose 169 H 211 H 246 H Random Glucose Calcium Prot Corrected Calcium Magnesium Total Bilirubin AST ALT Alkaline Phosphatase Total Protein Albumin Pleural pH Vancomycin Trough 08/21/18 08/21/18 08/21/18 00:01 03:15 03:15 WBC 17.1 H RBC 3.61 L Hgb 10.4 L Hct 32.1 L MCV 88.9 MCH 28.8 MCHC 32.4 RDW 17.7 H Plt Count 76 L MPV 9.4 PT INR APTT Puncture Site Patient Temperature O2 Saturation ABG pH ABG pCO2 ABG pO2 ABG HCO3 ABG O2 Content ABG Base Excess ABG Methemoglobin Lito Test Hemoglobin Carboxyhemoglobin O2 Delivery Device Vent Setting Inspired O2 Critical Value Sodium 134 L Potassium 4.1 Chloride 99 Carbon Dioxide 21.8 Anion Gap 13 BUN 33 H Creatinine 0.79 Estimated GFR Greater than 89 POC Glucose 291 H Random Glucose 307 H D Calcium 7.3 L* Prot Corrected Calcium 8.0 L Magnesium 1.6 Total Bilirubin 0.6 AST 119 H ALT 62 Alkaline Phosphatase 226 H Total Protein 5.8 L Albumin 2.4 L Pleural pH Vancomycin Trough 08/21/18 08/21/18 08/21/18 05:12 09:55 10:12 WBC RBC Hgb Hct MCV MCH MCHC RDW Plt Count MPV PT INR APTT Puncture Site Art line Patient Temperature 98.6 O2 Saturation 94 ABG pH 7.40 ABG pCO2 35 L ABG pO2 96 ABG HCO3 21 L ABG O2 Content 14.2 ABG Base Excess -3.3 L ABG Methemoglobin 1.5 Lito Test Present Hemoglobin 10.6 L Carboxyhemoglobin 1.2 O2 Delivery Device Ventilator Vent Setting Cpap:[id number] Inspired O2 40 Critical Value No Sodium Potassium Chloride Carbon Dioxide Anion Gap BUN Creatinine 0.84 Estimated GFR 88 L POC Glucose 351 H Random Glucose Calcium Prot Corrected Calcium Magnesium Total Bilirubin AST ALT Alkaline Phosphatase Total Protein Albumin Pleural pH Vancomycin Trough 08/21/18 08/21/18 08/21/18 12:22 16:42 20:53 WBC RBC Hgb Hct MCV MCH MCHC RDW Plt Count MPV PT INR APTT Puncture Site Patient Temperature O2 Saturation ABG pH ABG pCO2 ABG pO2 ABG HCO3 ABG O2 Content ABG Base Excess ABG Methemoglobin Lito Test Hemoglobin Carboxyhemoglobin O2 Delivery Device Vent Setting Inspired O2 Critical Value Sodium Potassium Chloride Carbon Dioxide Anion Gap BUN Creatinine Estimated GFR POC Glucose 298 H 305 H 268 H Random Glucose Calcium Prot Corrected Calcium Magnesium Total Bilirubin AST ALT Alkaline Phosphatase Total Protein Albumin Pleural pH Vancomycin Trough 08/21/18 08/22/18 08/22/18 23:43 01:15 05:34 WBC 26.1 H RBC 4.07 L Hgb 11.6 L Hct 36.1 L MCV 88.7 MCH 28.4 MCHC 32.0 RDW 17.6 H Plt Count 136 L D MPV 8.9 PT INR APTT Puncture Site Patient Temperature O2 Saturation ABG pH ABG pCO2 ABG pO2 ABG HCO3 ABG O2 Content ABG Base Excess ABG Methemoglobin Lito Test Hemoglobin Carboxyhemoglobin O2 Delivery Device Vent Setting Inspired O2 Critical Value Sodium 139 Potassium 3.0 L D Chloride 103 Carbon Dioxide 24.3 Anion Gap 12 BUN 25 H Creatinine 0.83 Estimated GFR 89 POC Glucose 193 H Random Glucose 207 H D Calcium 8.3 L D Prot Corrected Calcium Magnesium Total Bilirubin AST ALT Alkaline Phosphatase Total Protein Albumin Pleural pH Vancomycin Trough 08/22/18 08/22/18 08/22/18 05:34 06:23 08:14 WBC RBC Hgb Hct MCV MCH MCHC RDW Plt Count MPV PT INR APTT Puncture Site Patient Temperature O2 Saturation ABG pH ABG pCO2 ABG pO2 ABG HCO3 ABG O2 Content ABG Base Excess ABG Methemoglobin Lito Test Hemoglobin Carboxyhemoglobin O2 Delivery Device Vent Setting Inspired O2 Critical Value Sodium 142 Potassium 4.0 D Chloride 106 Carbon Dioxide 28.0 Anion Gap 8 BUN 24 H Creatinine 0.80 Estimated GFR Greater than 89 POC Glucose 141 H 136 H Random Glucose 127 H Calcium 8.1 L Prot Corrected Calcium Magnesium Total Bilirubin 0.7 AST 73 H ALT 65 Alkaline Phosphatase 298 H Total Protein 6.7 D Albumin 2.5 L Pleural pH Vancomycin Trough 08/22/18 08/22/18 08/22/18 11:15 11:15 11:56 WBC 23.7 H RBC 4.02 L Hgb 11.4 L Hct 35.6 L MCV 88.6 MCH 28.5 MCHC 32.1 RDW 18.1 H Plt Count 125 L MPV 8.9 PT 15.5 H INR 1.5 APTT 25.0 Puncture Site Patient Temperature O2 Saturation ABG pH ABG pCO2 ABG pO2 ABG HCO3 ABG O2 Content ABG Base Excess ABG Methemoglobin Lito Test Hemoglobin Carboxyhemoglobin O2 Delivery Device Vent Setting Inspired O2 Critical Value Sodium Potassium Chloride Carbon Dioxide Anion Gap BUN Creatinine Estimated GFR POC Glucose 179 H Random Glucose Calcium Prot Corrected Calcium Magnesium Total Bilirubin AST ALT Alkaline Phosphatase Total Protein Albumin Pleural pH Vancomycin Trough Result Diagrams: 08/23/18 05:45 08/23/18 05:45 Microbiology: Microbiology 08/19/18 11:11 Aerobic Blood Culture - Preliminary Blood - Peripheral No growth in 3 days Anaerobic Blood Culture - Preliminary No growth in 3 days 08/19/18 11:05 Aerobic Blood Culture - Preliminary Blood - Peripheral No growth in 3 days Anaerobic Blood Culture - Preliminary No growth in 3 days 08/17/18 21:15 Aerobic Blood Culture - Final Blood - Peripheral No growth in 5 days Anaerobic Blood Culture - Final No growth in 5 days 08/17/18 21:25 Aerobic Blood Culture - Final Blood - Peripheral No growth in 5 days Anaerobic Blood Culture - Final No growth in 5 days 08/19/18 13:00 Gram Stain - Final Fluid - Pleural fluid Body Fluid Culture - Final No growth in 72 hours (aerobically and anaerobically) 08/19/18 13:00 Fungal Smear - Final Other No fungal elements seen 08/19/18 09:56 Acid Fast Bacilli Smear - Final Other No acid fast bacilli seen 08/18/18 11:45 Gram Stain - Final Sputum - Expectorated Sputum Sputum Culture - Final Heavy growth normal respiratory mauricio 08/19/18 13:50 Streptococcus pneumoniae Antigen (M - Final Urine - Catheterized Urine Presumptive negative for streptococcus pneumoniae antigen, suggesting no current or recent infection. Infection due to Streptococcus pneumoniae cannot be ruled out since the antigen present in the sample may be below the detection limit of the test. 08/19/18 13:50 Legionella Antigen - Final Urine - Catheterized Urine Presumptive negative for Legionella pneumophila serogroup 1 antigen in urine, suggesting no recent or recurrent infection. Infection due to Legionella cannot be ruled out since other serogroups and species may cause disease, antigen may not be present in urine in early infection, and the level of antigen present in the urine may be below the detection limit of the test. 08/19/18 13:45 Influenza Types A,B Antigen - Final Nasal Wash Negative for FLU A and B antigen Infection due to influenza A or B cannot be ruled out since the antigen present in the sample may be below the detection limit of the test. Imaging: IVC Filter Placement X-Ray 08/19/18 00:00 CONCLUSION: 1. Uncomplicated inferior vena cava filter placement as above. This is a removable filter and can be removed up to one year from its placement. Venous Doppler Study 08/19/18 00:00 CONCLUSION: 1. Deep venous thrombosis as above Chest X-Ray 08/22/18 06:00 CONCLUSION: 1. Mild pleural-parenchymal opacities at the lung bases bilaterally following extubation. Chest CT 08/22/18 09:57 CONCLUSION: 1. Interval placement of right sided chest tube with decrease in right effusion with multiple residual. 2. Minimal left effusion. 3. Dense consolidation in the both lower lobes. 4. Multiple noncalcified pulmonary nodules consistent with metastatic disease. 5. Cholelithiasis with multiple calcified gallstones. Procedures: 08/19/18-intubation 08/19/18-placement of right subclavian central line 08/19/18-right radial arterial line placement 08/19/1873-[id number] inferior vena cava filter placement 08/21/18-medically extubated . Patient/Family Conference Family Conference Location: Telephone (Tentative meeting with patient's on 08/23/18 at 1100 hrs.) Issues Discussed: To be discussed tomorrow 08/23/18 * Palliative care role, purpose, approach * Additional medical, psychosocial, and spiritual history * Patients general health, functional status, and cognitive changes in the months leading up to the current hospitalization * Patient/family understanding of the current medical problems * Patient/family understanding of prognosis * Patients goals of care as best understood from advance directives and/or conversations and/or values * Current medical treatment options and benefits/burdens of those options * Likely scenarios comparing ongoing aggressive care with a transition to comfort measures only * Questions answered to the best of my ability * Palliative care contact information provided Assessment and Plan - Disease Oriented Problem List (1) Sepsis (2) Acute hypoxemic respiratory failure (3) PNA (pneumonia) (4) Lung cancer (5) Acute kidney injury (6) Atrial fibrillation with RVR (7) DM (diabetes mellitus) - Symptom Scale (1) Shortness of breath 0-10 Scale: Unable to quantify (2) At risk for pain 0-10 Scale: Unable to quantify (3) Debility 0-10 Scale: Unable to quantify Pertinent Non-Medical Issues: Psychosocial: Patient lives at home with his Maday. Patient served in the [employer]. Spiritual: Patient is Catholic. Legal: Ethical issues impacting care: None identified at this time. Important Contacts: Spouse- Maday Israel [phone] cell phone/[phone] home Son- Lindy Zeng [phone] . Prognosis: Mr. Mojica is a 77-year-old male with a medical history of non-small cell lung cancer, skin cancer, coronary artery disease s/p CABG, aortic stenosis, hypertension, diabetes mellitus and hypercholesteremia. Patient was diagnosed with non-small cell lung cancer approximately a month ago and was started on immunotherapy treatment. Since treatment was started patient developed shortness of breath, cough. X-ray outpatient showed that he had pneumonia and he was treated by his primary care physician with an antibiotic. He was then switched to azithromycin due to worsening symptoms. Symptoms did not improve and patient presented to the emergency room on 08/17/18 with complaints of worsening shortness of breath and productive cough. Clinical course complicated with septic shock, dyspnea and thrombocytopenia. Given multiple ongoing comorbidities, patient remains at high risk for further complications, deterioration and decline. If goals are comfort oriented patient would benefit from hospice services. Code Status: Full Code Plan: PLAN: Legal decision maker: Patient is currently partially oriented. At this time he lacks capability to weigh burdens and benefits of treatment. It is not known if you will regain capacity to participate in medical decision making. Patient is . According to [place] statute his spouse Maday Israel will serve as his healthcare proxy decision-maker. Goals: Aggressive pending discussion/meeting with patient`s spouse on at 1100hrs. CODE STATUS: Full code SYMPTOMS: * Shortness of breath: Recently diagnosed with non-small cell lung cancer and pneumonia. Patient developed right pleural effusion and currently has a right chest tube to suction. Patient also went into atrial fibrillation. Intubated on 08/19/18 for respiratory distress. Medically extubated on 08/21/18 to humidified O2 6 L nasal cannula. Patient still showing signs of dyspnea and he has a persistent cough. Lung sounds with coarse crackles bilaterally. Patient remains at high risk for reintubation. Currently managed with antibiotics high- dose steroids and furosemide. * At risk for pain: Sources of pain most likely from intubation, insertion of central line, bedbound status. * Debility: Progressive. Patient was recently diagnosed with non-small cell lung cancer. He was started on immunotherapy approximately a month ago and since then he has continued to show signs of deterioration. Patient has had falls at home, and he has had pneumonia with pleural effusions. Recommending reconsulting physical therapy if goals are aggressive. Palliative care will continue to follow the patient during hospital course as condition evolves, to assist patient/decision-maker with understanding of their medical conditions, weighing benefits/burdens of treatment options, for clarification of goals of treatment. Additionally will assist with any symptoms of palliative concern Appreciation Thank you for the opportunity to participate in the care of Jc Israel. Attestation Attestation: To help prompt me to consider important information that might be impacting today's encounter and assessment, information from prior notes written by myself or my colleagues may have been "brought forward" into today's note. My signature on this note, however, is an attestation that I personally performed the exam, history, and/or decision-making noted today, and, unless otherwise indicated, the interactions with patient, family, and staff as well as the review of records all occurred today. I also attest that the listed assessment and stated plan reflect my best clinical judgment today based on the combination of historical information, prior notes, and today's exam/ interactions. When time spent is documented, it refers only to time spent today by the signer, or if indicated, combined time spent today by collaborating physician/nurse practitioner.
[2018-08-22] MEDS ORDERED: Pharmacy Ordered Lab Info OTHER ONE (20:45)
[2018-08-23] MEDS: Metoprolol Inj 5 MG/5 ML Vial IV.PUSH PRN ×2 (01:08→17:37)
[2018-08-23] MEDS: Oral Hygiene Kit OROPHARYNG SCH ×3 (01:09→18:53)
[2018-08-23] MEDS: Insulin NovoLIN Regular Correctional Sugar Inj SQ SCH ×4 (01:09→17:34)
--- NOTE | 2018-08-23 05:43 | XR ---
EXAM DATE: 08/23/2018 6:00 AM EDT AGE/SEX: 77 years / Male INDICATIONS: Shortness of breath CLINICAL DATA: This is the patient's subsequent encounter. Patient reports that signs and symptoms h ave been present for 1 week and indicates a pain score of Nonresponsive. MEDICAL/SURGICAL HISTORY: . Hypertension. Carcinoma, lung. CABG. COMPARISON: C, CHEST 1V SINGLE AP, 08/22/2018. . FINDINGS: The cardiac silhouette is enlarged in transverse diameter. There is bilateral lower lobe atelectasis versus pneumonia. There has been no significant change when compared to the prior exam. CONCLUSION: Bilateral lower lobe atelectasis versus pneumonia. There has been no significant change when compared to the prior exam. Electronically signed by: Natan Vogt MD 08/23/2018 5:42 AM EDT
[2018-08-23 06:13] LABS: Hemoglobin 11.3 gm/dL (13.0-17.0); Mean Corpuscular HGB Conc 32.3 % (32.0-36.0); Mean Corpuscular Hemoglobin 28.6 pg (27.0-34.0); Mean Corpuscular Volume 88.4 fL (80.0-100.0); Mean Platelet Volume 8.5 fL (7.0-11.0); Platelet Count 119 th/mm3 (150-450); Red Blood Count 3.96 mil/mm3 (4.50-5.90); Red Cell Distribution Width 17.5 % (11.6-17.2); White Blood Count 21.4 th/mm3 (4.0-11.0)
[2018-08-23] MEDS: Amiodarone Inj 450 MG in Sodium Chlor 0.9% Inj 241 ML IV.CONT PRN (06:19)
[2018-08-23] MEDS: MethylPREDNISolone Sod Succinate Inj 125 MG/2 ML Vial IV.PUSH SCH ×2 (06:27→12:45)
[2018-08-23 06:28] LABS: Albumin 2.5 g/dL (3.4-5.0); Anion Gap 8 meq/L (5-15); Aspartate Aminotransferase 43 U/L (15-37); Blood Urea Nitrogen 30 mg/dL (7-18); Calcium 8.4 mg/dL (8.5-10.1); Carbon Dioxide 30.6 meq/L (21.0-32.0); Chloride 105 meq/L (98-107); Glomerular Filtration Rate Greater Than 89 mL/min (>89); Glucose,Random 123 mg/dL (74-106); Magnesium 1.9 mg/dL (1.5-2.5); Potassium 3.4 meq/L (3.5-5.1); Sodium 144 meq/L (136-145)
[2018-08-23 06:34] LABS: Alanine Aminotransferase 52 U/L (12-78); Alkaline Phosphatase 231 U/L (45-117); Total Protein 6.3 g/dL (6.4-8.2)
[2018-08-23] MEDS ORDERED: Pharmacy Ordered Lab Info OTHER ONE (06:45)
[2018-08-23] MEDS: Vancomycin Inj 1,500 MG in Sodium Chlor 0.9% Inj 500 ML IV.SIG SCH (08:11)
[2018-08-23] MEDS: Chlorhexidine 0.12% Oral Kit 15 ML UDC OROPHARYNG SCH ×2 (08:12→21:45)
[2018-08-23] MEDS: Famotidine PF Inj 20 MG/2 ML Vial IV.PUSH SCH ×2 (08:12→21:36)
[2018-08-23] MEDS: Beneprotein Powder Packet G-TUBE SCH ×2 (08:13→18:53)
[2018-08-23] MEDS: Insulin Detemir Inj 1,000 UNIT/10 ML Vial SQ SCH (08:13)
[2018-08-23] MEDS: Sodium Chloride 0.9% 2 ML Flush BID IV.FLUSH SCH ×2 (08:13→21:44)
[2018-08-23] MEDS: Budesonide-Formoterol 160/4.5 MCG 6 GM Inhaler INH SCH ×2 (09:00→21:44)
--- NOTE | 2018-08-23 09:11 | P.PNCC ---
Subjective Subjective Remarks/Hospital Course: his is a 77-year-old male with a PMH of chronic atrial fibrillation, type 2 diabetes, hypertension, dyslipidemia, Lung cancer currently receiving immunotherapy who presented to the emergency department with shortness of breath of one-week duration. Pt was recently diagnosed with Lung CA approx 1 month ago, following with Dr. Berger, had first treatment few weeks ago. Last week had an outpatient x-ray which showed pneumonia and was placed on Z-[place] with only minimal or no improvement. Because of worsening symptoms he presented to the emergency department and was admitted to the hospitalist on 08/17/2018. On admission his WBC 19.8. INR 2.1. Creatinine 1.86, and Lactic Acid 2.6. CXR with increasing consolidation right lung, stable infiltrate left lung. Patient was transferred to the ICU overnight for increasing shortness of breath and BiPAP requirement. Today critical care was emergently consulted as patient was not tolerating BiPAP and was severely short of breath, chest x-ray showed increasing bilateral infiltrates. Patient was also in atrial fibrillation with RVR. I immediately evaluated the patient, on simple mask he was maintaining saturation 90%. However he was severely short of breath and had extensive bilateral crackles, with tachypnea breathing approximately 40 breaths/min. After discussion with the patient I intubated and placed him on mechanical ventilation. Currently receiving vancomycin and cefepime. I have increased the cefepime dose to 2 g IV every 8 hours, continue vancomycin and added Levaquin [address] A stat [address] of the chest to evaluate for effusion ordered. Postintubation patient was hypotensive, given 2 L IV fluid boluses, followed by vasopressin started at 0.04 international units/min. For A. fib with RVR started on amiodarone bolus and infusion per protocol. Patient is critically ill at this time SUBJ 08/20: Remains intubated sedated critically ill. Remains in septic shock currently on vasopressin 0.04 international units and Gaurav-Synephrine 30 mcg/kg/ min. However WBC count is stable to trending down, creatinine has normalized. Right chest tube placed with almost 3.2L blood-tinged effusion drained in 24 hours. Right DVT in the lower extremity status post IVC filter placement asked patient cannot be anticoagulated at this time due to thrombocytopenia. 08/21: Patient is clinically improving. Chest x-ray shows mild positive fluid balance and left small effusion right effusion appears to be drained. Patient wakes up easily and follows commands. Will stop IV fluids give IV Lasix 40 mg x1 and attempt extubation. Platelet count remains low at 76. Patient started on high-dose Solu-Medrol per oncology recommendation for possible pneumonitis from immunotherapy 08/22: Intermittently short of breath currently calm. Coarse crackles bilaterally. Overnight agitated started on Precedex, now. Chest x-ray shows left-sided effusion. On ultrasound appears to have dense fluid ?hemothorax. Will check CT of the chest 08/23 Patient is on 5L oxygen with good sats. Afebrile. Objective Vital Signs / I&O: Vital Signs 08/22/18 09:00 08/22/18 09:01 08/22/18 09:48 Temperature Pulse Rate 68 67 74 Respiratory Rate 15 16 18 Blood Pressure 91/52 L Pulse Oximetry 100 100 08/22/18 10:00 08/22/18 10:01 08/22/18 10:34 Temperature Pulse Rate 72 72 78 Respiratory Rate 17 24 20 Blood Pressure 144/65 H 137/64 Pulse Oximetry 100 97 93 L 08/22/18 10:54 08/22/18 11:00 08/22/18 11:04 Temperature Pulse Rate 82 99 H 85 Respiratory Rate 22 29 H 27 H Blood Pressure 135/72 198/83 H 165/80 H Pulse Oximetry 84 L 88 L 91 L 08/22/18 11:52 08/22/18 12:00 08/22/18 13:00 Temperature 97.9 F Pulse Rate 84 81 85 Respiratory Rate 19 20 24 Blood Pressure 179/79 H Pulse Oximetry 100 93 L 08/22/18 13:01 08/22/18 14:00 08/22/18 15:00 Temperature Pulse Rate 92 H 110 H 104 H Respiratory Rate 28 H 28 H 24 Blood Pressure 144/64 H 154/83 H Pulse Oximetry 92 L 92 L 91 L 08/22/18 15:01 08/22/18 16:00 08/22/18 16:01 Temperature 98.2 F Pulse Rate 103 H 101 H 102 H Respiratory Rate 28 H 25 H 24 Blood Pressure 167/71 H 152/72 H 152/72 H Pulse Oximetry 91 L 93 L 93 L 08/22/18 16:27 08/22/18 17:00 08/22/18 18:00 Temperature Pulse Rate 114 H 90 102 H Respiratory Rate 25 H 26 H 23 Blood Pressure 141/65 H Pulse Oximetry 100 95 08/22/18 18:01 08/22/18 19:00 08/22/18 20:00 Temperature 97.8 F Pulse Rate 101 H 102 H 111 H Respiratory Rate 22 27 H 34 H Blood Pressure 156/74 H 136/95 H 144/110 H Pulse Oximetry 95 96 97 08/22/18 20:30 08/22/18 20:33 08/22/18 21:00 Temperature Pulse Rate 94 H 115 H Respiratory Rate 20 23 Blood Pressure Pulse Oximetry 96 89 L 08/22/18 21:01 08/22/18 22:00 08/22/18 23:00 Temperature Pulse Rate 108 H 111 H 109 H Respiratory Rate 44 H 31 H 22 Blood Pressure 170/92 H 158/93 H 157/78 H Pulse Oximetry 92 L 95 96 08/22/18 23:56 08/23/18 00:00 08/23/18 01:00 Temperature 97.4 F L Pulse Rate 107 H 104 H 110 H Respiratory Rate 20 21 20 Blood Pressure 159/87 H 149/99 H Pulse Oximetry 95 92 L 08/23/18 02:00 08/23/18 02:01 08/23/18 03:00 Temperature Pulse Rate 100 H 96 H 114 H Respiratory Rate 27 H 24 21 Blood Pressure 119/59 L 138/93 H Pulse Oximetry 93 L 91 L 08/23/18 03:24 08/23/18 04:00 08/23/18 05:00 Temperature 97.6 F Pulse Rate 87 115 H 84 Respiratory Rate 22 25 H 20 Blood Pressure 153/68 H Pulse Oximetry 87 L 91 L 08/23/18 05:07 08/23/18 06:00 08/23/18 06:01 Temperature Pulse Rate 100 H 114 H 107 H Respiratory Rate 20 27 H 24 Blood Pressure 137/88 134/98 H Pulse Oximetry 86 L 08/23/18 06:08 08/23/18 07:00 08/23/18 08:02 Temperature Pulse Rate 99 H 90 103 H Respiratory Rate 23 17 22 Blood Pressure 131/67 148/84 H Pulse Oximetry 83 L 95 92 L Intake & Output 08/22/18 08/23/18 08/23/18 18:59 06:59 18:59 Intake Total 865 / 865 350 / 350 Output Total 1625 / 1625 1300 / 1300 Balance -760 / -760 -950 / -950 Weight 77.5 kg Intake: IV 865 / 865 350 / 350 Cordarone Inj 450 MG In NS Inj 250 / 250 250 / 250 241 ML @ 1 MG/MIN 33.33 mls/hr IV.CONT TITRATE PRN Rx#: [id number] Maxipime Inj 2,000 MG In NS Inj 100 / 100 100 / 100 100 ML @ 200 mls/hr IV.SIG Q8H REJI Rx#:[id number] Vancomycin Inj 1,500 MG In NS 515 / 515 Inj 500 ML @ 250 mls/hr IV.SIG Q18H REJI Rx#:[id number] Output: Urine Amount (Catheter) 1365 / 1365 1300 / 1300 Indwelling Urethral Catheter 1365 / 1365 1300 / 1300 Chest Tube Drainage 260 / 260 0 / 0 #1 Right Pleural 260 / 260 0 / 0 Other: # Bowel Movements 0 Result Diagrams: 08/23/18 05:45 08/23/18 05:45 Other Results: Laboratory Results - last 12 hr 08/22/18 08/23/18 08/23/18 23:42 05:45 05:45 WBC 21.4 H RBC 3.96 L Hgb 11.3 L Hct 35.0 L MCV 88.4 MCH 28.6 MCHC 32.3 RDW 17.5 H Plt Count 119 L MPV 8.5 Sodium 144 Potassium 3.4 L Chloride 105 Carbon Dioxide 30.6 Anion Gap 8 BUN 30 H Creatinine 0.79 Estimated GFR Greater than 89 POC Glucose 313 H Random Glucose 123 H Calcium 8.4 L Magnesium 1.9 Total Bilirubin 0.6 AST 43 H ALT 52 Alkaline Phosphatase 231 H Total Protein 6.3 L Albumin 2.5 L 08/23/18 06:12 WBC RBC Hgb Hct MCV MCH MCHC RDW Plt Count MPV Sodium Potassium Chloride Carbon Dioxide Anion Gap BUN Creatinine Estimated GFR POC Glucose 207 H Random Glucose Calcium Magnesium Total Bilirubin AST ALT Alkaline Phosphatase Total Protein Albumin Imaging: IVC Filter Placement X-Ray 08/19/18 00:00 CONCLUSION: 1. Uncomplicated inferior vena cava filter placement as above. This is a removable filter and can be removed up to one year from its placement. Venous Doppler Study 08/19/18 00:00 CONCLUSION: 1. Deep venous thrombosis as above Chest CT 08/22/18 09:57 CONCLUSION: 1. Interval placement of right sided chest tube with decrease in right effusion with multiple residual. 2. Minimal left effusion. 3. Dense consolidation in the both lower lobes. 4. Multiple noncalcified pulmonary nodules consistent with metastatic disease. 5. Cholelithiasis with multiple calcified gallstones. Chest X-Ray 08/23/18 06:00 CONCLUSION: Bilateral lower lobe atelectasis versus pneumonia. There has been no significant change when compared to the prior exam. Objective Remarks: GENERAL: Frail elderly male, lying in bed intermittently distressed when unable to clear secretions. Currently on Precedex CARDIOVASCULAR: Atrial fibrillation with controlled ventricular rate. No murmurs. RESPIRATORY: On nasal cannula. Bilateral coarse rhonchi and crackles all over the anterior chest. R pigtail chest tube in place GASTROINTESTINAL: Abdomen soft, non-tender, non-distended. Normal active bowel sounds MUSCULOSKELETAL: Extremities without cyanosis, right lower extremity swollen with 1+ pitting edema NEURO: alert, awake oriented to person not oriented to time or place. Follows commands x4 no focal deficits Assessment and Plan - Assessment and Plan Plan: NEURO: Agitated delirium -Wean off Precedex drip and monitor neuro status, -Delirium most likely secondary to sepsis and sundowning RESP: Acute hypoxemic respiratory failure-improved Severe bilateral pneumonia Large right pleural effusion moderate left pleural effusion, Possible pneumonitis secondary to immunotherapy Wean down oxygen as mahendra keep sats >92% DuoNeb every 4 hours scheduled and as needed. CXR today: Bilateral lower lobe atelectasis versus pneumonia. There has been no significant change when compared to the prior exam. 08/22 CT chest: Interval placement of right sided chest tube with decrease in right effusion with multiple residual. Minimal left effusion. Dense consolidation in the both lower lobes. Multiple noncalcified pulmonary nodules consistent with metastatic disease. Cholelithiasis with multiple calcified gallstones. -s/p right pigtail chest tube placement, monitor CT drainage 260ml in 24 hrs -IV Solu-Medrol 60 mg every 6 hours per oncology CV: Atrial fibrillation with RVR, now rate controlled Septic shock-improving Lactic acidosis History of hypertension History of CABG and AVR -Monitor HR and BP keep MAP>65mmHg -On IV Lasix 40 mg every 12. On Lopressor 25mg BID -Amiodarone infusion per protocol -Status post AVR and CABG last year for severe and coronary artery disease -Echo showed the left ventricular systolic function is mildly reduced EF 45-50% . GI: -IV famotidine. Speech eval diet per speech -Bowel regimen : Acute kidney injury- Resolved -Monitor renal function, I/O's, electrolytes replacement per protocol. -For K replacement today. On Lasix 40mg Q12 ID: Septic shock-resolved Bilateral pneumonia Immunocompromise state due to lung cancer -Antibiotics per ID. On cefepime and IV Levaquin. -Blood urine and sputum cultures follow-up- NGTD -Neg influenza, Neg for urine Legionella and pneumococcal antigen -ID following HEME: Right lower extremity DVT Thrombocytopenia Recently diagnosed lung CA Coagulopathy ?secondary to DIC -Unable to anticoagulate due to thrombocytopenia and coagulopathy, platelet count 119 today from 136 -Status post IVC filter placement by IR on 08/19/2018 -Appreciate consult from Dr. Yu. Oncologist is Dr. Berger. Recently started on immunotherapy per family (?Keytruda) -Monitor CBC, coag -s/p 2 units FFP for chest tube placement -Continue high-dose IV Solu-Medrol ENDO: Type 2 diabetes with hyperglycemia Hypertension -Electrolyte replacement per protocol -Sliding scale insulin -Levemir 10 units [id number] on hold as patient is n.p.o. PROPH: -Left lower extremity SCDs. IV famotidine -No anticoagulation at this time due to thrombocytopenia and coagulopathy LINES: -Right subclavian central line placed 08/19/2018. -Place peripheral IV's and d/c central line Palliative care is following Level 3
[2018-08-23] MEDS: Senna/Docusate Sodium 8.6/50 MG Tablet PO SCH ×2 (11:48→21:44)
--- NOTE | 2018-08-23 12:26 | P.PNID ---
Subjective Remarks: Patient is a 77-year-old male, has been having problem with shortness of breath , and workup revealed that he has lung cancer. He has had several lung biopsy done. About several weeks ago patient received 1 treatment and the said it was in immunotherapy. He has been scheduled to get a second treatment. In the last several weeks, he shortness of breath has worsened compared to his baseline shortness of breath. Over the last week was when it started progressively worsening. He was bringing up some white frothy phlegm. Denies any chest pain. He has not had any fever chills or sweats. Has not had any problem with syncope, nausea or vomiting. Has not had any abdominal pain or urinary complaints. Patient has had bilateral lower extremity edema over the last 2-3 weeks, and has been given diuretics with some improvement of the edema. Patient in the last 2 weeks has had very poor p.o. intake and has been progressively getting weaker. He was brought in to the hospital and showed evidence of pneumonia. Overnight he progressively worsened, and he was transferred to the ICU today and required intubation. He has not been exposed to any sick children. The has not had any infection. No exposure to any animals except the 2 dogs that they have at home. No recent travel outside [place]. He is currently sedated and on the vent. He is afebrile. Chest x-ray showed increasing opacity on the right lung and likely increased pleural effusion. He remains afebrile. His hemodynamics are stable. His WBC is elevated. He had elevated creatinine on admission. Infectious disease consultation has been requested to assist with evaluation and treatment. Notes reviewed Temps ok On nasal O2 sats ok Has a very congested cough, weak - suctioning his oropharynx R CT in place BP ok Sputum with NF Fluid C/S negative CT chest - raffy infiltrates, effusions better Antibiotics: Vancomycin Levaquin Cefepime Past Medical History: CABG AVR Lung CA Allergies/Adverse Reactions: Allergies penicillin G Allergy (Mild, Verified 05/14/18 16:06) Hives Sulfa (Sulfonamide Antibiotics) Allergy (Mild, Verified 05/14/18 16:06) Hives exenatide Allergy (Unknown, Verified 08/17/18 20:16) Hives FARXIGA Allergy (Severe, Uncoded 05/14/18 16:06) Anorexia Objective Vital Signs 08/22/18 13:00 08/22/18 13:01 08/22/18 14:00 Temperature Pulse Rate 85 92 H 110 H Respiratory Rate 24 28 H 28 H Blood Pressure 144/64 H 154/83 H Pulse Oximetry 93 L 92 L 92 L 08/22/18 15:00 08/22/18 15:01 08/22/18 16:00 Temperature 98.2 F Pulse Rate 104 H 103 H 101 H Respiratory Rate 24 28 H 25 H Blood Pressure 167/71 H 152/72 H Pulse Oximetry 91 L 91 L 93 L 08/22/18 16:01 08/22/18 16:27 08/22/18 17:00 Temperature Pulse Rate 102 H 114 H 90 Respiratory Rate 24 25 H 26 H Blood Pressure 152/72 H 141/65 H Pulse Oximetry 93 L 100 08/22/18 18:00 08/22/18 18:01 08/22/18 19:00 Temperature Pulse Rate 102 H 101 H 102 H Respiratory Rate 23 22 27 H Blood Pressure 156/74 H 136/95 H Pulse Oximetry 95 95 96 08/22/18 20:00 08/22/18 20:30 08/22/18 20:33 Temperature 97.8 F Pulse Rate 111 H 94 H Respiratory Rate 34 H 20 Blood Pressure 144/110 H Pulse Oximetry 97 96 08/22/18 21:00 08/22/18 21:01 08/22/18 22:00 Temperature Pulse Rate 115 H 108 H 111 H Respiratory Rate 23 44 H 31 H Blood Pressure 170/92 H 158/93 H Pulse Oximetry 89 L 92 L 95 08/22/18 23:00 08/22/18 23:56 08/23/18 00:00 Temperature 97.4 F L Pulse Rate 109 H 107 H 104 H Respiratory Rate 22 20 21 Blood Pressure 157/78 H 159/87 H Pulse Oximetry 96 95 08/23/18 01:00 08/23/18 02:00 08/23/18 02:01 Temperature Pulse Rate 110 H 100 H 96 H Respiratory Rate 20 27 H 24 Blood Pressure 149/99 H 119/59 L Pulse Oximetry 92 L 93 L 91 L 08/23/18 03:00 08/23/18 03:24 08/23/18 04:00 Temperature 97.6 F Pulse Rate 114 H 87 115 H Respiratory Rate 21 22 25 H Blood Pressure 138/93 H 153/68 H Pulse Oximetry 87 L 10/05/18 05:00 08/23/18 05:07 08/23/18 06:00 Temperature Pulse Rate 84 100 H 114 H Respiratory Rate 20 20 27 H Blood Pressure 137/88 Pulse Oximetry 91 L 08/23/18 06:01 08/23/18 06:08 08/23/18 07:00 Temperature Pulse Rate 107 H 99 H 90 Respiratory Rate 24 23 17 Blood Pressure 134/98 H 131/67 148/84 H Pulse Oximetry 86 L 83 L 95 08/23/18 08:02 Temperature Pulse Rate 103 H Respiratory Rate 22 Blood Pressure Pulse Oximetry 92 L Intake & Output 08/22/18 08/23/18 08/23/18 18:59 06:59 18:59 Intake Total 865 / 865 350 / 350 Output Total 1625 / 1625 1300 / 1300 Balance -760 / -760 -950 / -950 Weight 77.5 kg Intake: IV 865 / 865 350 / 350 Cordarone Inj 450 MG In NS Inj 250 / 250 250 / 250 241 ML @ 1 MG/MIN 33.33 mls/hr IV.CONT TITRATE PRN Rx#: [id number] Maxipime Inj 2,000 MG In NS Inj 100 / 100 100 / 100 100 ML @ 200 mls/hr IV.SIG Q8H REJI Rx#:[id number] Vancomycin Inj 1,500 MG In NS 515 / 515 Inj 500 ML @ 250 mls/hr IV.SIG Q18H REJI Rx#:[id number] Output: Urine Amount (Catheter) 1365 / 1365 1300 / 1300 Indwelling Urethral Catheter 1365 / 1365 1300 / 1300 Chest Tube Drainage 260 / 260 0 / 0 #1 Right Pleural 260 / 260 0 / 0 Other: # Bowel Movements 0 08/19/18 11:11 Blood - Peripheral Aerobic Blood Culture - Preliminary No growth in 4 days 08/19/18 11:11 Blood - Peripheral Anaerobic Blood Culture - Preliminary No growth in 4 days 08/19/18 11:05 Blood - Peripheral Aerobic Blood Culture - Preliminary No growth in 4 days 08/19/18 11:05 Blood - Peripheral Anaerobic Blood Culture - Preliminary No growth in 4 days 08/17/18 21:15 Blood - Peripheral Aerobic Blood Culture - Final No growth in 5 days 08/17/18 21:15 Blood - Peripheral Anaerobic Blood Culture - Final No growth in 5 days 08/17/18 21:25 Blood - Peripheral Aerobic Blood Culture - Final No growth in 5 days 08/17/18 21:25 Blood - Peripheral Anaerobic Blood Culture - Final No growth in 5 days 08/19/18 13:00 Fluid - Pleural fluid Gram Stain - Final 08/19/18 13:00 Fluid - Pleural fluid Body Fluid Culture - Final No growth in 72 hours (aerobically and anaerobically ) 08/19/18 13:00 Other Fungal Smear - Final No fungal elements seen 08/19/18 13:00 Other Fungal Culture - Pending 08/19/18 09:56 Other Acid Fast Bacilli Smear - Final No acid fast bacilli seen 08/19/18 09:56 Other Mycobacterial Culture - Pending 08/18/18 11:45 Sputum - Expectorated Sputum Gram Stain - Final 08/18/18 11:45 Sputum - Expectorated Sputum Sputum Culture - Final Heavy growth normal respiratory mauricio Lab - Hematology Results 08/22/18 08/22/18 08/23/18 05:34 11:15 05:45 WBC 26.1 H 23.7 H 21.4 H RBC 4.07 L 4.02 L 3.96 L Hgb 11.6 L 11.4 L 11.3 L Hct 36.1 L 35.6 L 35.0 L MCV 88.7 88.6 88.4 MCH 28.4 28.5 28.6 MCHC 32.0 32.1 32.3 RDW 17.6 H 18.1 H 17.5 H Plt Count 136 L D 125 L 119 L MPV 8.9 8.9 8.5 Lab - Chemistry Results 08/21/18 08/21/18 08/21/18 12:22 16:42 20:53 Sodium Potassium Chloride Carbon Dioxide Anion Gap BUN Creatinine Estimated GFR POC Glucose 298 H 305 H 268 H Random Glucose Calcium Magnesium Total Bilirubin AST ALT Alkaline Phosphatase Total Protein Albumin 08/21/18 08/22/18 08/22/18 23:43 01:15 05:34 Sodium 139 142 Potassium 3.0 L D 4.0 D Chloride 103 106 Carbon Dioxide 24.3 28.0 Anion Gap 12 8 BUN 25 H 24 H Creatinine 0.83 0.80 Estimated GFR 89 Greater than 89 POC Glucose 193 H Random Glucose 207 H D 127 H Calcium 8.3 L D 8.1 L Magnesium Total Bilirubin 0.7 AST 73 H ALT 65 Alkaline Phosphatase 298 H Total Protein 6.7 D Albumin 2.5 L 08/22/18 08/22/18 08/22/18 06:23 08:14 11:56 Sodium Potassium Chloride Carbon Dioxide Anion Gap BUN Creatinine Estimated GFR POC Glucose 141 H 136 H 179 H Random Glucose Calcium Magnesium Total Bilirubin AST ALT Alkaline Phosphatase Total Protein Albumin 08/22/18 08/22/18 08/23/18 16:55 23:42 05:45 Sodium 144 Potassium 3.4 L Chloride 105 Carbon Dioxide 30.6 Anion Gap 8 BUN 30 H Creatinine 0.79 Estimated GFR Greater than 89 POC Glucose 267 H 313 H Random Glucose 123 H Calcium 8.4 L Magnesium 1.9 Total Bilirubin 0.6 AST 43 H ALT 52 Alkaline Phosphatase 231 H Total Protein 6.3 L Albumin 2.5 L 08/23/18 06:12 Sodium Potassium Chloride Carbon Dioxide Anion Gap BUN Creatinine Estimated GFR POC Glucose 207 H Random Glucose Calcium Magnesium Total Bilirubin AST ALT Alkaline Phosphatase Total Protein Albumin Imaging: ITS Impressions IVC Filter Placement X-Ray 08/19/18 00:00 CONCLUSION: 1. Uncomplicated inferior vena cava filter placement as above. This is a removable filter and can be removed up to one year from its placement. Venous Doppler Study 08/19/18 00:00 CONCLUSION: 1. Deep venous thrombosis as above Chest CT 08/22/18 09:57 CONCLUSION: 1. Interval placement of right sided chest tube with decrease in right effusion with multiple residual. 2. Minimal left effusion. 3. Dense consolidation in the both lower lobes. 4. Multiple noncalcified pulmonary nodules consistent with metastatic disease. 5. Cholelithiasis with multiple calcified gallstones. Chest X-Ray 08/23/18 06:00 CONCLUSION: Bilateral lower lobe atelectasis versus pneumonia. There has been no significant change when compared to the prior exam. Physical Exam: GENERAL: awake, and alert, weak, very moist cough, NAD SKIN: Cool and dry. No generalized rash, no ecchymoses and no evidence of embolic lesions. HEAD: Atraumatic. Normocephalic. No temporal wasting, or tenderness. EYES: [place] conjunctiva. No petechia or hemorrhage. Pupils equal, round and reactive to light. No scleral icterus. No injection or drainage. EARS, NOSE AND THROAT: Nose without bleeding or purulent nasal discharge. He is orally intubated. NECK: Trachea midline. Supple and not tender, no meningeal signs CARDIOVASCULAR: Regular rate and rhythm. No murmurs, rubs or gallops heard RESPIRATORY: Scattered rhonchi. CT in place with serous fluid ABDOMEN: Soft, nondistended, not tender. Bowel sounds present and normoactive. No guarding. No rebound. No organomegaly. EXTREMITIES: No clubbing, cyanosis. Has bilateral pitting edema in BLE. No joint effusion. NEUROLOGICAL: Grossly non-focal. PSYCHIATRIC: Cooperative LINE: No evidence of infection - C line Assessment and Plan - Plan Impression Pneumonia, patient with newly diagnosed lung CA Sepsis, due to PNA Shock, resolved Bilateral effusions, better Respiratory failure, extubated 08/21 Leukocytosis Recommendation Stop Cefepime Continue Levaquin Stop Vancomycin Monitor progress Monitor post extubation Spoke with Dr Marquez available this weekend if needed
--- NOTE | 2018-08-23 13:26 | P.PNPAL ---
Reason for Visit Reason for visit: a. To assist with evaluation and management of symptoms including: Shortness of breath, debility b. To assist medical decision maker(s) with: better understanding of current medical conditions; weighing benefits/burdens of medical treatment options; making medical treatment decisions. Subjective Subjective/Interval History: Follow-up medically necessary for symptom management and establishing goals of medical treatment. Patient remains on IMC. Seen and examined in the presence of his . Patient is awake, oriented to self, place and partly situation. Patient remains on O2 5 L nasal cannula with O2 saturation in the mid to low 90s. Patient denies pain at this time. He remains on amiodarone infusion at 0.5 mg/min. Meeting with patient`s Maday Lindy and [facility] Marky (known to family) in the [facility] family conference room. Introduced palliative care, described its role in symptom management and establishment of goals of medical treatment. Provided patient`s spouse with Palliative care brochure. Obtained psychosocial history, family history and patient's past medical history. Briefly discussed events leading to this hospitalization. Patient spouse expressed frustration that patient was never followed after he received immunotherapy. She continues to explain that since he had heart surgery in October 2017 patient has been progressively declining. Enquired if patient has ever completed advance directives before and patient`s spouse did not give a definitive answer. Patient`s appropriately tearful and emotional during meeting. She related that she has had the worst experience with her father, who came to the ER some time ago and his code status was DNR. She tearfully explained that she watched him suffer with no one medically assisting him because he was a "DNR". Explained what DNR is and that it does not mean do not treat. Addressed code status after discussing CPR benefits, limitations and complications. Patient`s seemed to be against doing chest compressions in the event of patient having a cardiac arrest, though unsure of re-intubating patient in the event of going into respiratory distress. Told her that during assessment on 08/22/18, patient had indicated that he would not want reintubation and he referred further decision making to her. Patient`s spouse concerned with watching her loved one suffering if nothing is done when he is in respiratory distress. Enquired if family would like to pursue any further aggressive treatment regarding lung cancer and spouse did not give a definitive answer except that she knows that patient is too weak to receive chemotherapy at this time. With Maday`s permission, described options that are available in the event that family no longer want aggressive treatment. Introduced hospice philosophy and benefits. Goals at this time remain aggressive, patient` s spouse would like to include her sons in deciding goals of medical treatment. Patient`s is not ready to make any changes to patient`s current code status (Full Code) until after she has discussed with her 3 sons. Recommending notifying/contacting patient`s spouse or Marky ([facility] [facility]) if patient is showing any signs of deterioration prior to intubation or any invasive procedure. Family/Friend Interactions: See interval note. Advance Directives Living Will: Never completed Health Care Surrogate: Never completed Durable Power of Out Patient Therapist: Never completed Health Care Surrogate Name and Number: HCP:Maday Lindy () Objective Vital Signs: Vital Signs 08/22/18 13:00 08/22/18 13:01 08/22/18 14:00 Temperature Pulse Rate 85 92 H 110 H Respiratory Rate 24 28 H 28 H Blood Pressure 144/64 H 154/83 H Pulse Oximetry 93 L 92 L 92 L 08/22/18 15:00 08/22/18 15:01 08/22/18 16:00 Temperature 98.2 F Pulse Rate 104 H 103 H 101 H Respiratory Rate 24 28 H 25 H Blood Pressure 167/71 H 152/72 H Pulse Oximetry 91 L 91 L 93 L 08/22/18 16:01 08/22/18 16:27 08/22/18 17:00 Temperature Pulse Rate 102 H 114 H 90 Respiratory Rate 24 25 H 26 H Blood Pressure 152/72 H 141/65 H Pulse Oximetry 93 L 100 08/22/18 18:00 08/22/18 18:01 08/22/18 19:00 Temperature Pulse Rate 102 H 101 H 102 H Respiratory Rate 23 22 27 H Blood Pressure 156/74 H 136/95 H Pulse Oximetry 95 95 96 08/22/18 20:00 08/22/18 20:30 08/22/18 20:33 Temperature 97.8 F Pulse Rate 111 H 94 H Respiratory Rate 34 H 20 Blood Pressure 144/110 H Pulse Oximetry 97 96 08/22/18 21:00 08/22/18 21:01 08/22/18 22:00 Temperature Pulse Rate 115 H 108 H 111 H Respiratory Rate 23 44 H 31 H Blood Pressure 170/92 H 158/93 H Pulse Oximetry 89 L 92 L 95 08/22/18 23:00 08/22/18 23:56 08/23/18 00:00 Temperature 97.4 F L Pulse Rate 109 H 107 H 104 H Respiratory Rate 22 20 21 Blood Pressure 157/78 H 159/87 H Pulse Oximetry 96 95 08/23/18 01:00 08/23/18 02:00 08/23/18 02:01 Temperature Pulse Rate 110 H 100 H 96 H Respiratory Rate 20 27 H 24 Blood Pressure 149/99 H 119/59 L Pulse Oximetry 92 L 93 L 91 L 08/23/18 03:00 08/23/18 03:24 08/23/18 04:00 Temperature 97.6 F Pulse Rate 114 H 87 115 H Respiratory Rate 21 22 25 H Blood Pressure 138/93 H 153/68 H Pulse Oximetry 87 L 08/23/18 05:00 08/23/18 05:07 08/23/18 06:00 Temperature Pulse Rate 84 100 H 114 H Respiratory Rate 20 20 27 H Blood Pressure 137/88 Pulse Oximetry 91 L 08/23/18 06:01 08/23/18 06:08 08/23/18 07:00 Temperature Pulse Rate 107 H 99 H 90 Respiratory Rate 24 23 17 Blood Pressure 134/98 H 131/67 148/84 H Pulse Oximetry 86 L 83 L 95 08/23/18 08:02 Temperature Pulse Rate 103 H Respiratory Rate 22 Blood Pressure Pulse Oximetry 92 L Intake & Output 08/22/18 08/23/18 08/23/18 18:59 06:59 18:59 Intake Total 865 / 865 350 / 350 Output Total 1625 / 1625 1300 / 1300 Balance -760 / -760 -950 / -950 Weight 77.5 kg Intake: IV 865 / 865 350 / 350 Cordarone Inj 450 MG In NS Inj 250 / 250 250 / 250 241 ML @ 1 MG/MIN 33.33 mls/hr IV.CONT TITRATE PRN Rx#: [id number] Maxipime Inj 2,000 MG In NS Inj 100 / 100 100 / 100 100 ML @ 200 mls/hr IV.SIG Q8H REJI Rx#:[id number] Vancomycin Inj 1,500 MG In NS 515 / 515 Inj 500 ML @ 250 mls/hr IV.SIG Q18H REJI Rx#:[id number] Output: Urine Amount (Catheter) 1365 / 1365 1300 / 1300 Indwelling Urethral Catheter 1365 / 1365 1300 / 1300 Chest Tube Drainage 260 / 260 0 / 0 #1 Right Pleural 260 / 260 0 / 0 Other: # Bowel Movements 0 Physical Exam: CONSTITUTIONAL/GENERAL: This is an elderly, chronically ill looking patient, in respiratory distress. TUBES/LINES/DRAINS: Right lateral pigtail chest tube, Babcock catheter, central line SKIN: No jaundice, rashes, or lesions. Ecchymoses on upper extremities. No wounds seen anteriorly. Skin temperature appropriate. Not diaphoretic. HEAD: Atraumatic. Normocephalic. EYES: Pupils equal and round and reactive. Extraocular motions intact. No scleral icterus. No injection or drainage. Fundi not examined. ENT: Hearing grossly normal. Nose without bleeding or purulent drainage. Moist oral mucosa NECK: Trachea midline. Supple, nontender. CARDIOVASCULAR: Regular rate and rhythm without murmurs, gallops, or rubs. No JVD. Peripheral pulses symmetric. RESPIRATORY/CHEST: Symmetric, mildly labored respirations. Coarse crackles bilaterally. GASTROINTESTINAL: Abdomen soft, non-tender, nondistended. No guarding. Bowel sounds present. GENITOURINARY: Without palpable bladder distension. Babcock catheter in place. MUSCULOSKELETAL: Extremities without clubbing, cyanosis. Edema to right lower extremity. No mottling or clubbing. NEUROLOGICAL: Awake, lethargic, oriented to self, place and partially situation. Motor and sensory grossly within normal limits. Moves all extremities. PSYCHIATRIC: No obvious anxiety/depression. no apparent hallucinations or other psychotic thought process. Diagnostic Tests Laboratory: Laboratory Results - last 72 hr 08/20/18 08/20/18 08/21/18 17:48 20:20 00:01 WBC RBC Hgb Hct MCV MCH MCHC RDW Plt Count MPV PT INR APTT Puncture Site Patient Temperature O2 Saturation ABG pH ABG pCO2 ABG pO2 ABG HCO3 ABG O2 Content ABG Base Excess ABG Methemoglobin Lito Test Hemoglobin Carboxyhemoglobin O2 Delivery Device Vent Setting Inspired O2 Critical Value Sodium Potassium Chloride Carbon Dioxide Anion Gap BUN Creatinine Estimated GFR POC Glucose 211 H 246 H 291 H Random Glucose Calcium Prot Corrected Calcium Magnesium Total Bilirubin AST ALT Alkaline Phosphatase Total Protein Albumin Vancomycin Trough 08/21/18 08/21/18 08/21/18 03:15 03:15 05:12 WBC 17.1 H RBC 3.61 L Hgb 10.4 L Hct 32.1 L MCV 88.9 MCH 28.8 MCHC 32.4 RDW 17.7 H Plt Count 76 L MPV 9.4 PT INR APTT Puncture Site Patient Temperature O2 Saturation ABG pH ABG pCO2 ABG pO2 ABG HCO3 ABG O2 Content ABG Base Excess ABG Methemoglobin Lito Test Hemoglobin Carboxyhemoglobin O2 Delivery Device Vent Setting Inspired O2 Critical Value Sodium 134 L Potassium 4.1 Chloride 99 Carbon Dioxide 21.8 Anion Gap 13 BUN 33 H Creatinine 0.79 Estimated GFR Greater than 89 POC Glucose 351 H Random Glucose 307 H D Calcium 7.3 L* Prot Corrected Calcium 8.0 L Magnesium 1.6 Total Bilirubin 0.6 AST 119 H ALT 62 Alkaline Phosphatase 226 H Total Protein 5.8 L Albumin 2.4 L Vancomycin Trough 08/21/18 08/21/18 08/21/18 09:55 10:12 12:22 WBC RBC Hgb Hct MCV MCH MCHC RDW Plt Count MPV PT INR APTT Puncture Site Art line Patient Temperature 98.6 O2 Saturation 94 ABG pH 7.40 ABG pCO2 35 L ABG pO2 96 ABG HCO3 21 L ABG O2 Content 14.2 ABG Base Excess -3.3 L ABG Methemoglobin 1.5 Lito Test Present Hemoglobin 10.6 L Carboxyhemoglobin 1.2 O2 Delivery Device Ventilator Vent Setting Cpap:[id number] Inspired O2 40 Critical Value No Sodium Potassium Chloride Carbon Dioxide Anion Gap BUN Creatinine 0.84 Estimated GFR 88 L POC Glucose 298 H Random Glucose Calcium Prot Corrected Calcium Magnesium Total Bilirubin AST ALT Alkaline Phosphatase Total Protein Albumin Vancomycin Trough 08/21/18 08/21/18 08/21/18 16:42 20:53 23:43 WBC RBC Hgb Hct MCV MCH MCHC RDW Plt Count MPV PT INR APTT Puncture Site Patient Temperature O2 Saturation ABG pH ABG pCO2 ABG pO2 ABG HCO3 ABG O2 Content ABG Base Excess ABG Methemoglobin Lito Test Hemoglobin Carboxyhemoglobin O2 Delivery Device Vent Setting Inspired O2 Critical Value Sodium 139 Potassium 3.0 L D Chloride 103 Carbon Dioxide 24.3 Anion Gap 12 BUN 25 H Creatinine 0.83 Estimated GFR 89 POC Glucose 305 H 268 H Random Glucose 207 H D Calcium 8.3 L D Prot Corrected Calcium Magnesium Total Bilirubin AST ALT Alkaline Phosphatase Total Protein Albumin Vancomycin Trough 08/22/18 08/22/18 08/22/18 01:15 05:34 05:34 WBC 26.1 H RBC 4.07 L Hgb 11.6 L Hct 36.1 L MCV 88.7 MCH 28.4 MCHC 32.0 RDW 17.6 H Plt Count 136 L D MPV 8.9 PT INR APTT Puncture Site Patient Temperature O2 Saturation ABG pH ABG pCO2 ABG pO2 ABG HCO3 ABG O2 Content ABG Base Excess ABG Methemoglobin Lito Test Hemoglobin Carboxyhemoglobin O2 Delivery Device Vent Setting Inspired O2 Critical Value Sodium 142 Potassium 4.0 D Chloride 106 Carbon Dioxide 28.0 Anion Gap 8 BUN 24 H Creatinine 0.80 Estimated GFR Greater than 89 POC Glucose 193 H Random Glucose 127 H Calcium 8.1 L Prot Corrected Calcium Magnesium Total Bilirubin 0.7 AST 73 H ALT 65 Alkaline Phosphatase 298 H Total Protein 6.7 D Albumin 2.5 L Vancomycin Trough 08/22/18 08/22/18 08/22/18 06:23 08:14 11:15 WBC 23.7 H RBC 4.02 L Hgb 11.4 L Hct 35.6 L MCV 88.6 MCH 28.5 MCHC 32.1 RDW 18.1 H Plt Count 125 L MPV 8.9 PT INR APTT Puncture Site Patient Temperature O2 Saturation ABG pH ABG pCO2 ABG pO2 ABG HCO3 ABG O2 Content ABG Base Excess ABG Methemoglobin Lito Test Hemoglobin Carboxyhemoglobin O2 Delivery Device Vent Setting Inspired O2 Critical Value Sodium Potassium Chloride Carbon Dioxide Anion Gap BUN Creatinine Estimated GFR POC Glucose 141 H 136 H Random Glucose Calcium Prot Corrected Calcium Magnesium Total Bilirubin AST ALT Alkaline Phosphatase Total Protein Albumin Vancomycin Trough 08/22/18 08/22/18 08/22/18 11:15 11:56 16:55 WBC RBC Hgb Hct MCV MCH MCHC RDW Plt Count MPV PT 15.5 H INR 1.5 APTT 25.0 Puncture Site Patient Temperature O2 Saturation ABG pH ABG pCO2 ABG pO2 ABG HCO3 ABG O2 Content ABG Base Excess ABG Methemoglobin Lito Test Hemoglobin Carboxyhemoglobin O2 Delivery Device Vent Setting Inspired O2 Critical Value Sodium Potassium Chloride Carbon Dioxide Anion Gap BUN Creatinine Estimated GFR POC Glucose 179 H 267 H Random Glucose Calcium Prot Corrected Calcium Magnesium Total Bilirubin AST ALT Alkaline Phosphatase Total Protein Albumin Vancomycin Trough 08/22/18 08/23/18 08/23/18 23:42 05:45 05:45 WBC 21.4 H RBC 3.96 L Hgb 11.3 L Hct 35.0 L MCV 88.4 MCH 28.6 MCHC 32.3 RDW 17.5 H Plt Count 119 L MPV 8.5 PT INR APTT Puncture Site Patient Temperature O2 Saturation ABG pH ABG pCO2 ABG pO2 ABG HCO3 ABG O2 Content ABG Base Excess ABG Methemoglobin Lito Test Hemoglobin Carboxyhemoglobin O2 Delivery Device Vent Setting Inspired O2 Critical Value Sodium 144 Potassium 3.4 L Chloride 105 Carbon Dioxide 30.6 Anion Gap 8 BUN 30 H Creatinine 0.79 Estimated GFR Greater than 89 POC Glucose 313 H Random Glucose 123 H Calcium 8.4 L Prot Corrected Calcium Magnesium 1.9 Total Bilirubin 0.6 AST 43 H ALT 52 Alkaline Phosphatase 231 H Total Protein 6.3 L Albumin 2.5 L Vancomycin Trough 08/23/18 08/23/18 06:12 07:40 WBC RBC Hgb Hct MCV MCH MCHC RDW Plt Count MPV PT INR APTT Puncture Site Patient Temperature O2 Saturation ABG pH ABG pCO2 ABG pO2 ABG HCO3 ABG O2 Content ABG Base Excess ABG Methemoglobin Lito Test Hemoglobin Carboxyhemoglobin O2 Delivery Device Vent Setting Inspired O2 Critical Value Sodium Potassium Chloride Carbon Dioxide Anion Gap BUN Creatinine Estimated GFR POC Glucose 207 H Random Glucose Calcium Prot Corrected Calcium Magnesium Total Bilirubin AST ALT Alkaline Phosphatase Total Protein Albumin Vancomycin Trough 16.1 H Result Diagrams: 08/23/18 05:45 08/23/18 05:45 Microbiology: Microbiology 08/19/18 11:11 Aerobic Blood Culture - Preliminary Blood - Peripheral No growth in 4 days Anaerobic Blood Culture - Preliminary No growth in 4 days 08/19/18 11:05 Aerobic Blood Culture - Preliminary Blood - Peripheral No growth in 4 days Anaerobic Blood Culture - Preliminary No growth in 4 days 08/17/18 21:15 Aerobic Blood Culture - Final Blood - Peripheral No growth in 5 days Anaerobic Blood Culture - Final No growth in 5 days 08/17/18 21:25 Aerobic Blood Culture - Final Blood - Peripheral No growth in 5 days Anaerobic Blood Culture - Final No growth in 5 days 08/19/18 13:00 Gram Stain - Final Fluid - Pleural fluid Body Fluid Culture - Final No growth in 72 hours (aerobically and anaerobically) 08/19/18 13:00 Fungal Smear - Final Other No fungal elements seen 08/19/18 09:56 Acid Fast Bacilli Smear - Final Other No acid fast bacilli seen 08/18/18 11:45 Gram Stain - Final Sputum - Expectorated Sputum Sputum Culture - Final Heavy growth normal respiratory mauricio Imaging: IVC Filter Placement X-Ray 08/19/18 00:00 CONCLUSION: 1. Uncomplicated inferior vena cava filter placement as above. This is a removable filter and can be removed up to one year from its placement. Venous Doppler Study 08/19/18 00:00 CONCLUSION: 1. Deep venous thrombosis as above Chest CT 08/22/18 09:57 CONCLUSION: 1. Interval placement of right sided chest tube with decrease in right effusion with multiple residual. 2. Minimal left effusion. 3. Dense consolidation in the both lower lobes. 4. Multiple noncalcified pulmonary nodules consistent with metastatic disease. 5. Cholelithiasis with multiple calcified gallstones. Chest X-Ray 08/23/18 06:00 CONCLUSION: Bilateral lower lobe atelectasis versus pneumonia. There has been no significant change when compared to the prior exam. Procedures: 08/19/18-intubation 08/19/18-placement of right subclavian central line 08/19/18-right radial arterial line placement 08/19/1889-[id number] inferior vena cava filter placement 08/21/18-medically extubated . Assessment and Plan - Disease Oriented Problem List (1) Sepsis (2) Acute hypoxemic respiratory failure (3) PNA (pneumonia) (4) Lung cancer (5) Acute kidney injury (6) Atrial fibrillation with RVR (7) DM (diabetes mellitus) - Symptom Scale (1) Shortness of breath 0-10 Scale: Unable to quantify Comment: Recently diagnosed with non-small cell lung cancer and pneumonia. Patient developed right pleural effusion and currently has a right chest tube to suction. Patient also went into atrial fibrillation. Intubated on 08/19/18 for respiratory distress. Medically extubated on 08/21/18 to humidified O2 6 L nasal cannula. (2) At risk for pain 0-10 Scale: 0 Comment: Sources of pain most likely from intubation, insertion of central line , bedbound status. (3) Debility 0-10 Scale: Unable to quantify Comment: Progressive. Pertinent Non-Medical Issues: Psychosocial: Patient was born in [place], [place]. Patient served in the [employer]. He moved to [place] in 1980. 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 After retiring he started a [employer] which is currently being run by his youngest son. Patient has been for 54 years to his current . They have 3 adult sons. To live locally and one lives in [place]. Patient enjoyed golfing and [employer]. Spiritual: Patient is Roman Catholic Legal: Never completed advanced directives Ethical issues impacting care: None identified at this time. Important Contacts: Spouse- Maday Israel [phone] cell phone/[phone] home Son- Lindy Zeng [phone] . Prognosis: Mr. Mojica is a 77-year-old male with a medical history of non-small cell lung cancer, skin cancer, coronary artery disease s/p CABG, aortic stenosis, hypertension, diabetes mellitus and hypercholesteremia. Patient was diagnosed with non-small cell lung cancer approximately a month ago and was started on immunotherapy treatment. Since treatment was started patient developed shortness of breath, cough. X-ray outpatient showed that he had pneumonia and he was treated by his primary care physician with an antibiotic. He was then switched to azithromycin due to worsening symptoms. Symptoms did not improve and patient presented to the emergency room on 08/17/18 with complaints of worsening shortness of breath and productive cough. Clinical course complicated with septic shock, dyspnea and thrombocytopenia. Given multiple ongoing comorbidities, patient remains at high risk for further complications, deterioration and decline. If goals are comfort oriented patient would benefit from hospice services. Code Status: Full Code Plan: PLAN: Legal decision maker: Patient is currently partially oriented. At this time he lacks capability to weigh burdens and benefits of treatment. It is not known if you will regain capacity to participate in medical decision making. Patient is . According to [place] statute his spouse Maday Israel will serve as his healthcare proxy decision-maker. Goals: Goals are aggressive at this time. Per meeting with patient`s spouse today-Addressed code status after discussing CPR benefits, limitations and complications. Patient`s seemed to be against doing chest compressions in the event of patient having a cardiac arrest, though unsure of re-intubating patient in the event of going into respiratory distress. She has concerns that if she makes patient a DNR, he would not be treated and she would not want to watch him suffering and gasping for air. She has had a bad experience watching her father not getting treatment because he was a DNR. Enquired if family would like to pursue any further aggressive treatment regarding lung cancer and spouse did not give a definitive answer except that she knows that patient is too weak to receive chemotherapy at this time. Introduced hospice philosophy and benefits. Goals at this time remain aggressive, patient`s spouse would like to include her sons in deciding goals of medical treatment. Patient`s is not ready to make any changes to patient`s current code status (Full Code) until after she has discussed with her 3 sons. Recommending notifying/ contacting patient`s spouse or Marky ([facility]) if patient is showing any signs of deterioration prior to intubation or any invasive procedure. CODE STATUS: Full code SYMPTOMS: * Shortness of breath: Recently diagnosed with non-small cell lung cancer and pneumonia. Patient developed right pleural effusion and currently has a right chest tube to suction. Patient also went into atrial fibrillation. Intubated on 08/19/18 for respiratory distress. Medically extubated on 08/21/18 to humidified O2 5 L nasal cannula. Patient still showing signs of dyspnea and he has a persistent cough. Lung sounds rhonchi. Patient remains at high risk for reintubation. Currently managed with antibiotics high-dose steroids and furosemide. * At risk for pain: Sources of pain most likely from intubation, insertion of central line, bedbound status. Denies pain at this time. Continue to monitor for pain. * Debility: Progressive. Patient was recently diagnosed with non-small cell lung cancer. He was started on immunotherapy approximately a month ago and since then he has continued to show signs of deterioration. Patient has had falls at home, and he has had pneumonia with pleural effusions. Recommending reconsulting physical therapy if goals are aggressive. Palliative care will continue to follow the patient during hospital course as condition evolves, to assist patient/decision-maker with understanding of their medical conditions, weighing benefits/burdens of treatment options, for clarification of goals of treatment. Additionally will assist with any symptoms of palliative concern Attestation Attestation: To help prompt me to consider important information that might be impacting today's encounter and assessment, information from prior notes written by myself or my colleagues may have been "brought forward" into today's note. My signature on this note, however, is an attestation that I personally performed the exam, history, and/or decision-making noted today, and, unless otherwise indicated, the interactions with patient, family, and staff as well as the review of records all occurred today. I also attest that the listed assessment and stated plan reflect my best clinical judgment today based on the combination of historical information, prior notes, and today's exam/ interactions. When time spent is documented, it refers only to time spent today by the signer, or if indicated, combined time spent today by collaborating physician/nurse practitioner.
--- NOTE | 2018-08-23 13:28 | P.PNONC ---
Subjective Interval history: Patient breathing has improved. He appears to be less short of breath and less coughing. Objective Vital Signs/Intake & Output: Vital Signs 08/22/18 14:00 08/22/18 15:00 08/22/18 15:01 Temperature Pulse Rate 110 H 104 H 103 H Respiratory Rate 28 H 24 28 H Blood Pressure 154/83 H 167/71 H Pulse Oximetry 92 L 91 L 91 L 08/22/18 16:00 08/22/18 16:01 08/22/18 16:27 Temperature 98.2 F Pulse Rate 101 H 102 H 114 H Respiratory Rate 25 H 24 25 H Blood Pressure 152/72 H 152/72 H Pulse Oximetry 93 L 93 L 08/22/18 17:00 08/22/18 18:00 08/22/18 18:01 Temperature Pulse Rate 90 102 H 101 H Respiratory Rate 26 H 23 22 Blood Pressure 141/65 H 156/74 H Pulse Oximetry 100 95 95 08/22/18 19:00 08/22/18 20:00 08/22/18 20:30 Temperature 97.8 F Pulse Rate 102 H 111 H Respiratory Rate 27 H 34 H Blood Pressure 136/95 H 144/110 H Pulse Oximetry 96 97 96 08/22/18 20:33 08/22/18 21:00 08/22/18 21:01 Temperature Pulse Rate 94 H 115 H 108 H Respiratory Rate 20 23 44 H Blood Pressure 170/92 H Pulse Oximetry 89 L 92 L 08/22/18 22:00 08/22/18 23:00 08/22/18 23:56 Temperature Pulse Rate 111 H 109 H 107 H Respiratory Rate 31 H 22 20 Blood Pressure 158/93 H 157/78 H Pulse Oximetry 95 96 08/23/18 00:00 08/23/18 01:00 08/23/18 02:00 Temperature 97.4 F L Pulse Rate 104 H 110 H 100 H Respiratory Rate 21 20 27 H Blood Pressure 159/87 H 149/99 H Pulse Oximetry 95 92 L 93 L 08/23/18 02:01 08/23/18 03:00 08/23/18 03:24 Temperature Pulse Rate 96 H 114 H 87 Respiratory Rate 24 21 22 Blood Pressure 119/59 L 138/93 H Pulse Oximetry 91 L 08/23/18 04:00 08/23/18 05:00 08/23/18 05:07 Temperature 97.6 F Pulse Rate 115 H 84 100 H Respiratory Rate 25 H 20 20 Blood Pressure 153/68 H 137/88 Pulse Oximetry 87 L 91 L 08/23/18 06:00 08/23/18 06:01 08/23/18 06:08 Temperature Pulse Rate 114 H 107 H 99 H Respiratory Rate 27 H 24 23 Blood Pressure 134/98 H 131/67 Pulse Oximetry 86 L 83 L 08/23/18 07:00 08/23/18 08:02 08/23/18 13:14 Temperature Pulse Rate 90 103 H 88 Respiratory Rate 17 22 21 Blood Pressure 148/84 H Pulse Oximetry 95 92 L Intake & Output 08/22/18 08/23/18 08/23/18 18:59 06:59 18:59 Intake Total 1015 / 1015 350 / 350 Output Total 1625 / 1625 1300 / 1300 Balance -610 / -610 -950 / -950 Weight 77.5 kg Intake: IV 1015 / 1015 350 / 350 Cordarone Inj 450 MG In NS Inj 250 / 250 250 / 250 241 ML @ 1 MG/MIN 33.33 mls/hr IV.CONT TITRATE PRN Rx#: [id number] Maxipime Inj 2,000 MG In NS Inj 100 / 100 100 / 100 100 ML @ 200 mls/hr IV.SIG Q8H ROSEMARIE Rx#:[id number] Levaquin 750 mg Premix Inj 150 150 / 150 ML @ 100 mls/hr IV.SIG Q24H ROSEMARIE Rx#:[id number] Vancomycin Inj 1,500 MG In NS 515 / 515 Inj 500 ML @ 250 mls/hr IV.SIG Q18H ROSEMARIE Rx#:[id number] Output: Urine Amount (Catheter) 1365 / 1365 1300 / 1300 Indwelling Urethral Catheter 1365 / 1365 1300 / 1300 Chest Tube Drainage 260 / 260 0 / 0 #1 Right Pleural 260 / 260 0 / 0 Other: # Bowel Movements 0 Result Diagrams: 08/23/18 05:45 08/23/18 05:45 Laboratory Results: Laboratory Results - last 24 hr 08/22/18 08/22/18 08/23/18 16:55 23:42 05:45 WBC 21.4 H RBC 3.96 L Hgb 11.3 L Hct 35.0 L MCV 88.4 MCH 28.6 MCHC 32.3 RDW 17.5 H Plt Count 119 L MPV 8.5 Sodium Potassium Chloride Carbon Dioxide Anion Gap BUN Creatinine Estimated GFR POC Glucose 267 H 313 H Random Glucose Calcium Magnesium Total Bilirubin AST ALT Alkaline Phosphatase Total Protein Albumin Vancomycin Trough 08/23/18 08/23/18 08/23/18 05:45 06:12 07:40 WBC RBC Hgb Hct MCV MCH MCHC RDW Plt Count MPV Sodium 144 Potassium 3.4 L Chloride 105 Carbon Dioxide 30.6 Anion Gap 8 BUN 30 H Creatinine 0.79 Estimated GFR Greater than 89 POC Glucose 207 H Random Glucose 123 H Calcium 8.4 L Magnesium 1.9 Total Bilirubin 0.6 AST 43 H ALT 52 Alkaline Phosphatase 231 H Total Protein 6.3 L Albumin 2.5 L Vancomycin Trough 16.1 H 08/23/18 12:41 WBC RBC Hgb Hct MCV MCH MCHC RDW Plt Count MPV Sodium Potassium Chloride Carbon Dioxide Anion Gap BUN Creatinine Estimated GFR POC Glucose 202 H Random Glucose Calcium Magnesium Total Bilirubin AST ALT Alkaline Phosphatase Total Protein Albumin Vancomycin Trough Culture Results: Microbiology 08/19/18 11:11 Aerobic Blood Culture - Preliminary Blood - Peripheral No growth in 4 days Anaerobic Blood Culture - Preliminary No growth in 4 days 08/19/18 11:05 Aerobic Blood Culture - Preliminary Blood - Peripheral No growth in 4 days Anaerobic Blood Culture - Preliminary No growth in 4 days 08/17/18 21:15 Aerobic Blood Culture - Final Blood - Peripheral No growth in 5 days Anaerobic Blood Culture - Final No growth in 5 days 08/17/18 21:25 Aerobic Blood Culture - Final Blood - Peripheral No growth in 5 days Anaerobic Blood Culture - Final No growth in 5 days 08/19/18 13:00 Gram Stain - Final Fluid - Pleural fluid Body Fluid Culture - Final No growth in 72 hours (aerobically and anaerobically) 08/19/18 13:00 Fungal Smear - Final Other No fungal elements seen 08/19/18 09:56 Acid Fast Bacilli Smear - Final Other No acid fast bacilli seen 08/18/18 11:45 Gram Stain - Final Sputum - Expectorated Sputum Sputum Culture - Final Heavy growth normal respiratory mauricio Imaging Studies: Impressions Chest X-Ray 08/23/18 06:00 CONCLUSION: Bilateral lower lobe atelectasis versus pneumonia. There has been no significant change when compared to the prior exam. Medications: Active Medications Generic Name Dose Route Start Last Admin Trade Name Freq PRN Reason Stop Dose Admin Acetylcysteine 2 ml 08/21/18 12:00 08/23/18 13:14 Mucomyst 20% Neb NEB 08/24/18 16:01 2 ml Q4HR NEB ROSEMARIE Administration Albuterol 1 ampul 08/17/18 22:58 08/22/18 09:48 Duoneb Neb (Prn) NEB 1 ampul Q4HR NEB PRN Administration SOB/WHEEZING Albuterol 1 ampul 08/21/18 12:00 08/23/18 13:14 Duoneb Neb (Rosemarie) NEB 1 ampul Q4HR NEB ROSEMARIE Administration Amlodipine Besylate 5 mg 08/19/18 09:00 08/19/18 10:54 Norvasc PO 5 mg DAILY ROSEMARIE Administration Atorvastatin Calcium 10 mg 08/19/18 09:00 08/23/18 11:48 Lipitor PO Not Given DAILY [facility] Benzonatate 100 mg 08/17/18 22:58 08/18/18 08:02 Tessalon Perles PO 100 mg QID PRN Administration Cough Budesonide/Formoterol Fumarate 2 puff 08/18/18 09:00 08/22/18 21:54 Symbicort 160/4.5 Mcg Inh INH 2 puff BID ROSEMARIE Administration Chlorhexidine Gluconate 15 ml 08/19/18 20:00 08/23/18 08:12 Peridex 0.12% Oral Kit OROPHARYNG Not Given BID@0800,2000 [facility] Dronedarone 400 mg 08/18/18 09:00 08/23/18 11:48 Multaq PO Not Given BID [facility] Famotidine 20 mg 08/19/18 21:00 08/23/18 08:12 Pepcid Pf Inj IV.PUSH 20 mg Q12HR ROSEMARIE Administration Furosemide 40 mg 08/22/18 18:00 08/23/18 08:12 Lasix Inj IV.PUSH 40 mg BID@0900,1800 ROSEMARIE Administration Levofloxacin/Dextrose 150 mls @ 100 mls/hr 08/19/18 12:00 08/23/18 12:44 Levaquin 750 Mg Premix Inj IV.SIG 100 mls/hr Q24H ROSEMARIE Administration Potassium Chloride 40 meq in 100 mls @ 50 mls/hr 08/19/18 09:31 08/22/18 05: 39 Kcl 40 Meq Premix Inj IV.SIG Infused Q2H PRN Infusion For Potassium 2.8 - 3.2 mEq/L Amiodarone HCl 450 mg/ Sodium 250 mls @ 33.33 mls/hr 08/20/18 06:45 08/23/18 06:19 Chloride IV.CONT 0.05 mg/min TITRATE PRN 1.66 mls/hr Per Protocol Administration Protocol 1 MG/MIN Insulin Detemir 10 unit 08/21/18 21:00 08/23/18 08:13 Levemir Inj SQ 10 unit BID ROSEMARIE Administration Insulin Human Regular 0 units 08/19/18 12:00 08/23/18 13:18 Novolin R Correctional Sugar Inj SQ Not Given Q6HR [facility] Protocol Methylprednisolone Sodium Succinate 60 mg 08/20/18 18:00 08/23/18 12:45 Solumedrol Inj IV.PUSH 60 mg Q6HR ROSEMARIE Administration Metoprolol Tartrate 2.5 mg 08/23/18 00:39 08/23/18 01:08 Lopressor Inj IV.PUSH 2.5 mg Q6H PRN Administration heart rate >120 Miscellaneous Medication 1 each 08/19/18 12:00 08/23/18 06:24 OROPHARYNG 1 each 0000,0400,1200,1600 ROSEMARIE Administration Senna/Docusate Sodium 1 tab 08/18/18 09:00 08/23/18 11:48 Adelia-Colace PO Not Given BID [facility] Sodium Chloride 2 ml 08/20/18 09:00 08/23/18 08:13 Ns Flush IV.FLUSH 2 ml BID ROSEMARIE Administration Whey 1 packet 08/20/18 13:00 08/23/18 08:13 Beneprotein Powder G-TUBE Not Given TID [facility] Objective Remarks: GENERAL: Well-nourished, well-developed patient. SKIN: Warm and dry. HEAD: Normocephalic. EYES: No scleral icterus. No injection or drainage. NECK: Supple, trachea midline. No JVD or lymphadenopathy. LYMPHATIC: No adenopathy. CARDIOVASCULAR: Regular rate and rhythm without murmurs. RESPIRATORY: Breath sounds equal bilaterally. No accessory muscle use. GASTROINTESTINAL: Abdomen soft, non-tender, nondistended. EXTREMITIES: No cyanosis, or edema. MUSCULOSKELETAL: Adequate muscle tone. NEUROLOGICAL: No obvious focal deficit. Awake, alert, and oriented x3. PSYCHIATRIC: Appropriate mood and affect; insight and judgment normal. Assessment/Plan - Plan Mr. Israel is a 77-year-old gentleman, who was diagnosed with non-small cell lung cancer approximately 1 month ago. He is under the care of Dr. Berger. Dr. Yu spoke with the patients oncologist, Dr. Berger, patient received Keytruda on 08/06/18. The patient reportedly developed pneumonia and was given a Z-Del[place]. His symptoms did not improve and he had worsening respiratory status and he came to the emergency room. The patient is currently admitted for respiratory failure, currently intubated and sedated. Plan: 1. Non-small cell lung cancer, status post Keytruda on 08/06/2018. Patient's primary oncologist is Dr. Berger. 2. 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 Continue high-dose steroids. Solu-Medrol 60 mg every 6 hours. Continue IV Pepcid. 3. DVT, right leg. Patient has retrievable IVC filter in place. 4. Thrombocytopenia, improving. Could be secondary to infection, sepsis or DIC. We will continue to monitor. 5. Discussed with patient's RN and . 08/23/2018 Respiratory failure is improving. He is now on 5 L nasal cannula. Switch Solu-Medrol to prednisone 60 mg daily for pneumonitis related to Keytruda. Upon discharge patient will be followed by his primary oncologist Dr Berger
--- NOTE | 2018-08-23 15:16 | P.DIET ---
Nutritional Evaluation Type of nutrition evaluation: initial Nutrition consult regarding: Tube Feeding Objective - Diagnosis Shortness of Breath. PMH see H&P - Objective [place] body weight: 86 kg % IBW: 90 Body Weight Used for Calculations: Actual Energy Needs - Lower Range (kCal/kg): 28 Energy Needs - Upper Range (kCal/kg): 32 Lower Limit kCal/kg (kCals): 2,184 Upper Limit kCal/kg (kCals): 2,494 Lower Limit Protein Factor (Grams per Kg): 1 Upper Limit Protein Factor (Grams per Kg): 1.5 Lower Protein Needs (Protein): 78 Upper Protein Needs (Protein): 117 Dietitian Reviewed in Medical Record: Current diet, Curent medications, Labs, Medical history, Tube feeding Diet Order: TF Speech Therapy Recommendations: Yes (Strict NPO) Assessment Assessment: Pt. is at nutritional risk due to dx. and need for TFing. Pt. with a PMH of chronic atrial fibrillation, type 2 diabetes, hypertension, dyslipidemia, Lung cancer currently receiving immunotherapy who presented to the emergency department with shortness of breath of one-week duration. Pt was recently diagnosed with Lung CA approx 1 month ago. Pt. is currently on 5L of O2. Speech has recommended strict NPO. Pts. last BM was on 08/17 but does has good UOP. Recommend current TFing of Glucerna 1.5 but increase goal rate to 65mls/hr. Will provide 2340kcals, 128g of protein and 1184mls of free water, d/c beneprotein packets TID. Monitor TFing tolerance, labs, UOP and skin. Recommendations: 1. Recommend current TFing of Glucerna 1.5 but increase goal rate to 65mls/hr. 2. d/c beneprotein packets TID. 3. Monitor TFing tolerance, labs, UOP and skin. Dietitian to Monitor: Lab values, Renal labs, Glucose level, Intake & Output, Diet tolerance, Tube feeding tolerance, Weight change, Residuals, Wound/skin status, Medical course
--- NOTE | 2018-08-23 22:56 | XR ---
EXAM DATE: 08/23/2018 12:00 AM EDT AGE/SEX: 77 years / Male INDICATIONS: NG tube placement. CLINICAL DATA: This is the patient's initial encounter. Patient reports that signs and symptoms have been present for 1 day and indicates a pain score of Nonresponsive. MEDICAL/SURGICAL HISTORY: . Hypertension. Carcinoma, lung. CABG. . COMPARISON: [facility] [place], CHEST 1V SINGLE AP, 08/23/2018. . FINDINGS: There is a nasogastric tube with tip in the mid body of the stomach. No free air seen. Visualized dimitris wel gas pattern is nonobstructive. Bibasilar lung consolidation again noted, not significantly changed. A small caliber chest tube is ag ain noted at the right base and with a tiny basilar pneumothorax. CONCLUSION: 1. Nasogastric tube tip is in the mid stomach. 2. Parenchymal consolidation of both lung bases similar to this morning. 3. Small caliber chest tube at the right lung base with a tiny basilar pneumothorax. This is now sig nificantly changed. Electronically signed by: Davis Munson MD 08/23/2018 10:54 PM EDT
[2018-08-24] MEDS: Amiodarone Inj 450 MG in Sodium Chlor 0.9% Inj 241 ML IV.CONT PRN ×2 (00:25→15:50)
[2018-08-24] MEDS: Oral Hygiene Kit OROPHARYNG SCH ×4 (01:08→19:07)
[2018-08-24] MEDS: Insulin NovoLIN Regular Correctional Sugar Inj SQ SCH ×4 (01:17→19:08)
[2018-08-24] MEDS: Metoprolol Inj 5 MG/5 ML Vial IV.PUSH PRN ×2 (01:48→15:51)
--- NOTE | 2018-08-24 03:38 | XR ---
EXAM DATE: 08/24/2018 12:00 AM EDT AGE/SEX: 77 years / Male INDICATIONS: Shortness of breath, possible pulmonary disease. CLINICAL DATA: This is the patient's subsequent encounter. Patient reports that signs and symptoms h ave been present for 1 week and indicates a pain score of Nonresponsive. MEDICAL/SURGICAL HISTORY: Hypertension. Carcinoma, lung. CABG. COMPARISON: [facility] [place], CHEST 1V SINGLE AP, 08/23/2018. . FINDINGS: Interval removal of a right subclavian central line. Persistent bibasilar infiltrates. Lateral right base pigtail thoracostomy tube again noted. Visualized cardiac contours are unchanged. CONCLUSION: Interval removal of central line. Otherwise stable. Electronically signed by: Davis Perdomo MD 08/24/2018 3:37 AM EDT
[2018-08-24 04:07] LABS: Baso % (Auto) 0.1 % (0.0-2.0); Hematocrit 36.1 % (39.0-51.0); Hemoglobin 11.6 gm/dL (13.0-17.0); Lymph # (Auto) 0.5 th/mm3 (1.0-4.8); Lymph % (Auto) 2.3 % (9.0-44.0); Mean Corpuscular HGB Conc 32.2 % (32.0-36.0); Mean Corpuscular Hemoglobin 28.6 pg (27.0-34.0); Mean Corpuscular Volume 88.7 fL (80.0-100.0); Mean Platelet Volume 8.3 fL (7.0-11.0); Mono % (Auto) 8.6 % (0.0-8.0); Neut # (Auto) 20.6 th/mm3 (1.8-7.7); Platelet Count 107 th/mm3 (150-450); Red Blood Count 4.06 mil/mm3 (4.50-5.90); Red Cell Distribution Width 18.3 % (11.6-17.2); White Blood Count 23.2 th/mm3 (4.0-11.0)
[2018-08-24 04:32] LABS: Albumin 2.5 g/dL (3.4-5.0); Anion Gap 11 meq/L (5-15); Aspartate Aminotransferase 38 U/L (15-37); Blood Urea Nitrogen 36 mg/dL (7-18); Calcium 8.3 mg/dL (8.5-10.1); Chloride 106 meq/L (98-107); Glomerular Filtration Rate 85 mL/min (>89); Glucose,Random 149 mg/dL (74-106); Potassium 3.6 meq/L (3.5-5.1); Sodium 148 meq/L (136-145)
[2018-08-24 04:35] LABS: Alanine Aminotransferase 44 U/L (12-78); Alkaline Phosphatase 195 U/L (45-117); Total Protein 5.9 g/dL (6.4-8.2)
[2018-08-24] MEDS: predniSONE 20 MG Tablet PO SCH (08:24)
[2018-08-24] MEDS: Sodium Chloride 0.9% 2 ML Flush BID IV.FLUSH SCH ×2 (08:24→20:37)
[2018-08-24] MEDS: Famotidine PF Inj 20 MG/2 ML Vial IV.PUSH SCH ×2 (08:24→20:37)
[2018-08-24] MEDS: Beneprotein Powder Packet G-TUBE SCH ×3 (08:25→19:08)
[2018-08-24] MEDS: Chlorhexidine 0.12% Oral Kit 15 ML UDC OROPHARYNG SCH ×2 (08:34→23:46)
--- NOTE | 2018-08-24 11:11 | P.PNCC ---
Subjective Subjective Remarks/Hospital Course: his is a 77-year-old male with a PMH of chronic atrial fibrillation, type 2 diabetes, hypertension, dyslipidemia, Lung cancer currently receiving immunotherapy who presented to the emergency department with shortness of breath of one-week duration. Pt was recently diagnosed with Lung CA approx 1 month ago, following with Dr. Berger, had first treatment few weeks ago. Last week had an outpatient x-ray which showed pneumonia and was placed on Z-[place] with only minimal or no improvement. Because of worsening symptoms he presented to the emergency department and was admitted to the hospitalist on 08/17/2018. On admission his WBC 19.8. INR 2.1. Creatinine 1.86, and Lactic Acid 2.6. CXR with increasing consolidation right lung, stable infiltrate left lung. Patient was transferred to the ICU overnight for increasing shortness of breath and BiPAP requirement. Today critical care was emergently consulted as patient was not tolerating BiPAP and was severely short of breath, chest x-ray showed increasing bilateral infiltrates. Patient was also in atrial fibrillation with RVR. I immediately evaluated the patient, on simple mask he was maintaining saturation 90%. However he was severely short of breath and had extensive bilateral crackles, with tachypnea breathing approximately 40 breaths/min. After discussion with the patient I intubated and placed him on mechanical ventilation. Currently receiving vancomycin and cefepime. I have increased the cefepime dose to 2 g IV every 8 hours, continue vancomycin and added Levaquin [address] of the chest to evaluate for effusion ordered. Postintubation patient was hypotensive, given 2 L IV fluid boluses, followed by vasopressin started at 0.04 international units/min. For A. fib with RVR started on amiodarone bolus and infusion per protocol. Patient is critically ill at this time SUBJ 08/20: Remains intubated sedated critically ill. Remains in septic shock currently on vasopressin 0.04 international units and Gaurav-Synephrine 30 mcg/kg/ min. However WBC count is stable to trending down, creatinine has normalized. Right chest tube placed with almost 3.2L blood-tinged effusion drained in 24 hours. Right DVT in the lower extremity status post IVC filter placement asked patient cannot be anticoagulated at this time due to thrombocytopenia. 08/21: Patient is clinically improving. Chest x-ray shows mild positive fluid balance and left small effusion right effusion appears to be drained. Patient wakes up easily and follows commands. Will stop IV fluids give IV Lasix 40 mg x1 and attempt extubation. Platelet count remains low at 76. Patient started on high-dose Solu-Medrol per oncology recommendation for possible pneumonitis from immunotherapy 08/22: Intermittently short of breath currently calm. Coarse crackles bilaterally. Overnight agitated started on Precedex, now. Chest x-ray shows left-sided effusion. On ultrasound appears to have dense fluid ?hemothorax. Will check CT of the chest 08/23 Patient is on 5L oxygen with good sats. Afebrile. 08/24: Remains on nasal cannula but coarse rhonchi bilaterally with some difficulty clearing secretions. Agitated requiring Precedex and restraints. Pleural effusion is malignant making stage IV cancer probably incurable will discuss with family and oncology Objective Vital Signs / I&O: Vital Signs 08/23/18 11:07 08/23/18 12:00 08/23/18 13:00 Temperature 98 F Pulse Rate 104 H 77 101 H Respiratory Rate 20 15 26 H Blood Pressure 133/56 L 140/65 147/76 H Pulse Oximetry 92 L 99 94 L 08/23/18 13:14 08/23/18 14:00 08/23/18 15:00 Temperature Pulse Rate 88 86 101 H Respiratory Rate 21 19 21 Blood Pressure 134/63 Pulse Oximetry 100 98 08/23/18 15:01 08/23/18 15:06 08/23/18 16:00 Temperature 97.8 F Pulse Rate 102 H 109 H 91 H Respiratory Rate 21 19 20 Blood Pressure 184/74 H 176/90 H 159/96 H Pulse Oximetry 89 L 95 97 08/23/18 16:11 08/23/18 17:00 08/23/18 18:00 Temperature Pulse Rate 89 107 H 81 Respiratory Rate 15 24 21 Blood Pressure 159/70 H 150/66 H Pulse Oximetry 94 L 97 08/23/18 19:00 08/23/18 19:01 08/23/18 20:00 Temperature 98.4 F Pulse Rate 85 86 101 H Respiratory Rate 18 18 17 Blood Pressure 179/72 H Pulse Oximetry 94 L 08/23/18 20:01 08/23/18 21:00 08/23/18 21:01 Temperature Pulse Rate 99 H 127 H 136 H Respiratory Rate 19 37 H 39 H Blood Pressure 167/77 H 178/105 H Pulse Oximetry 93 L 84 L 87 L 08/23/18 21:22 08/23/18 22:00 08/23/18 22:01 Temperature Pulse Rate 96 H 93 H 104 H Respiratory Rate 20 19 18 Blood Pressure 147/69 H Pulse Oximetry 96 97 97 08/23/18 23:00 08/24/18 00:00 08/24/18 00:32 Temperature Pulse Rate 113 H 147 H 96 H Respiratory Rate 23 27 H 20 Blood Pressure 135/91 H 175/96 H Pulse Oximetry 93 L 94 L 08/24/18 01:00 08/24/18 02:00 08/24/18 03:00 Temperature Pulse Rate 124 H 98 H 111 H Respiratory Rate 24 Blood Pressure 136/65 128/71 135/60 Pulse Oximetry 93 L 92 L 94 L 08/24/18 04:00 08/24/18 04:18 08/24/18 05:00 Temperature 98.8 F Pulse Rate 111 H 107 H 111 H Respiratory Rate 25 H 22 Blood Pressure 151/84 H 133/68 Pulse Oximetry 92 L 90 L 08/24/18 06:00 08/24/18 07:42 Temperature Pulse Rate 100 H 107 H Respiratory Rate 29 H 24 Blood Pressure 136/88 Pulse Oximetry 95 94 L Intake & Output 08/23/18 08/24/18 08/24/18 18:59 06:59 18:59 Intake Total 1367 / 1367 Output Total 1999 1170 / 1170 Balance -1999 197 / 197 Weight 69.5 kg Intake: IV 1115 / 1115 Cordarone Inj 450 MG In NS Inj 250 / 250 241 ML @ 1 MG/MIN 33.33 mls/hr IV.CONT TITRATE PRN Rx#: [id number] Maxipime Inj 2,000 MG In NS Inj 100 / 100 100 ML @ 200 mls/hr IV.SIG Q8H REJI Rx#:[id number] Levaquin 750 mg Premix Inj 150 150 / 150 ML @ 100 mls/hr IV.SIG Q24H REJI Rx#:[id number] KCl 40 mEq Premix Inj 40 meq In 100 / 100 100 ml @ 25 mls/hr IV.SIG UNSCH PRN Rx#:[id number] Vancomycin Inj 1,500 MG In NS 515 / 515 Inj 500 ML @ 250 mls/hr IV.SIG Q18H REJI Rx#:[id number] Tube Feeding 132 / 132 Water Bolus Amount 120 / 120 Output: Urine Amount (Catheter) 1999 / 999 Indwelling Urethral Catheter 1999 / 999 Chest Tube Drainage 170 / 170 #1 Right Pleural 170 / 170 Other: # Bowel Movements 0 Result Diagrams: 08/24/18 03:35 08/24/18 03:35 Objective Remarks: GENERAL: Frail elderly male, lying in bed intermittently distressed when unable to clear secretions. Currently on Precedex CARDIOVASCULAR: Atrial fibrillation with controlled ventricular rate. No murmurs. RESPIRATORY: On nasal cannula. Bilateral coarse rhonchi and crackles all over the anterior chest. R pigtail chest tube in place GASTROINTESTINAL: Abdomen soft, non-tender, non-distended. Normal active bowel sounds MUSCULOSKELETAL: Extremities without cyanosis, right lower extremity swollen with 1+ pitting edema NEURO: alert, awake oriented to person not oriented to time or place. Follows commands x4 no focal deficits Assessment and Plan - Assessment and Plan Plan: NEURO: Agitated delirium -Wean off Precedex drip and monitor neuro status, -Delirium most likely secondary to sepsis and sundowning RESP: Acute hypoxemic respiratory failure-improved Severe bilateral pneumonia Large right pleural effusion moderate left pleural effusion,-malignant effusion Possible pneumonitis secondary to immunotherapy Lung cancer probably stage IV Wean down oxygen as mahendra keep sats >92% DuoNeb every 4 hours scheduled and as needed. CXR today: Bilateral lower lobe atelectasis versus pneumonia. There has been no significant change when compared to the prior exam. 08/22 CT chest: Interval placement of right sided chest tube with decrease in right effusion with multiple residual. Minimal left effusion. Dense consolidation in the both lower lobes. Multiple noncalcified pulmonary nodules consistent with metastatic disease. Cholelithiasis with multiple calcified gallstones. -s/p right pigtail chest tube placement, fluid studies shows adenocarcinoma -Lung cancer stage IV incurable -IV Solu-Medrol 60 mg every 6 hours per oncology CV: Atrial fibrillation with RVR, now rate controlled Septic shock-improved Lactic acidosis History of hypertension History of CABG and AVR -Monitor HR and BP keep MAP>65mmHg -On IV Lasix 40 mg every 12. On Lopressor 25mg BID -Amiodarone infusion -Status post AVR and CABG last year for severe and coronary artery disease -Echo showed the left ventricular systolic function is mildly reduced EF 45-50% . GI: -IV famotidine. Speech eval diet per speech.NGT feeding -Bowel regimen : Acute kidney injury- Resolved -Monitor renal function, I/O's, electrolytes replacement per protocol. -For K replacement today. On Lasix 40mg Q12 ID: Septic shock-resolved Bilateral pneumonia Immunocompromise state due to lung cancer -Antibiotics per ID. On cefepime and IV Levaquin. -Blood urine and sputum cultures follow-up- NGTD -Neg influenza, Neg for urine Legionella and pneumococcal antigen -ID following HEME: Right lower extremity DVT Thrombocytopenia Recently diagnosed lung CA Coagulopathy ?secondary to DIC -Unable to anticoagulate due to thrombocytopenia and coagulopathy -Status post IVC filter placement by IR on 08/19/2018 -Appreciate consult from Dr. Yu. Oncologist is Dr. Berger. Recently started on immunotherapy per family (?Keytruda) -Monitor CBC, coag -Pleural effusion is malignant making the cancer stage IV. Incurable at this time with poor prognosis due to poor functional status -s/p 2 units FFP for chest tube placement -Continue high-dose IV Solu-Medrol ENDO: Type 2 diabetes with hyperglycemia Hypertension -Electrolyte replacement per protocol -Sliding scale insulin -Levemir 10 units [id number] on hold as patient is n.p.o. PROPH: -Left lower extremity SCDs. IV famotidine -No anticoagulation at this time due to thrombocytopenia and coagulopathy LINES: -Right subclavian central line placed 08/19/2018. -Place peripheral IV's and d/c central line Palliative care is following Level 3 Patient has stage IV lung cancer. I do not believe he can tolerate any more chemotherapy or radiation due to severe debility. Will discuss with family and encouraged DNR status and probably comfort measures
[2018-08-24 11:13] LABS: Glomerular Filtration Rate Greater Than 89 mL/min (>89)
--- NOTE | 2018-08-24 11:17 | P.PNONC ---
Subjective Interval history: Afebrile Patient reports "I felt like I was going to pass away last night" He is asking with the plan is Complains of feeling tired Patient's at bedside. She reports her sons will be here on Sunday and she will be having a meeting with palliative care Objective Vital Signs/Intake & Output: Vital Signs 08/23/18 12:00 08/23/18 13:00 08/23/18 13:14 Temperature 98 F Pulse Rate 77 101 H 88 Respiratory Rate 15 26 H 21 Blood Pressure 140/65 147/76 H Pulse Oximetry 99 94 L 08/23/18 14:00 08/23/18 15:00 08/23/18 15:01 Temperature Pulse Rate 86 101 H 102 H Respiratory Rate 19 21 21 Blood Pressure 134/63 184/74 H Pulse Oximetry 100 98 89 L 08/23/18 15:06 08/23/18 16:00 08/23/18 16:11 Temperature 97.8 F Pulse Rate 109 H 91 H 89 Respiratory Rate 19 20 15 Blood Pressure 176/90 H 159/96 H Pulse Oximetry 95 97 08/23/18 17:00 08/23/18 18:00 08/23/18 19:00 Temperature Pulse Rate 107 H 81 85 Respiratory Rate 24 21 18 Blood Pressure 159/70 H 150/66 H Pulse Oximetry 94 L 97 08/23/18 19:01 08/23/18 20:00 08/23/18 20:01 Temperature 98.4 F Pulse Rate 86 101 H 99 H Respiratory Rate 18 17 19 Blood Pressure 179/72 H 167/77 H Pulse Oximetry 94 L 93 L 08/23/18 21:00 08/23/18 21:01 08/23/18 21:22 Temperature Pulse Rate 127 H 136 H 96 H Respiratory Rate 37 H 39 H 20 Blood Pressure 178/105 H Pulse Oximetry 84 L 87 L 96 08/23/18 22:00 08/23/18 22:01 08/23/18 23:00 Temperature Pulse Rate 93 H 104 H 113 H Respiratory Rate 19 18 23 Blood Pressure 147/69 H 135/91 H Pulse Oximetry 97 97 93 L 08/24/18 00:00 08/24/18 00:32 08/24/18 01:00 Temperature Pulse Rate 147 H 96 H 124 H Respiratory Rate 27 H 20 24 Blood Pressure 175/96 H 136/65 Pulse Oximetry 94 L 93 L 08/24/18 02:00 08/24/18 03:00 08/24/18 04:00 Temperature 98.8 F Pulse Rate 98 H 111 H 111 H Respiratory Rate 25 H Blood Pressure 128/71 135/60 151/84 H Pulse Oximetry 92 L 94 L 92 L 08/24/18 04:18 08/24/18 05:00 08/24/18 06:00 Temperature Pulse Rate 107 H 111 H 100 H Respiratory Rate 22 29 H Blood Pressure 133/68 136/88 Pulse Oximetry 90 L 95 08/24/18 07:42 Temperature Pulse Rate 107 H Respiratory Rate 24 Blood Pressure Pulse Oximetry 94 L Intake & Output 08/23/18 08/24/18 08/24/18 18:59 06:59 18:59 Intake Total 1367 / 1367 Output Total 1999 1170 / 1170 Balance -1999 197 / 197 Weight 153 lb 3.54 oz Intake: IV 1115 / 1115 Cordarone Inj 450 MG In NS Inj 250 / 250 241 ML @ 1 MG/MIN 33.33 mls/hr IV.CONT TITRATE PRN Rx#: [id number] Maxipime Inj 2,000 MG In NS Inj 100 / 100 100 ML @ 200 mls/hr IV.SIG Q8H ROSEMARIE Rx#:[id number] Levaquin 750 mg Premix Inj 150 150 / 150 ML @ 100 mls/hr IV.SIG Q24H ROSEMARIE Rx#:[id number] KCl 40 mEq Premix Inj 40 meq In 100 / 100 100 ml @ 25 mls/hr IV.SIG UNSCH PRN Rx#:[id number] Vancomycin Inj 1,500 MG In NS 515 / 515 Inj 500 ML @ 250 mls/hr IV.SIG Q18H ROSEMARIE Rx#:[id number] Tube Feeding 132 / 132 Water Bolus Amount 120 / 120 Output: Urine Amount (Catheter) 1999 1000 / 1000 Indwelling Urethral Catheter 1999 1000 / 1000 Chest Tube Drainage 170 / 170 #1 Right Pleural 170 / 170 Other: # Bowel Movements 0 Result Diagrams: 08/24/18 03:35 08/24/18 10:20 Laboratory Results: Laboratory Results - last 24 hr 08/23/18 08/23/18 08/23/18 12:41 14:15 17:16 WBC RBC Hgb Hct MCV MCH MCHC RDW Plt Count MPV Neut % (Auto) Lymph % (Auto) Merrick % (Auto) Eos % (Auto) Baso % (Auto) Neut # (Auto) Lymph # (Auto) Merrick # (Auto) Eos # (Auto) Baso # (Auto) WBC Differential Differential Comment Sodium Potassium 3.7 Chloride Carbon Dioxide Anion Gap BUN Creatinine Estimated GFR POC Glucose 202 H 140 H Random Glucose Calcium Phosphorus Magnesium Total Bilirubin AST ALT Alkaline Phosphatase Total Protein Albumin 08/24/18 08/24/18 08/24/18 01:09 03:35 03:35 WBC 23.2 H RBC 4.06 L Hgb 11.6 L Hct 36.1 L MCV 88.7 MCH 28.6 MCHC 32.2 RDW 18.3 H Plt Count 107 L MPV 8.3 Neut % (Auto) 89.0 H Lymph % (Auto) 2.3 L Merrick % (Auto) 8.6 H Eos % (Auto) 0.0 Baso % (Auto) 0.1 Neut # (Auto) 20.6 H Lymph # (Auto) 0.5 L Merrick # (Auto) 2.0 H Eos # (Auto) 0.0 Baso # (Auto) 0.0 WBC Differential . Differential Comment Auto diff final Sodium 148 H Potassium 3.6 Chloride 106 Carbon Dioxide 31.0 Anion Gap 11 BUN 36 H Creatinine 0.87 Estimated GFR 85 L POC Glucose 258 H Random Glucose 149 H Calcium 8.3 L Phosphorus 2.0 L Magnesium 2.0 Total Bilirubin 0.7 AST 38 H ALT 44 Alkaline Phosphatase 195 H Total Protein 5.9 L Albumin 2.5 L 08/24/18 08/24/18 05:22 08:22 WBC RBC Hgb Hct MCV MCH MCHC RDW Plt Count MPV Neut % (Auto) Lymph % (Auto) Merrick % (Auto) Eos % (Auto) Baso % (Auto) Neut # (Auto) Lymph # (Auto) Merrick # (Auto) Eos # (Auto) Baso # (Auto) WBC Differential Differential Comment Sodium Potassium Chloride Carbon Dioxide Anion Gap BUN Creatinine Estimated GFR POC Glucose 106 129 H Random Glucose Calcium Phosphorus Magnesium Total Bilirubin AST ALT Alkaline Phosphatase Total Protein Albumin Culture Results: Microbiology 08/19/18 11:11 Aerobic Blood Culture - Final Blood - Peripheral No growth in 5 days Anaerobic Blood Culture - Final No growth in 5 days 08/19/18 11:05 Aerobic Blood Culture - Final Blood - Peripheral No growth in 5 days Anaerobic Blood Culture - Final No growth in 5 days 08/17/18 21:15 Aerobic Blood Culture - Final Blood - Peripheral No growth in 5 days Anaerobic Blood Culture - Final No growth in 5 days 08/17/18 21:25 Aerobic Blood Culture - Final Blood - Peripheral No growth in 5 days Anaerobic Blood Culture - Final No growth in 5 days 08/19/18 13:00 Gram Stain - Final Fluid - Pleural fluid Body Fluid Culture - Final No growth in 72 hours (aerobically and anaerobically) 08/19/18 13:00 Fungal Smear - Final Other No fungal elements seen 08/19/18 09:56 Acid Fast Bacilli Smear - Final Other No acid fast bacilli seen Imaging Studies: Impressions Abdomen X-Ray 08/23/18 00:00 CONCLUSION: 1. Nasogastric tube tip is in the mid stomach. 2. Parenchymal consolidation of both lung bases similar to this morning. 3. Small caliber chest tube at the right lung base with a tiny basilar pneumothorax. This is now significantly changed. Chest X-Ray 08/24/18 00:00 CONCLUSION: Interval removal of central line. Otherwise stable. Medications: Active Medications Generic Name Dose Route Start Last Admin Trade Name Freq PRN Reason Stop Dose Admin Acetylcysteine 2 ml 08/21/18 12:00 08/24/18 07:41 Mucomyst 20% Neb NEB 08/24/18 16:01 2 ml Q4HR NEB ROSEMARIE Administration Albuterol 1 ampul 08/17/18 22:58 08/22/18 09:48 Duoneb Neb (Prn) NEB 1 ampul Q4HR NEB PRN Administration SOB/WHEEZING Albuterol 1 ampul 08/21/18 12:00 08/24/18 07:40 Duoneb Neb (Rosemarie) NEB 1 ampul Q4HR NEB ROSEMARIE Administration Amlodipine Besylate 5 mg 08/19/18 09:00 08/19/18 10:54 Norvasc PO 5 mg DAILY ROSEMARIE Administration Atorvastatin Calcium 10 mg 08/19/18 09:00 08/24/18 08:33 Lipitor PO 10 mg DAILY ROSEMARIE Administration Benzonatate 100 mg 08/17/18 22:58 08/18/18 08:02 Tessalon Perles PO 100 mg QID PRN Administration Cough Budesonide/Formoterol Fumarate 2 puff 08/18/18 09:00 10/05/18 21:44 Symbicort 160/4.5 Mcg Inh INH 2 puff BID ROSEMARIE Administration Chlorhexidine Gluconate 15 ml 08/19/18 20:00 08/24/18 08:34 Peridex 0.12% Oral Kit OROPHARYNG 15 ml BID@0800,2000 ROSEMARIE Administration Dronedarone 400 mg 08/18/18 09:00 08/24/18 08:25 Multaq PO 400 mg BID ROSEMARIE Administration Famotidine 20 mg 08/19/18 21:00 08/24/18 08:24 Pepcid Pf Inj IV.PUSH 20 mg Q12HR ROSEMARIE Administration Furosemide 40 mg 08/22/18 18:00 08/24/18 08:24 Lasix Inj IV.PUSH 40 mg BID@0900,1800 ROSEMARIE Administration Levofloxacin/Dextrose 150 mls @ 100 mls/hr 08/19/18 12:00 08/23/18 19:17 Levaquin 750 Mg Premix Inj IV.SIG Infused Q24H ROSEMARIE Infusion Potassium Chloride 40 meq in 100 mls @ 50 mls/hr 08/19/18 09:31 08/22/18 05: 39 Kcl 40 Meq Premix Inj IV.SIG Infused Q2H PRN Infusion For Potassium 2.8 - 3.2 mEq/L Potassium Chloride 40 meq in 100 mls @ 25 mls/hr 08/19/18 09:31 08/23/18 19: 17 Kcl 40 Meq Premix Inj IV.SIG Infused UNSCH PRN Infusion For Potassium 3.3 - 3.5 mEq/L Amiodarone HCl 450 mg/ Sodium 250 mls @ 33.33 mls/hr 08/20/18 06:45 08/24/18 06:00 Chloride IV.CONT 0.5 mg/min TITRATE PRN 16.66 mls/hr Per Protocol Titration Protocol 1 MG/MIN Insulin Detemir 10 unit 08/21/18 21:00 08/23/18 08:13 Levemir Inj SQ 10 unit BID ROSEMARIE Administration Insulin Human Regular 0 units 08/19/18 12:00 08/24/18 07:42 Novolin R Correctional Sugar Inj SQ Not Given Q6HR [facility] Protocol Metoprolol Tartrate 2.5 mg 08/23/18 00:39 08/24/18 01:48 Lopressor Inj IV.PUSH 2.5 mg Q6H PRN Administration heart rate >120 Miscellaneous Medication 1 each 08/19/18 12:00 08/24/18 05:02 OROPHARYNG 1 each 0000,0400,1200,1600 ROSEMARIE Administration Prednisone 60 mg 08/24/18 09:00 08/24/18 08:24 Deltasone PO 60 mg DAILY ROSEMARIE Administration Senna/Docusate Sodium 1 tab 08/18/18 09:00 08/23/18 21:44 Adelia-Colace PO 1 tab BID ROSEMARIE Administration Sodium Chloride 2 ml 08/20/18 09:00 08/24/18 08:24 Ns Flush IV.FLUSH 2 ml BID ROSEMARIE Administration Whey 1 packet 08/20/18 13:00 08/24/18 08:25 Beneprotein Powder G-TUBE 1 packet TID ROSEMARIE Administration Objective Remarks: GENERAL: Ill-appearing elderly male patient, sitting upright. SKIN: Warm and dry. HEAD: Normocephalic. EYES: No scleral icterus. No injection or drainage. NECK: Supple, trachea midline. CARDIOVASCULAR: Regular rate and rhythm without murmurs. RESPIRATORY: Rhonchi anteriorly. Patient with frequent weak cough. On 5 L nasal cannula. GASTROINTESTINAL: Abdomen soft, non-tender, nondistended. EXTREMITIES: No cyanosis, or edema. MUSCULOSKELETAL: Generalized weakness NEUROLOGICAL: Awake and alert. Follows commands. Assessment/Plan - Plan Mr. Israel is a 77-year-old gentleman, who was diagnosed with non-small cell lung cancer approximately 1 month ago. He is under the care of Dr. Berger. Dr. Yu spoke with the patients oncologist, Dr. Berger, patient received Keytruda on 08/06/18. The patient reportedly developed pneumonia and was given a Z-Delano. His symptoms did not improve and he had worsening respiratory status and he came to the emergency room. The patient is currently admitted for respiratory failure, currently intubated and sedated. Plan: 1. Noted pathology from pleural fluid shows results consistent with non-small cell carcinoma. 2. At his current status, the patient would not be eligible for any further treatment unless his performance status improves 3. Appreciate palliative care following. 4. Continue steroids, supportive care - Attending Statement The exam, history, and the medical decision-making described in the above note were completed with the assistance of the mid-level provider. I reviewed and agree with the findings presented. I attest that I had a [id number] encounter with the patient on the same day, and personally performed and documented my assessment and findings in the medical record. 77 yoM with metastatic NSCLC s/p one dose of Keytruda admitted with septic shock , pneumonia, respiratory distress. He follows with oncologist Dr. Berger. Long conversation with patient's . He is currently DNR. He is not a candidate at this time for further therapy due to performance status. Family discussion with palliative care team scheduled for Sunday.
[2018-08-24] MEDS: Budesonide-Formoterol 160/4.5 MCG 6 GM Inhaler INH SCH ×2 (13:53→20:38)
[2018-08-24] MEDS: Senna/Docusate Sodium 8.6/50 MG Tablet PO SCH ×2 (19:07→20:37)
[2018-08-25] MEDS: Insulin NovoLIN Regular Correctional Sugar Inj SQ SCH ×4 (00:14→20:03)
[2018-08-25] MEDS: Oral Hygiene Kit OROPHARYNG SCH ×3 (00:14→20:02)
[2018-08-25] MEDS: Amiodarone Inj 450 MG in Sodium Chlor 0.9% Inj 241 ML IV.CONT PRN ×2 (05:44→21:00)
[2018-08-25] MEDS: Metoprolol Inj 5 MG/5 ML Vial IV.PUSH PRN (06:27)
[2018-08-25] MEDS: Senna/Docusate Sodium 8.6/50 MG Tablet PO SCH ×2 (08:09→20:37)
[2018-08-25] MEDS: Chlorhexidine 0.12% Oral Kit 15 ML UDC OROPHARYNG SCH ×2 (08:10→20:35)
[2018-08-25] MEDS: predniSONE 20 MG Tablet PO SCH (08:10)
[2018-08-25] MEDS: Beneprotein Powder Packet G-TUBE SCH ×3 (08:10→20:03)
[2018-08-25] MEDS: Sodium Chloride 0.9% 2 ML Flush BID IV.FLUSH SCH ×2 (08:11→20:37)
[2018-08-25] MEDS: Famotidine PF Inj 20 MG/2 ML Vial IV.PUSH SCH ×2 (08:11→20:37)
--- NOTE | 2018-08-25 08:26 | P.PNCC ---
Subjective Subjective Remarks/Hospital Course: his is a 77-year-old male with a PMH of chronic atrial fibrillation, type 2 diabetes, hypertension, dyslipidemia, Lung cancer currently receiving immunotherapy who presented to the emergency department with shortness of breath of one-week duration. Pt was recently diagnosed with Lung CA approx 1 month ago, following with Dr. Berger, had first treatment few weeks ago. Last week had an outpatient x-ray which showed pneumonia and was placed on Z-Delano with only minimal or no improvement. Because of worsening symptoms he presented to the emergency department and was admitted to the hospitalist on 08/17/2018. On admission his WBC 19.8. INR 2.1. Creatinine 1.86, and Lactic Acid 2.6. CXR with increasing consolidation right lung, stable infiltrate left lung. Patient was transferred to the ICU overnight for increasing shortness of breath and BiPAP requirement. Today critical care was emergently consulted as patient was not tolerating BiPAP and was severely short of breath, chest x-ray showed increasing bilateral infiltrates. Patient was also in atrial fibrillation with RVR. I immediately evaluated the patient, on simple mask he was maintaining saturation 90%. However he was severely short of breath and had extensive bilateral crackles, with tachypnea breathing approximately 40 breaths/min. After discussion with the patient I intubated and placed him on mechanical ventilation. Currently receiving vancomycin and cefepime. I have increased the cefepime dose to 2 g IV every 8 hours, continue vancomycin and added Levaquin [address] of the chest to evaluate for effusion ordered. Postintubation patient was hypotensive, given 2 L IV fluid boluses, followed by vasopressin started at 0.04 international units/min. For A. fib with RVR started on amiodarone bolus and infusion per protocol. Patient is critically ill at this time SUBJ 08/20: Remains intubated sedated critically ill. Remains in septic shock currently on vasopressin 0.04 international units and Gaurav-Synephrine 30 mcg/kg/ min. However WBC count is stable to trending down, creatinine has normalized. Right chest tube placed with almost 3.2L blood-tinged effusion drained in 24 hours. Right DVT in the lower extremity status post IVC filter placement asked patient cannot be anticoagulated at this time due to thrombocytopenia. 08/21: Patient is clinically improving. Chest x-ray shows mild positive fluid balance and left small effusion right effusion appears to be drained. Patient wakes up easily and follows commands. Will stop IV fluids give IV Lasix 40 mg x1 and attempt extubation. Platelet count remains low at 76. Patient started on high-dose Solu-Medrol per oncology recommendation for possible pneumonitis from immunotherapy 08/22: Intermittently short of breath currently calm. Coarse crackles bilaterally. Overnight agitated started on Precedex, now. Chest x-ray shows left-sided effusion. On ultrasound appears to have dense fluid ?hemothorax. Will check CT of the chest 08/23 Patient is on 5L oxygen with good sats. Afebrile. 08/24: Remains on nasal cannula but coarse rhonchi bilaterally with some difficulty clearing secretions. Agitated requiring Precedex and restraints. Pleural effusion is malignant making stage IV cancer probably incurable will discuss with family and oncology 08/25: Clinically worsening increasing shortness of breath. Currently on 100% nonrebreather with oxygen saturation 90-92%. Diffuse bilateral crackles. I had a family meeting yesterday decided to change CODE STATUS to DNR but not ready for hospice yet. Meeting with palliative care tomorrow. Objective Vital Signs / I&O: Vital Signs 08/24/18 09:00 08/24/18 10:00 08/24/18 11:00 Temperature Pulse Rate 121 H 128 H 121 H Respiratory Rate 39 H 28 H 35 H Blood Pressure 137/60 94/71 L Pulse Oximetry 100 100 98 08/24/18 11:01 08/24/18 11:43 08/24/18 11:56 Temperature Pulse Rate 121 H 113 H 95 H Respiratory Rate 28 H 20 19 Blood Pressure 171/75 H 151/77 H Pulse Oximetry 98 98 08/24/18 12:00 08/24/18 13:00 08/24/18 14:00 Temperature 97.8 F Pulse Rate 118 H 102 H 101 H Respiratory Rate 20 21 19 Blood Pressure 155/67 H 150/72 H Pulse Oximetry 98 91 L 96 08/24/18 14:04 08/24/18 15:00 08/24/18 15:45 Temperature Pulse Rate 121 H 101 H 133 H Respiratory Rate 22 22 26 H Blood Pressure 144/79 H 171/88 H 197/121 H Pulse Oximetry 96 95 94 L 08/24/18 15:49 08/24/18 16:00 08/24/18 16:18 Temperature 97.2 F L Pulse Rate 110 H 80 89 Respiratory Rate 24 21 18 Blood Pressure 167/86 H 157/70 H Pulse Oximetry 94 L 97 08/24/18 17:00 08/24/18 17:11 08/24/18 18:00 Temperature Pulse Rate 120 H 114 H 101 H Respiratory Rate 28 H 26 H 18 Blood Pressure 177/118 H 173/109 H 160/84 H Pulse Oximetry 85 L 93 L 94 L 08/24/18 19:00 08/24/18 20:00 08/24/18 21:00 Temperature 98.1 F Pulse Rate 93 H 115 H 133 H Respiratory Rate 19 21 25 H Blood Pressure 140/85 145/64 H 149/71 H Pulse Oximetry 98 83 L 82 L 08/24/18 22:00 08/24/18 22:10 08/24/18 23:00 Temperature Pulse Rate 84 94 H Respiratory Rate 20 20 Blood Pressure 135/62 121/66 Pulse Oximetry 83 L 94 L 91 L 08/25/18 00:00 08/25/18 01:00 08/25/18 02:00 Temperature 97.9 F Pulse Rate 132 H 99 H 108 H Respiratory Rate 29 H 19 20 Blood Pressure 185/95 H 134/58 L 126/67 Pulse Oximetry 90 L 90 L 92 L 08/25/18 03:00 08/25/18 04:00 08/25/18 04:14 Temperature 98.0 F Pulse Rate 133 H 120 H 114 H Respiratory Rate 29 H 22 30 H Blood Pressure 122/66 119/81 Pulse Oximetry 94 L 94 L 08/25/18 05:00 08/25/18 06:00 08/25/18 07:00 Temperature Pulse Rate 119 H 122 H 78 Respiratory Rate 23 23 22 Blood Pressure 129/60 153/97 H 142/72 H Pulse Oximetry 93 L 96 97 08/25/18 08:21 Temperature Pulse Rate 89 Respiratory Rate 24 Blood Pressure Pulse Oximetry 92 L Intake & Output 08/24/18 08/25/18 08/25/18 18:59 06:59 18:59 Intake Total 250 / 250 860 / 860 Output Total 1450 / 1450 810 / 810 Balance -1200 / -1200 50 / 50 Weight 69 kg Intake: IV 250 / 250 250 / 250 Cordarone Inj 450 MG In NS Inj 250 / 250 250 / 250 241 ML @ 1 MG/MIN 33.33 mls/hr IV.CONT TITRATE PRN Rx#: [id number] Tube Feeding 490 / 490 Water Bolus Amount 120 / 120 Output: Urine Amount (Catheter) 1450 / 1450 800 / 800 Indwelling Urethral Catheter 1450 / 1450 800 / 800 Chest Tube Drainage #1 Right Pleural Other: # Bowel Movements 0 Result Diagrams: 08/24/18 03:35 08/25/18 03:54 Objective Remarks: GENERAL: Frail elderly male, lying in bed intermittently distressed when unable to clear secretions. CARDIOVASCULAR: Atrial fibrillation with controlled ventricular rate. No murmurs. RESPIRATORY: On NRB. Bilateral coarse rhonchi and crackles all over the anterior chest. R pigtail chest tube in place GASTROINTESTINAL: Abdomen soft, non-tender, non-distended. Normal active bowel sounds MUSCULOSKELETAL: Extremities without cyanosis, right lower extremity swollen with 1+ pitting edema NEURO: alert, awake oriented to person not oriented to time or place. Follows commands x4 no focal deficits. Intermittently agitated Assessment and Plan - Assessment and Plan Plan: NEURO: Agitated delirium -Off Precedex. Add morphine 2 mg IV every 3 hours as needed for anxiety and pain and air hunger -Delirium most likely secondary to sepsis and sundowning RESP: Acute hypoxemic respiratory failure-worsening Severe bilateral pneumonia Large right malignant pleural effusion moderate left pleural effusion, Possible pneumonitis secondary to immunotherapy Metastatic lung cancer Clinically tolerating and currently on 100% nonrebreather DuoNeb every 4 hours scheduled and as needed. Chest x-ray is pending 08/22 CT chest: Interval placement of right sided chest tube with decrease in right effusion with multiple residual. Minimal left effusion. Dense consolidation in the both lower lobes. Multiple noncalcified pulmonary nodules consistent with metastatic disease. Cholelithiasis with multiple calcified gallstones. -s/p right pigtail chest tube placement, fluid studies shows adenocarcinoma -Lung cancer stage IV incurable, not a candidate for any therapy due to his severe debility -IV Solu-Medrol 60 mg every 6 hours per oncology CV: Atrial fibrillation with RVR, now rate controlled Septic shock-improved Lactic acidosis History of hypertension History of CABG and AVR -Monitor HR and BP keep MAP>65mmHg -On IV Lasix 40 mg every 12. On Lopressor 25mg BID -Amiodarone infusion -Status post AVR and CABG last year for severe and coronary artery disease -Echo showed the left ventricular systolic function is mildly reduced EF 45-50% . GI: -IV famotidine. NGT feeding -Bowel regimen : Acute kidney injury -Monitor renal function, I/O's, electrolytes replacement per protocol. -For K replacement today. On Lasix 40mg Q12 ID: Septic shock-resolved Bilateral pneumonia Immunocompromise state due to lung cancer -Antibiotics per ID. On IV Levaquin per ID, vancomycin and cefepime discontinued 08/23/2018 -Blood urine and sputum cultures follow-up- NGTD -Neg influenza, Neg for urine Legionella and pneumococcal antigen HEME: Right lower extremity DVT Thrombocytopenia Recently diagnosed lung CA Coagulopathy ?secondary to DIC -Unable to anticoagulate due to thrombocytopenia and coagulopathy -Status post IVC filter placement by IR on 08/19/2018 -Appreciate consult from Dr. Yu. Oncologist is Dr. Berger. Recently started on immunotherapy per family (?Keytruda) -Monitor CBC, coag -Pleural effusion is malignant making the cancer stage IV. Incurable, no treatment options can be offered due to poor functional status -s/p 2 units FFP for chest tube placement -Continue high-dose IV Solu-Medrol ENDO: Type 2 diabetes with hyperglycemia Hypertension -Electrolyte replacement per protocol -Sliding scale insulin, Levemir PROPH: -Left lower extremity SCDs. IV famotidine -No anticoagulation at this time due to thrombocytopenia and coagulopathy LINES: -Right subclavian central line placed 08/19/2018. Palliative care is following Level 3 Patient has stage IV lung cancer. He can tolerate any more chemotherapy or radiation due to severe debility. DNR now. Recommend Hospice
[2018-08-25] MEDS: Morphine Sulfate Inj 2 MG/ML Vial IV.PUSH PRN ×2 (08:42→11:39)
--- NOTE | 2018-08-25 08:50 | XR ---
EXAM DATE: 08/25/2018 9:00 AM EDT AGE/SEX: 77 years / Male INDICATIONS: Shortness of breath. CLINICAL DATA: This is the patient's initial encounter. Patient reports that signs and symptoms have been present for 1 day and indicates a pain score of Nonresponsive. MEDICAL/SURGICAL HISTORY: . Hypertension. Carcinoma, lung. CABG. . COMPARISON: . FINDINGS: The patient is status post sternotomy. There is an NG tube in place with tip directed into the stomac h. The heart size is normal. There is diffuse mixed interstitial and alveolar consolidation being wor se at the bases. There is silhouetting the right hemidiaphragm. CONCLUSION: Diffuse consolidation likely related to diffuse processes such as edema and/or infection. There is mo re alveolar density seen at the bases especially on the right. Some degree of right effusion can be c onsidered. Electronically signed by: Davis Santiago MD 08/25/2018 8:49 AM EDT
[2018-08-25] MEDS ORDERED: Levofloxacin 500 mg Premix Inj 500 MG/100 ML PIGGYBACK IV.SIG SCH (09:00)
[2018-08-25] MEDS: Dexmedetomidine Inj 200 MCG in Sodium Chlor 0.9% Inj 48 ML IV.CONT PRN ×2 (09:30→23:38)
[2018-08-25] MEDS: Budesonide-Formoterol 160/4.5 MCG 6 GM Inhaler INH SCH ×2 (14:14→20:38)
[2018-08-25] MEDS: Insulin Detemir Inj 1,000 UNIT/10 ML Vial SQ SCH ×2 (14:14→20:36)
[2018-08-25] MEDS: Hyoscyamine Inj 0.5 MG/ML Ampul IV.PUSH PRN ×2 (14:56→20:26)
[2018-08-25] MEDS: Morphine Inj 4 MG/ML Vial IV.PUSH PRN ×4 (14:56→23:40)
[2018-08-26] MEDS: Insulin NovoLIN Regular Correctional Sugar Inj SQ SCH ×3 (02:52→13:55)
[2018-08-26] MEDS: Oral Hygiene Kit OROPHARYNG SCH ×3 (02:53→14:36)
[2018-08-26] MEDS: Morphine Inj 4 MG/ML Vial IV.PUSH PRN ×5 (03:01→14:37)
[2018-08-26] MEDS: Hyoscyamine Inj 0.5 MG/ML Ampul IV.PUSH PRN ×2 (03:02→08:25)
--- NOTE | 2018-08-26 07:38 | P.PNCC ---
Subjective Subjective Remarks/Hospital Course: his is a 77-year-old male with a PMH of chronic atrial fibrillation, type 2 diabetes, hypertension, dyslipidemia, Lung cancer currently receiving immunotherapy who presented to the emergency department with shortness of breath of one-week duration. Pt was recently diagnosed with Lung CA approx 1 month ago, following with Dr. Berger, had first treatment few weeks ago. Last week had an outpatient x-ray which showed pneumonia and was placed on Z-Del[place] with only minimal or no improvement. Because of worsening symptoms he presented to the emergency department and was admitted to the hospitalist on 08/17/2018. On admission his WBC 19.8. INR 2.1. Creatinine 1.86, and Lactic Acid 2.6. CXR with increasing consolidation right lung, stable infiltrate left lung. Patient was transferred to the ICU overnight for increasing shortness of breath and BiPAP requirement. Today critical care was emergently consulted as patient was not tolerating BiPAP and was severely short of breath, chest x-ray showed increasing bilateral infiltrates. Patient was also in atrial fibrillation with RVR. I immediately evaluated the patient, on simple mask he was maintaining saturation 90%. However he was severely short of breath and had extensive bilateral crackles, with tachypnea breathing approximately 40 breaths/min. After discussion with the patient I intubated and placed him on mechanical ventilation. Currently receiving vancomycin and cefepime. I have increased the cefepime dose to 2 g IV every 8 hours, continue vancomycin and added Levaquin [address] A stat [address] of the chest to evaluate for effusion ordered. Postintubation patient was hypotensive, given 2 L IV fluid boluses, followed by vasopressin started at 0.04 international units/min. For A. fib with RVR started on amiodarone bolus and infusion per protocol. Patient is critically ill at this time SUBJ 08/20: Remains intubated sedated critically ill. Remains in septic shock currently on vasopressin 0.04 international units and Gaurav-Synephrine 30 mcg/kg/ min. However WBC count is stable to trending down, creatinine has normalized. Right chest tube placed with almost 3.2L blood-tinged effusion drained in 24 hours. Right DVT in the lower extremity status post IVC filter placement asked patient cannot be anticoagulated at this time due to thrombocytopenia. 08/21: Patient is clinically improving. Chest x-ray shows mild positive fluid balance and left small effusion right effusion appears to be drained. Patient wakes up easily and follows commands. Will stop IV fluids give IV Lasix 40 mg x1 and attempt extubation. Platelet count remains low at 76. Patient started on high-dose Solu-Medrol per oncology recommendation for possible pneumonitis from immunotherapy 08/22: Intermittently short of breath currently calm. Coarse crackles bilaterally. Overnight agitated started on Precedex, now. Chest x-ray shows left-sided effusion. On ultrasound appears to have dense fluid ?hemothorax. Will check CT of the chest 08/23 Patient is on 5L oxygen with good sats. Afebrile. 08/24: Remains on nasal cannula but coarse rhonchi bilaterally with some difficulty clearing secretions. Agitated requiring Precedex and restraints. Pleural effusion is malignant making stage IV cancer probably incurable will discuss with family and oncology 08/25: Clinically worsening increasing shortness of breath. Currently on 100% nonrebreather with oxygen saturation 90-92%. Diffuse bilateral crackles. I had a family meeting yesterday decided to change CODE STATUS to DNR but not ready for hospice yet. Meeting with palliative care tomorrow. 08/26: Patient currently on comfort measures only. Family yesterday requested comfort measures and they signed the refusal of treatment form 08/25/2018. BiPAP was discontinued. Remains on Precedex and as needed IV Ativan and morphine for comfort. Hospice consult Objective Vital Signs / I&O: Vital Signs 08/25/18 08:00 08/25/18 08:21 08/25/18 09:00 Temperature 98.8 F Pulse Rate 88 89 138 H Respiratory Rate 20 24 34 H Blood Pressure Pulse Oximetry 88 L 92 L 67 L 08/25/18 09:01 08/25/18 10:00 08/25/18 11:00 Temperature Pulse Rate 137 H 112 H 86 Respiratory Rate 29 H 45 H 34 H Blood Pressure 127/68 113/58 L 105/59 L Pulse Oximetry 75 L 99 100 08/25/18 12:00 08/25/18 13:00 08/25/18 14:00 Temperature 97.9 F Pulse Rate 83 80 79 Respiratory Rate 35 H 38 H 34 H Blood Pressure 99/58 L 100/61 101/55 L Pulse Oximetry 96 96 96 08/25/18 15:00 08/25/18 15:15 08/25/18 15:30 Temperature Pulse Rate 81 91 H 93 H Respiratory Rate 36 H 16 16 Blood Pressure 93/56 L 90/53 L 91/53 L Pulse Oximetry 95 75 L 62 L 08/25/18 15:45 08/25/18 16:00 08/25/18 16:15 Temperature 98.2 F Pulse Rate 93 H 94 H 92 H Respiratory Rate 17 18 17 Blood Pressure 99/54 L 99/54 L 98/53 L Pulse Oximetry 65 L 66 L 70 L 08/25/18 16:30 08/25/18 16:45 08/25/18 17:00 Temperature Pulse Rate 90 88 87 Respiratory Rate 15 15 15 Blood Pressure 70/47 L 96/51 L 94/55 L Pulse Oximetry 72 L 74 L 76 L 08/25/18 17:15 08/25/18 17:30 08/25/18 17:45 Temperature Pulse Rate 87 87 86 Respiratory Rate 15 14 15 Blood Pressure 90/55 L 82/50 L 98/54 L Pulse Oximetry 75 L 75 L 75 L 08/25/18 18:00 08/25/18 18:15 08/25/18 18:30 Temperature Pulse Rate 85 84 84 Respiratory Rate 15 14 13 Blood Pressure 92/51 L 89/54 L 90/51 L Pulse Oximetry 78 L 78 L 77 L 08/25/18 18:45 08/25/18 19:00 08/25/18 19:15 Temperature Pulse Rate 83 83 84 Respiratory Rate 14 14 14 Blood Pressure 95/51 L 85/52 L 95/51 L Pulse Oximetry 77 L 77 L 77 L 08/25/18 19:30 08/25/18 19:45 08/25/18 20:00 Temperature 96.8 F L Pulse Rate 84 83 83 Respiratory Rate 13 13 13 Blood Pressure 93/51 L 90/50 L 90/53 L Pulse Oximetry 77 L 77 L 77 L 08/25/18 20:15 08/25/18 20:30 08/25/18 21:00 Temperature Pulse Rate 84 91 H 92 H Respiratory Rate 13 13 12 Blood Pressure 89/51 L 92/54 L 91/52 L Pulse Oximetry 74 L 75 L 71 L 08/25/18 22:00 08/25/18 23:00 08/25/18 23:40 Temperature Pulse Rate 89 83 Respiratory Rate 12 10 L 14 Blood Pressure 90/54 L 87/50 L Pulse Oximetry 77 L 83 L 08/26/18 00:00 08/26/18 01:00 08/26/18 02:00 Temperature 98.0 F Pulse Rate 84 83 82 Respiratory Rate 10 L 10 L 9 L Blood Pressure 91/51 L 98/52 L 101/53 L Pulse Oximetry 73 L 75 L 77 L 08/26/18 03:00 08/26/18 04:00 08/26/18 05:00 Temperature 97.8 F Pulse Rate 80 85 84 Respiratory Rate 9 L 10 L 11 L Blood Pressure 97/54 L 96/54 L Pulse Oximetry 79 L 78 L 83 L 08/26/18 05:01 08/26/18 06:00 08/26/18 06:12 Temperature Pulse Rate 86 134 H 86 Respiratory Rate 8 L 9 L 9 L Blood Pressure 113/54 L 101/59 L Pulse Oximetry 86 L 88 L 85 L 08/26/18 06:55 08/26/18 07:00 08/26/18 07:30 Temperature Pulse Rate 83 Respiratory Rate 10 L 18 Blood Pressure 106/57 L Pulse Oximetry 85 L 92 L Intake & Output 08/25/18 08/26/18 08/26/18 18:59 06:59 18:59 Intake Total 100 / 100 300 / 300 170 / 170 Output Total 550 / 550 250 / 250 Balance -450 / -450 50 / 50 170 / 170 Weight 67.5 kg Intake: IV 100 / 100 300 / 300 170 / 170 Cordarone Inj 450 MG In NS Inj 250 / 250 170 / 170 241 ML @ 1 MG/MIN 33.33 mls/hr IV.CONT TITRATE PRN Rx#: [id number] Precedex Inj 200 MCG In NS Inj 50 / 50 48 ML @ 0.2 MCG/KG/HR 3.45 mls/ hr IV.CONT TITRATE PRN Rx#: [id number] Levaquin 500 mg Premix Inj 500 100 / 100 mg In 100 ml @ 100 mls/hr IV. SIG Q24H REJI Rx#:[id number] Output: Urine Amount (Catheter) 550 / 550 250 / 250 Indwelling Urethral Catheter 550 / 550 250 / 250 Chest Tube Drainage 0 / 0 0 / 0 #1 Right Pleural 0 / 0 0 / 0 Result Diagrams: 08/24/18 03:35 08/25/18 03:54 Objective Remarks: GENERAL: Frail elderly male, lying in bed sedated comfortable CARDIOVASCULAR: Atrial fibrillation with controlled ventricular rate. No murmurs. RESPIRATORY: On NC -Sat 86%. Bilateral coarse rhonchi and crackles all over the anterior chest. R pigtail chest tube in place GASTROINTESTINAL: Abdomen soft, non-tender, non-distended. Normal active bowel sounds MUSCULOSKELETAL: Extremities without cyanosis, right lower extremity swollen with 1+ pitting edema NEURO: Heavily sedated for patient comfort Assessment and Plan - Assessment and Plan Plan: NEURO: Agitated delirium -Continue Precedex -Continue as needed IV morphine and IV Ativan for agitation and pain RESP: Acute hypoxemic respiratory failure Severe bilateral pneumonia Large right malignant pleural effusion moderate left pleural effusion, Possible pneumonitis secondary to immunotherapy Metastatic lung cancer -Currently on comfort measures only. BiPAP was discontinued yesterday -Bronchodilators as needed. Nasal cannula oxygen with no titration CV: Atrial fibrillation with RVR, now rate controlled Septic shock-improved Lactic acidosis History of hypertension History of CABG and AVR -Continue Lasix for comfort -Amiodarone and beta-blockers discontinued GI: -IV famotidine. NGT feeding : Acute kidney injury ID: Bilateral pneumonia Immunocompromise state due to lung cancer -IV Levaquin discontinued -Blood urine and sputum cultures follow-up- NGTD -Neg influenza, Neg for urine Legionella and pneumococcal antigen HEME: Right lower extremity DVT Thrombocytopenia Recently diagnosed lung CA/metastatic with malignant pleural effusion Coagulopathy ?secondary to DIC --Status post IVC filter placement by IR on 08/19/2018 -Appreciate consult from Dr. Yu. Oncologist is Dr. Berger. Recently started on immunotherapy per family (?Keytruda) -Pleural effusion is malignant making the cancer stage IV. Incurable, no treatment options can be offered due to poor functional status ENDO: Type 2 diabetes with hyperglycemia Hypertension -Electrolyte replacement per protocol -Sliding scale insulin, Levemir PROPH: -Left lower extremity SCDs. IV famotidine -No anticoagulation at this time due to thrombocytopenia and coagulopathy LINES: -Right subclavian central line placed 08/19/2018 was DCd Palliative care is following. Hospice consult Level 1 Code Status: DNR
[2018-08-26] MEDS: Famotidine PF Inj 20 MG/2 ML Vial IV.PUSH SCH (08:23)
[2018-08-26] MEDS: Beneprotein Powder Packet G-TUBE SCH ×2 (11:05→14:36)
[2018-08-26] MEDS: Insulin Detemir Inj 1,000 UNIT/10 ML Vial SQ SCH (11:05)
[2018-08-26] MEDS: predniSONE 20 MG Tablet PO SCH (11:05)
[2018-08-26] MEDS: Budesonide-Formoterol 160/4.5 MCG 6 GM Inhaler INH SCH (11:06)
[2018-08-26] MEDS: Senna/Docusate Sodium 8.6/50 MG Tablet PO SCH (11:06)
--- NOTE | 2018-08-26 11:19 | P.PNONC ---
Subjective Interval history: Obtunded. Continues on Precedex drip. Family at the bedside. Patient receiving comfort measures only at family's request. Awaiting meeting with hospice today. Discussed with RN. Objective Vital Signs/Intake & Output: Vital Signs 08/25/18 12:00 08/25/18 13:00 08/25/18 14:00 Temperature 97.9 F Pulse Rate 83 80 79 Respiratory Rate 35 H 38 H 34 H Blood Pressure 99/58 L 100/61 101/55 L Pulse Oximetry 96 96 96 08/25/18 15:00 08/25/18 15:15 08/25/18 15:30 Temperature Pulse Rate 81 91 H 93 H Respiratory Rate 36 H 16 16 Blood Pressure 93/56 L 90/53 L 91/53 L Pulse Oximetry 95 75 L 62 L 08/25/18 15:45 08/25/18 16:00 08/25/18 16:15 Temperature 98.2 F Pulse Rate 93 H 94 H 92 H Respiratory Rate 17 18 17 Blood Pressure 99/54 L 99/54 L 98/53 L Pulse Oximetry 65 L 66 L 70 L 08/25/18 16:30 08/25/18 16:45 08/25/18 17:00 Temperature Pulse Rate 90 88 87 Respiratory Rate 15 15 15 Blood Pressure 70/47 L 96/51 L 94/55 L Pulse Oximetry 72 L 74 L 76 L 08/25/18 17:15 08/25/18 17:30 08/25/18 17:45 Temperature Pulse Rate 87 87 86 Respiratory Rate 15 14 15 Blood Pressure 90/55 L 82/50 L 98/54 L Pulse Oximetry 75 L 75 L 75 L 08/25/18 18:00 08/25/18 18:15 08/25/18 18:30 Temperature Pulse Rate 85 84 84 Respiratory Rate 15 14 13 Blood Pressure 92/51 L 89/54 L 90/51 L Pulse Oximetry 78 L 78 L 77 L 08/25/18 18:45 08/25/18 19:00 08/25/18 19:15 Temperature Pulse Rate 83 83 84 Respiratory Rate 14 14 14 Blood Pressure 95/51 L 85/52 L 95/51 L Pulse Oximetry 77 L 77 L 77 L 08/25/18 19:30 08/25/18 19:45 08/25/18 20:00 Temperature 96.8 F L Pulse Rate 84 83 83 Respiratory Rate 13 13 13 Blood Pressure 93/51 L 90/50 L 90/53 L Pulse Oximetry 77 L 77 L 77 L 08/25/18 20:15 08/25/18 20:30 08/25/18 21:00 Temperature Pulse Rate 84 91 H 92 H Respiratory Rate 13 13 12 Blood Pressure 89/51 L 92/54 L 91/52 L Pulse Oximetry 74 L 75 L 71 L 08/25/18 22:00 08/25/18 23:00 08/25/18 23:40 Temperature Pulse Rate 89 83 Respiratory Rate 12 10 L 14 Blood Pressure 90/54 L 87/50 L Pulse Oximetry 77 L 83 L 08/26/18 00:00 08/26/18 01:00 08/26/18 02:00 Temperature 98.0 F Pulse Rate 84 83 82 Respiratory Rate 10 L 10 L 9 L Blood Pressure 91/51 L 98/52 L 101/53 L Pulse Oximetry 73 L 75 L 77 L 08/26/18 03:00 08/26/18 04:00 08/26/18 05:00 Temperature 97.8 F Pulse Rate 80 85 84 Respiratory Rate 9 L 10 L 11 L Blood Pressure 97/54 L 96/54 L Pulse Oximetry 79 L 78 L 83 L 08/26/18 05:01 08/26/18 06:00 08/26/18 06:12 Temperature Pulse Rate 86 134 H 86 Respiratory Rate 8 L 9 L 9 L Blood Pressure 113/54 L 101/59 L Pulse Oximetry 86 L 88 L 85 L 08/26/18 06:55 08/26/18 07:00 08/26/18 07:30 Temperature Pulse Rate 83 Respiratory Rate 10 L 18 Blood Pressure 106/57 L Pulse Oximetry 85 L 92 L 08/26/18 08:00 Temperature Pulse Rate 99 H Respiratory Rate Blood Pressure Pulse Oximetry Intake & Output 08/25/18 08/26/18 08/26/18 18:59 06:59 18:59 Intake Total 100 / 100 300 / 300 170 / 170 Output Total 550 / 550 250 / 250 Balance -450 / -450 50 / 50 170 / 170 Weight 67.5 kg Intake: IV 100 / 100 300 / 300 170 / 170 Cordarone Inj 450 MG In NS Inj 250 / 250 170 / 170 241 ML @ 1 MG/MIN 33.33 mls/hr IV.CONT TITRATE PRN Rx#: [id number] Precedex Inj 200 MCG In NS Inj 50 / 50 48 ML @ 0.2 MCG/KG/HR 3.45 mls/ hr IV.CONT TITRATE PRN Rx#: [id number] Levaquin 500 mg Premix Inj 500 100 / 100 mg In 100 ml @ 100 mls/hr IV. SIG Q24H ROSEMARIE Rx#:[id number] Output: Urine Amount (Catheter) 550 / 550 250 / 250 Indwelling Urethral Catheter 550 / 550 250 / 250 Chest Tube Drainage 0 / 0 0 / 0 #1 Right Pleural 0 / 0 0 / 0 Result Diagrams: 08/24/18 03:35 08/25/18 03:54 Culture Results: Microbiology 08/19/18 11:11 Aerobic Blood Culture - Final Blood - Peripheral No growth in 5 days Anaerobic Blood Culture - Final No growth in 5 days 08/19/18 11:05 Aerobic Blood Culture - Final Blood - Peripheral No growth in 5 days Anaerobic Blood Culture - Final No growth in 5 days Medications: Active Medications Generic Name Dose Route Start Last Admin Trade Name Freq PRN Reason Stop Dose Admin Albuterol 1 ampul 08/17/18 22:58 08/22/18 09:48 Duoneb Neb (Prn) NEB 1 ampul Q4HR NEB PRN Administration SOB/WHEEZING Albuterol 1 ampul 08/21/18 12:00 08/26/18 07:28 Duoneb Neb (Rosemarie) NEB 1 ampul Q4HR NEB ROSEMARIE Administration Amlodipine Besylate 5 mg 08/19/18 09:00 08/19/18 10:54 Norvasc PO 5 mg DAILY ROSEMARIE Administration Benzonatate 100 mg 08/17/18 22:58 08/18/18 08:02 Tessalon Perles PO 100 mg QID PRN Administration Cough Budesonide/Formoterol Fumarate 2 puff 08/18/18 09:00 08/26/18 11:06 Symbicort 160/4.5 Mcg Inh INH Not Given BID [facility] Chlorhexidine Gluconate 15 ml 08/19/18 20:00 08/25/18 20:35 Peridex 0.12% Oral Kit OROPHARYNG Not Given BID@0800,2000 [facility] Famotidine 20 mg 08/19/18 21:00 08/26/18 08:23 Pepcid Pf Inj IV.PUSH 20 mg Q12HR ROSEMARIE Administration Furosemide 40 mg 10/04/18 18:00 08/25/18 20:03 Lasix Inj IV.PUSH Not Given BID@0900,1800 ROSEMARIE Hyoscyamine 0.25 mg 08/25/18 14:49 08/26/18 08:25 Levsin Inj IV.PUSH 0.25 mg Q6H PRN Administration SECRETIONS Dexmedetomidine HCl 200 mcg/ 50 mls @ 3.45 mls/hr 08/25/18 09:30 08/25/18 23: 38 Sodium Chloride IV.CONT 0.3 mcg/kg/hr TITRATE PRN 5.17 mls/hr Per Protocol Administration Protocol 0.2 MCG/KG/HR Insulin Detemir 5 unit 08/25/18 09:00 08/26/18 11:05 Levemir Inj SQ Not Given BID [facility] Insulin Human Regular 0 units 08/19/18 12:00 08/26/18 06:54 Novolin R Correctional Sugar Inj SQ Not Given Q6HR [facility] Protocol Lorazepam 2 mg 08/25/18 13:59 08/26/18 11:10 Ativan Inj IV.PUSH 2 mg Q2H PRN Administration ANXIETY Metoprolol Tartrate 2.5 mg 08/23/18 00:39 08/25/18 06:27 Lopressor Inj IV.PUSH 2.5 mg Q6H PRN Administration heart rate >120 Miscellaneous Medication 1 each 08/19/18 12:00 08/26/18 03:44 OROPHARYNG Not Given 0000,0400,1200,1600 [facility] Morphine Sulfate 3 mg 08/25/18 14:00 08/26/18 11:10 Morphine Inj IV.PUSH 3 mg Q1H PRN Administration pain 1-10,anxiety Prednisone 60 mg 08/24/18 09:00 08/26/18 11:05 Deltasone PO Not Given DAILY [facility] Senna/Docusate Sodium 1 tab 08/18/18 09:00 08/26/18 11:06 Adelia-Colace PO Not Given BID [facility] Sodium Chloride 2 ml 08/20/18 09:00 08/25/18 20:37 Ns Flush IV.FLUSH 2 ml BID ROSEMARIE Administration Whey 1 packet 08/20/18 13:00 08/26/18 11:05 Beneprotein Powder G-TUBE Not Given TID [facility] Objective Remarks: GENERAL: Ill-appearing elderly male patient, obtunded. SKIN: Pale, warm and dry. HEAD: Normocephalic. EYES: No scleral icterus. No injection or drainage. NECK: Supple, trachea midline. CARDIOVASCULAR: Regular rate and rhythm without murmurs. RESPIRATORY: Right expiratory wheezes and bilateral scattered rhonchi throughout. Prolonged inspiratory/expiratory phase. GASTROINTESTINAL: Abdomen soft, non-tender, nondistended. EXTREMITIES: No cyanosis, or edema. NEUROLOGICAL: Obtunded, sedated. Unable to evaluate. Assessment/Plan - Plan Mr. Israel is a 77-year-old gentleman, who was diagnosed with non-small cell lung cancer approximately 1 month ago. He is under the care of Dr. Berger. Dr. Yu spoke with the patients oncologist, Dr. Berger, patient received Keytruda on 08/06/18. The patient reportedly developed pneumonia and was given a Z-Del[place]. His symptoms did not improve and he had worsening respiratory status and he came to the emergency room. The patient is currently admitted for respiratory failure, status post intubation. Currently extubated, continues sedation. Plan: 1. Pathology from pleural fluid shows results consistent with non-small cell carcinoma. 2. Patient a no code DNR, comfort measures only at family's request. 3. Awaiting hospice consult. - Attending Statement Came to see the patient. Patient few minutes ago. Dr. Mendoza from hospice/palliative care is in the room with the patient's family.
[2018-08-26 11:36] VITALS: TEMP 98.7
--- NOTE | 2018-08-26 14:26 | P.DS ---
Date of admission: 08/17/18 23:03 Primary care physician: Natan Ravi MD Attending physician on discharge: Yulisa Cannon Anticipated date of discharge: 08/26/18 Brief History from admission: This is a 77-year-old male with a PMH of HTN and Lung CA presented to ER with complaints of SOB x1wk. Pt states he was recently diagnosed w/ Lung CA approx 1 month ago, following w/ Dr. Berger, had first treatment few weeks ago which he tolerated well, now pending "approval" for immunotherapy. States he developed significant SOB 1wk ago, seen by PCP 5 days ago and had outpatient X-ray showing PNA for which he was started on Z-pack w/ minimal improvement. Reports ongoing SOB in addition to productive cough w/ white "frothy" sputum. Denies fever or chills. On arrival, BP 101/65, HR 105, O2 sat 92% on RA, Afebrile. WBC 19.8. INR 2.1. Creatinine 1.86, previously 0.70 on 02/10/2018. Lactic Acid 2.6. Troponin negative. UA negative for UTI. Exar with increasing consolidation right lung, stable non-consolidative infiltrate left lung. DS: Diagnosis - Discharge Diagnosis (1) Acute hypoxemic respiratory failure Status: Acute (2) Acute metabolic encephalopathy Status: Acute (3) Severe sepsis Status: Acute (4) Hypotension Status: Acute (5) PNA (pneumonia) Status: Acute (6) Atrial fibrillation with RVR Status: Acute (7) Non-small cell lung cancer with metastasis Status: Chronic (8) DM (diabetes mellitus) Status: Chronic (9) Acute kidney injury Status: Chronic (10) Debility Status: Chronic DS: Summary Hospital Course: his is a 77-year-old male with a PMH of chronic atrial fibrillation, type 2 diabetes, hypertension, dyslipidemia, Lung cancer currently receiving immunotherapy who presented to the emergency department with shortness of breath of one-week duration. Pt was recently diagnosed with Lung CA approx 1 month ago, following with Dr. Berger, had first treatment few weeks ago. Last week had an outpatient x-ray which showed pneumonia and was placed on Z-[place] with only minimal or no improvement. Because of worsening symptoms he presented to the emergency department and was admitted to the hospitalist on 08/17/2018. On admission his WBC 19.8. INR 2.1. Creatinine 1.86, and Lactic Acid 2.6. CXR with increasing consolidation right lung, stable infiltrate left lung. Patient was transferred to the ICU overnight for increasing shortness of breath and BiPAP requirement. Today critical care was emergently consulted as patient was not tolerating BiPAP and was severely short of breath, chest x-ray showed increasing bilateral infiltrates. Patient was also in atrial fibrillation with RVR. I immediately evaluated the patient, on simple mask he was maintaining saturation 90%. However he was severely short of breath and had extensive bilateral crackles, with tachypnea breathing approximately 40 breaths/min. After discussion with the patient I intubated and placed him on mechanical ventilation. Currently receiving vancomycin and cefepime. I have increased the cefepime dose to 2 g IV every 8 hours, continue vancomycin and added Levaquin [address] A stat [address] of the chest to evaluate for effusion ordered. Postintubation patient was hypotensive, given 2 L IV fluid boluses, followed by vasopressin started at 0.04 international units/min. For A. fib with RVR started on amiodarone bolus and infusion per protocol. Patient is critically ill at this time SUBJ 08/20: Remains intubated sedated critically ill. Remains in septic shock currently on vasopressin 0.04 international units and Gaurav-Synephrine 30 mcg/kg/ min. However WBC count is stable to trending down, creatinine has normalized. Right chest tube placed with almost 3.2L blood-tinged effusion drained in 24 hours. Right DVT in the lower extremity status post IVC filter placement asked patient cannot be anticoagulated at this time due to thrombocytopenia. 08/21: Patient is clinically improving. Chest x-ray shows mild positive fluid balance and left small effusion right effusion appears to be drained. Patient wakes up easily and follows commands. Will stop IV fluids give IV Lasix 40 mg x1 and attempt extubation. Platelet count remains low at 76. Patient started on high-dose Solu-Medrol per oncology recommendation for possible pneumonitis from immunotherapy 08/22: Intermittently short of breath currently calm. Coarse crackles bilaterally. Overnight agitated started on Precedex, now. Chest x-ray shows left-sided effusion. On ultrasound appears to have dense fluid ?hemothorax. Will check CT of the chest 08/23 Patient is on 5L oxygen with good sats. Afebrile. 08/24: Remains on nasal cannula but coarse rhonchi bilaterally with some difficulty clearing secretions. Agitated requiring Precedex and restraints. Pleural effusion is malignant making stage IV cancer probably incurable will discuss with family and oncology 08/25: Clinically worsening increasing shortness of breath. Currently on 100% nonrebreather with oxygen saturation 90-92%. Diffuse bilateral crackles. I had a family meeting yesterday decided to change CODE STATUS to DNR but not ready for hospice yet. Meeting with palliative care tomorrow. 08/26: Patient currently on comfort measures only. Family yesterday requested comfort measures and they signed the refusal of treatment form 08/25/2018. BiPAP was discontinued. Remains on Precedex and as needed IV Ativan and morphine for comfort. Hospice consulted and will transfer to Hospice care center today - Time Spent with Patient Total time spent providing and/or coordinating discharge services: Greater than 30 minutes - Quality: VTE Deep Vein Thrombosis/Pulmonary Embolism Present on Admission: Yes Exam Vital signs: Vital Signs 08/25/18 15:00 08/25/18 15:15 08/25/18 15:30 Temperature Pulse Rate 81 91 H 93 H Respiratory Rate 36 H 16 16 Blood Pressure 93/56 L 90/53 L 91/53 L Pulse Oximetry 95 75 L 62 L 08/25/18 15:45 08/25/18 16:00 08/25/18 16:15 Temperature 98.2 F Pulse Rate 93 H 94 H 92 H Respiratory Rate 17 18 17 Blood Pressure 99/54 L 99/54 L 98/53 L Pulse Oximetry 65 L 66 L 70 L 08/25/18 16:30 08/25/18 16:45 08/25/18 17:00 Temperature Pulse Rate 90 88 87 Respiratory Rate 15 15 15 Blood Pressure 70/47 L 96/51 L 94/55 L Pulse Oximetry 72 L 74 L 76 L 08/25/18 17:15 08/25/18 17:30 08/25/18 17:45 Temperature Pulse Rate 87 87 86 Respiratory Rate 15 14 15 Blood Pressure 90/55 L 82/50 L 98/54 L Pulse Oximetry 75 L 75 L 75 L 08/25/18 18:00 08/25/18 18:15 08/25/18 18:30 Temperature Pulse Rate 85 84 84 Respiratory Rate 15 14 13 Blood Pressure 92/51 L 89/54 L 90/51 L Pulse Oximetry 78 L 78 L 77 L 08/25/18 18:45 08/25/18 19:00 08/25/18 19:15 Temperature Pulse Rate 83 83 84 Respiratory Rate 14 14 14 Blood Pressure 95/51 L 85/52 L 95/51 L Pulse Oximetry 77 L 77 L 77 L 08/25/18 19:30 08/25/18 19:45 08/25/18 20:00 Temperature 96.8 F L Pulse Rate 84 83 83 Respiratory Rate 13 13 13 Blood Pressure 93/51 L 90/50 L 90/53 L Pulse Oximetry 77 L 77 L 77 L 08/25/18 20:15 08/25/18 20:30 08/25/18 21:00 Temperature Pulse Rate 84 91 H 92 H Respiratory Rate 13 13 12 Blood Pressure 89/51 L 92/54 L 91/52 L Pulse Oximetry 74 L 75 L 71 L 08/25/18 22:00 08/25/18 23:00 08/25/18 23:40 Temperature Pulse Rate 89 83 Respiratory Rate 12 10 L 14 Blood Pressure 90/54 L 87/50 L Pulse Oximetry 77 L 83 L 08/26/18 00:00 08/26/18 01:00 08/26/18 02:00 Temperature 98.0 F Pulse Rate 84 83 82 Respiratory Rate 10 L 10 L 9 L Blood Pressure 91/51 L 98/52 L 101/53 L Pulse Oximetry 73 L 75 L 77 L 08/26/18 03:00 08/26/18 04:00 08/26/18 05:00 Temperature 97.8 F Pulse Rate 80 85 84 Respiratory Rate 9 L 10 L 11 L Blood Pressure 97/54 L 96/54 L Pulse Oximetry 79 L 78 L 83 L 08/26/18 05:01 08/26/18 06:00 08/26/18 06:12 Temperature Pulse Rate 86 134 H 86 Respiratory Rate 8 L 9 L 9 L Blood Pressure 113/54 L 101/59 L Pulse Oximetry 86 L 88 L 85 L 08/26/18 06:55 08/26/18 07:00 08/26/18 07:30 Temperature Pulse Rate 83 Respiratory Rate 10 L 18 Blood Pressure 106/57 L Pulse Oximetry 85 L 92 L 08/26/18 08:00 08/26/18 09:00 08/26/18 10:00 Temperature 98.7 F Pulse Rate 131 H 140 H 133 H Respiratory Rate 9 L 10 L 9 L Blood Pressure 85/59 L 84/55 L 91/52 L Pulse Oximetry 89 L 89 L 86 L 08/26/18 11:00 08/26/18 12:00 Temperature Pulse Rate 133 H 134 H Respiratory Rate 9 L Blood Pressure 87/53 L Pulse Oximetry 86 L Intake & Output 08/25/18 08/26/18 08/26/18 18:59 06:59 18:59 Intake Total 100 / 100 300 / 300 170 / 170 Output Total 550 / 550 250 / 250 Balance -450 / -450 50 / 50 170 / 170 Weight 67.5 kg Intake: IV 100 / 100 300 / 300 170 / 170 Cordarone Inj 450 MG In NS Inj 250 / 250 170 / 170 241 ML @ 1 MG/MIN 33.33 mls/hr IV.CONT TITRATE PRN Rx#: [id number] Precedex Inj 200 MCG In NS Inj 50 / 50 48 ML @ 0.2 MCG/KG/HR 3.45 mls/ hr IV.CONT TITRATE PRN Rx#: [id number] Levaquin 500 mg Premix Inj 500 100 / 100 mg In 100 ml @ 100 mls/hr IV. SIG Q24H REJI Rx#:[id number] Output: Urine Amount (Catheter) 550 / 550 250 / 250 Indwelling Urethral Catheter 550 / 550 250 / 250 Chest Tube Drainage 0 / 0 0 / 0 #1 Right Pleural 0 / 0 0 / 0 Narrative: GENERAL: Frail elderly male, lying in bed sedated comfortable CARDIOVASCULAR: Atrial fibrillation with controlled ventricular rate. No murmurs. RESPIRATORY: On NC -Sat 86%. Bilateral coarse rhonchi and crackles all over the anterior chest. R pigtail chest tube in place GASTROINTESTINAL: Abdomen soft, non-tender, non-distended. Normal active bowel sounds MUSCULOSKELETAL: Extremities without cyanosis, right lower extremity swollen with 1+ pitting edema NEURO: Heavily sedated for patient comfort Results Procedures completed during hospitalization: Procedures performed on 08/19/2018 -Endotracheal intubation -Central line placement -Arterial line placement -Right pigtail chest tube placement IVC filter placement by IR Labs on day of discharge: Preliminary micro results at discharge 08/19/18 13:00 Fungal Culture - Preliminary Other No growth in 1 week - Impressions ITS Impressions IVC Filter Placement X-Ray 08/19/18 00:00 CONCLUSION: 1. Uncomplicated inferior vena cava filter placement as above. This is a removable filter and can be removed up to one year from its placement. Venous Doppler Study 08/19/18 00:00 CONCLUSION: 1. Deep venous thrombosis as above Chest CT 08/22/18 09:57 CONCLUSION: 1. Interval placement of right sided chest tube with decrease in right effusion with multiple residual. 2. Minimal left effusion. 3. Dense consolidation in the both lower lobes. 4. Multiple noncalcified pulmonary nodules consistent with metastatic disease. 5. Cholelithiasis with multiple calcified gallstones. Abdomen X-Ray 08/23/18 00:00 CONCLUSION: 1. Nasogastric tube tip is in the mid stomach. 2. Parenchymal consolidation of both lung bases similar to this morning. 3. Small caliber chest tube at the right lung base with a tiny basilar pneumothorax. This is now significantly changed. Chest X-Ray 08/25/18 09:00 CONCLUSION: Diffuse consolidation likely related to diffuse processes such as edema and/or infection. There is more alveolar density seen at the bases especially on the right. Some degree of right effusion can be considered. Discharge Plan - Discharge Disposition Patient Disposition: 50 Hospice/Home - Discharge Condition Condition: Serious - Discharge Order Discharge Orders: Discharge Order (Routine); Ordered 08/26/18 Ordered By: Yulisa Cannon - Discharge Details Anticipated Discharge Date: 08/26/18 Discharge Comment: DC to hospice - Physicians Team Primary Care Provider: Natan Ravi Attending Provider: Yulisa Cannon Other Providers: Yulisa Cannon MD ; Autumn Strickland MD ; Rebecca Yu MD ; Jaimee Mendoza MD
[2018-08-26 14:27] VITALS: BP 82/47; RESP 12; O2SAT 85
[2018-08-26] MEDS: Sodium Chloride 0.9% 2 ML Flush BID IV.FLUSH SCH (14:36)
[2018-08-26] MEDS: Chlorhexidine 0.12% Oral Kit 15 ML UDC OROPHARYNG SCH (14:36)
[2018-08-26 17:06] VITALS: PULSE 0
== END 2018-08-26 15:13 | disposition expired ==
LOC: NEPC 20:04 → NEDA 23:03 → N04 23:52 → HIMC 08-19 06:10
PROVIDERS: ADMIT Internal Medicine; ATTEND Internal Medicine